=== PATIENT | female | born 1980 | race Caucasian/White ===

== ENCOUNTER → 2018-06-18 12:04 | Outpatient (CLI) | payer OTHER, MEDICAID, SELFPAY ==
[2018-06-18 13:31] LABS: Add Manual Diff / Slide Review NO; Basophils Absolute Auto 0 /uL (0-100); Basophils Percent Auto 0.6 % (0-2); Eosinophils Absolute Auto 0 /uL (0-450); Eosinophils Percent Auto 0.6 % (2-4); Hematocrit 40.4 % (36-46); Hemoglobin 13.8 g/dL (12.0-16.0); Lymphocytes Absolute Auto 1800 /uL (1100-4500); Lymphocytes Percent Auto 24.9 % (25-40); Mean Corpuscular HGB Conc 34.1 % (30-36); Mean Corpuscular Hemoglobin 30.8 PG (26-34); Mean Corpuscular Volume 90.2 fL (80-100); Monocytes Absolute Auto 700 /uL (0-900); Monocytes Percent Auto 9.9 % (3-14); Neutrophils Absolute Auto 4700 /uL (1500-7000); Platelet Count 208 X10^3/uL (150-400); Red Blood Cell Count 4.48 X10^6/uL (4.0-5.2); Red Cell Distribution Width 14.5 % (11.6-14.8); White Blood Cell Count 7.3 X10^3/uL (4.5-11.0)
[2018-06-18 14:26] LABS: Alanine Aminotransferase 34 IU/L (9-52); Albumin 4.9 g/dL (3.5-5.0); Albumin Globulin Ratio 1.5 (1.0-2.8); Alkaline Phosphatase 53 U/L (38-126); Aspartate Aminotransferase 29 IU/L (14-36); Bilirubin Total 0.7 mg/dL (0.2-1.3); Blood Urea Nitrogen 6 mg/dL (7-17); Calcium 9.8 mg/dL (8.4-10.2); Carbon Dioxide 28 mmol/L (22-32); Chloride 100 mmol/L (98-107); Estimated Glomerular Filt Rate > 60.0 mL/min (>60); Globulin 3.2 g/dL (1.7-4.1); Glucose 88 mg/dL (70-100); HEMOLYSIS < 15 (0-50); Potassium 3.5 mmol/L (3.4-5.1); Sodium 138 mmol/L (137-145); Total Protein 8.1 g/dL (6.3-8.2)
[2018-06-18 18:14] LABS: Thyroid Stimulating Hormone 0.74 uIU/mL (0.47-4.68)
== END ==
PROVIDERS: Family Provider Internal Medicine; PCP Internal Medicine; Visit Provider Internal Medicine
DX: E03.9 Hypothyroidism, unspecified (principal); K21.9 Gastro-esophageal reflux disease without esophagitis; K58.9 Irritable bowel syndrome, unspecified; N39.46 Mixed incontinence
CPT/HCPCS: 36415; 80053; 84439; 84443; 85025

== ENCOUNTER → 2018-06-27 13:46 | Outpatient (CLI) | payer OTHER, MEDICAID, SELFPAY ==
--- NOTE | 2018-06-27 | DI.MG.S_ITS ---
BILATERAL DIGITAL DIAGNOSTIC MAMMOGRAM 3D/2D: 06/27/2018 CLINICAL: Baseline exam. Right breast skin thickening. No prior exams were available for comparison. The tissue of both breasts is heterogeneously dense. This may lower the sensitivity of mammography. No significant masses, calcifications, or other findings are seen in either breast. IMPRESSION: INCOMPLETE: NEEDS ADDITIONAL IMAGING EVALUATION There is no abnormality seen in the right breast to correspond with the skin thickening in the upper outer quadrant, however, ultrasound is recommended. There is no abnormality seen in the right axilla to correspond with the pain in the right axilla, however, ultrasound is recommended. This exam was interpreted at Station ID: [id number]. NOTE: For mammograms, a report in lay terms will be sent to the patient. Approximately 15% of breast malignancies will not be visualized mammographically. In the management of a palpable breast mass, a negative mammogram must not discourage biopsy of a clinically suspicious lesion. Electronically Signed By: Oscar romero/farhana:06/27/2018 14:40:15 copy to: Patricio Jauregui ACR BI-RADS Category 0: Incomplete [id number]
--- NOTE | 2018-06-27 | DI.US.S_ITS ---
LIMITED ULTRASOUND OF RIGHT BREAST AND AXILLA: 06/27/2018 CLINICAL: Skin thickening and axillary pain. [facility] of the right breast 10 o'clock, and axilla regions was performed on the areas of interest. IMPRESSION: NEGATIVE There is no sonographic evidence of malignancy. There is no abnormality seen in the right breast to correspond with the skin thickening, however, clinical followup is recommended. There is no abnormality seen in the right axilla to correspond with the pain in the right axilla, however, clinical followup is recommended. A 1 year screening mammogram is recommended. This exam was interpreted at Station ID: [id number]. Electronically Signed By: Oscar romero/farhana:06/27/2018 14:42:55 letter sent: Clinical Evaluation Ultrasound BI-RADS: 1 Negative
== END ==
PROVIDERS: PCP Internal Medicine; Visit Provider Naturopath
DX: R92.8 Other abnormal and inconclusive findings on diagnostic imaging of breast (principal); N64.59 Other signs and symptoms in breast; N64.4 Mastodynia
CPT/HCPCS: 76642; 77066; G0279

== ENCOUNTER 2018-09-05 07:30 | Outpatient (RCR) | payer OTHER, MEDICAID, SELFPAY ==
--- NOTE | 2018-07-25 08:48 | PT.OIE ---
Current Diagnoses Chondromalacia patellae, right knee (07/25/18) Past Medical History (Last Updated 10/23/17 @ 12:07 by Patricio Jauregui MD) Acquired hypothyroidism (Chronic 10/13/10) Irritable bowel syndrome without diarrhea (Chronic 10/13/10) Delayed gastric emptying (Chronic 05/31/15) Allergic rhinitis, unspecified (Chronic 10/13/10) Acid reflux (Chronic) Mixed stress and urge urinary incontinence (Chronic 02/04/15) Psychophysiological insomnia (Chronic 02/04/15) Varicose veins (Inactive 02/04/15) Acne, unspecified (Chronic 10/13/10) IBS (irritable bowel syndrome) (Chronic) Past Surgical History (Last Updated 10/22/17 @ 14:42 by Nora Valenzuela) Status post laparoscopic cholecystectomy (Resolved) Provider Visit Care Team Role Provider Type Patricio Jauregui MD Primary Care Provider Physician Specialty: Internal Medicine Address: [address] [place] [address], [id number] Email: [email or web address] Sandip Kuhn MD Attending Provider Non-Staff Specialty: Orthopedics Address: [address] [place] [address], [id number] Email: Physical Therapy Initial Evaluation PT-OP-A Visit Information Start: 07/24/18 18:48 Freq: Status: Active Protocol: Document 07/25/18 07:31 [facility] (Rec: 07/25/18 08:48 [facility] [id number]) Out-Patient Physical Therapy Visit Information Visit Information Visit Type Initial Evaluation Visit Start Time 07:35 Visit Stop Time 08:20 Total Visit Minutes 45 Visit Number 1 Number of DICE TABLE PERSON Visits 0 PT-OP-B Current Condition Start: 07/24/18 18:48 Freq: Status: Active Protocol: Document 07/25/18 07:31 [facility] (Rec: 07/25/18 08:48 [facility] [id number]) Current Condition History of Current Condition History of Current Condition Pt reports she was out hiking in the summer of 2016 and her knee was swollen and it got better in the winter when she was more active. Pt reports in spring it started to be a problem again with more activity. Pt reports he hikes about 4 miles a day and does yoga. Pt reports at the end of the day it is achey but it doesn't hurt much until later after activity. Prior Treatments and Tests Xray & MRI reports Treatment Goals Patient/Caregiver Goals Prevent anything worse from happening, strengthen PT-OP-C Subjective Start: 07/24/18 18:48 Freq: Status: Active Protocol: Document 07/25/18 07:31 [facility] (Rec: 07/25/18 08:48 [facility] [id number]) OP-PT Pain Assessment Location R knee Pain Location Details kneecap & med knee Intensity 3 Scale Used Numeric (1 - 10) Description Burning Frequency Intermittent Pain Duration 30 min to an hour only if she gets off of it Other Pain Aggravating Factors uphills, stairs up, yoga(squat positions), squat Pain Alleviating Factors Cold Inactivity PT-OP-F Manual Assessment Start: 07/24/18 18:48 Freq: Status: Active Protocol: Document 07/25/18 07:31 [facility] (Rec: 07/25/18 08:48 [facility] [id number]) Manual Assessments Soft Tissue Assessment Soft Tissue Mobility Assessment calf tightness & HS tightness without tenderness; med joint line tenderness Joint Mobility Assessment Joint Mobility Assessment IR of R femur & tibia & L IR femur & mild IR of tibia; able to SLS without issue EO; EC for about 3 sec B; inf glide of patella crepetis; squatting creates crepitis with pain w/ repetition; compensated supination R>L foot PT-OP-G Mobility & Gait Start: 07/24/18 18:48 Freq: Status: Active Protocol: Document 07/25/18 07:31 [facility] (Rec: 07/25/18 08:48 [facility] [id number]) OP Gait Assessment Comments Gait Comments Pt amb with excesssive rotation & lat shearing of pelvis Stair Climbing Evaluation Comments Stair Climbing Comments WNL PT-OP-K Range of Motion Start: 07/24/18 18:48 Freq: Status: Active Protocol: Document 07/25/18 07:31 [facility] (Rec: 07/25/18 08:48 [facility] [id number]) Knee Goniometric Range of Motion Knee Measured in Degrees Right Patient Position Supine Flexion Active (degrees) 140 Extension Active (degrees) 0 PT-OP-L Special Tests Start: 07/24/18 18:48 Freq: Status: Active Protocol: Document 07/25/18 07:31 [facility] (Rec: 07/25/18 08:48 [facility] [id number]) Special Tests Hip Special Tests Straight Leg Raise Test Results R HS slightly less than less both WNL Tremaine Test Results pain in R knee-WNL flexiblity Knee Special Tests Posterior Draw Test Results neg Catherine's Test Results neg Christel Test Test Results neg Varus- 25 Degrees Test Results neg Valgus- 25 Degrees Test Results neg PT-OP-M Strength Start: 07/24/18 18:48 Freq: Status: Active Protocol: Document 07/25/18 07:31 [facility] (Rec: 07/25/18 08:48 [facility] [id number]) Hip Strength Hip Manual Muscle Testing Right Flexion (L2) 4+ Good+ Extension (S1) 4+ Good+ Abduction 4+ Good+ Adduction 5 Normal External Rotation 5 Normal Internal Rotation 5 Normal Left Flexion (L2) 4+ Good+ Extension (S1) 4+ Good+ Abduction 5 Normal Adduction 5 Normal External Rotation 5 Normal Internal Rotation 5 Normal Knee Strength Knee Manual Muscle Testing Right Flexion (S2) 5 Normal Extension (L3) 5 Normal Left Flexion (S2) 5 Normal Extension (L3) 5 Normal Ankle/Foot Strength Ankle and Foot Manual Muscle Testing Right Dorsiflexion (L4) 5 Normal Plantarflexion (S1) 5 Normal Left Dorsiflexion (L4) 5 Normal Plantarflexion (S1) 5 Normal PT-OP-Q Treatments Start: 07/24/18 18:48 Freq: Status: Active Protocol: Document 07/25/18 07:31 [facility] (Rec: 07/25/18 08:48 [facility] [id number]) Therapeutic Exercises Sidelying Exercises hip abd Sidelying Exercise Name vs wall Side right Reps/Minutes 10 Standing Exercises squat Standing Exercise Name wall squat Side bilateral Reps/Minutes 8 Comments focus on knee position quad stretch Standing Exercise Name over bench & foot to glute hold Side right Reps/Minutes 30 sec Manual Therapy Treatment Taping KT Body Location 3 Y strips ant knee & quad Treatment Focus med patellar glide Type of Tape Kinesio Tape PT-OP-T Assessment and Plan Start: 07/24/18 18:48 Freq: Status: Active Protocol: Document 07/25/18 07:31 [facility] (Rec: 07/25/18 08:48 [facility] [id number]) Physical Therapy Assessment Rehab Potential Rehabilitation Potential Excellent Evaluation Complexity Number of Personal Factors/Comorbidities 1-2 Number of Body Systems Impaired 4 or More Clinical Presentation at Evaluation Stable Impairments Impairments Activity Tolerance Balance Functional Activities Functional Mobility Pain Posture Soft Tissue Mobility Strength Goals strength Short Term Goal (STG) Pt will be indep with HEP STG Duration 08/25/18 Traffic Lieutenant Goal (LTG) Pt will have 5/5 LE strength and be tested with 5/5 LPM & VCT in order to show good stability to allow her to cont her active lifestyle and have no resulting pain. LTG Duration 09/24/18 pain Short Term Goal (STG) Pt will have good squat and lunge form and be able to participate in yoga routines with modifications as needed without knee pain. STG Duration 08/25/18 Mcfp Goal (LTG) Pt will not experience pain at the end of the day if she does repetitive squatting or significant amount of uphilll activity. LTG Duration 09/24/18 Assessment Summary Assessment Pt presents with R knee pain likely d/t chondramalacia patella and lat tracking of patella with ext. She experiences crepetitis with knee flex/ext and is concerned about making her symptoms worse as she would like to keep up her active lifestyle. 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 she would benefit from skilled PT in order to cont her active lifestyle with no pain. Physical Therapy Plan Frequency and Duration Frequency of Treatment 2x/Week Duration of Treatment 2 months Plan of Care Start Date 07/25/18 Plan of Care End Date 09/24/18 Therapeutic Interventions Therapeutic Interventions Aquatic Therapy Balance Training Gait Training Home Exercise Program Joint Mobilizations Manual Therapy Neuromuscular Re-education Patient/Caregiver Education Self-Care/Home Management Soft Tissue Mobilization Taping Therapeutic Activities Therapeutic Exercises Modalities Cold Pack/Ice Massage Electric Stimulation Hot Packs Infrared Therapy Iontophoresis Ultrasound Next Visit Focus/Plan Next Note Type Treatment Note Next Visit Plan Squatting mechanics, hip extension strenthening, PNF post depression
--- NOTE | 2018-07-25 08:48 | PT.OPPOC ---
Current Diagnoses Chondromalacia patellae, right knee (07/25/18) Provider Visit Care Team Role Provider Type Patricio Jauregui MD Primary Care Provider Physician Specialty: Internal Medicine Address: [address] [place] [address], [id number] Email: [email or web address] Sandip Kuhn MD Attending Provider Non-Staff Specialty: Orthopedics Address: [address] [place] [address] [place], [address] Email: Plan Of Care PT-OP-T Assessment and Plan Start: 07/24/18 18:48 Freq: Status: Active Protocol: Document 07/25/18 07:31 [facility] (Rec: 07/25/18 08:48 [facility] [id number]) Physical Therapy Assessment Rehab Potential Rehabilitation Potential Excellent Evaluation Complexity Number of Personal Factors/Comorbidities 1-2 Number of Body Systems Impaired 4 or More Clinical Presentation at Evaluation Stable Impairments Impairments Activity Tolerance Balance Functional Activities Functional Mobility Pain Posture Soft Tissue Mobility Strength Goals strength Short Term Goal (STG) Pt will be indep with HEP STG Duration 08/25/18 Shelter Goal (LTG) Pt will have 5/5 LE strength and be tested with 5/5 LPM & VCT in order to show good stability to allow her to cont her active lifestyle and have no resulting pain. LTG Duration 09/24/18 pain Short Term Goal (STG) Pt will have good squat and lunge form and be able to participate in yoga routines with modifications as needed without knee pain. STG Duration 08/25/18 Shelter Goal (LTG) Pt will not experience pain at the end of the day if she does repetitive squatting or significant amount of uphilll activity. LTG Duration 09/24/18 Assessment Summary Assessment Pt presents with R knee pain likely d/t chondramalacia patella and lat tracking of patella with ext. She experiences crepetitis with knee flex/ext and is concerned about making her symptoms worse as she would like to keep up her active lifestyle. 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 she would benefit from skilled PT in order to cont her active lifestyle with no pain. Physical Therapy Plan Frequency and Duration Frequency of Treatment 2x/Week Duration of Treatment 2 months Plan of Care Start Date 07/25/18 Plan of Care End Date 09/24/18 Therapeutic Interventions Therapeutic Interventions Aquatic Therapy Balance Training Gait Training Home Exercise Program Joint Mobilizations Manual Therapy Neuromuscular Re-education Patient/Caregiver Education Self-Care/Home Management Soft Tissue Mobilization Taping Therapeutic Activities Therapeutic Exercises Modalities Cold Pack/Ice Massage Electric Stimulation Hot Packs Infrared Therapy Iontophoresis Ultrasound Next Visit Focus/Plan Next Note Type Treatment Note Next Visit Plan Squatting mechanics, hip extension strenthening, PNF post depression Plan of Care Dates Plan of Care Start Date 07/25/18 Plan of Care End Date 09/24/18 Please Sign and Return: I have reviewed this Plan of Care and certify that the skilled therapy services above are required to meet the patient?s needs. Physician Signature Date Printed Name and Credentials Clinical Instructor Signature Printed Name and Credentials
--- NOTE | 2018-07-30 08:37 | PT.OTN ---
Current Diagnoses Chondromalacia patellae, right knee (07/30/18) Physical Therapy Treatment Note PT-OP-A Visit Information Start: 07/24/18 18:48 Freq: Status: Active Protocol: Document 07/30/18 07:25 [facility] (Rec: 07/30/18 08:36 [facility] [id number]) Out-Patient Physical Therapy Visit Information Visit Information Visit Type Treatment Note Visit Start Time 07:30 Visit Stop Time 08:10 Total Visit Minutes 40 Visit Number 2 Number of AUDIO/VIDEO TECHNICIAN Visits 0 PT-OP-B Current Condition Start: 07/24/18 18:48 Freq: Status: Active Protocol: Document 07/25/18 07:31 [facility] (Rec: 07/25/18 08:48 [facility] [id number]) Current Condition History of Current Condition History of Current Condition Pt reports she was out hiking in the summer of 2016 and her knee was swollen and it got better in the winter when she was more active. Pt reports in spring it started to be a problem again with more activity. Pt reports he hikes about 4 miles a day and does yoga. Pt reports at the end of the day it is achey but it doesn't hurt much until later after activity. Prior Treatments and Tests Xray & MRI reports Treatment Goals Patient/Caregiver Goals Prevent anything worse from happening, strengthen PT-OP-C Subjective Start: 07/24/18 18:48 Freq: Status: Active Protocol: Document 07/30/18 07:25 [facility] (Rec: 07/30/18 08:36 [facility] [id number]) OP-PT Subjective Patient Comments Patient Comments Pt reports she liked the taping a lot. She has done the exercises a few times since last session. PT-OP-F Manual Assessment Start: 07/24/18 18:48 Freq: Status: Active Protocol: Document 07/25/18 07:31 [facility] (Rec: 07/25/18 08:48 [facility] [id number]) Manual Assessments Soft Tissue Assessment Soft Tissue Mobility Assessment calf tightness & HS tightness without tenderness; med joint line tenderness Joint Mobility Assessment Joint Mobility Assessment IR of R femur & tibia & L IR femur & mild IR of tibia; able to SLS without issue EO; EC for about 3 sec B; inf glide of patella crepetis; squatting creates crepitis with pain w/ repetition; compensated supination R>L foot PT-OP-G Mobility & Gait Start: 07/24/18 18:48 Freq: Status: Active Protocol: Document 07/25/18 07:31 [facility] (Rec: 07/25/18 08:48 [facility] [id number]) OP Gait Assessment Comments Gait Comments Pt amb with excesssive rotation & lat shearing of pelvis Stair Climbing Evaluation Comments Stair Climbing Comments WNL PT-OP-K Range of Motion Start: 07/24/18 18:48 Freq: Status: Active Protocol: Document 07/25/18 07:31 [facility] (Rec: 07/25/18 08:48 [facility] [id number]) Knee Goniometric Range of Motion Knee Measured in Degrees Right Patient Position Supine Flexion Active (degrees) 140 Extension Active (degrees) 0 PT-OP-L Special Tests Start: 07/24/18 18:48 Freq: Status: Active Protocol: Document 07/25/18 07:31 [facility] (Rec: 07/25/18 08:48 [facility] [id number]) Special Tests Hip Special Tests Straight Leg Raise Test Results R HS slightly less than less both WNL Tremaine Test Results pain in R knee-WNL flexiblity Knee Special Tests Posterior Draw Test Results neg Catherine's Test Results neg Christel Test Test Results neg Varus- 25 Degrees Test Results neg Valgus- 25 Degrees Test Results neg PT-OP-M Strength Start: 07/24/18 18:48 Freq: Status: Active Protocol: Document 07/25/18 07:31 [facility] (Rec: 07/25/18 08:48 [facility] [id number]) Hip Strength Hip Manual Muscle Testing Right Flexion (L2) 4+ Good+ Extension (S1) 4+ Good+ Abduction 4+ Good+ Adduction 5 Normal External Rotation 5 Normal Internal Rotation 5 Normal Left Flexion (L2) 4+ Good+ Extension (S1) 4+ Good+ Abduction 5 Normal Adduction 5 Normal External Rotation 5 Normal Internal Rotation 5 Normal Knee Strength Knee Manual Muscle Testing Right Flexion (S2) 5 Normal Extension (L3) 5 Normal Left Flexion (S2) 5 Normal Extension (L3) 5 Normal Ankle/Foot Strength Ankle and Foot Manual Muscle Testing Right Dorsiflexion (L4) 5 Normal Plantarflexion (S1) 5 Normal Left Dorsiflexion (L4) 5 Normal Plantarflexion (S1) 5 Normal PT-OP-Q Treatments Start: 07/24/18 18:48 Freq: Status: Active Protocol: Document 07/30/18 07:25 [facility] (Rec: 07/30/18 08:36 [facility] [id number]) Therapeutic Exercises Supine Exercises hip flex isometric Supine Exercise Name flex & diagonal w/core engagment Side bilateral Reps/Minutes 30 sec ea Prone Exercises hip ext Prone Exercise Name alt w/core engagment Side bilateral Reps/Minutes 10 Sidelying Exercises hip abd Sidelying Exercise Name vs wall Side right Reps/Minutes 10 Standing Exercises squatting Standing Exercise Name w/ruler on back Side bilateral Reps/Minutes 8x2 hip hinge Standing Exercise Name w/yard stick on back Side bilateral Reps/Minutes 10 squat Standing Exercise Name wall squat Side bilateral Reps/Minutes 8 Comments focus on knee position Therapeutic Activity Therapeutic Activity standing posture Name edu on neutral alignment Comments avoiding knee ext Manual Therapy Treatment Soft Tissue Mobilization ITB Body Location ITB & lat quad Mobilization Type Rolling Strumming Comments in tremaine test position Taping KT Body Location 3 Y strips ant knee & quad Treatment Focus med patellar glide Type of Tape Kinesio Tape PT-OP-T Assessment and Plan Start: 07/24/18 18:48 Freq: Status: Active Protocol: Document 07/30/18 07:25 [facility] (Rec: 07/30/18 08:36 [facility] [id number]) Physical Therapy Assessment Goals strength Short Term Goal (STG) Pt will be indep with HEP STG Duration 08/25/18 Residential Goal (LTG) Pt will have 5/5 LE strength and be tested with 5/5 LPM & VCT in order to show good stability to allow her to cont her active lifestyle and have no resulting pain. LTG Duration 09/24/18 pain Short Term Goal (STG) Pt will have good squat and lunge form and be able to participate in yoga routines with modifications as needed without knee pain. STG Duration 08/25/18 Residential Goal (LTG) Pt will not experience pain at the end of the day if she does repetitive squatting or significant amount of uphilll activity. LTG Duration 09/24/18 Assessment Summary Assessment Pt had difficulty maintaining neutral spine during exercises . She goes into significantly inc lumbar lordosis & ant tilted pelvis and requires cueing neutral positioning. She has some dec core control which liikely contributes to her her knee instability & pain. Physical Therapy Plan Frequency and Duration Frequency of Treatment 2x/Week Duration of Treatment 2 months Plan of Care Start Date 07/25/18 Plan of Care End Date 09/24/18 Next Visit Focus/Plan Next Note Type Treatment Note Next Visit Plan Cont to work on posture & maintaining posture during squat; STM to ITB and tape as needed
--- NOTE | 2018-08-01 16:11 | PT.OTN ---
Current Diagnoses Chondromalacia patellae, right knee (08/01/18) Physical Therapy Treatment Note PT-OP-A Visit Information Start: 07/24/18 18:48 Freq: Status: Active Protocol: Document 08/01/18 07:30 BS (Rec: 08/01/18 07:27 [id number]) Out-Patient Physical Therapy Visit Information Visit Information Visit Type Treatment Note Visit Start Time 07:35 Visit Stop Time 08:15 Total Visit Minutes 40 Visit Number 3 Number of AIRCRAFT CAPTAIN Visits 0 PT-OP-B Current Condition Start: 07/24/18 18:48 Freq: Status: Active Protocol: Document 07/25/18 07:31 [facility] (Rec: 07/25/18 08:48 [facility] [id number]) Current Condition History of Current Condition History of Current Condition Pt reports she was out hiking in the summer of 2016 and her knee was swollen and it got better in the winter when she was more active. Pt reports in spring it started to be a problem again with more activity. Pt reports he hikes about 4 miles a day and does yoga. Pt reports at the end of the day it is achey but it doesn't hurt much until later after activity. Prior Treatments and Tests Xray & MRI reports Treatment Goals Patient/Caregiver Goals Prevent anything worse from happening, strengthen PT-OP-C Subjective Start: 07/24/18 18:48 Freq: Status: Active Protocol: Document 08/01/18 07:30 BS (Rec: 08/01/18 07:27 BS [id number]) OP-PT Subjective Patient Comments Patient Comments Pt continues to report benefits from taping. She is more aware of posture, no resting knee pain today. Mostly with kneeling and going up stairs. PT-OP-F Manual Assessment Start: 07/24/18 18:48 Freq: Status: Active Protocol: Document 07/25/18 07:31 [facility] (Rec: 07/25/18 08:48 [facility] [id number]) Manual Assessments Soft Tissue Assessment Soft Tissue Mobility Assessment calf tightness & HS tightness without tenderness; med joint line tenderness Joint Mobility Assessment Joint Mobility Assessment IR of R femur & tibia & L IR femur & mild IR of tibia; able to SLS without issue EO; EC for about 3 sec B; inf glide of patella crepetis; squatting creates crepitis with pain w/ repetition; compensated supination R>L foot PT-OP-G Mobility & Gait Start: 07/24/18 18:48 Freq: Status: Active Protocol: Document 07/25/18 07:31 [facility] (Rec: 07/25/18 08:48 [facility] [id number]) OP Gait Assessment Comments Gait Comments Pt amb with excesssive rotation & lat shearing of pelvis Stair Climbing Evaluation Comments Stair Climbing Comments WNL PT-OP-K Range of Motion Start: 07/24/18 18:48 Freq: Status: Active Protocol: Document 07/25/18 07:31 [facility] (Rec: 07/25/18 08:48 [facility] [id number]) Knee Goniometric Range of Motion Knee Measured in Degrees Right Patient Position Supine Flexion Active (degrees) 140 Extension Active (degrees) 0 PT-OP-L Special Tests Start: 07/24/18 18:48 Freq: Status: Active Protocol: Document 07/25/18 07:31 [facility] (Rec: 07/25/18 08:48 [facility] [id number]) Special Tests Hip Special Tests Straight Leg Raise Test Results R HS slightly less than less both WNL Tremaine Test Results pain in R knee-WNL flexiblity Knee Special Tests Posterior Draw Test Results neg Catherine's Test Results neg Christel Test Test Results neg Varus- 25 Degrees Test Results neg Valgus- 25 Degrees Test Results neg PT-OP-M Strength Start: 07/24/18 18:48 Freq: Status: Active Protocol: Document 07/25/18 07:31 [facility] (Rec: 07/25/18 08:48 [facility] [id number]) Hip Strength Hip Manual Muscle Testing Right Flexion (L2) 4+ Good+ Extension (S1) 4+ Good+ Abduction 4+ Good+ Adduction 5 Normal External Rotation 5 Normal Internal Rotation 5 Normal Left Flexion (L2) 4+ Good+ Extension (S1) 4+ Good+ Abduction 5 Normal Adduction 5 Normal External Rotation 5 Normal Internal Rotation 5 Normal Knee Strength Knee Manual Muscle Testing Right Flexion (S2) 5 Normal Extension (L3) 5 Normal Left Flexion (S2) 5 Normal Extension (L3) 5 Normal Ankle/Foot Strength Ankle and Foot Manual Muscle Testing Right Dorsiflexion (L4) 5 Normal Plantarflexion (S1) 5 Normal Left Dorsiflexion (L4) 5 Normal Plantarflexion (S1) 5 Normal PT-OP-Q Treatments Start: 07/24/18 18:48 Freq: Status: Active Protocol: Document 08/01/18 07:30 BS (Rec: 08/01/18 16:03 BS [id number]) Therapeutic Exercises Sidelying Exercises 1 Sidelying Exercise Name ITB stretch, quad Side right Reps/Minutes 2x30 Comments manual stretching ITB and quad hip abd Side right Reps/Minutes 2x10 Comments on mat table today Standing Exercises 4 Standing Exercise Name 4 inch step down/unilateral squat Side right Reps/Minutes x8 Comments neutral pelvis, manual guidance for knee position 3 Standing Exercise Name hip extension Side bilateral Resistance 2# ankle weight Reps/Minutes x10 each Comments Single limb pelvic stability, avoid lordosis 2 Standing Exercise Name Sidestepping Equipment Used #2 band above knees Comments avoiding genu valgum 1 Standing Exercise Name Monster Walk Equipment Used #2 band above knees Comments avoiding genu valgum squat Standing Exercise Name wall squat with hip ER Side bilateral Equipment Used #2 tband around knees Reps/Minutes x10 Comments focus on knee position, avoid locked knees with extension Manual Therapy Treatment Taping KT Body Location 3 Y strips ant knee & quad Treatment Focus med patellar glide Type of Tape Kinesio Tape PT-OP-T Assessment and Plan Start: 07/24/18 18:48 Freq: Status: Active Protocol: Document 08/01/18 07:30 BS (Rec: 08/01/18 16:03 BS [id number]) Physical Therapy Assessment Goals strength Short Term Goal (STG) Pt will be indep with HEP STG Duration 08/25/18 Pbx Operator Goal (LTG) Pt will have 5/5 LE strength and be tested with 5/5 LPM & VCT in order to show good stability to allow her to cont her active lifestyle and have no resulting pain. LTG Duration 09/24/18 pain Short Term Goal (STG) Pt will have good squat and lunge form and be able to participate in yoga routines with modifications as needed without knee pain. STG Duration 08/25/18 Long-Term Goal (LTG) Pt will not experience pain at the end of the day if she does repetitive squatting or significant amount of uphilll activity. LTG Duration 09/24/18 Assessment Summary Assessment [facility] so went barefoot for standing hip abduction exercises. She required VCs to avoid excessive lumbar lordosis and genuvalgum and locking of knees with terminal extension during squats. Pt felt that maintaining neutral knee position with monster walks while barefoot put too much pressure on her lateral foot with supination. Pt encouraged to wear tennis shoes next session. Physical Therapy Plan Next Visit Focus/Plan Next Note Type Treatment Note Next Visit Plan Continue to work on knee position with dynamic hip/knee strengthening exercises. Progress as able.
--- NOTE | 2018-08-06 08:32 | PT.OTN ---
Current Diagnoses Chondromalacia patellae, right knee (08/06/18) Physical Therapy Treatment Note PT-OP-A Visit Information Start: 07/24/18 18:48 Freq: Status: Active Protocol: Document 08/06/18 08:23 (Rec: 08/06/18 08:32 [id number]) Out-Patient Physical Therapy Visit Information Visit Information Visit Type Treatment Note Visit Start Time 07:30 Visit Stop Time 08:15 Total Visit Minutes 45 Visit Number 4 Number of SLICING MACHINE TENDER Visits 1 PT-OP-B Current Condition Start: 07/24/18 18:48 Freq: Status: Active Protocol: Document 07/25/18 07:31 [facility] (Rec: 07/25/18 08:48 [facility] [id number]) Current Condition History of Current Condition History of Current Condition Pt reports she was out hiking in the summer of 2016 and her knee was swollen and it got better in the winter when she was more active. Pt reports in spring it started to be a problem again with more activity. Pt reports he hikes about 4 miles a day and does yoga. Pt reports at the end of the day it is achey but it doesn't hurt much until later after activity. Prior Treatments and Tests Xray & MRI reports Treatment Goals Patient/Caregiver Goals Prevent anything worse from happening, strengthen PT-OP-C Subjective Start: 07/24/18 18:48 Freq: Status: Active Protocol: Document 08/06/18 08:23 (Rec: 08/06/18 08:32 [id number]) OP-PT Subjective Patient Comments Patient Comments Pt denies knee pain today, tolerated a decent hike this weekend well, taping was very helpful. PT-OP-F Manual Assessment Start: 07/24/18 18:48 Freq: Status: Active Protocol: Document 07/25/18 07:31 [facility] (Rec: 07/25/18 08:48 [facility] [id number]) Manual Assessments Soft Tissue Assessment Soft Tissue Mobility Assessment calf tightness & HS tightness without tenderness; med joint line tenderness Joint Mobility Assessment Joint Mobility Assessment IR of R femur & tibia & L IR femur & mild IR of tibia; able to SLS without issue EO; EC for about 3 sec B; inf glide of patella crepetis; squatting creates crepitis with pain w/ repetition; compensated supination R>L foot PT-OP-G Mobility & Gait Start: 07/24/18 18:48 Freq: Status: Active Protocol: Document 07/25/18 07:31 [facility] (Rec: 07/25/18 08:48 [facility] [id number]) OP Gait Assessment Comments Gait Comments Pt amb with excesssive rotation & lat shearing of pelvis Stair Climbing Evaluation Comments Stair Climbing Comments WNL PT-OP-K Range of Motion Start: 07/24/18 18:48 Freq: Status: Active Protocol: Document 07/25/18 07:31 [facility] (Rec: 07/25/18 08:48 [facility] [id number]) Knee Goniometric Range of Motion Knee Measured in Degrees Right Patient Position Supine Flexion Active (degrees) 140 Extension Active (degrees) 0 PT-OP-L Special Tests Start: 07/24/18 18:48 Freq: Status: Active Protocol: Document 07/25/18 07:31 [facility] (Rec: 07/25/18 08:48 [facility] [id number]) Special Tests Hip Special Tests Straight Leg Raise Test Results R HS slightly less than less both WNL Tremaine Test Results pain in R knee-WNL flexiblity Knee Special Tests Posterior Draw Test Results neg Catherine's Test Results neg Christel Test Test Results neg Varus- 25 Degrees Test Results neg Valgus- 25 Degrees Test Results neg PT-OP-M Strength Start: 07/24/18 18:48 Freq: Status: Active Protocol: Document 07/25/18 07:31 [facility] (Rec: 07/25/18 08:48 [facility] [id number]) Hip Strength Hip Manual Muscle Testing Right Flexion (L2) 4+ Good+ Extension (S1) 4+ Good+ Abduction 4+ Good+ Adduction 5 Normal External Rotation 5 Normal Internal Rotation 5 Normal Left Flexion (L2) 4+ Good+ Extension (S1) 4+ Good+ Abduction 5 Normal Adduction 5 Normal External Rotation 5 Normal Internal Rotation 5 Normal Knee Strength Knee Manual Muscle Testing Right Flexion (S2) 5 Normal Extension (L3) 5 Normal Left Flexion (S2) 5 Normal Extension (L3) 5 Normal Ankle/Foot Strength Ankle and Foot Manual Muscle Testing Right Dorsiflexion (L4) 5 Normal Plantarflexion (S1) 5 Normal Left Dorsiflexion (L4) 5 Normal Plantarflexion (S1) 5 Normal PT-OP-Q Treatments Start: 07/24/18 18:48 Freq: Status: Active Protocol: Document 08/06/18 08:23 [facility] (Rec: 08/06/18 08:32 [email or web address]) Therapeutic Exercises Supine Exercises hip flex isometric Supine Exercise Name flex & diagonal w/core engagment Side bilateral Reps/Minutes 30 sec ea Sidelying Exercises 1 Sidelying Exercise Name ITB stretch, quad Side right Reps/Minutes 2x30 Comments manual stretching ITB and quad hip abd Side right Reps/Minutes 2x10 Comments on mat table today Standing Exercises 4 Standing Exercise Name 4 inch step down/unilateral squat Side right Equipment Used mirror Reps/Minutes 10x Comments neutral pelvis, manual guidance for knee position 3 Standing Exercise Name hip extension Side bilateral Resistance 2# ankle weight Equipment Used mirror Reps/Minutes x15 each Comments Single limb pelvic stability, avoid lordosis 2 Standing Exercise Name Sidestepping Equipment Used yellow TB Comments avoiding genu valgum 1 Standing Exercise Name Monster Walk Equipment Used Yellow TB Comments avoiding genu valgum hip hinge Standing Exercise Name w/yard stick on back Side bilateral Reps/Minutes 10 squat Standing Exercise Name wall squat with hip ER Side bilateral Equipment Used #2 tband around knees Reps/Minutes x10 Comments focus on knee position, avoid locked knees with extension Manual Therapy Treatment Soft Tissue Mobilization ITB Body Location ITB & lat quad Mobilization Type Rolling Strumming Comments in tremaine test position Taping KT Body Location 3 Y strips ant knee & quad Treatment Focus med patellar glide Type of Tape Kinesio Tape PT-OP-T Assessment and Plan Start: 07/24/18 18:48 Freq: Status: Active Protocol: Document 08/06/18 08:23 (Rec: 08/06/18 08:32 [id number]) Physical Therapy Assessment Assessment Summary Assessment Pt with athletic shoes on, decreased pronation with exercise. Pt with improving awareness of knee alignment and movement patterns. Physical Therapy Plan Next Visit Focus/Plan Next Note Type Treatment Note Next Visit Plan Continue to work on knee position with dynamic hip/knee strengthening exercises. Progress as able.
--- NOTE | 2018-08-08 08:38 | PT.OTN ---
Current Diagnoses Chondromalacia patellae, right knee (08/08/18) Physical Therapy Treatment Note PT-OP-A Visit Information Start: 07/24/18 18:48 Freq: Status: Active Protocol: Document 08/08/18 07:30 [facility] (Rec: 08/08/18 08:38 [facility] [id number]) Out-Patient Physical Therapy Visit Information Visit Information Visit Type Treatment Note Visit Start Time 07:30 Visit Stop Time 08:10 Total Visit Minutes 40 Visit Number 5 Number of REINFORCED IRONWORKER Visits 0 PT-OP-B Current Condition Start: 07/24/18 18:48 Freq: Status: Active Protocol: Document 07/25/18 07:31 [facility] (Rec: 07/25/18 08:48 [facility] [id number]) Current Condition History of Current Condition History of Current Condition Pt reports she was out hiking in the summer of 2016 and her knee was swollen and it got better in the winter when she was more active. Pt reports in spring it started to be a problem again with more activity. Pt reports he hikes about 4 miles a day and does yoga. Pt reports at the end of the day it is achey but it doesn't hurt much until later after activity. Prior Treatments and Tests Xray & MRI reports Treatment Goals Patient/Caregiver Goals Prevent anything worse from happening, strengthen PT-OP-C Subjective Start: 07/24/18 18:48 Freq: Status: Active Protocol: Document 08/08/18 07:30 [facility] (Rec: 08/08/18 08:38 [facility] [id number]) OP-PT Subjective Patient Comments Patient Comments Pt reports she did a 9 mile hike with 3k ft of elevation without knee pain. Feels like she is turning a corner. PT-OP-F Manual Assessment Start: 07/24/18 18:48 Freq: Status: Active Protocol: Document 07/25/18 07:31 [facility] (Rec: 07/25/18 08:48 [facility] [id number]) Manual Assessments Soft Tissue Assessment Soft Tissue Mobility Assessment calf tightness & HS tightness without tenderness; med joint line tenderness Joint Mobility Assessment Joint Mobility Assessment IR of R femur & tibia & L IR femur & mild IR of tibia; able to SLS without issue EO; EC for about 3 sec B; inf glide of patella crepetis; squatting creates crepitis with pain w/ repetition; compensated supination R>L foot PT-OP-G Mobility & Gait Start: 07/24/18 18:48 Freq: Status: Active Protocol: Document 07/25/18 07:31 [facility] (Rec: 07/25/18 08:48 [facility] [id number]) OP Gait Assessment Comments Gait Comments Pt amb with excesssive rotation & lat shearing of pelvis Stair Climbing Evaluation Comments Stair Climbing Comments WNL PT-OP-K Range of Motion Start: 07/24/18 18:48 Freq: Status: Active Protocol: Document 07/25/18 07:31 [facility] (Rec: 07/25/18 08:48 [facility] [id number]) Knee Goniometric Range of Motion Knee Measured in Degrees Right Patient Position Supine Flexion Active (degrees) 140 Extension Active (degrees) 0 PT-OP-L Special Tests Start: 07/24/18 18:48 Freq: Status: Active Protocol: Document 07/25/18 07:31 [facility] (Rec: 07/25/18 08:48 [facility] [id number]) Special Tests Hip Special Tests Straight Leg Raise Test Results R HS slightly less than less both WNL Tremaine Test Results pain in R knee-WNL flexiblity Knee Special Tests Posterior Draw Test Results neg Catherine's Test Results neg Christel Test Test Results neg Varus- 25 Degrees Test Results neg Valgus- 25 Degrees Test Results neg PT-OP-M Strength Start: 07/24/18 18:48 Freq: Status: Active Protocol: Document 07/25/18 07:31 [facility] (Rec: 07/25/18 08:48 [facility] [id number]) Hip Strength Hip Manual Muscle Testing Right Flexion (L2) 4+ Good+ Extension (S1) 4+ Good+ Abduction 4+ Good+ Adduction 5 Normal External Rotation 5 Normal Internal Rotation 5 Normal Left Flexion (L2) 4+ Good+ Extension (S1) 4+ Good+ Abduction 5 Normal Adduction 5 Normal External Rotation 5 Normal Internal Rotation 5 Normal Knee Strength Knee Manual Muscle Testing Right Flexion (S2) 5 Normal Extension (L3) 5 Normal Left Flexion (S2) 5 Normal Extension (L3) 5 Normal Ankle/Foot Strength Ankle and Foot Manual Muscle Testing Right Dorsiflexion (L4) 5 Normal Plantarflexion (S1) 5 Normal Left Dorsiflexion (L4) 5 Normal Plantarflexion (S1) 5 Normal PT-OP-Q Treatments Start: 07/24/18 18:48 Freq: Status: Active Protocol: Document 08/08/18 07:30 [facility] (Rec: 08/08/18 08:38 [facility] [id number]) Therapeutic Exercises Standing Exercises 4 Standing Exercise Name 5 inch step down/unilateral squat Side bilateral Equipment Used mirror Reps/Minutes 10x Comments neutral pelvis, manual guidance for knee position 3 Standing Exercise Name lunges Side bilateral Reps/Minutes 4x20ft Comments walking with focus on neutral lumbar porsition & may 2 Standing Exercise Name Sidestepping Equipment Used greenTB Reps/Minutes 20ft B Comments avoiding genu valgum 1 Standing Exercise Name Monster Walk Equipment Used greeen TB Reps/Minutes 4x20ft Comments avoiding genu valgum squatting Standing Exercise Name w/ruler on back as needed Side bilateral Reps/Minutes 10x2 Gait Training Gait Activity gait at wall exercise Description gait at wall for post depression walking Description in mirror Comments focus on dec lat movement of pelvis & improvement of push off Manual Therapy Treatment Taping KT Body Location 3 Y strips ant knee & quad Treatment Focus med patellar glide Type of Tape Kinesio Tape PT-OP-T Assessment and Plan Start: 07/24/18 18:48 Freq: Status: Active Protocol: Document 08/08/18 07:30 [facility] (Rec: 08/08/18 08:38 [facility] [id number]) Physical Therapy Assessment Goals strength Short Term Goal (STG) Pt will be indep with HEP STG Duration 08/25/18 Usp Goal (LTG) Pt will have 5/5 LE strength and be tested with 5/5 LPM & VCT in order to show good stability to allow her to cont her active lifestyle and have no resulting pain. LTG Duration 09/24/18 pain Short Term Goal (STG) Pt will have good squat and lunge form and be able to participate in yoga routines with modifications as needed without knee pain. STG Duration 08/25/18 Tutor Coordinator Goal (LTG) Pt will not experience pain at the end of the day if she does repetitive squatting or significant amount of uphilll activity. LTG Duration 09/24/18 Assessment Summary Assessment Pt requires cueing for knee position and dec lordosis during dynamic actvities. Gait improved with ceuing. Physical Therapy Plan Frequency and Duration Frequency of Treatment 2x/Week Duration of Treatment 2 months Plan of Care Start Date 07/25/18 Plan of Care End Date 09/24/18 Therapeutic Interventions Therapeutic Interventions Aquatic Therapy Balance Training Gait Training Home Exercise Program Joint Mobilizations Manual Therapy Neuromuscular Re-education Patient/Caregiver Education Self-Care/Home Management Soft Tissue Mobilization Taping Therapeutic Activities Therapeutic Exercises Modalities Cold Pack/Ice Massage Electric Stimulation Hot Packs Infrared Therapy Iontophoresis Ultrasound Next Visit Focus/Plan Next Note Type Treatment Note Next Visit Plan Cont to work on knee positioning with dynamic activities
--- NOTE | 2018-08-13 10:16 | PT.OTN ---
Current Diagnoses Chondromalacia patellae, right knee (08/13/18) Physical Therapy Treatment Note PT-OP-A Visit Information Start: 07/24/18 18:48 Freq: Status: Active Protocol: Document 08/13/18 07:32 [facility] (Rec: 08/13/18 10:16 [facility] [id number]) Out-Patient Physical Therapy Visit Information Visit Information Visit Type Treatment Note Visit Start Time 07:30 Visit Stop Time 08:10 Total Visit Minutes 40 Visit Number 6 Number of TIRE TRUCKER Visits 0 PT-OP-B Current Condition Start: 07/24/18 18:48 Freq: Status: Active Protocol: Document 07/25/18 07:31 [facility] (Rec: 07/25/18 08:48 [facility] [id number]) Current Condition History of Current Condition History of Current Condition Pt reports she was out hiking in the summer of 2016 and her knee was swollen and it got better in the winter when she was more active. Pt reports in spring it started to be a problem again with more activity. Pt reports he hikes about 4 miles a day and does yoga. Pt reports at the end of the day it is achey but it doesn't hurt much until later after activity. Prior Treatments and Tests Xray & MRI reports Treatment Goals Patient/Caregiver Goals Prevent anything worse from happening, strengthen PT-OP-C Subjective Start: 07/24/18 18:48 Freq: Status: Active Protocol: Document 08/13/18 07:32 [facility] (Rec: 08/13/18 10:16 [facility] [id number]) OP-PT Subjective Patient Comments Patient Comments Reports knee has been feeling good overall PT-OP-F Manual Assessment Start: 07/24/18 18:48 Freq: Status: Active Protocol: Document 07/25/18 07:31 [facility] (Rec: 07/25/18 08:48 [facility] [id number]) Manual Assessments Soft Tissue Assessment Soft Tissue Mobility Assessment calf tightness & HS tightness without tenderness; med joint line tenderness Joint Mobility Assessment Joint Mobility Assessment IR of R femur & tibia & L IR femur & mild IR of tibia; able to SLS without issue EO; EC for about 3 sec B; inf glide of patella crepetis; squatting creates crepitis with pain w/ repetition; compensated supination R>L foot PT-OP-G Mobility & Gait Start: 07/24/18 18:48 Freq: Status: Active Protocol: Document 07/25/18 07:31 [facility] (Rec: 07/25/18 08:48 [facility] [id number]) OP Gait Assessment Comments Gait Comments Pt amb with excesssive rotation & lat shearing of pelvis Stair Climbing Evaluation Comments Stair Climbing Comments WNL PT-OP-K Range of Motion Start: 07/24/18 18:48 Freq: Status: Active Protocol: Document 07/25/18 07:31 [facility] (Rec: 07/25/18 08:48 [facility] [id number]) Knee Goniometric Range of Motion Knee Measured in Degrees Right Patient Position Supine Flexion Active (degrees) 140 Extension Active (degrees) 0 PT-OP-L Special Tests Start: 07/24/18 18:48 Freq: Status: Active Protocol: Document 07/25/18 07:31 [facility] (Rec: 07/25/18 08:48 [facility] [id number]) Special Tests Hip Special Tests Straight Leg Raise Test Results R HS slightly less than less both WNL Tremaine Test Results pain in R knee-WNL flexiblity Knee Special Tests Posterior Draw Test Results neg Catherine's Test Results neg Christel Test Test Results neg Varus- 25 Degrees Test Results neg Valgus- 25 Degrees Test Results neg PT-OP-M Strength Start: 07/24/18 18:48 Freq: Status: Active Protocol: Document 07/25/18 07:31 [facility] (Rec: 07/25/18 08:48 [facility] [id number]) Hip Strength Hip Manual Muscle Testing Right Flexion (L2) 4+ Good+ Extension (S1) 4+ Good+ Abduction 4+ Good+ Adduction 5 Normal External Rotation 5 Normal Internal Rotation 5 Normal Left Flexion (L2) 4+ Good+ Extension (S1) 4+ Good+ Abduction 5 Normal Adduction 5 Normal External Rotation 5 Normal Internal Rotation 5 Normal Knee Strength Knee Manual Muscle Testing Right Flexion (S2) 5 Normal Extension (L3) 5 Normal Left Flexion (S2) 5 Normal Extension (L3) 5 Normal Ankle/Foot Strength Ankle and Foot Manual Muscle Testing Right Dorsiflexion (L4) 5 Normal Plantarflexion (S1) 5 Normal Left Dorsiflexion (L4) 5 Normal Plantarflexion (S1) 5 Normal PT-OP-Q Treatments Start: 07/24/18 18:48 Freq: Status: Active Protocol: Document 08/13/18 07:32 [facility] (Rec: 08/13/18 10:16 [facility] [id number]) Therapeutic Exercises Sidelying Exercises 1 Sidelying Exercise Name basking seal Side right Reps/Minutes 10 Standing Exercises gait Standing Exercise Name gait at wall Side bilateral Reps/Minutes 5 se cholds x3 bosu Standing Exercise Name bosu step up w/SLS Side bilateral Reps/Minutes 10 4 Standing Exercise Name 5 inch step up down/unilateral squat fwd/back Side bilateral Equipment Used mirror Reps/Minutes 10x Comments neutral pelvis, manual guidance for knee position 3 Standing Exercise Name lunges Side bilateral Reps/Minutes 2x20ft Comments walking with focus on neutral lumbar porsition & may 2 Standing Exercise Name Sidestepping w/squat Equipment Used greenTB Reps/Minutes 20ftx2 B Comments avoiding genu valgum 1 Standing Exercise Name Monster Walk &back walk Equipment Used greeen TB Reps/Minutes 2x20ft Comments avoiding genu valgum Manual Therapy Treatment Taping KT Body Location 3 Y strips ant knee & quad Treatment Focus med patellar glide Type of Tape Kinesio Tape Neuro Re-Education Treatment Other Activities PNF Details ant elevation & post depression Comments rhythmic initiation, isometric holds, combo of isotonics PT-OP-T Assessment and Plan Start: 07/24/18 18:48 Freq: Status: Active Protocol: Document 08/13/18 07:32 [facility] (Rec: 08/13/18 10:16 [facility] [id number]) Physical Therapy Assessment Goals strength Short Term Goal (STG) Pt will be indep with HEP STG Duration 08/25/18 [employer] Goal (LTG) Pt will have 5/5 LE strength and be tested with 5/5 LPM & VCT in order to show good stability to allow her to cont her active lifestyle and have no resulting pain. LTG Duration 09/24/18 pain Short Term Goal (STG) Pt will have good squat and lunge form and be able to participate in yoga routines with modifications as needed without knee pain. STG Duration 08/25/18 [employer] Goal (LTG) Pt will not experience pain at the end of the day if she does repetitive squatting or significant amount of uphilll activity. LTG Duration 09/24/18 Assessment Summary Assessment Pt is improving with knee position control & with mechanics. She is able to tolerate exercises with inc difficulty without pain. Physical Therapy Plan Frequency and Duration Frequency of Treatment 2x/Week Duration of Treatment 2 months Plan of Care Start Date 07/25/18 Plan of Care End Date 09/24/18 Next Visit Focus/Plan Next Note Type Treatment Note Next Visit Plan step up/down w/ sport cord
--- NOTE | 2018-08-15 08:58 | PT.OTN ---
Current Diagnoses Chondromalacia patellae, right knee (08/15/18) Physical Therapy Treatment Note PT-OP-A Visit Information Start: 07/24/18 18:48 Freq: Status: Active Protocol: Document 08/15/18 07:26 [facility] (Rec: 08/15/18 08:31 [facility] [id number]) Out-Patient Physical Therapy Visit Information Visit Information Visit Type Treatment Note Visit Start Time 07:30 Visit Stop Time 08:12 Total Visit Minutes 42 Visit Number 7 Number of APPRENTICE Visits 0 PT-OP-B Current Condition Start: 07/24/18 18:48 Freq: Status: Active Protocol: Document 07/25/18 07:31 [facility] (Rec: 07/25/18 08:48 [facility] [id number]) Current Condition History of Current Condition History of Current Condition Pt reports she was out hiking in the summer of 2016 and her knee was swollen and it got better in the winter when she was more active. Pt reports in spring it started to be a problem again with more activity. Pt reports he hikes about 4 miles a day and does yoga. Pt reports at the end of the day it is achey but it doesn't hurt much until later after activity. Prior Treatments and Tests Xray & MRI reports Treatment Goals Patient/Caregiver Goals Prevent anything worse from happening, strengthen PT-OP-C Subjective Start: 07/24/18 18:48 Freq: Status: Active Protocol: Document 08/15/18 07:26 [facility] (Rec: 08/15/18 08:31 [facility] [id number]) OP-PT Subjective Patient Comments Patient Comments Reports she ran with her son yesterday and did well without pain Patient Reported Progress Improving PT-OP-F Manual Assessment Start: 07/24/18 18:48 Freq: Status: Active Protocol: Document 07/25/18 07:31 [facility] (Rec: 07/25/18 08:48 [facility] [id number]) Manual Assessments Soft Tissue Assessment Soft Tissue Mobility Assessment calf tightness & HS tightness without tenderness; med joint line tenderness Joint Mobility Assessment Joint Mobility Assessment IR of R femur & tibia & L IR femur & mild IR of tibia; able to SLS without issue EO; EC for about 3 sec B; inf glide of patella crepetis; squatting creates crepitis with pain w/ repetition; compensated supination R>L foot PT-OP-G Mobility & Gait Start: 07/24/18 18:48 Freq: Status: Active Protocol: Document 07/25/18 07:31 [facility] (Rec: 07/25/18 08:48 [facility] [id number]) OP Gait Assessment Comments Gait Comments Pt amb with excesssive rotation & lat shearing of pelvis Stair Climbing Evaluation Comments Stair Climbing Comments WNL PT-OP-K Range of Motion Start: 07/24/18 18:48 Freq: Status: Active Protocol: Document 07/25/18 07:31 [facility] (Rec: 07/25/18 08:48 [facility] [id number]) Knee Goniometric Range of Motion Knee Measured in Degrees Right Patient Position Supine Flexion Active (degrees) 140 Extension Active (degrees) 0 PT-OP-L Special Tests Start: 07/24/18 18:48 Freq: Status: Active Protocol: Document 07/25/18 07:31 [facility] (Rec: 07/25/18 08:48 [facility] [id number]) Special Tests Hip Special Tests Straight Leg Raise Test Results R HS slightly less than less both WNL Tremaine Test Results pain in R knee-WNL flexiblity Knee Special Tests Posterior Draw Test Results neg Catherine's Test Results neg Christel Test Test Results neg Varus- 25 Degrees Test Results neg Valgus- 25 Degrees Test Results neg PT-OP-M Strength Start: 07/24/18 18:48 Freq: Status: Active Protocol: Document 07/25/18 07:31 [facility] (Rec: 07/25/18 08:48 [facility] [id number]) Hip Strength Hip Manual Muscle Testing Right Flexion (L2) 4+ Good+ Extension (S1) 4+ Good+ Abduction 4+ Good+ Adduction 5 Normal External Rotation 5 Normal Internal Rotation 5 Normal Left Flexion (L2) 4+ Good+ Extension (S1) 4+ Good+ Abduction 5 Normal Adduction 5 Normal External Rotation 5 Normal Internal Rotation 5 Normal Knee Strength Knee Manual Muscle Testing Right Flexion (S2) 5 Normal Extension (L3) 5 Normal Left Flexion (S2) 5 Normal Extension (L3) 5 Normal Ankle/Foot Strength Ankle and Foot Manual Muscle Testing Right Dorsiflexion (L4) 5 Normal Plantarflexion (S1) 5 Normal Left Dorsiflexion (L4) 5 Normal Plantarflexion (S1) 5 Normal PT-OP-Q Treatments Start: 07/24/18 18:48 Freq: Status: Active Protocol: Document 08/15/18 07:26 [facility] (Rec: 08/15/18 08:31 [facility] [id number]) Gym Equipment Sport Cord step up Exercise Details fwd, side & back Cord/Resistance red Reps/Duration 10 rep each B Therapeutic Exercises Sidelying Exercises hip abd Side right Reps/Minutes 10 Standing Exercises 2 Standing Exercise Name Sidestepping w/squat Equipment Used greenTB Reps/Minutes 20ftx2 B Comments avoiding genu valgum 1 Standing Exercise Name Monster Walk &back walk Equipment Used greeen TB Reps/Minutes 2x20ft Comments avoiding genu valgum PT-OP-T Assessment and Plan Start: 07/24/18 18:48 Freq: Status: Active Protocol: Document 08/15/18 07:26 [facility] (Rec: 08/15/18 08:31 [facility] [id number]) Physical Therapy Assessment Goals strength Short Term Goal (STG) Pt will be indep with HEP STG Duration 08/25/18 [employer] Goal (LTG) Pt will have 5/5 LE strength and be tested with 5/5 LPM & VCT in order to show good stability to allow her to cont her active lifestyle and have no resulting pain. LTG Duration 09/24/18 pain Short Term Goal (STG) Pt will have good squat and lunge form and be able to participate in yoga routines with modifications as needed without knee pain. STG Duration 08/25/18 [employer] Goal (LTG) Pt will not experience pain at the end of the day if she does repetitive squatting or significant amount of uphilll activity. LTG Duration 09/24/18 Assessment Summary Assessment Improved ability w/step ups and down w/resistance. She has some IR of femur with stepping and did manual thearpy to address Physical Therapy Plan Frequency and Duration Frequency of Treatment 2x/Week Duration of Treatment 2 months Plan of Care Start Date 07/25/18 Plan of Care End Date 09/24/18 Next Visit Focus/Plan Next Note Type Treatment Note Next Visit Plan PNF, shuttle balance
--- NOTE | 2018-08-29 09:12 | PT.OTN ---
Current Diagnoses Chondromalacia patellae, right knee (08/29/18) Physical Therapy Treatment Note PT-OP-A Visit Information Start: 07/24/18 18:48 Freq: Status: Active Protocol: Document 08/29/18 07:29 [facility] (Rec: 08/29/18 09:12 [facility] [id number]) Out-Patient Physical Therapy Visit Information Visit Information Visit Type Treatment Note Visit Start Time 07:35 Visit Stop Time 08:13 Total Visit Minutes 38 Visit Number 8 Number of NEWSPAPER CLIPPER Visits 0 PT-OP-B Current Condition Start: 07/24/18 18:48 Freq: Status: Active Protocol: Document 07/25/18 07:31 [facility] (Rec: 07/25/18 08:48 [facility] [id number]) Current Condition History of Current Condition History of Current Condition Pt reports she was out hiking in the summer of 2016 and her knee was swollen and it got better in the winter when she was more active. Pt reports in spring it started to be a problem again with more activity. Pt reports he hikes about 4 miles a day and does yoga. Pt reports at the end of the day it is achey but it doesn't hurt much until later after activity. Prior Treatments and Tests Xray & MRI reports Treatment Goals Patient/Caregiver Goals Prevent anything worse from happening, strengthen PT-OP-C Subjective Start: 07/24/18 18:48 Freq: Status: Active Protocol: Document 08/29/18 07:29 [facility] (Rec: 08/29/18 09:12 [facility] [id number]) OP-PT Subjective Patient Comments Patient Comments Reports no issues w/running, biking but some burning at end of day after long hikes after also biking. reports some in post L knee thats has been intermittent PT-OP-F Manual Assessment Start: 07/24/18 18:48 Freq: Status: Active Protocol: Document 07/25/18 07:31 [facility] (Rec: 07/25/18 08:48 [facility] [id number]) Manual Assessments Soft Tissue Assessment Soft Tissue Mobility Assessment calf tightness & HS tightness without tenderness; med joint line tenderness Joint Mobility Assessment Joint Mobility Assessment IR of R femur & tibia & L IR femur & mild IR of tibia; able to SLS without issue EO; EC for about 3 sec B; inf glide of patella crepetis; squatting creates crepitis with pain w/ repetition; compensated supination R>L foot PT-OP-G Mobility & Gait Start: 07/24/18 18:48 Freq: Status: Active Protocol: Document 07/25/18 07:31 [facility] (Rec: 07/25/18 08:48 [facility] [id number]) OP Gait Assessment Comments Gait Comments Pt amb with excesssive rotation & lat shearing of pelvis Stair Climbing Evaluation Comments Stair Climbing Comments WNL PT-OP-K Range of Motion Start: 07/24/18 18:48 Freq: Status: Active Protocol: Document 07/25/18 07:31 [facility] (Rec: 07/25/18 08:48 [facility] [id number]) Knee Goniometric Range of Motion Knee Measured in Degrees Right Patient Position Supine Flexion Active (degrees) 140 Extension Active (degrees) 0 PT-OP-L Special Tests Start: 07/24/18 18:48 Freq: Status: Active Protocol: Document 07/25/18 07:31 [facility] (Rec: 07/25/18 08:48 [facility] [id number]) Special Tests Hip Special Tests Straight Leg Raise Test Results R HS slightly less than less both WNL Tremaine Test Results pain in R knee-WNL flexiblity Knee Special Tests Posterior Draw Test Results neg Catherine's Test Results neg Christel Test Test Results neg Varus- 25 Degrees Test Results neg Valgus- 25 Degrees Test Results neg PT-OP-M Strength Start: 07/24/18 18:48 Freq: Status: Active Protocol: Document 07/25/18 07:31 [facility] (Rec: 07/25/18 08:48 [facility] [id number]) Hip Strength Hip Manual Muscle Testing Right Flexion (L2) 4+ Good+ Extension (S1) 4+ Good+ Abduction 4+ Good+ Adduction 5 Normal External Rotation 5 Normal Internal Rotation 5 Normal Left Flexion (L2) 4+ Good+ Extension (S1) 4+ Good+ Abduction 5 Normal Adduction 5 Normal External Rotation 5 Normal Internal Rotation 5 Normal Knee Strength Knee Manual Muscle Testing Right Flexion (S2) 5 Normal Extension (L3) 5 Normal Left Flexion (S2) 5 Normal Extension (L3) 5 Normal Ankle/Foot Strength Ankle and Foot Manual Muscle Testing Right Dorsiflexion (L4) 5 Normal Plantarflexion (S1) 5 Normal Left Dorsiflexion (L4) 5 Normal Plantarflexion (S1) 5 Normal PT-OP-Q Treatments Start: 07/24/18 18:48 Freq: Status: Active Protocol: Document 08/29/18 07:29 [facility] (Rec: 08/29/18 09:12 [facility] [id number]) Gym Equipment Shuttle Balance red Details fwd &side Comments WBOS, NBOS, staggered stance B Sport Cord step up Exercise Details fwd, side & back Cord/Resistance red Reps/Duration 10 rep each B Comments 8 in step Gait Training Gait Activity gait at [place] exercise Description gait at wall for post depression walking Description in mirror Comments focus on dec lat movement of pelvis & improvement of push off; exhaggerated and reg walking Neuro Re-Education Treatment Other Activities PNF Details ant elevation & post depression Comments rhythmic initiation, isometric holds, combo of isotonics w/ use of LE facilitation PT-OP-T Assessment and Plan Start: 07/24/18 18:48 Freq: Status: Active Protocol: Document 08/29/18 07:29 [facility] (Rec: 08/29/18 09:12 [facility] [id number]) Physical Therapy Assessment Goals strength Short Term Goal (STG) Pt will be indep with HEP STG Duration 08/25/18 [employer] Goal (LTG) Pt will have 5/5 LE strength and be tested with 5/5 LPM & VCT in order to show good stability to allow her to cont her active lifestyle and have no resulting pain. LTG Duration 09/24/18 pain Short Term Goal (STG) Pt will have good squat and lunge form and be able to participate in yoga routines with modifications as needed without knee pain. STG Duration 08/25/18 [employer] Goal (LTG) Pt will not experience pain at the end of the day if she does repetitive squatting or significant amount of uphilll activity. LTG Duration 09/24/18 Assessment Summary Assessment Pt improved with gait with significant cueing. SHe is improving with balance and stability with exericises, Physical Therapy Plan Frequency and Duration Frequency of Treatment 2x/Week Duration of Treatment 2 months Plan of Care Start Date 07/25/18 Plan of Care End Date 09/24/18 Next Visit Focus/Plan Next Note Type Treatment Note Next Visit Plan PNF & resisted walk
--- NOTE | 2018-09-05 08:16 | PT.OTN ---
Current Diagnoses Chondromalacia patellae, right knee (09/05/18) Physical Therapy Treatment Note PT-OP-A Visit Information Start: 07/24/18 18:48 Freq: Status: Active Protocol: Document 09/05/18 07:26 [facility] (Rec: 09/05/18 08:15 [facility] [id number]) Out-Patient Physical Therapy Visit Information Visit Information Visit Type Treatment Note Visit Start Time 07:30 Visit Stop Time 08:10 Total Visit Minutes 40 Visit Number 9 Number of MANAGER PRINTING Visits 0 PT-OP-B Current Condition Start: 07/24/18 18:48 Freq: Status: Active Protocol: Document 07/25/18 07:31 [facility] (Rec: 07/25/18 08:48 [facility] [id number]) Current Condition History of Current Condition History of Current Condition Pt reports she was out hiking in the summer of 2016 and her knee was swollen and it got better in the winter when she was more active. Pt reports in spring it started to be a problem again with more activity. Pt reports he hikes about 4 miles a day and does yoga. Pt reports at the end of the day it is achey but it doesn't hurt much until later after activity. Prior Treatments and Tests Xray & MRI reports Treatment Goals Patient/Caregiver Goals Prevent anything worse from happening, strengthen PT-OP-C Subjective Start: 07/24/18 18:48 Freq: Status: Active Protocol: Document 09/05/18 07:26 [facility] (Rec: 09/05/18 08:15 [facility] [id number]) OP-PT Subjective Patient Comments Patient Comments Reports she did yoga without pain but noticed her knee turned in during yoga and she had to work on position a lot. Patient Reported Progress Improving PT-OP-F Manual Assessment Start: 07/24/18 18:48 Freq: Status: Active Protocol: Document 07/25/18 07:31 [facility] (Rec: 07/25/18 08:48 [facility] [id number]) Manual Assessments Soft Tissue Assessment Soft Tissue Mobility Assessment calf tightness & HS tightness without tenderness; med joint line tenderness Joint Mobility Assessment Joint Mobility Assessment IR of R femur & tibia & L IR femur & mild IR of tibia; able to SLS without issue EO; EC for about 3 sec B; inf glide of patella crepetis; squatting creates crepitis with pain w/ repetition; compensated supination R>L foot PT-OP-G Mobility & Gait Start: 07/24/18 18:48 Freq: Status: Active Protocol: Document 07/25/18 07:31 [facility] (Rec: 07/25/18 08:48 [facility] [id number]) OP Gait Assessment Comments Gait Comments Pt amb with excesssive rotation & lat shearing of pelvis Stair Climbing Evaluation Comments Stair Climbing Comments WNL PT-OP-K Range of Motion Start: 07/24/18 18:48 Freq: Status: Active Protocol: Document 07/25/18 07:31 [facility] (Rec: 07/25/18 08:48 [facility] [id number]) Knee Goniometric Range of Motion Knee Measured in Degrees Right Patient Position Supine Flexion Active (degrees) 140 Extension Active (degrees) 0 PT-OP-L Special Tests Start: 07/24/18 18:48 Freq: Status: Active Protocol: Document 07/25/18 07:31 [facility] (Rec: 07/25/18 08:48 [facility] [id number]) Special Tests Hip Special Tests Straight Leg Raise Test Results R HS slightly less than less both WNL Tremaine Test Results pain in R knee-WNL flexiblity Knee Special Tests Posterior Draw Test Results neg Catherine's Test Results neg Christel Test Test Results neg Varus- 25 Degrees Test Results neg Valgus- 25 Degrees Test Results neg PT-OP-M Strength Start: 07/24/18 18:48 Freq: Status: Active Protocol: Document 07/25/18 07:31 [facility] (Rec: 07/25/18 08:48 [facility] [id number]) Hip Strength Hip Manual Muscle Testing Right Flexion (L2) 4+ Good+ Extension (S1) 4+ Good+ Abduction 4+ Good+ Adduction 5 Normal External Rotation 5 Normal Internal Rotation 5 Normal Left Flexion (L2) 4+ Good+ Extension (S1) 4+ Good+ Abduction 5 Normal Adduction 5 Normal External Rotation 5 Normal Internal Rotation 5 Normal Knee Strength Knee Manual Muscle Testing Right Flexion (S2) 5 Normal Extension (L3) 5 Normal Left Flexion (S2) 5 Normal Extension (L3) 5 Normal Ankle/Foot Strength Ankle and Foot Manual Muscle Testing Right Dorsiflexion (L4) 5 Normal Plantarflexion (S1) 5 Normal Left Dorsiflexion (L4) 5 Normal Plantarflexion (S1) 5 Normal PT-OP-Q Treatments Start: 07/24/18 18:48 Freq: Status: Active Protocol: Document 09/05/18 07:26 [facility] (Rec: 09/05/18 08:15 [facility] [id number]) Gait Training Gait Activity step up/downs in mirror Device Used 8 in step Comments step up with alt may & step down with focus on knee position faciliated walking Description for ant elevation gait at wall exercise Description gait at wall for post depression Comments alt LEs walking Description in mirror Comments focus on dec lat movement of pelvis & improvement of push off; exhaggerated (push off/ post dep & ant elevation)and reg walking Neuro Re-Education Treatment Other Activities PNF Details ant elevation & post depression Comments rhythmic initiation, isometric holds, combo of isotonics w/ use of LE facilitation with B LEs PT-OP-T Assessment and Plan Start: 07/24/18 18:48 Freq: Status: Active Protocol: Document 09/05/18 07:26 [facility] (Rec: 09/05/18 08:15 [facility] [id number]) Physical Therapy Assessment Goals strength Short Term Goal (STG) Pt will be indep with HEP STG Duration 08/25/18 Alf Goal (LTG) Pt will have 5/5 LE strength and be tested with 5/5 LPM & VCT in order to show good stability to allow her to cont her active lifestyle and have no resulting pain. LTG Duration 09/24/18 pain Short Term Goal (STG) Pt will have good squat and lunge form and be able to participate in yoga routines with modifications as needed without knee pain. STG Duration 08/25/18 Linoleum Tile Floor Layer Goal (LTG) Pt will not experience pain at the end of the day if she does repetitive squatting or significant amount of uphilll activity. LTG Duration 09/24/18 Assessment Summary Assessment After s/l PNF faciliation, pt had improved activation in walking. She required significant cueing for pelvis movement to be performed with LE movement. Physical Therapy Plan Frequency and Duration Frequency of Treatment 2x/Week Duration of Treatment 2 months Plan of Care Start Date 07/25/18 Plan of Care End Date 09/24/18 Next Visit Focus/Plan Next Note Type Treatment Note Next Visit Plan PNF & resisted walk and cont ot work on gait
--- NOTE | 2018-11-14 08:08 | PT.OPDS ---
Current Diagnoses Chondromalacia patellae, right knee (09/05/18) Provider Visit Care Team Role Provider Type Patricio Jauregui MD Primary Care Provider Physician Specialty: Internal Medicine Address: [address] [place] [address], [address], [place], [address] Email: [email or web address] Sandip Kuhn MD Attending Provider Non-Staff Specialty: Orthopedics Address: [address] [place] [address], [place], [address] Email: Visit Number Visit Number 9 Discharge Summary PT-OP-B Current Condition Start: 07/24/18 18:48 Freq: Status: Active Protocol: Document 07/25/18 07:31 [facility] (Rec: 07/25/18 08:48 [facility] [id number]) Current Condition History of Current Condition History of Current Condition Pt reports she was out hiking in the summer of 2016 and her knee was swollen and it got better in the winter when she was more active. Pt reports in spring it started to be a problem again with more activity. Pt reports he hikes about 4 miles a day and does yoga. Pt reports at the end of the day it is achey but it doesn't hurt much until later after activity. Prior Treatments and Tests Xray & MRI reports Treatment Goals Patient/Caregiver Goals Prevent anything worse from happening, strengthen PT-OP-C Subjective Start: 07/24/18 18:48 Freq: Status: Active Protocol: Document 09/05/18 07:26 [facility] (Rec: 09/05/18 08:15 [facility] [id number]) OP-PT Subjective Patient Comments Patient Comments Reports she did yoga without pain but noticed her knee turned in during yoga and she had to work on position a lot. Patient Reported Progress Improving PT-OP-F Manual Assessment Start: 07/24/18 18:48 Freq: Status: Active Protocol: Document 07/25/18 07:31 [facility] (Rec: 07/25/18 08:48 [facility] [id number]) Manual Assessments Soft Tissue Assessment Soft Tissue Mobility Assessment calf tightness & HS tightness without tenderness; med joint line tenderness Joint Mobility Assessment Joint Mobility Assessment IR of R femur & tibia & L IR femur & mild IR of tibia; able to SLS without issue EO; EC for about 3 sec B; inf glide of patella crepetis; squatting creates crepitis with pain w/ repetition; compensated supination R>L foot PT-OP-G Mobility & Gait Start: 07/24/18 18:48 Freq: Status: Active Protocol: Document 07/25/18 07:31 [facility] (Rec: 07/25/18 08:48 [facility] [id number]) OP Gait Assessment Comments Gait Comments Pt amb with excesssive rotation & lat shearing of pelvis Stair Climbing Evaluation Comments Stair Climbing Comments WNL PT-OP-K Range of Motion Start: 07/24/18 18:48 Freq: Status: Active Protocol: Document 07/25/18 07:31 [facility] (Rec: 07/25/18 08:48 [facility] [id number]) Knee Goniometric Range of Motion Knee Right Patient Position Supine Flexion Active (degrees) 140 Extension Active (degrees) 0 PT-OP-L Special Tests Start: 07/24/18 18:48 Freq: Status: Active Protocol: Document 07/25/18 07:31 [facility] (Rec: 07/25/18 08:48 [facility] [id number]) Special Tests Hip Special Tests Straight Leg Raise Test Results R HS slightly less than less both WNL Tremaine Test Results pain in R knee-WNL flexiblity Knee Special Tests Posterior Draw Test Results neg Catherine's Test Results neg Christel Test Test Results neg Varus- 25 Degrees Test Results neg Valgus- 25 Degrees Test Results neg PT-OP-M Strength Start: 07/24/18 18:48 Freq: Status: Active Protocol: Document 07/25/18 07:31 [facility] (Rec: 07/25/18 08:48 [facility] [id number]) Hip Strength Hip Manual Muscle Testing Right Flexion (L2) 4+ Good+ Extension (S1) 4+ Good+ Abduction 4+ Good+ Adduction 5 Normal External Rotation 5 Normal Internal Rotation 5 Normal Left Flexion (L2) 4+ Good+ Extension (S1) 4+ Good+ Abduction 5 Normal Adduction 5 Normal External Rotation 5 Normal Internal Rotation 5 Normal Knee Strength Knee Manual Muscle Testing Right Flexion (S2) 5 Normal Extension (L3) 5 Normal Left Flexion (S2) 5 Normal Extension (L3) 5 Normal Ankle/Foot Strength Ankle and Foot Manual Muscle Testing Right Dorsiflexion (L4) 5 Normal Plantarflexion (S1) 5 Normal Left Dorsiflexion (L4) 5 Normal Plantarflexion (S1) 5 Normal PT-OP-T Assessment and Plan Start: 07/24/18 18:48 Freq: Status: Active Protocol: Document 11/14/18 08:06 [facility] (Rec: 11/14/18 08:08 [facility] [id number]) Physical Therapy Plan Discharge Physical Therapy Discharge Reasons No Longer Attending PT Discharge Comments Pt cancelled all remaining appointments d/t conflicts with other activities. When called 11/13, pt reported she has not had knee pain but had not been doing the activities she normally would over the past couple monts. At the point of last appt, pt was having min pain occasionally only with more difficult hikes .
== END 2018-11-15 09:30 | disposition home or self-care (01) ==
LOC: PHYS 07:30
PROVIDERS: PCP Internal Medicine; Visit Provider Orthopaedic Surgery
DX: M22.41 Chondromalacia patellae, right knee (principal)
CPT/HCPCS: 97110; 97112; 97116; 97140; 97161; 97530

== ENCOUNTER → 2019-12-13 07:56 | Outpatient (CLI) | payer OTHER, MEDICAID, SELFPAY ==
[2019-12-13 09:57] LABS: Alanine Aminotransferase 14 IU/L (<35); Albumin 4.4 g/dL (3.5-5.0); Albumin Globulin Ratio 1.5 (1.0-2.8); Alkaline Phosphatase 50 U/L (38-126); Aspartate Aminotransferase 30 IU/L (14-36); BUN Creatinine Ratio 10.8 (6-22); Bilirubin Total 0.6 mg/dL (0.2-1.3); Blood Urea Nitrogen 8 mg/dL (7-17); Calcium 9.4 mg/dL (8.4-10.2); Carbon Dioxide 30 mmol/L (22-32); Chloride 102 mmol/L (98-107); Cholesterol 135 mg/dL (140-199); Estimated Glomerular Filt Rate > 60.0 mL/min (>60); Glucose 82 mg/dL (70-100); HDL Cholesterol 46 mg/dL (40-60); HEMOLYSIS < 15 (0-50); LDL Cholesterol Calculated 80 mg/dL (<100); Sodium 139 mmol/L (137-145); Total Protein 7.4 g/dL (6.3-8.2); Triglycerides 46 mg/dL (35-150)
[2019-12-13 10:22] LABS: Thyroid Stimulating Hormone 0.745 uIU/mL (0.47-4.68)
== END ==
PROVIDERS: PCP Internal Medicine; Referring Provider Internal Medicine; Visit Provider Internal Medicine
DX: E03.9 Hypothyroidism, unspecified (principal); Z13.1 Encounter for screening for diabetes mellitus; Z13.220 Encounter for screening for lipoid disorders; Z13.6 Encounter for screening for cardiovascular disorders
CPT/HCPCS: 36415; 80053; 80061; 84439; 84443

== ENCOUNTER → 2020-09-14 17:28 | Outpatient (CLI) | payer OTHER, MEDICAID, SELFPAY ==
[2020-09-14 17:55] LABS: Add Manual Diff / Slide Review NO; Basophils Absolute Auto 0 /uL (0-100); Basophils Percent Auto 0.6 % (0-2); Eosinophils Absolute Auto 100 /uL (0-450); Eosinophils Percent Auto 1.3 % (2-4); Hemoglobin 13.6 g/dL (12.0-16.0); Lymphocytes Absolute Auto 2800 /uL (1100-4500); Lymphocytes Percent Auto 36.5 % (25-40); Mean Corpuscular HGB Conc 33.9 % (30-36); Mean Corpuscular Hemoglobin 31.3 PG (26-34); Mean Corpuscular Volume 92.3 fL (80-100); Monocytes Absolute Auto 600 /uL (0-900); Monocytes Percent Auto 7.4 % (3-14); Neutrophils Absolute Auto 4100 /uL (1500-7000); Neutrophils Percent Auto 54.2 % (50-75); Platelet Count 200 X10^3/uL (150-400); Red Blood Cell Count 4.33 X10^6/uL (4.0-5.2); Red Cell Distribution Width 14.3 % (11.6-14.8); White Blood Cell Count 7.5 X10^3/uL (4.5-11.0)
[2020-09-14 18:17] LABS: Alanine Aminotransferase 18 IU/L (<35); Albumin 4.6 g/dL (3.5-5.0); Albumin Globulin Ratio 1.5 (1.0-2.8); Alkaline Phosphatase 62 U/L (38-126); Aspartate Aminotransferase 30 IU/L (14-36); BUN Creatinine Ratio 13.2 (6-22); Bilirubin Total 0.4 mg/dL (0.2-1.3); Blood Urea Nitrogen 9 mg/dL (7-17); C-Reactive Protein Quant < 0.5 mg/dL (<1.0); Calcium 9.6 mg/dL (8.4-10.2); Carbon Dioxide 27 mmol/L (22-32); Chloride 102 mmol/L (98-107); Estimated Glomerular Filt Rate > 60.0 mL/min (>60); Globulin 3.1 g/dL (1.7-4.1); Glucose 93 mg/dL (70-100); HEMOLYSIS < 15 (0-50); Potassium 3.9 mmol/L (3.4-5.1); Sodium 137 mmol/L (137-145); Total Protein 7.7 g/dL (6.3-8.2)
[2020-09-14 18:48] LABS: TSH w/ Reflex to FT4 2.63 uIU/mL (0.47-4.68)
[2020-09-14 18:55] LABS: Erythrocyte Sedimentation Rate 4 MM/HR (0-20)
== END ==
PROVIDERS: PCP Internal Medicine; Referring Provider Internal Medicine; Visit Provider Internal Medicine
DX: E03.9 Hypothyroidism, unspecified (principal); L29.9 Pruritus, unspecified
CPT/HCPCS: 36415; 80053; 84443; 85025; 85651; 86140

== ENCOUNTER → 2021-04-12 11:15 | Outpatient (CLI) | payer OTHER, MEDICAID, SELFPAY ==
[2021-04-12 13:47] LABS: COVID19 -Nasal RAPID Negative (Negative)
== END ==
PROVIDERS: PCP Internal Medicine; Referring Provider Physician Assistant; Visit Provider Physician Assistant
DX: Z20.822 Contact with and (suspected) exposure to COVID-19 (principal); J02.9 Acute pharyngitis, unspecified; R51.9 Headache, unspecified; R53.83 Other fatigue
CPT/HCPCS: 87635

== ENCOUNTER → 2021-05-04 08:49 | Outpatient (CLI) | payer OTHER, MEDICAID, SELFPAY ==
[2021-05-04 11:31] LABS: Free T4, Direct Thyroxine 1.51 ng/dL (0.78-2.19)
[2021-05-04 11:45] LABS: Thyroid Stimulating Hormone 0.939 uIU/mL (0.47-4.68)
== END ==
PROVIDERS: PCP Internal Medicine; Referring Provider Internal Medicine; Visit Provider Internal Medicine
DX: E03.9 Hypothyroidism, unspecified (principal)
CPT/HCPCS: 36415; 84439; 84443

== ENCOUNTER → 2021-05-28 12:21 | Outpatient (CLI) | payer OTHER, MEDICAID, SELFPAY ==
--- NOTE | 2021-05-28 12:21 | DI.MG.S_ITS ---
BILATERAL DIGITAL SCREENING MAMMOGRAM 3D/2D WITH CAD: 05/28/2021 CLINICAL: Routine screening. Comparison is made to exams dated: 06/27/2018 ultrasound and 06/27/2018 mammogram - [facility]. The tissue of both breasts is heterogeneously dense. This may lower the sensitivity of mammography. Current study was also evaluated with a Computer Aided Detection (CAD) system. No significant masses, calcifications, or other findings are seen in either breast. There has been no significant interval change. IMPRESSION: NEGATIVE There is no mammographic evidence of malignancy. A 1 year screening mammogram is recommended. This exam was interpreted at Station ID: [id number]. NOTE: For mammograms, a report in lay terms will be sent to the patient. Approximately 15% of breast malignancies will not be visualized mammographically. In the management of a palpable breast mass, a negative mammogram must not discourage biopsy of a clinically suspicious lesion. Electronically Signed By: Huber holloway/farhana:05/30/2021 07:12:17 copy to: Patricio Jauregui letter sent: Normal Exam ACR BI-RADS Category 1: Negative [id number]
== END ==
PROVIDERS: PCP Internal Medicine; Referring Provider Internal Medicine; Visit Provider Internal Medicine
DX: Z12.31 Encounter for screening mammogram for malignant neoplasm of breast (principal)
CPT/HCPCS: 77063; 77067

== ENCOUNTER → 2021-07-06 08:15 | Outpatient (CLI) | payer OTHER, MEDICAID, SELFPAY ==
--- NOTE | 2021-07-06 08:17 | DI.ECHO.S_ITS ---
[facility]---------+ [facility] +---------+ : : [address] : [place] : : : : [id number] : : : : Phone: [phone]+ Echocardiogram Report + + :Name: JEANIE MONTIEL Study Date: 07/06/2021 Height: 65 in : :[facility] ReadingLocation: Weight: 120 lb : : Gender: Female BSA: 1.6 m2 : :: 1980 Age: 41 yrs BP: 108/74 mmHg: :Reason For Study: CHEST PAIN : :Ordering Physician: DUC, : :PEDRO PABLO Hensley Performed By: Lorrie Headley : :Referring: PEDRO PABLO XAVIER : + + Interpretation Summary The left ventricle is normal in size and wall thickness. Left ventricular systolic function is normal. LVEF 55 to 60%. Diastolic parameters suggest probable normal left ventricular diastolic function and normal filling pressures. The right ventricle is normal in size and function. No significant valvular pathology seen. Procedure: A two-dimensional transthoracic echocardiogram with color flow and Doppler was performed. The study quality was technically adequate. There is no prior echocardiogram noted for this patient. The patient was in sinus rhythm with heart rates between 53-72 bpm during the exam. Left Ventricle: The left ventricle is normal in size and wall thickness. There is no thrombus. The ejection fraction is estimated to be 55-60%. Left ventricular systolic function is normal. There are no focal wall motion abnormalities. Diastolic parameters suggest probable normal left ventricular diastolic function and normal filling pressures. Right Ventricle: The right ventricle is normal in size and function. Atria: The left atrial size is normal. Right atrial size is normal. There is no Doppler evidence for an interatrial shunt. Mitral Valve: The mitral valve is normal in structure and function. There is trace mitral regurgitation. Aortic Valve: The aortic valve is trileaflet. The aortic valve opens well. There is no aortic valve stenosis. No aortic regurgitation is present. Tricuspid Valve: The tricuspid valve is normal. There is mild tricuspid regurgitation. The right ventricular systolic pressure is estimated to be at least 23 mmHg based on an estimated right atrial pressure of 3 mm Hg. Pulmonic Valve: The pulmonic valve is not well seen, but is grossly normal. There is no pulmonic valvular regurgitation. Great Vessels: The aortic root is normal size. The ascending aorta could not be visualized. The IVC is of normal diameter and collapses greater than 50% with a sniff. This suggests a low right atrial pressure of 3 mm Hg. Pericardium/ Pleura There is no pericardial effusion. There is no pleural effusion. MMode/2D Measurements & Calculations LVIDd: 4.8 cm LVOT diam: 2.0 cm LVIDs: 3.3 cm Ao root diam: 2.7 cm FS: 31.6 % Ao Arch Diam (Prox Trans): 2.0 cm IVSd: 0.54 cm LVPWd: 0.67 cm LV ruano. diameter/BSA (cm/m^2): 3.0 LV sys. diameter/BSA (cm/m^2): 2.1 LA A2 area: 17.0 cm2 RA long axis: 4.2 cm LA A4 area: 15.5 cm2 RA area: 10.0 cm2 LA length (vol): 4.2 cm RA vol: 20.0 ml LA vol: 52.9 ml RA : 12.5 ml/m2 LA vol index: 33.2 ml/m2 IVC diam: 2.0 cm RVD1 (basal): 3.1 cm RVD2 (mid): 2.7 cm TAPSE: 2.1 cm Doppler Measurements & Calculations Ao V2 max: 126.7 cm/sec LVOT Max Holden: 90.5 cm/sec Ao V2 mean: 87.4 cm/sec LV V1 max P.3 mmHg Ao max P.4 mmHg LV V1 VTI: 20.7 cm Ao mean P.5 mmHg NEREYDA(I,D): 2.2 cm2 Ao V2 VTI: 30.6 cm NEREYDA(V,D): 2.3 cm2 sev ratio: 0.68 NEREYDA indexed to BSA (cm^2/m^2): 1.4 MV E max holden: 85.8 cm/sec TR max holden: 224.0 cm/sec MV A max holden: 50.0 cm/sec TR max P.1 mmHg MV E/A: 1.7 PA V2 max: 87.2 cm/sec Med Peak E' Holden: 11.0 cm/sec PA V2 mean: 61.7 cm/sec E/E' med: 7.8 PA mean P.7 mmHg Lat Peak E' Holden: 15.4 cm/sec PA pr(Accel): 27.6 mmHg E/E' lat: 5.6 E/e' average: 6.7 MV dec time: 0.15 sec SV(LVOT): 67.7 ml Reading Physician:10:22 AM
== END ==
PROVIDERS: PCP Internal Medicine; Referring Provider Internal Medicine; Visit Provider Internal Medicine
DX: I07.1 Rheumatic tricuspid insufficiency (principal); R07.9 Chest pain, unspecified
CPT/HCPCS: 93306

== ENCOUNTER → 2021-10-26 13:50 | Outpatient (CLI) | payer OTHER, MEDICAID, SELFPAY ==
--- NOTE | 2021-10-26 | DI.RAD.S_ITS ---
PROCEDURE: XR FINGER RT MIN 2V INDICATIONS: Pain in right finger(s) TECHNIQUE: AP hand, 2 views of the 5th finger(s) acquired. COMPARISON: None. FINDINGS: Bones: No fractures or dislocations. No suspicious bony lesions. Soft tissues: No suspicious soft tissue calcifications. IMPRESSION: Unremarkable plain films, without displaced fractures seen. Dictated by: Henrik Thomas M.D. on 10/26/2021 at 14:21 Approved by: Henrik Thomas M.D. on 10/26/2021 at 14:22
== END ==
PROVIDERS: Family Provider Internal Medicine; PCP Internal Medicine; Referring Provider Naturopath; Visit Provider Naturopath
DX: M79.644 Pain in right finger(s) (principal)
CPT/HCPCS: 73140

== ENCOUNTER 2021-11-14 09:45 | Outpatient (RCR) | payer OTHER, MEDICAID, SELFPAY ==
--- NOTE | 2021-09-20 09:16 | PT.OIE ---
Current Diagnoses Pain in left knee (09/20/21) Past Medical History (Last Updated 10/23/17 @ 12:07 by Patricio Jauregui MD) Acid reflux Acne, unspecified (10/13/10) Acquired hypothyroidism (10/13/10) Allergic rhinitis, unspecified (10/13/10) Delayed gastric emptying (05/31/15) IBS (irritable bowel syndrome) Irritable bowel syndrome without diarrhea (10/13/10) Mixed stress and urge urinary incontinence (02/04/15) Psychophysiological insomnia (02/04/15) Varicose veins (02/04/15) Past Surgical History (Last Updated 10/22/17 @ 14:42 by Nora Valenzuela) Status post laparoscopic cholecystectomy Visit Care Team Role Provider Type Patricio Jauregui MD Family Provider Physician Primary Care Provider Specialty: Internal Medicine Address: [address] [place] [address], [address], [address] Email: [email or web address] Sandip Kuhn MD Attending Provider Non-Staff Referring Provider Specialty: Orthopedics Address: [address] [place] [address], [id number] Email: Physical Therapy Initial Evaluation PT-OP-A Visit Information Start: 09/15/21 17:35 Freq: Status: Active Protocol: Document 09/20/21 08:17 [facility] (Rec: 09/20/21 09:16 [facility] [id number]) Out-Patient Physical Therapy Visit Information Visit Information Visit Type Initial Evaluation Visit Note 24 visit max Visit Start Time 08:20 Visit Stop Time 08:51 Total Visit Minutes 31 Visit Number 1 Number of ROOFING APPLICATOR Visits 0 PT-OP-B Current Condition Start: 09/15/21 17:35 Freq: Status: Active Protocol: Document 09/20/21 08:17 [facility] (Rec: 09/20/21 09:16 [facility] [id number]) Current Condition History of Current Condition Onset Date 1 month ago Current Complaints L knee pain History of Current Condition Pt was in an extreme yoga class and it was moving too fast and she wasn't paying attention and it was fatigued. She felt like a pop and her knee was swollen that night. THis was a month ago. She is able to function and it has gotten better, but still painful w/pressure on med knee . Pt had a Xray that showed nothing, but MD thinks it is a meniscus tear. Prior Treatments and Tests PT for R Knee after meniscus tear Treatment Goals Patient/Caregiver Goals dec pain w/pressure on L knee, be able to do all yoga positions PT-OP-C Subjective Start: 09/15/21 17:35 Freq: Status: Active Protocol: Document 09/20/21 08:17 [facility] (Rec: 09/20/21 09:16 [facility] [id number]) Patient Questionnaires Lower Extremity Functional Scale LEFS Score 79 OP-PT Pain Assessment Location L knee Pain Location Details medial knee Scale Used 7/10w/pressure; 5/10 Description Aching,Dull Frequency Intermittent Pain Duration stops once stops motion Other Pain Aggravating Factors pressure med knee, frog pose, warrior 2, standing pedal on bike Other Pain Alleviating Factors stop activity, CBD cream PT-OP-D Balance Start: 09/15/21 17:35 Freq: Status: Active Protocol: Document 09/20/21 08:17 [facility] (Rec: 09/20/21 09:16 [facility] [id number]) Balance Tests Single Limb Standing Single Limb- Right >30 sec EO, 14 sec Single Limb- Left >30sec w/lat hip shear, 9 sec EC PT-OP-F Manual Assessment Start: 09/15/21 17:35 Freq: Status: Active Protocol: Document 09/20/21 08:17 [facility] (Rec: 09/20/21 09:16 [facility] [id number]) Manual Assessments Soft Tissue Assessment Soft Tissue Mobility Assessment med joint line tenderness L, tightness and tenderness along med quad PT-OP-G Mobility & Gait Start: 09/15/21 17:35 Freq: Status: Active Protocol: Document 09/20/21 08:17 [facility] (Rec: 09/20/21 09:16 [facility] [id number]) OP Gait Assessment Comments 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 PT-OP-J Posture/Palpation/Skin Start: 09/15/21 17:35 Freq: Status: Active Protocol: Document 09/20/21 08:17 [facility] (Rec: 09/20/21 09:16 [facility] [id number]) Posture Evaluation Duke Postural Classification System Lumbar Protective Mechanism Left AP 2 Lumbar Protective Mechanism Right AP 3 Lumbar Protective Mechanism Left PA 5 Lumbar Protective Mechanism Right PA 1 PT-OP-K Range of Motion Start: 09/15/21 17:35 Freq: Status: Active Protocol: Document 09/20/21 08:17 [facility] (Rec: 09/20/21 09:16 [facility] [id number]) Knee Goniometric Range of Motion Knee Right Flexion Active (degrees) 142 Extension Active (degrees) 1 Left Flexion Active (degrees) 133 Extension Active (degrees) 3 Comments tightness w/flex PT-OP-L Special Tests Start: 09/15/21 17:35 Freq: Status: Active Protocol: Document 09/20/21 08:17 [facility] (Rec: 09/20/21 09:16 [facility] [id number]) Special Tests Knee Special Tests Catherine's Test Results neg L Christel Test Test Results neg L Apley's Compression Test Results neg L Clara's Test Test Results mild tightness L Posterior Draw Test Results neg L Straight Leg Raise Test Results WNL Varus- 25 Degrees Test Results neg L Valgus- 25 Degrees Test Results neg L Thessaly Test 5 Degrees Test Results neg L Thessaly Test 20 Degrees Test Results neg L Tremaine Test Results WNL PT-OP-M Strength Start: 09/15/21 17:35 Freq: Status: Active Protocol: Document 09/20/21 08:17 [facility] (Rec: 09/20/21 09:16 [facility] [id number]) Hip Strength Hip Manual Muscle Testing Right Flexion (L2) 5 Normal Extension (S1) 5 Normal Abduction 5 Normal Adduction 5 Normal External Rotation 4+ Good+ Internal Rotation 4+ Good+ Left Flexion (L2) 4+ Good+ Extension (S1) 4+ Good+ Abduction 5 Normal Adduction 5 Normal External Rotation 4+ Good+ Internal Rotation 4+ Good+ Knee Strength Knee Manual Muscle Testing Right Flexion (S2) 5 Normal Extension (L3) 5 Normal Left Flexion (S2) 4+ Good+ Extension (L3) 5 Normal Ankle/Foot Strength Ankle and Foot Manual Muscle Testing Right Dorsiflexion (L4) 5 Normal Plantarflexion (S1) 5 Normal Left Dorsiflexion (L4) 5 Normal Plantarflexion (S1) 5 Normal Comments 20 heel raises B PT-OP-Q Treatments Start: 09/15/21 17:35 Freq: Status: Active Protocol: Document 09/20/21 08:17 [facility] (Rec: 09/20/21 09:16 [facility] [id number]) Therapeutic Exercises Standing Exercises gait at wall Side left Reps/Minutes 10 sec hold SL Standing Exercise Name in may in mirror focus on no lat hip hear L Side left PT-OP-T Assessment and Plan Start: 09/15/21 17:35 Freq: Status: Active Protocol: Document 09/20/21 08:17 [facility] (Rec: 09/20/21 09:16 [facility] [id number]) Physical Therapy Assessment Rehab Potential Rehabilitation Potential Excellent Evaluation Complexity Number of Personal Factors/Comorbidities 1-2 Number of Body Systems Impaired 4 or More Clinical Presentation at Evaluation Stable Impairments Impairments Edema,Functional Activities, Gait,Pain,ROM,Soft Tissue Mobility,Strength Goals ROM Prepress Supervisor Goal (LTG) Pt will have at least 140 deg of AROM flex of L knee w/o discomfort/tightness in order to allow for all activtiies requiring bending of knee. LTG Duration 11/20/21 strength Short Term Goal (STG) Pt will be indep w/HEP STG Duration 10/20 Prepress Supervisor Goal (LTG) Pt will score at least 4/5 in all planes on LPM to show improved stability & 5/5 on all LLE MMT to show improved strength to allow greater ease w/yoga and other active activities. LTG Duration 11/20/21 activity Short Term Goal (STG) Pt will be able to stand on bike in spin class w/o inc pain STG Duration 10/20/21 Prepress Supervisor Goal (LTG) Pt will be able to do all yoga poses w/o L knee pain LTG Duration 11/20/21 Assessment Summary Assessment Pt presents w/medial L knee pain w/o ligamentous laxity or positive meniscal testing, but positive for med joint line tenderness. She experienced her injury about 1 month ago when doing repetive downdogs to plank in yoga and was getting fatigued and felt something happen. When [facility] went home that evening her L knee was swollen and irritated . It has since improved with patient recovering and gradually returning to yoga and walking, but she still has pain if in warrior 2 for extended time or any pressure on med knee and notes tightness w/active flexion. 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 Physical Therapy Plan Frequency and Duration Frequency of Treatment 1-2x/week Duration of Treatment 2 months Plan of Care Start Date 09/20/21 Plan of Care End Date 11/20/21 Therapeutic Interventions Therapeutic Interventions Aquatic Therapy,Balance Training,Gait Training,Home Exercise Program,Joint Mobilizations,Manual Therapy, Patient/Caregiver Education, Self-Care/Home Management,Soft Tissue Mobilization,Taping, Therapeutic Activities, Therapeutic Exercises Next Visit Focus/Plan Next Note Type Treatment Note Next Visit Plan review exercises, look at knee tracking & tib/femur/patellar positioning, work on soft tissue restrictions around knee, do sidestep w/squat for HEP
--- NOTE | 2021-09-20 09:16 | PT.OPPOC ---
Physical, Occupational & Speech Therapy At [facility] Current Diagnoses Pain in left knee (09/20/21) Visit Care Team Role Provider Type Patricio Jauregui MD Family Provider Physician Primary Care Provider Specialty: Internal Medicine Address: [address] [place] [address], [address], [place], [address] Email: [email or web address] Sandip Kuhn MD Attending Provider Non-Staff Referring Provider Specialty: Orthopedics Address: [address] [facility] , [place], [address] Email: Plan Of Care PT-OP-T Assessment and Plan Start: 09/15/21 17:35 Freq: Status: Active Protocol: Document 09/20/21 08:17 [facility] (Rec: 09/20/21 09:16 [facility] [id number]) Physical Therapy Assessment Rehab Potential Rehabilitation Potential Excellent Evaluation Complexity Number of Personal Factors/Comorbidities 1-2 Number of Body Systems Impaired 4 or More Clinical Presentation at Evaluation Stable Impairments Impairments Edema,Functional Activities, Gait,Pain,ROM,Soft Tissue Mobility,Strength Goals ROM Senior Living Goal (LTG) Pt will have at least 140 deg of AROM flex of L knee w/o discomfort/tightness in order to allow for all activtiies requiring bending of knee. LTG Duration 11/20/21 strength Short Term Goal (STG) Pt will be indep w/HEP STG Duration 10/20 Lopper Goal (LTG) Pt will score at least 4/5 in all planes on LPM to show improved stability & 5/5 on all LLE MMT to show improved strength to allow greater ease w/yoga and other active activities. LTG Duration 11/20/21 activity Short Term Goal (STG) Pt will be able to stand on bike in spin class w/o inc pain STG Duration 10/20/21 Senior Living Goal (LTG) Pt will be able to do all yoga poses w/o L knee pain LTG Duration 11/20/21 Assessment Summary Assessment Pt presents w/medial L knee pain w/o ligamentous laxity or positive meniscal testing, but positive for med joint line tenderness. She experienced her injury about 1 month ago when doing repetive downdogs to plank in yoga and was getting fatigued and felt something happen. When [facility] went home that evening her L knee was swollen and irritated . It has since improved with patient recovering and gradually returning to yoga and walking, but she still has pain if in warrior 2 for extended time or any pressure on med knee and notes tightness w/active flexion. 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 Physical Therapy Plan Frequency and Duration Frequency of Treatment 1-2x/week Duration of Treatment 2 months Plan of Care Start Date 09/20/21 Plan of Care End Date 11/20/21 Therapeutic Interventions Therapeutic Interventions Aquatic Therapy,Balance Training,Gait Training,Home Exercise Program,Joint Mobilizations,Manual Therapy, Patient/Caregiver Education, Self-Care/Home Management,Soft Tissue Mobilization,Taping, Therapeutic Activities, Therapeutic Exercises Next Visit Focus/Plan Next Note Type Treatment Note Next Visit Plan review exercises, look at knee tracking & tib/femur/patellar positioning, work on soft tissue restrictions around knee, do sidestep w/squat for HEP Plan of Care Dates Plan of Care Start Date 09/20/21 Plan of Care End Date 11/20/21 Electronically Signed by: Tiana Ramirez, PT 09/20/21 0916 If you are in agreement with this Plan of Care, please return a signed and dated copy. I have reviewed this Plan of Care and certify that the skilled therapy services above are required to meet the patient?s needs. Physician Signature Date Printed Name and Credentials Clinical Instructor Signature Printed Name and Credentials
--- NOTE | 2021-09-22 17:32 | PT.OTN ---
Current Diagnoses Pain in left knee (09/22/21) Physical Therapy Treatment Note PT-OP-A Visit Information Start: 09/15/21 17:35 Freq: Status: Active Protocol: Document 09/22/21 15:21 [facility] (Rec: 09/22/21 17:32 [facility] [id number]) Out-Patient Physical Therapy Visit Information Visit Information Visit Type Treatment Note Visit Note 24 visit max Visit Start Time 15:18 Visit Stop Time 16:00 Total Visit Minutes 42 Visit Number 2 Number of CITY MAIL CARRIER Visits 0 PT-OP-B Current Condition Start: 09/15/21 17:35 Freq: Status: Active Protocol: Document 09/20/21 08:17 [facility] (Rec: 09/20/21 09:16 [facility] [id number]) Current Condition History of Current Condition Onset Date 1 month ago Current Complaints L knee pain History of Current Condition Pt was in an extreme yoga class and it was moving too fast and she wasn't paying attention and it was fatigued. She felt like a pop and her knee was swollen that night. THis was a month ago. She is able to function and it has gotten better, but still painful w/pressure on med knee . Pt had a Xray that showed nothing, but MD thinks it is a meniscus tear. Prior Treatments and Tests PT for R Knee after meniscus tear Treatment Goals Patient/Caregiver Goals dec pain w/pressure on L knee, be able to do all yoga positions PT-OP-C Subjective Start: 09/15/21 17:35 Freq: Status: Active Protocol: Document 09/22/21 15:21 [facility] (Rec: 09/22/21 17:32 [facility] [id number]) OP-PT Subjective Patient Comments Patient Comments Pt reports she has been seeing chiro d/t hips being off PT-OP-D Balance Start: 09/15/21 17:35 Freq: Status: Active Protocol: Document 09/20/21 08:17 [facility] (Rec: 09/20/21 09:16 [facility] [id number]) Balance Tests Single Limb Standing Single Limb- Right >30 sec EO, 14 sec Single Limb- Left >30sec w/lat hip shear, 9 sec EC PT-OP-F Manual Assessment Start: 09/15/21 17:35 Freq: Status: Active Protocol: Document 09/20/21 08:17 [facility] (Rec: 09/20/21 09:16 [facility] [id number]) Manual Assessments Soft Tissue Assessment Soft Tissue Mobility Assessment med joint line tenderness L, tightness and tenderness along med quad PT-OP-G Mobility & Gait Start: 09/15/21 17:35 Freq: Status: Active Protocol: Document 09/20/21 08:17 [facility] (Rec: 09/20/21 09:16 [facility] [id number]) OP Gait Assessment Comments 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 PT-OP-J Posture/Palpation/Skin Start: 09/15/21 17:35 Freq: Status: Active Protocol: Document 09/20/21 08:17 [facility] (Rec: 09/20/21 09:16 [facility] [id number]) Posture Evaluation Duke Postural Classification System Lumbar Protective Mechanism Left AP 2 Lumbar Protective Mechanism Right AP 3 Lumbar Protective Mechanism Left PA 5 Lumbar Protective Mechanism Right PA 1 PT-OP-K Range of Motion Start: 09/15/21 17:35 Freq: Status: Active Protocol: Document 09/20/21 08:17 [facility] (Rec: 09/20/21 09:16 [facility] [id number]) Knee Goniometric Range of Motion Knee Right Flexion Active (degrees) 142 Extension Active (degrees) 1 Left Flexion Active (degrees) 133 Extension Active (degrees) 3 Comments tightness w/flex PT-OP-L Special Tests Start: 09/15/21 17:35 Freq: Status: Active Protocol: Document 09/20/21 08:17 [facility] (Rec: 09/20/21 09:16 [facility] [id number]) Special Tests Knee Special Tests Catherine's Test Results neg L Christel Test Test Results neg L Apley's Compression Test Results neg L Clara's Test Test Results mild tightness L Posterior Draw Test Results neg L Straight Leg Raise Test Results WNL Varus- 25 Degrees Test Results neg L Valgus- 25 Degrees Test Results neg L Thessaly Test 5 Degrees Test Results neg L Thessaly Test 20 Degrees Test Results neg L Tremaine Test Results WNL PT-OP-M Strength Start: 09/15/21 17:35 Freq: Status: Active Protocol: Document 09/20/21 08:17 [facility] (Rec: 09/20/21 09:16 [facility] [id number]) Hip Strength Hip Manual Muscle Testing Right Flexion (L2) 5 Normal Extension (S1) 5 Normal Abduction 5 Normal Adduction 5 Normal External Rotation 4+ Good+ Internal Rotation 4+ Good+ Left Flexion (L2) 4+ Good+ Extension (S1) 4+ Good+ Abduction 5 Normal Adduction 5 Normal External Rotation 4+ Good+ Internal Rotation 4+ Good+ Knee Strength Knee Manual Muscle Testing Right Flexion (S2) 5 Normal Extension (L3) 5 Normal Left Flexion (S2) 4+ Good+ Extension (L3) 5 Normal Ankle/Foot Strength Ankle and Foot Manual Muscle Testing Right Dorsiflexion (L4) 5 Normal Plantarflexion (S1) 5 Normal Left Dorsiflexion (L4) 5 Normal Plantarflexion (S1) 5 Normal Comments 20 heel raises B PT-OP-Q Treatments Start: 09/15/21 17:35 Freq: Status: Active Protocol: Document 09/22/21 15:21 [facility] (Rec: 09/22/21 17:32 [facility] [id number]) Therapeutic Exercises Standing Exercises stretch Side bilateral Reps/Minutes demonstrated squat Side bilateral Equipment Used L3 around knees Reps/Minutes 12 sidestep Standing Exercise Name in very mini squat (too far inc pain) Side bilateral Equipment Used L3 around knees Reps/Minutes 20ft B gait at wall Side left Reps/Minutes 10 sec hold x2 SL Standing Exercise Name in may in mirror focus on no lat hip hear L Side left Manual Therapy Treatment Soft Tissue Mobilization adductor Body Location L Mobilization Type Rolling,Strumming Intensity/Depth Moderate Body Position Supine quad Body Location L med & lat borders Mobilization Type Rolling,Strumming Intensity/Depth Moderate Body Position Supine Joint Mobilizations tibfib Joint PA FM tibiofemoral Comments PA FM IR tibia FM PT-OP-T Assessment and Plan Start: 09/15/21 17:35 Freq: Status: Active Protocol: Document 09/22/21 15:21 [facility] (Rec: 09/22/21 17:32 [facility] [id number]) Physical Therapy Assessment Goals ROM Fdc Goal (LTG) Pt will have at least 140 deg of AROM flex of L knee w/o discomfort/tightness in order to allow for all activtiies requiring bending of knee. LTG Duration 11/20/21 strength Short Term Goal (STG) Pt will be indep w/HEP STG Duration 10/20 Menagerie Superintendent Goal (LTG) Pt will score at least 4/5 in all planes on LPM to show improved stability & 5/5 on all LLE MMT to show improved strength to allow greater ease w/yoga and other active activities. LTG Duration 11/20/21 activity Short Term Goal (STG) Pt will be able to stand on bike in spin class w/o inc pain STG Duration 10/20/21 Fdc Goal (LTG) Pt will be able to do all yoga poses w/o L knee pain LTG Duration 11/20/21 Assessment Summary Assessment Exericses were modified to not inc pt's pain. She did well with HEP given last session but did require some cues still.S he had improved flex end range today but still had fullness in kene feeling. Enoucraged to ice daily for swelling. Physical Therapy Plan Next Visit Focus/Plan Next Note Type Treatment Note Next Visit Plan review exercises, try modified kristine, work on soft tissue restrictions and joint restrictions of knee
--- NOTE | 2021-09-28 09:05 | PT.OTN ---
Current Diagnoses Pain in left knee (09/28/21) Physical Therapy Treatment Note PT-OP-A Visit Information Start: 09/15/21 17:35 Freq: Status: Active Protocol: Document 09/28/21 08:19 [facility] (Rec: 09/28/21 09:05 [facility] [id number]) Out-Patient Physical Therapy Visit Information Visit Information Visit Type Treatment Note Visit Note 24 visit max Visit Start Time 08:19 Visit Stop Time 09:00 Total Visit Minutes 41 Visit Number 3 Number of ARTISAN PLASTERER Visits 0 PT-OP-B Current Condition Start: 09/15/21 17:35 Freq: Status: Active Protocol: Document 09/20/21 08:17 [facility] (Rec: 09/20/21 09:16 [facility] [id number]) Current Condition History of Current Condition Onset Date 1 month ago Current Complaints L knee pain History of Current Condition Pt was in an extreme yoga class and it was moving too fast and she wasn't paying attention and it was fatigued. She felt like a pop and her knee was swollen that night. THis was a month ago. She is able to function and it has gotten better, but still painful w/pressure on med knee . Pt had a Xray that showed nothing, but MD thinks it is a meniscus tear. Prior Treatments and Tests PT for R Knee after meniscus tear Treatment Goals Patient/Caregiver Goals dec pain w/pressure on L knee, be able to do all yoga positions PT-OP-C Subjective Start: 09/15/21 17:35 Freq: Status: Active Protocol: Document 09/28/21 08:19 [facility] (Rec: 09/28/21 09:05 [facility] [id number]) OP-PT Subjective Patient Comments Patient Comments pt reports doing exercises 1 time PT-OP-D Balance Start: 09/15/21 17:35 Freq: Status: Active Protocol: Document 09/20/21 08:17 [facility] (Rec: 09/20/21 09:16 [facility] [id number]) Balance Tests Single Limb Standing Single Limb- Right >30 sec EO, 14 sec Single Limb- Left >30sec w/lat hip shear, 9 sec EC PT-OP-F Manual Assessment Start: 09/15/21 17:35 Freq: Status: Active Protocol: Document 09/20/21 08:17 [facility] (Rec: 09/20/21 09:16 [facility] [id number]) Manual Assessments Soft Tissue Assessment Soft Tissue Mobility Assessment med joint line tenderness L, tightness and tenderness along med quad PT-OP-G Mobility & Gait Start: 09/15/21 17:35 Freq: Status: Active Protocol: Document 09/20/21 08:17 [facility] (Rec: 09/20/21 09:16 [facility] [id number]) OP Gait Assessment Comments 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 Postural Classification System Lumbar Protective Mechanism Left AP 2 Lumbar Protective Mechanism Right AP 3 Lumbar Protective Mechanism Left PA 5 Lumbar Protective Mechanism Right PA 1 PT-OP-K Range of Motion Start: 09/15/21 17:35 Freq: Status: Active Protocol: Document 09/20/21 08:17 [facility] (Rec: 09/20/21 09:16 [facility] [id number]) Knee Goniometric Range of Motion Knee Right Flexion Active (degrees) 142 Extension Active (degrees) 1 Left Flexion Active (degrees) 133 Extension Active (degrees) 3 Comments tightness w/flex PT-OP-L Special Tests Start: 09/15/21 17:35 Freq: Status: Active Protocol: Document 09/20/21 08:17 [facility] (Rec: 09/20/21 09:16 [facility] [id number]) Special Tests Knee Special Tests Catherine's Test Results neg L Christel Test Test Results neg L Apley's Compression Test Results neg L Clara's Test Test Results mild tightness L Posterior Draw Test Results neg L Straight Leg Raise Test Results WNL Varus- 25 Degrees Test Results neg L Valgus- 25 Degrees Test Results neg L Thessaly Test 5 Degrees Test Results neg L Thessaly Test 20 Degrees Test Results neg L Tremaine Test Results WNL PT-OP-M Strength Start: 09/15/21 17:35 Freq: Status: Active Protocol: Document 09/20/21 08:17 [facility] (Rec: 09/20/21 09:16 [facility] [id number]) Hip Strength Hip Manual Muscle Testing Right Flexion (L2) 5 Normal Extension (S1) 5 Normal Abduction 5 Normal Adduction 5 Normal External Rotation 4+ Good+ Internal Rotation 4+ Good+ Left Flexion (L2) 4+ Good+ Extension (S1) 4+ Good+ Abduction 5 Normal Adduction 5 Normal External Rotation 4+ Good+ Internal Rotation 4+ Good+ Knee Strength Knee Manual Muscle Testing Right Flexion (S2) 5 Normal Extension (L3) 5 Normal Left Flexion (S2) 4+ Good+ Extension (L3) 5 Normal Ankle/Foot Strength Ankle and Foot Manual Muscle Testing Right Dorsiflexion (L4) 5 Normal Plantarflexion (S1) 5 Normal Left Dorsiflexion (L4) 5 Normal Plantarflexion (S1) 5 Normal Comments 20 heel raises B PT-OP-Q Treatments Start: 09/15/21 17:35 Freq: Status: Active Protocol: Document 09/28/21 08:19 [facility] (Rec: 09/28/21 09:05 [facility] [id number]) Therapeutic Exercises Standing Exercises hip hinge Side bilateral Resistance yardstick on back Equipment Used 10# B Reps/Minutes 8x w/o weight, 12x w/wt stretch Standing Exercise Name quad Side bilateral Reps/Minutes 30 sec Comments w/glute contraction squat Side bilateral Equipment Used L3 around knees Reps/Minutes 2x10 sidestep Standing Exercise Name mini squat Side bilateral Equipment Used L3 around knees Reps/Minutes 20ft B gait at wall Side left Reps/Minutes 10 sec hold x2 SL Standing Exercise Name in may in mirror focus on no lat hip hear L Side left Manual Therapy Treatment Soft Tissue Mobilization thigh Body Location L circumfrential Mobilization Type Myofascial Release adductor Body Location L Mobilization Type Rolling,Strumming Intensity/Depth Moderate Body Position Supine PT-OP-T Assessment and Plan Start: 09/15/21 17:35 Freq: Status: Active Protocol: Document 09/28/21 08:19 [facility] (Rec: 09/28/21 09:05 [facility] [id number]) Physical Therapy Assessment Goals ROM Senior Lead Java Developer Goal (LTG) Pt will have at least 140 deg of AROM flex of L knee w/o discomfort/tightness in order to allow for all activtiies requiring bending of knee. LTG Duration 11/20/21 strength Short Term Goal (STG) Pt will be indep w/HEP STG Duration 10/20 Senior Lead Java Developer Goal (LTG) Pt will score at least 4/5 in all planes on LPM to show improved stability & 5/5 on all LLE MMT to show improved strength to allow greater ease w/yoga and other active activities. LTG Duration 11/20/21 activity Short Term Goal (STG) Pt will be able to stand on bike in spin class w/o inc pain STG Duration 10/20/21 Senior Lead Java Developer Goal (LTG) Pt will be able to do all yoga poses w/o L knee pain LTG Duration 11/20/21 Assessment Summary Assessment Pt required a lot of cues for posture of back and pelvis during squats and hip hinges. We spent extra time with yard stick on back to focus on good form. Improved by end of reps . Physical Therapy Plan Frequency and Duration Frequency of Treatment 1-2x/week Duration of Treatment 2 months Plan of Care Start Date 09/20/21 Plan of Care End Date 11/20/21 Next Visit Focus/Plan Next Note Type Treatment Note Next Visit Plan review exercises, try modified pigeon, work on soft tissue restrictions and joint restrictions of knee
--- NOTE | 2021-10-13 19:04 | PT.OTN ---
Current Diagnoses Pain in left knee (10/13/21) Physical Therapy Treatment Note PT-OP-A Visit Information Start: 09/15/21 17:35 Freq: Status: Active Protocol: Document 10/13/21 18:46 [facility] (Rec: 10/13/21 19:04 [facility] [id number]) Out-Patient Physical Therapy Visit Information Visit Information Visit Type Treatment Note Visit Note 24 visit max Visit Start Time 10:36 Visit Stop Time 11:15 Total Visit Minutes 39 Visit Number 4 Number of BOOK AGENT Visits 0 PT-OP-B Current Condition Start: 09/15/21 17:35 Freq: Status: Active Protocol: Document 09/20/21 08:17 [facility] (Rec: 09/20/21 09:16 [facility] [id number]) Current Condition History of Current Condition Onset Date 1 month ago Current Complaints L knee pain History of Current Condition Pt was in an extreme yoga class and it was moving too fast and she wasn't paying attention and it was fatigued. She felt like a pop and her knee was swollen that night. THis was a month ago. She is able to function and it has gotten better, but still painful w/pressure on med knee . Pt had a Xray that showed nothing, but MD thinks it is a meniscus tear. Prior Treatments and Tests PT for R Knee after meniscus tear Treatment Goals Patient/Caregiver Goals dec pain w/pressure on L knee, be able to do all yoga positions PT-OP-C Subjective Start: 09/15/21 17:35 Freq: Status: Active Protocol: Document 10/13/21 18:46 [facility] (Rec: 10/13/21 19:04 [facility] [id number]) OP-PT Subjective Patient Comments Patient Comments Pt reports she has been workin hard on her hip hinge PT-OP-D Balance Start: 09/15/21 17:35 Freq: Status: Active Protocol: Document 09/20/21 08:17 [facility] (Rec: 09/20/21 09:16 [facility] [id number]) Balance Tests Single Limb Standing Single Limb- Right >30 sec EO, 14 sec Single Limb- Left >30sec w/lat hip shear, 9 sec EC PT-OP-F Manual Assessment Start: 09/15/21 17:35 Freq: Status: Active Protocol: Document 09/20/21 08:17 [facility] (Rec: 09/20/21 09:16 [facility] [id number]) Manual Assessments Soft Tissue Assessment Soft Tissue Mobility Assessment med joint line tenderness L, tightness and tenderness along med quad PT-OP-G Mobility & Gait Start: 09/15/21 17:35 Freq: Status: Active Protocol: Document 09/20/21 08:17 [facility] (Rec: 09/20/21 09:16 [facility] [id number]) OP Gait Assessment Comments 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 PT-OP-J Posture/Palpation/Skin Start: 09/15/21 17:35 Freq: Status: Active Protocol: Document 09/20/21 08:17 [facility] (Rec: 09/20/21 09:16 [facility] [id number]) Posture Evaluation [facility] Postural Classification System Lumbar Protective Mechanism Left AP 2 Lumbar Protective Mechanism Right AP 3 Lumbar Protective Mechanism Left PA 5 Lumbar Protective Mechanism Right PA 1 PT-OP-K Range of Motion Start: 09/15/21 17:35 Freq: Status: Active Protocol: Document 09/20/21 08:17 [facility] (Rec: 09/20/21 09:16 [facility] [id number]) Knee Goniometric Range of Motion Knee Right Flexion Active (degrees) 142 Extension Active (degrees) 1 Left Flexion Active (degrees) 133 Extension Active (degrees) 3 Comments tightness w/flex PT-OP-L Special Tests Start: 09/15/21 17:35 Freq: Status: Active Protocol: Document 09/20/21 08:17 [facility] (Rec: 09/20/21 09:16 [facility] [id number]) Special Tests Knee Special Tests Catherine's Test Results neg L Christel Test Test Results neg L Apley's Compression Test Results neg L Clara's Test Test Results mild tightness L Posterior Draw Test Results neg L Straight Leg Raise Test Results WNL Varus- 25 Degrees Test Results neg L Valgus- 25 Degrees Test Results neg L Thessaly Test 5 Degrees Test Results neg L Thessaly Test 20 Degrees Test Results neg L Tremaine Test Results WNL PT-OP-M Strength Start: 09/15/21 17:35 Freq: Status: Active Protocol: Document 09/20/21 08:17 [facility] (Rec: 09/20/21 09:16 [facility] [id number]) Hip Strength Hip Manual Muscle Testing Right Flexion (L2) 5 Normal Extension (S1) 5 Normal Abduction 5 Normal Adduction 5 Normal External Rotation 4+ Good+ Internal Rotation 4+ Good+ Left Flexion (L2) 4+ Good+ Extension (S1) 4+ Good+ Abduction 5 Normal Adduction 5 Normal External Rotation 4+ Good+ Internal Rotation 4+ Good+ Knee Strength Knee Manual Muscle Testing Right Flexion (S2) 5 Normal Extension (L3) 5 Normal Left Flexion (S2) 4+ Good+ Extension (L3) 5 Normal Ankle/Foot Strength Ankle and Foot Manual Muscle Testing Right Dorsiflexion (L4) 5 Normal Plantarflexion (S1) 5 Normal Left Dorsiflexion (L4) 5 Normal Plantarflexion (S1) 5 Normal Comments 20 heel raises B PT-OP-Q Treatments Start: 09/15/21 17:35 Freq: Status: Active Protocol: Document 10/13/21 18:46 [facility] (Rec: 10/13/21 19:04 [facility] [id number]) Therapeutic Exercises Standing Exercises hip hinge Side bilateral Resistance cues for back Reps/Minutes 15 squat Side bilateral Reps/Minutes 20 Comments mirror cues and cues for back position Other Exercises pigeon Other Exercise Name modified in standing on table & on ground w/towel under leg Side bilateral Reps/Minutes 5 min total Manual Therapy Treatment Soft Tissue Mobilization pes anserine Body Location R Mobilization Type Cross-Friction Intensity/Depth Moderate quad Body Location L med & lat borders Mobilization Type Rolling,Strumming Intensity/Depth Moderate Body Position Supine Joint Mobilizations tibfib Joint PA FM tibiofemoral Comments PA FM IR tibia FM PT-OP-T Assessment and Plan Start: 09/15/21 17:35 Freq: Status: Active Protocol: Document 10/13/21 18:46 [facility] (Rec: 10/13/21 19:04 [facility] [id number]) Physical Therapy Assessment Goals ROM Custodial Goal (LTG) Pt will have at least 140 deg of AROM flex of L knee w/o discomfort/tightness in order to allow for all activtiies requiring bending of knee. LTG Duration 11/20/21 strength Short Term Goal (STG) Pt will be indep w/HEP STG Duration 10/20 Service Writer Advisor Goal (LTG) Pt will score at least 4/5 in all planes on LPM to show improved stability & 5/5 on all LLE MMT to show improved strength to allow greater ease w/yoga and other active activities. LTG Duration 11/20/21 activity Short Term Goal (STG) Pt will be able to stand on bike in spin class w/o inc pain STG Duration 10/20/21 Service Writer Advisor Goal (LTG) Pt will be able to do all yoga poses w/o L knee pain LTG Duration 11/20/21 Assessment Summary Assessment Pt still required cueing for neutral w/pelvis position w/ squat and hip hinge but did imrpove after reps. Able to give pt modified ways to work into hip hinge. Physical Therapy Plan Frequency and Duration Frequency of Treatment 1-2x/week Duration of Treatment 2 months Plan of Care Start Date 09/20/21 Plan of Care End Date 11/20/21 Next Visit Focus/Plan Next Note Type Treatment Note Next Visit Plan review hip hinge,try to work on lunge position, work on soft tissue and joint restrictions of knee, work on stability exercises w/sport cord
--- NOTE | 2021-11-01 09:05 | PT.OTN ---
Current Diagnoses Pain in left knee (11/01/21) Physical Therapy Treatment Note PT-OP-A Visit Information Start: 09/15/21 17:35 Freq: Status: Active Protocol: Document 11/01/21 09:01 [facility] (Rec: 11/01/21 09:05 [facility] [id number]) Out-Patient Physical Therapy Visit Information Visit Information Visit Type Treatment Note Visit Note 24 visit max Visit Start Time 08:18 Visit Stop Time 08:51 Total Visit Minutes 33 Visit Number 5 Number of PROMOTIONAL REPRESENTATIVE Visits 0 PT-OP-B Current Condition Start: 09/15/21 17:35 Freq: Status: Active Protocol: Document 09/20/21 08:17 [facility] (Rec: 09/20/21 09:16 [facility] [id number]) Current Condition History of Current Condition Onset Date 1 month ago Current Complaints L knee pain History of Current Condition Pt was in an extreme yoga class and it was moving too fast and she wasn't paying attention and it was fatigued. She felt like a pop and her knee was swollen that night. THis was a month ago. She is able to function and it has gotten better, but still painful w/pressure on med knee . Pt had a Xray that showed nothing, but MD thinks it is a meniscus tear. Prior Treatments and Tests PT for R Knee after meniscus tear Treatment Goals Patient/Caregiver Goals dec pain w/pressure on L knee, be able to do all yoga positions PT-OP-C Subjective Start: 09/15/21 17:35 Freq: Status: Active Protocol: Document 11/01/21 09:01 [facility] (Rec: 11/01/21 09:05 [facility] [id number]) OP-PT Subjective Patient Comments Patient Comments Pt reports doing better but notes some swelling and discomfort in L knee still w/ pressure on it and extended time in lunge/squat position PT-OP-D Balance Start: 09/15/21 17:35 Freq: Status: Active Protocol: Document 09/20/21 08:17 [facility] (Rec: 09/20/21 09:16 [facility] [id number]) Balance Tests Single Limb Standing Single Limb- Right >30 sec EO, 14 sec Single Limb- Left >30sec w/lat hip shear, 9 sec EC PT-OP-F Manual Assessment Start: 09/15/21 17:35 Freq: Status: Active Protocol: Document 09/20/21 08:17 [facility] (Rec: 09/20/21 09:16 [facility] [id number]) Manual Assessments Soft Tissue Assessment Soft Tissue Mobility Assessment med joint line tenderness L, tightness and tenderness along med quad PT-OP-G Mobility & Gait Start: 09/15/21 17:35 Freq: Status: Active Protocol: Document 09/20/21 08:17 [facility] (Rec: 09/20/21 09:16 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 (Rec: 09/20/21 09:16 [facility] [id number]) Posture Evaluation [facility] Postural Classification System Lumbar Protective Mechanism Left AP 2 Lumbar Protective Mechanism Right AP 3 Lumbar Protective Mechanism Left PA 5 Lumbar Protective Mechanism Right PA 1 PT-OP-K Range of Motion Start: 09/15/21 17:35 Freq: Status: Active Protocol: Document 09/20/21 08:17 [facility] (Rec: 09/20/21 09:16 [facility] [id number]) Knee Goniometric Range of Motion Knee Right Flexion Active (degrees) 142 Extension Active (degrees) 1 Left Flexion Active (degrees) 133 Extension Active (degrees) 3 Comments tightness w/flex PT-OP-L Special Tests Start: 09/15/21 17:35 Freq: Status: Active Protocol: Document 09/20/21 08:17 [facility] (Rec: 09/20/21 09:16 [facility] [id number]) Special Tests Knee Special Tests Catherine's Test Results neg L Christel Test Test Results neg L Apley's Compression Test Results neg L Clara's Test Test Results mild tightness L Posterior Draw Test Results neg L Straight Leg Raise Test Results WNL Varus- 25 Degrees Test Results neg L Valgus- 25 Degrees Test Results neg L Thessaly Test 5 Degrees Test Results neg L Thessaly Test 20 Degrees Test Results neg L Tremaine Test Results WNL PT-OP-M Strength Start: 09/15/21 17:35 Freq: Status: Active Protocol: Document 09/20/21 08:17 [facility] (Rec: 09/20/21 09:16 [facility] [id number]) Hip Strength Hip Manual Muscle Testing Right Flexion (L2) 5 Normal Extension (S1) 5 Normal Abduction 5 Normal Adduction 5 Normal External Rotation 4+ Good+ Internal Rotation 4+ Good+ Left Flexion (L2) 4+ Good+ Extension (S1) 4+ Good+ Abduction 5 Normal Adduction 5 Normal External Rotation 4+ Good+ Internal Rotation 4+ Good+ Knee Strength Knee Manual Muscle Testing Right Flexion (S2) 5 Normal Extension (L3) 5 Normal Left Flexion (S2) 4+ Good+ Extension (L3) 5 Normal Ankle/Foot Strength Ankle and Foot Manual Muscle Testing Right Dorsiflexion (L4) 5 Normal Plantarflexion (S1) 5 Normal Left Dorsiflexion (L4) 5 Normal Plantarflexion (S1) 5 Normal Comments 20 heel raises B PT-OP-Q Treatments Start: 09/15/21 17:35 Freq: Status: Active Protocol: Document 11/01/21 09:01 [facility] (Rec: 11/01/21 09:05 [facility] [id number]) Therapeutic Exercises Standing Exercises DF Standing Exercise Name w/wall roll up Side bilateral Reps/Minutes 15 Comments max cues and inc time for set up on wall Manual Therapy Treatment Soft Tissue Mobilization thigh Body Location L circumfrential Mobilization Type Myofascial Release adductor Body Location L Mobilization Type Rolling,Strumming Intensity/Depth Moderate Body Position Supine Joint Mobilizations foot/ankle Reps/Duration FM Comments 1. calcaneal distraction 2. talar distraction 3. talus lat glide 4. talar AP supine & standing 5. tibia distal AP supine and standing PT-OP-T Assessment and Plan Start: 09/15/21 17:35 Freq: Status: Active Protocol: Document 11/01/21 09:01 [facility] (Rec: 11/01/21 09:05 [facility] [id number]) Physical Therapy Assessment Goals ROM Intermediate Goal (LTG) Pt will have at least 140 deg of AROM flex of L knee w/o discomfort/tightness in order to allow for all activtiies requiring bending of knee. LTG Duration 11/20/21 strength Short Term Goal (STG) Pt will be indep w/HEP STG Duration 10/20 Paper Rewinder Goal (LTG) Pt will score at least 4/5 in all planes on LPM to show improved stability & 5/5 on all LLE MMT to show improved strength to allow greater ease w/yoga and other active activities. LTG Duration 11/20/21 activity Short Term Goal (STG) Pt will be able to stand on bike in spin class w/o inc pain STG Duration 10/20/21 Paper Rewinder Goal (LTG) Pt will be able to do all yoga poses w/o L knee pain LTG Duration 11/20/21 Assessment Summary Assessment Pt had improved tibial position in standing and w/ knee bend from IR w/IR w/ bending to more neutral w/ manual. She likely has further L hip limitation causing some of her pain Physical Therapy Plan Frequency and Duration Frequency of Treatment 1-2x/week Duration of Treatment 2 months Plan of Care Start Date 09/20/21 Plan of Care End Date 11/20/21 Next Visit Focus/Plan Next Note Type Treatment Note Next Visit Plan review hip hinge,try to work on lunge position, work on soft tissue and joint restrictions of knee, work on stability exercises w/sport cord, work on hip mobs (on axis, abd)
--- NOTE | 2021-11-07 18:32 | PT.OTN ---
Current Diagnoses Pain in left knee (11/07/21) Physical Therapy Treatment Note PT-OP-A Visit Information Start: 09/15/21 17:35 Freq: Status: Active Protocol: Document 11/07/21 14:42 [facility] (Rec: 11/07/21 18:32 [facility] [id number]) Out-Patient Physical Therapy Visit Information Visit Information Visit Type Treatment Note Visit Note 24 visit max Visit Start Time 15:22 Visit Stop Time 16:00 Total Visit Minutes 38 Visit Number 6 Number of CARROT TIER Visits 0 PT-OP-B Current Condition Start: 09/15/21 17:35 Freq: Status: Active Protocol: Document 09/20/21 08:17 [facility] (Rec: 09/20/21 09:16 [facility] [id number]) Current Condition History of Current Condition Onset Date 1 month ago Current Complaints L knee pain History of Current Condition Pt was in an extreme yoga class and it was moving too fast and she wasn't paying attention and it was fatigued. She felt like a pop and her knee was swollen that night. THis was a month ago. She is able to function and it has gotten better, but still painful w/pressure on med knee . Pt had a Xray that showed nothing, but MD thinks it is a meniscus tear. 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 PT-OP-D Balance Start: 09/15/21 17:35 Freq: Status: Active Protocol: Document 09/20/21 08:17 [facility] (Rec: 09/20/21 09:16 [facility] [id number]) Balance Tests Single Limb Standing Single Limb- Right >30 sec EO, 14 sec Single Limb- Left >30sec w/lat hip shear, 9 sec EC PT-OP-F Manual Assessment Start: 09/15/21 17:35 Freq: Status: Active Protocol: Document 09/20/21 08:17 [facility] (Rec: 09/20/21 09:16 [facility] [id number]) Manual Assessments Soft Tissue Assessment Soft Tissue Mobility Assessment med joint line tenderness L, tightness and tenderness along med quad PT-OP-G Mobility & Gait Start: 09/15/21 17:35 Freq: Status: Active Protocol: Document 09/20/21 08:17 [facility] (Rec: 09/20/21 09:16 [facility] [id number]) OP Gait Assessment Comments 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 PT-OP-J Posture/Palpation/Skin Start: 09/15/21 17:35 Freq: Status: Active Protocol: Document 09/20/21 08:17 [facility] (Rec: 09/20/21 09:16 [facility] [id number]) Posture Evaluation [facility] Postural Classification System Lumbar Protective Mechanism Left AP 2 Lumbar Protective Mechanism Right AP 3 Lumbar Protective Mechanism Left PA 5 Lumbar Protective Mechanism Right PA 1 PT-OP-K Range of Motion Start: 09/15/21 17:35 Freq: Status: Active Protocol: Document 09/20/21 08:17 [facility] (Rec: 09/20/21 09:16 [facility] [id number]) Knee Goniometric Range of Motion Knee Right Flexion Active (degrees) 142 Extension Active (degrees) 1 Left Flexion Active (degrees) 133 Extension Active (degrees) 3 Comments tightness w/flex PT-OP-L Special Tests Start: 09/15/21 17:35 Freq: Status: Active Protocol: Document 09/20/21 08:17 [facility] (Rec: 09/20/21 09:16 [facility] [id number]) Special Tests Knee Special Tests Catherine's Test Results neg L Christel Test Test Results neg L Apley's Compression Test Results neg L Clara's Test Test Results mild tightness L Posterior Draw Test Results neg L Straight Leg Raise Test Results WNL Varus- 25 Degrees Test Results neg L Valgus- 25 Degrees Test Results neg L Thessaly Test 5 Degrees Test Results neg L Thessaly Test 20 Degrees Test Results neg L Tremaine Test Results WNL PT-OP-M Strength Start: 09/15/21 17:35 Freq: Status: Active Protocol: Document 09/20/21 08:17 [facility] (Rec: 09/20/21 09:16 [facility] [id number]) Hip Strength Hip Manual Muscle Testing Right Flexion (L2) 5 Normal Extension (S1) 5 Normal Abduction 5 Normal Adduction 5 Normal External Rotation 4+ Good+ Internal Rotation 4+ Good+ Left Flexion (L2) 4+ Good+ Extension (S1) 4+ Good+ Abduction 5 Normal Adduction 5 Normal External Rotation 4+ Good+ Internal Rotation 4+ Good+ Knee Strength Knee Manual Muscle Testing Right Flexion (S2) 5 Normal Extension (L3) 5 Normal Left Flexion (S2) 4+ Good+ Extension (L3) 5 Normal Ankle/Foot Strength Ankle and Foot Manual Muscle Testing Right Dorsiflexion (L4) 5 Normal Plantarflexion (S1) 5 Normal Left Dorsiflexion (L4) 5 Normal Plantarflexion (S1) 5 Normal Comments 20 heel raises B PT-OP-Q Treatments Start: 09/15/21 17:35 Freq: Status: Active Protocol: Document 11/07/21 14:42 [facility] (Rec: 11/07/21 18:32 [facility] [id number]) Therapeutic Exercises Standing Exercises hip hinge Side bilateral Resistance cues for back Reps/Minutes 10 squat Side bilateral Reps/Minutes 15 Comments mirror cues and cues for back position Manual Therapy Treatment Joint Mobilizations innominate Joint R caudal & ER FM sacrum Joint UPA FM hip Comments B on axis ER FM R neuro re edu w/range tibiofemoral Comments IR tibia FM PT-OP-T Assessment and Plan Start: 09/15/21 17:35 Freq: Status: Active Protocol: Document 11/07/21 14:42 [facility] (Rec: 11/07/21 18:32 [facility] [id number]) Physical Therapy Assessment Goals ROM Group Home Goal (LTG) Pt will have at least 140 deg of AROM flex of L knee w/o discomfort/tightness in order to allow for all activtiies requiring bending of knee. LTG Duration 11/20/21 strength Short Term Goal (STG) Pt will be indep w/HEP STG Duration 10/20 Branch Administrator Goal (LTG) Pt will score at least 4/5 in all planes on LPM to show improved stability & 5/5 on all LLE MMT to show improved strength to allow greater ease w/yoga and other active activities. LTG Duration 11/20/21 activity Short Term Goal (STG) Pt will be able to stand on bike in spin class w/o inc pain STG Duration 10/20/21 Branch Administrator Goal (LTG) Pt will be able to do all yoga poses w/o L knee pain LTG Duration 11/20/21 Assessment Summary Assessment Improved performance w/ squats and hip hinges today. 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 Physical Therapy Plan Frequency and Duration Frequency of Treatment 1-2x/week Duration of Treatment 2 months Plan of Care Start Date 09/20/21 Plan of Care End Date 11/20/21 Next Visit Focus/Plan Next Note Type Treatment Note Next Visit Plan B hip abd FM, L hip ER in flex position, cont to wrok on knee tracking, soft tissue work in fencer position
--- NOTE | 2021-11-14 18:09 | PT.OTN ---
Current Diagnoses Pain in left knee (11/14/21) Physical Therapy Treatment Note PT-OP-A Visit Information Start: 09/15/21 17:35 Freq: Status: Active Protocol: Document 11/14/21 18:05 [facility] (Rec: 11/14/21 18:09 [facility] [id number]) Out-Patient Physical Therapy Visit Information Visit Information Visit Type Treatment Note Visit Note 24 visit max Visit Start Time 09:46 Visit Stop Time 10:30 Total Visit Minutes 44 Visit Number 7 Number of CONTINUOUS TOWEL ROLLER Visits 0 PT-OP-B Current Condition Start: 09/15/21 17:35 Freq: Status: Active Protocol: Document 09/20/21 08:17 [facility] (Rec: 09/20/21 09:16 [facility] [id number]) Current Condition History of Current Condition Onset Date 1 month ago Current Complaints L knee pain History of Current Condition Pt was in an extreme yoga class and it was moving too fast and she wasn't paying attention and it was fatigued. She felt like a pop and her knee was swollen that night. THis was a month ago. She is able to function and it has gotten better, but still painful w/pressure on med knee . Pt had a Xray that showed nothing, but MD thinks it is a meniscus tear. Prior Treatments and Tests PT for R Knee after meniscus tear Treatment Goals Patient/Caregiver Goals dec pain w/pressure on L knee, be able to do all yoga positions PT-OP-C Subjective Start: 09/15/21 17:35 Freq: Status: Active Protocol: Document 11/14/21 18:05 [facility] (Rec: 11/14/21 18:09 [facility] [id number]) OP-PT Subjective Patient Comments Patient Comments Pt reports burning in L knee the next day after treatment. She did a hike that night and ran 2 miles the next day which is when she noticed th burning start. Notes swelling is inc again also and she has been icing. She still has difficulty in warrior 2 PT-OP-D Balance Start: 09/15/21 17:35 Freq: Status: Active Protocol: Document 09/20/21 08:17 [facility] (Rec: 09/20/21 09:16 [facility] [id number]) Balance Tests Single Limb Standing Single Limb- Right >30 sec EO, 14 sec Single Limb- Left >30sec w/lat hip shear, 9 sec EC PT-OP-F Manual Assessment Start: 09/15/21 17:35 Freq: Status: Active Protocol: Document 09/20/21 08:17 [facility] (Rec: 09/20/21 09:16 [facility] [id number]) Manual Assessments Soft Tissue Assessment Soft Tissue Mobility Assessment med joint line tenderness L, tightness and tenderness along med quad PT-OP-G Mobility & Gait Start: 09/15/21 17:35 Freq: Status: Active Protocol: Document 09/20/21 08:17 [facility] (Rec: 09/20/21 09:16 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 (Rec: 09/20/21 09:16 [facility] [id number]) Posture Evaluation [facility] Postural Classification System Lumbar Protective Mechanism Left AP 2 Lumbar Protective Mechanism Right AP 3 Lumbar Protective Mechanism Left PA 5 Lumbar Protective Mechanism Right PA 1 PT-OP-K Range of Motion Start: 09/15/21 17:35 Freq: Status: Active Protocol: Document 09/20/21 08:17 [facility] (Rec: 09/20/21 09:16 [facility] [id number]) Knee Goniometric Range of Motion Knee Right Flexion Active (degrees) 142 Extension Active (degrees) 1 Left Flexion Active (degrees) 133 Extension Active (degrees) 3 Comments tightness w/flex PT-OP-L Special Tests Start: 09/15/21 17:35 Freq: Status: Active Protocol: Document 09/20/21 08:17 [facility] (Rec: 09/20/21 09:16 [facility] [id number]) Special Tests Knee Special Tests Catherine's Test Results neg L Christel Test Test Results neg L Apley's Compression Test Results neg L Clara's Test Test Results mild tightness L Posterior Draw Test Results neg L Straight Leg Raise Test Results WNL Varus- 25 Degrees Test Results neg L Valgus- 25 Degrees Test Results neg L Thessaly Test 5 Degrees Test Results neg L Thessaly Test 20 Degrees Test Results neg L Tremaine Test Results WNL PT-OP-M Strength Start: 09/15/21 17:35 Freq: Status: Active Protocol: Document 09/20/21 08:17 [facility] (Rec: 09/20/21 09:16 [facility] [id number]) Hip Strength Hip Manual Muscle Testing Right Flexion (L2) 5 Normal Extension (S1) 5 Normal Abduction 5 Normal Adduction 5 Normal External Rotation 4+ Good+ Internal Rotation 4+ Good+ Left Flexion (L2) 4+ Good+ Extension (S1) 4+ Good+ Abduction 5 Normal Adduction 5 Normal External Rotation 4+ Good+ Internal Rotation 4+ Good+ Knee Strength Knee Manual Muscle Testing Right Flexion (S2) 5 Normal Extension (L3) 5 Normal Left Flexion (S2) 4+ Good+ Extension (L3) 5 Normal Ankle/Foot Strength Ankle and Foot Manual Muscle Testing Right Dorsiflexion (L4) 5 Normal Plantarflexion (S1) 5 Normal Left Dorsiflexion (L4) 5 Normal Plantarflexion (S1) 5 Normal Comments 20 heel raises B PT-OP-Q Treatments Start: 09/15/21 17:35 Freq: Status: Active Protocol: Document 11/14/21 18:05 [facility] (Rec: 11/14/21 18:09 [facility] [id number]) Manual Therapy Treatment Soft Tissue Mobilization lower leg Body Location circumfrential STM especially around lat quad and med tib ant Mobilization Type Rolling,Strumming Intensity/Depth Moderate Comments in fencer position adductor Body Location L Mobilization Type Rolling,Strumming Intensity/Depth Moderate Body Position Supine Joint Mobilizations hip Comments ER FM in hooklying L abd FM s/l w/neuro re edu in range after PT-OP-T Assessment and Plan Start: 09/15/21 17:35 Freq: Status: Active Protocol: Document 11/14/21 18:05 [facility] (Rec: 11/14/21 18:09 [facility] [id number]) Physical Therapy Assessment Goals ROM Prison Goal (LTG) Pt will have at least 140 deg of AROM flex of L knee w/o discomfort/tightness in order to allow for all activtiies requiring bending of knee. LTG Duration 11/20/21 strength Short Term Goal (STG) Pt will be indep w/HEP STG Duration 10/20 Twist Packer Goal (LTG) Pt will score at least 4/5 in all planes on LPM to show improved stability & 5/5 on all LLE MMT to show improved strength to allow greater ease w/yoga and other active activities. 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 Physical Therapy Plan Frequency and Duration Frequency of Treatment 1-2x/week Duration of Treatment 2 months Plan of Care Start Date 09/20/21 Plan of Care End Date 11/20/21 Next Visit Focus/Plan Next Note Type Treatment Note Next Visit Plan cont to look at mobility in fencer position to help address pt ability to go into warrior 2 comfortably
--- NOTE | 2022-01-04 17:49 | PT.OPDS ---
Current Diagnoses Pain in left knee (11/14/21) Visit Care Team Role Provider Type Patricio Jauregui MD Family Provider Physician Primary Care Provider Specialty: Internal Medicine Address: [address] [place] [address], [address], [place], [address] Email: [email or web address] Sandip Kuhn MD Attending Provider Non-Staff Referring Provider Specialty: Orthopedics Address: [address] [place] [address], [id number] Email: Visit Number Visit Number 7 Discharge Summary PT-OP-B Current Condition Start: 09/15/21 17:35 Freq: Status: Active Protocol: Document 09/20/21 08:17 [facility] (Rec: 09/20/21 09:16 [facility] [id number]) Current Condition History of Current Condition Onset Date 1 month ago Current Complaints L knee pain History of Current Condition Pt was in an extreme yoga class and it was moving too fast and she wasn't paying attention and it was fatigued. She felt like a pop and her knee was swollen that night. THis was a month ago. She is able to function and it has gotten better, but still painful w/pressure on med knee . Pt had a Xray that showed nothing, but MD thinks it is a meniscus tear. Prior Treatments and Tests PT for R Knee after meniscus tear Treatment Goals Patient/Caregiver Goals dec pain w/pressure on L knee, be able to do all yoga positions PT-OP-C Subjective Start: 09/15/21 17:35 Freq: Status: Active Protocol: Document 11/14/21 18:05 [facility] (Rec: 11/14/21 18:09 [facility] [id number]) OP-PT Subjective Patient Comments Patient Comments Pt reports burning in L knee the next day after treatment. She did a hike that night and ran 2 miles the next day which is when she noticed th burning start. Notes swelling is inc again also and she has been icing. She still has difficulty in warrior 2 PT-OP-D Balance Start: 09/15/21 17:35 Freq: Status: Active Protocol: Document 09/20/21 08:17 [facility] (Rec: 09/20/21 09:16 [facility] [id number]) Balance Tests Single Limb Standing Single Limb- Right >30 sec EO, 14 sec Single Limb- Left >30sec w/lat hip shear, 9 sec EC PT-OP-F Manual Assessment Start: 09/15/21 17:35 Freq: Status: Active Protocol: Document 09/20/21 08:17 [facility] (Rec: 09/20/21 09:16 [facility] [id number]) Manual Assessments Soft Tissue Assessment Soft Tissue Mobility Assessment med joint line tenderness L, tightness and tenderness along med quad PT-OP-G Mobility & Gait Start: 09/15/21 17:35 Freq: Status: Active Protocol: Document 09/20/21 08:17 [facility] (Rec: 09/20/21 09:16 [facility] [id number]) OP Gait Assessment Comments Gait 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 PT-OP-J Posture/Palpation/Skin Start: 09/15/21 17:35 Freq: Status: Active Protocol: Document 09/20/21 08:17 [facility] (Rec: 09/20/21 09:16 [facility] [id number]) Posture Evaluation [facility] Postural Classification System Lumbar Protective Mechanism Left AP 2 Lumbar Protective Mechanism Right AP 3 Lumbar Protective Mechanism Left PA 5 Lumbar Protective Mechanism Right PA 1 PT-OP-K Range of Motion Start: 09/15/21 17:35 Freq: Status: Active Protocol: Document 09/20/21 08:17 [facility] (Rec: 09/20/21 09:16 [facility] [id number]) Knee Goniometric Range of Motion Knee Right Flexion Active (degrees) 142 Extension Active (degrees) 1 Left Flexion Active (degrees) 133 Extension Active (degrees) 3 Comments tightness w/flex PT-OP-L Special Tests Start: 09/15/21 17:35 Freq: Status: Active Protocol: Document 09/20/21 08:17 [facility] (Rec: 09/20/21 09:16 [facility] [id number]) Special Tests Knee Special Tests Catherine's Test Results neg L Christel Test Test Results neg L Apley's Compression Test Results neg L Clara's Test Test Results mild tightness L Posterior Draw Test Results neg L Straight Leg Raise Test Results WNL Varus- 25 Degrees Test Results neg L Valgus- 25 Degrees Test Results neg L Thessaly Test 5 Degrees Test Results neg L Thessaly Test 20 Degrees Test Results neg L Tremaine Test Results WNL PT-OP-M Strength Start: 09/15/21 17:35 Freq: Status: Active Protocol: Document 09/20/21 08:17 [facility] (Rec: 09/20/21 09:16 [facility] [id number]) Hip Strength Hip Manual Muscle Testing Right Flexion (L2) 5 Normal Extension (S1) 5 Normal Abduction 5 Normal Adduction 5 Normal External Rotation 4+ Good+ Internal Rotation 4+ Good+ Left Flexion (L2) 4+ Good+ Extension (S1) 4+ Good+ Abduction 5 Normal Adduction 5 Normal External Rotation 4+ Good+ Internal Rotation 4+ Good+ Knee Strength Knee Manual Muscle Testing Right Flexion (S2) 5 Normal Extension (L3) 5 Normal Left Flexion (S2) 4+ Good+ Extension (L3) 5 Normal Ankle/Foot Strength Ankle and Foot Manual Muscle Testing Right Dorsiflexion (L4) 5 Normal Plantarflexion (S1) 5 Normal Left Dorsiflexion (L4) 5 Normal Plantarflexion (S1) 5 Normal Comments 20 heel raises B PT-OP-T Assessment and Plan Start: 09/15/21 17:35 Freq: Status: Active Protocol: Document 01/04/22 17:48 [facility] (Rec: 01/04/22 17:49 [facility] [id number]) Physical Therapy Assessment Goals ROM Mcfp Goal (LTG) Pt will have at least 140 deg of AROM flex of L knee w/o discomfort/tightness in order to allow for all activtiies requiring bending of knee. LTG Duration 11/20/21 strength Short Term Goal (STG) Pt will be indep w/HEP STG Duration 10/20 Mcfp Goal (LTG) Pt will score at least 4/5 in all planes on LPM to show improved stability & 5/5 on all LLE MMT to show improved strength to allow greater ease w/yoga and other active activities. LTG Duration 11/20/21 activity Short Term Goal (STG) Pt will be able to stand on bike in spin class w/o inc pain STG Duration 10/20/21 Mcfp Goal (LTG) Pt will be able to do all yoga poses w/o L knee pain LTG Duration 11/20/21 Assessment Summary Assessment Pt called d/t cancels and at this time, pt has a lot going on inclduing loss of 1 animal, and another one that was sick along w/feeling sick after her booster shot. SHe has not been active but is feeling okay so plan for DC right now d/t pt not feeling like it is a good time for therapy. Pt to contact primary if needs a referral again in future. Physical Therapy Plan Discharge Physical Therapy Discharge Reasons Patient Request
== END 2022-01-05 09:51 | disposition home or self-care (01) ==
LOC: PHYS 09:45
PROVIDERS: Family Provider Internal Medicine; PCP Internal Medicine; Referring Provider Orthopaedic Surgery; Visit Provider Orthopaedic Surgery
DX: M25.562 Pain in left knee (principal)
CPT/HCPCS: 97110; 97140; 97161

== ENCOUNTER 2021-12-03 10:45 | Emergency (ER) | payer OTHER, MEDICAID, SELFPAY ==
[2021-12-03] VITALS (10 sets, daily range): BP systolic 112–132; BP diastolic 57–91; PULSE 64–80; RESP 16–34; TEMP 36.7; O2SAT 98–100; BMI 19.1
--- NOTE | 2021-12-03 10:57 | DI.RAD.S_ITS ---
PROCEDURE: XR CHEST 1V INDICATIONS: chest pain TECHNIQUE: One view of the chest was acquired. COMPARISON: [facility], , CHEST 2 VIEW, 11/23/2014, 17:53. FINDINGS: Surgical changes and devices: None. Lungs and pleura: Lungs are clear. No pleural effusions or pneumothorax. Mediastinum: Mediastinal contours appear normal. Heart size is normal. Bones and chest wall: No suspicious bony lesions. Overlying soft tissues appear unremarkable. IMPRESSION: No acute cardiopulmonary abnormality. Dictated by: Parag Saucedo M.D. on 12/03/2021 at 10:17 Approved by: Parag Saucedo M.D. on 12/03/2021 at 10:18
[2021-12-03 11:11] LABS: Add Manual Diff / Slide Review NO; Basophils Absolute Auto 100 /uL (0-100); Basophils Percent Auto 1.1 % (0-2); Eosinophils Absolute Auto 0 /uL (0-450); Eosinophils Percent Auto 0.4 % (2-4); Hematocrit 42.9 % (36-46); Hemoglobin 14.6 g/dL (12.0-16.0); Lymphocytes Absolute Auto 1900 /uL (1100-4500); Lymphocytes Percent Auto 22.7 % (25-40); Mean Corpuscular Hemoglobin 31.1 PG (26-34); Mean Corpuscular Volume 91.6 fL (80-100); Monocytes Absolute Auto 500 /uL (0-900); Monocytes Percent Auto 6.4 % (3-14); Neutrophils Absolute Auto 5700 /uL (1500-7000); Neutrophils Percent Auto 69.4 % (50-75); Platelet Count 214 X10^3/uL (150-400); Red Blood Cell Count 4.68 X10^6/uL (4.0-5.2); Red Cell Distribution Width 14.7 % (11.6-14.8); White Blood Cell Count 8.2 X10^3/uL (4.5-11.0)
[2021-12-03] MEDS: SODIUM CHLORIDE 0.9% 1,000 ML 1000 ML IV ×2 (11:13→13:46)
[2021-12-03] MEDS: ONDANSETRON 4 MG/2 ML INJ IV (11:13)
[2021-12-03 11:24] LABS: Alanine Aminotransferase 20 IU/L (<35); Albumin 5.1 g/dL (3.5-5.0); Albumin Globulin Ratio 1.3 (1.0-2.8); Alkaline Phosphatase 58 U/L (38-126); Aspartate Aminotransferase 25 IU/L (14-36); BUN Creatinine Ratio 19.7 (6-22); Bilirubin Total 0.5 mg/dL (0.2-1.3); Blood Urea Nitrogen 13 mg/dL (7-17); Calcium 9.6 mg/dL (8.4-10.2); Carbon Dioxide 22 mmol/L (22-32); Chloride 104 mmol/L (98-107); Creatine Kinase 77 U/L (30-135); Estimated Glomerular Filt Rate > 60 mL/min (>60); Globulin 3.8 g/dL (1.7-4.1); Glucose 82 mg/dL (70-100); HEMOLYSIS < 15 (0-50); Lipase 73 U/L (23-300); Potassium 4.1 mmol/L (3.4-5.1); Sodium 139 mmol/L (137-145); Total Protein 8.9 g/dL (6.3-8.2)
[2021-12-03 11:35] LABS: Troponin I < 0.012 ng/mL (0.01-0.034)
[2021-12-03] MEDS: ACETAMINOPHEN 325 MG TABLET 975 MG PO (11:46)
[2021-12-03] MEDS: KETOROLAC 30 MG/ML VIAL 15 MG IV (13:46)
--- NOTE | 2021-12-03 13:47 | PC.NURSE ---
reports pain on her left side . her heart . feels heavy, like something is twisted up. no sob. dr. colon aware
[2021-12-03 14:44] LABS: Troponin I < 0.012 ng/mL (0.01-0.034)
--- NOTE | 2021-12-03 15:06 | ED_ITS ---
HPI - Chest Pain General Chief Complaint: Chest Pain Stated Complaint: chest pains Time Seen by Provider: 12/03/21 11:44 Source: patient and family Mode of arrival: Family Vehicle Limitations: no limitations History of Present Illness HPI narrative: This is a 41-year-old female with history of hypothyroidism and. Patient presents with complaint left-sided chest pain that she woke up this morning at 7:30 a.m. she describes it as heavy, with beats felt like something was twisting or maybe even stabbing. She is had chest pain in the past 3 months, she is seen her primary care and had workup. She states last night she drank a bottle of wine and a little bit more than she would normally drink. This morning she states she is felt little lightheaded but no passing out. She denies any active shortness of breath she is had nausea but no vomiting. She states she is got chronic constipation but stooling are 2 times weekly, patient denies any dysuria urgency or frequency. No new swelling in extremities. She is on Synthroid daily she is supposed to start sertraline and was prescribed on Sunday but has not started it. She is had history cholecystectomy and . No tobacco, drinks 1-2 alcoholic drinks 4 5 times weekly, she takes a CBD nightly for sleep but no other recreational drugs. Denies cardiac, embolic or pulmonary family history. Related Data Previous Rx's Medication Instructions Recorded tretinoin 0.025 % topical gel 1 applictn topical BEDTIME #45 02/03/20 grams levothyroxine 75 mcg tablet 75 mcg PO DAILY #90 tabs 12/24/20 sertraline 25 mg tablet (Zoloft) 25 mg PO DAILY #90 tabs 12/01/21 Allergies Allergy/AdvReac Type Severity Reaction Status Date / Time amoxicillin [AMOXICILLIN] Allergy Mild RASH Verified 12/01/21 14:56 doxycycline [DOXYCYCLINE] Allergy Mild RASH Verified 12/01/21 14:56 Sulfa (Sulfonamide Allergy Mild rash Verified 12/01/21 14:56 Antibiotics) [SULFA (SULFONAMIDE ANTIBIOTICS)] Review of Systems Review of Systems ROS Unobtainable: All systems reviewed & are unremarkable except as noted in HPI and below Patient History Medical History Acid reflux Acne, unspecified (10/13/10) Acquired hypothyroidism (10/13/10) Allergic rhinitis, unspecified (10/13/10) Delayed gastric emptying (05/31/15) IBS (irritable bowel syndrome) Irritable bowel syndrome without diarrhea (10/13/10) Mixed stress and urge urinary incontinence (02/04/15) Psychophysiological insomnia (02/04/15) Varicose veins (02/04/15) Surgical History Status post laparoscopic cholecystectomy Social History Smoking Status: Never smoker Smoking Status: Never smoker alcohol intake frequency: 0-2 drinks per day Alcohol type: wine Substance Use Type: does not use Exam Narrative Exam Narrative: GENERAL: Alert and oriented x three, mild distress. HEENT: Head normocephalic, atraumatic, EOMI, pupils reactive, face symmetric, moist mucous membranes NECK: Supple, full range of motion CARDIOVASCULAR: Regular rate and rhythm without murmurs, rubs or gallops. No reproducible chest pain. RESPIRATORY: Breath sounds equal bilaterally, no wheezes rales or rhonchi. ABDOMEN: Soft, nontender. Normoactive bowel sounds all 4 quadrants. No guarding or rebound, rigidity, no mass : No CVA tenderness EXTREMITIES: Normal range of motion, no clubbing or edema. Neurovascularly intact NEUROLOGICAL: Cranial nerves II through XII grossly intact. Moving all extremities SKIN: Warm, dry, no petechiae, no rashes or lesions. Initial Vital Signs Initial Vital Signs: Vital Signs Temperature 98.0 F 12/03/21 10:57 Pulse Rate 74 12/03/21 10:57 Respiratory Rate 18 12/03/21 10:57 Blood Pressure 132/91 H 12/03/21 10:57 Pulse Oximetry 98 12/03/21 10:57 Oxygen Delivery Method 12/03/21 10:57 Scores HEART Score Heart Score history: Slightly Suspicious Heart Score EKG: Normal Heart Score Age: < 45 years old Heart Score risk factors: No known risk factors Heart Score troponin: < or = to normal limit Heart Score Total: 0 Course Orders Ordered: ED Orders 12/03/21 10:57 XR chest 1V Stat EKG-12 Lead Stat 12/03/21 11:03 Complete Blood Count AUTO DIFF Stat Comprehensive Metabolic Panel Stat Lipase Stat Magnesium Stat Troponin & CK Cardiac Panel Stat 12/03/21 14:00 Trop I [Troponin I] Stat Discontinued Medications Acetaminophen (Acetaminophen 325 Mg Tablet) 975 mg PO NOW ONE Stop: 12/03/21 11:44 Last Admin: 12/03/21 11:46 Dose: 975 mg Documented By: LEANN Sodium Chloride (Normal Saline 0.9%) 1,000 mls @ 1,000 mls/hr IV BOLUS ONE Stop: 12/03/21 12:08 Last Infusion: 12/03/21 12:20 Dose: 0 mls/hr Documented By: Admin: 12/03/21 11:13 Dose: 1,000 mls/hr Documented By: LEANN Sodium Chloride (Normal Saline 0.9%) 1,000 mls @ 1,000 mls/hr IV BOLUS ONE Stop: 12/03/21 14:39 Last Infusion: 12/03/21 15:13 Dose: 0 mls/hr Documented By: Admin: 12/03/21 13:46 Dose: 1,000 mls/hr Documented By: LEANN Ketorolac Tromethamine (Ketorolac 30 Mg/Ml Vial) 15 mg IV NOW ONE Stop: 12/03/21 13:16 Last Admin: 12/03/21 13:46 Dose: 15 mg Documented By: LEANN Ondansetron HCl (Ondansetron 4 Mg/2 Ml Inj) 4 mg IV NOW ONE Stop: 12/03/21 11:10 Last Admin: 12/03/21 11:13 Dose: 4 mg Documented By: LEANN Vital Signs Vital signs: Vital Signs - 8 hr 12/03/21 11:27 12/03/21 11:30 12/03/21 11:30 Pulse Rate 67 65 Respiratory Rate 34 H 28 H Blood Pressure 127/78 Pulse Oximetry 99 99 Oxygen Delivery Method Room Air 12/03/21 13:49 12/03/21 11:45 12/03/21 12:00 Pulse Rate 78 64 Respiratory Rate 22 23 Blood Pressure 112/57 L 125/78 Pulse Oximetry 99 100 Oxygen Delivery Method Room Air 12/03/21 12:00 12/03/21 12:15 12/03/21 12:30 Pulse Rate 72 67 Respiratory Rate 23 18 Blood Pressure 113/65 Pulse Oximetry 99 99 Oxygen Delivery Method 12/03/21 12:30 12/03/21 12:45 12/03/21 15:50 Pulse Rate 67 65 80 Respiratory Rate 19 20 16 Blood Pressure 119/64 Pulse Oximetry 99 98 99 Oxygen Delivery Method Room Air MDM - Chest Pain Lab Data Result diagrams: 12/03/21 11:03 12/03/21 11:03 Labs: Lab Results 12/03/21 12/03/21 12/03/21 Range/Units 11:03 11:03 14:00 WBC 8.2 (4.5-11.0) X10^3/uL RBC 4.68 (4.0-5.2) X10^6/uL Hgb 14.6 (12.0-16.0) g/dL Hct 42.9 (36-46) % MCV 91.6 (80-100) fL MCH 31.1 (26-34) PG MCHC 34.0 (30-36) % RDW 14.7 (11.6-14.8) % Plt Count 214 (150-400) X10^3/uL Neut % (Auto) 69.4 (50-75) % Lymph % (Auto) 22.7 L (25-40) % Rutherford % (Auto) 6.4 (3-14) % Eos % (Auto) 0.4 L (2-4) % Baso % (Auto) 1.1 (0-2) % Neut # (Auto) 5700 (1281-8973) /uL Lymph # (Auto) 1900 (6702-6999) /uL Rutherford # (Auto) 500 (0-900) /uL Eos # (Auto) 0 (0-450) /uL Baso # (Auto) 100 (0-100) /uL Sodium 139 (137-145) mmol/L Potassium 4.1 (3.4-5.1) mmol/L Chloride 104 (98-107) mmol/L Carbon Dioxide 22 (22-32) mmol/L BUN 13 (7-17) mg/dL Creatinine 0.66 (0.52-1.04) mg/dL Estimated GFR > 60 (>60) mL/min BUN/Creatinine Ratio 19.7 (6-22) Glucose 82 (70-100) mg/dL Calcium 9.6 (8.4-10.2) mg/dL Magnesium 2.0 (1.6-2.3) mg/dL Total Bilirubin 0.5 (0.2-1.3) mg/dL AST 25 (14-36) IU/L ALT 20 (<35) IU/L Alkaline Phosphatase 58 (38-126) U/L Total Creatine Kinase 77 (30-135) U/L CK-MB (CK-2) TNP CK-MB (CK-2) Rel Index TNP Troponin I < 0.012 < 0.012 (0.01-0.034) ng/mL Total Protein 8.9 H (6.3-8.2) g/dL Albumin 5.1 H (3.5-5.0) g/dL Globulin 3.8 (1.7-4.1) g/dL Albumin/Globulin Ratio 1.3 (1.0-2.8) Lipase 73 (23-300) U/L Imaging Data Chest x-ray: Radiologist's Impression: [address] [address] XRay Report Signed Patient: Tanvi Layton MR#: [id number] : 1980 Acct:[id number] Age/Sex: 41 / F Date of Service: 12/03/21 Loc: ED Accession Number: [id number] ?? Procedure: XR chest 1V Ordering Provider: Anitra Jewell D.O. PROCEDURE:? XR CHEST 1V ? INDICATIONS:? chest pain ? TECHNIQUE:? One view of the chest was acquired.? ? COMPARISON:? [facility], , CHEST 2 VIEW, 11/23/2014, 17:53. ? FINDINGS:? ? Surgical changes and devices:? None.? ? Lungs and pleura:? Lungs are clear.? No pleural effusions or pneumothorax.? ? Mediastinum:? Mediastinal contours appear normal.? Heart size is normal.? ? Bones and chest wall:? No suspicious bony lesions.? Overlying soft tissues appear unremarkable.? ? IMPRESSION:? No acute cardiopulmonary abnormality. ? ? Dictated by: Parag Saucedo M.D. on 12/03/2021 at 10:17 ? ? Approved by: Parag Saucedo M.D. on 12/03/2021 at 10:18?? ECG Data Attestation: I personally reviewed and interpreted this ECG as follows: Interpretation: Sinus rhythm rate of 71 MA 122 QRS 80 QTC 439, no acute ST changes noted. MDM Narrative Medical decision making narrative: 41-year-old female comes emergency department with complaint of chest pain onset upon awakening, patient states she had a bottle of wine last night she is feeling somewhat hung over. She has had chest pain on and off past 3 months she is had some workup with her primary care physician. Heart score today is low, troponin negative x2 no acute EKG changes patient's chest pain-free. Discharge Plan Departure Patient Disposition: Home Clinical Impression: Chest pain Instructions: DI for Chest Pain Activity Restrictions/Additional Instructions: Follow-up with your physician for recheck if your symptoms are persisting. I would recommend starting your sertraline on Sunday and not today. You may take Tylenol up to a 1000 mg every 6 hours and/or ibuprofen up to 600 mg every 6 hours as needed for discomfort. Please return for new or worsening symptoms, passing out, persistent vomiting, black or bloody emesis, new shortness of breath, new swelling in your extremities or other new or concerning symptoms. Prescriptions: No Action tretinoin 0.025 % gel 1 applictn TOP BEDTIME Qty: 45 3RF levothyroxine 75 mcg tablet 75 mcg PO DAILY Qty: 90 3RF sertraline [Zoloft] 25 mg tablet 25 mg PO DAILY Qty: 90 3RF Rx Instructions: 1/2 tab to 1 tab daily. Referrals: Patricio Jauregui MD [Primary Care Provider] - Visit Report Forms: Patient Portal/API
== END 2021-12-03 15:50 | disposition home or self-care (01) ==
PROVIDERS: Emergency Provider Emergency Medicine; Family Provider Internal Medicine; PCP Internal Medicine
DX: R07.9 Chest pain, unspecified (principal)
CPT/HCPCS: 36415; 71045; 80053; 82550; 83690; 83735; 84484; 85025; 93005; 93010; 96361; 96374; 96375; 99284; J1885; J2405

== ENCOUNTER → 2022-07-06 06:58 | Outpatient (CLI) | payer OTHER, MEDICAID, SELFPAY ==
--- NOTE | 2022-07-06 | DI.US.S_ITS ---
PROCEDURE: US PELVIC COMPLETE INDICATIONS: DUB TECHNIQUE: Real-time scanning was performed of the pelvic organs, with image documentation. Additional endovaginal scanning was necessary due to incomplete visualization of the adnexal and endometrial structures by transabdominal scanning. COMPARISON: None. FINDINGS: Uterus: Uterus is anteverted and normal in size at 8.7 x 4.1 x 5 point cm. The myometrium is homogeneous. The endometrium measures 11 mm combined thickness. Ovaries: The right ovary measures 2.2 x 2 x 1.3 cm, with a calculated ovarian volume of 2.8 cc. The left ovary measures 3.1 x 2.6 x 2.3 cm, with a calculated ovarian volume of 9.5 cc. Two nonvascular complex cysts can be seen involving the left ovary that measure 1.6 x 1.3 x 1.2 cm and 1.2 x 1.6 x 1.1 cm. Less than 12 follicles can be seen in each ovary. No adnexal masses are seen. Other: A mild amount of free pelvic fluid is seen, which is considered to be within physiologic limits. IMPRESSION: Normal appearing endometrial stripe. Likely hemorrhagic cysts seen involving the left ovary. If it would be clinically appropriate, a followup pelvic ultrasound could be considered in 6 weeks to assure resolution/ improvement. We strive to produce accurate, complete, and clear reports of imaging services. To assist us in improving patient care, this report was composed using standard report templates and voice recognition software. Therefore, it may contain abnormal punctuation, insertions and/or omissions. Occasional wrong-word or sound-alike substitutions may occur. Though we review the report and make efforts to correct it, we do recommend that the report be read carefully in proper context to recognize any text inaccuracies. Dictated by: Henrik Thomas M.D. on 07/06/2022 at 11:14 Approved by: Henrik Thomas M.D. on 07/06/2022 at 11:15
== END ==
PROVIDERS: Family Provider Internal Medicine; PCP Internal Medicine; Referring Provider Naturopath; Visit Provider Naturopath
DX: N93.9 Abnormal uterine and vaginal bleeding, unspecified (principal); N83.292 Other ovarian cyst, left side
CPT/HCPCS: 76830; 76856

== ENCOUNTER → 2022-08-24 07:01 | Outpatient (CLI) | payer OTHER, MEDICAID, SELFPAY ==
--- NOTE | 2022-08-24 07:02 | DI.US.S_ITS ---
PROCEDURE: US PELVIC COMPLETE INDICATIONS: FOLLOW UP ON OVARIAN CYST TECHNIQUE: Real-time scanning was performed of the pelvic organs, with image documentation. Additional endovaginal scanning was necessary due to incomplete visualization of the adnexal and endometrial structures by transabdominal scanning. COMPARISON: [facility], US, US PELVIC COMPLETE, 07/06/2022, 7:07. FINDINGS: Uterus: Uterus is anteverted and normal in size at 9.3 x 4.4 x 5.3 cm. The myometrium is heterogenous. The endometrium measures 4.6 mm combined thickness. A small fluid collection anterior to the uterus is subcentimeter and nonspecific. Ovaries: The right ovary measures 3.5 x 3.3 x 3.6 cm, with a calculated ovarian volume of 20.9 cc. The left ovary measures 2.1 x 1.8 x 2.4 cm, with a calculated ovarian volume of 4.8 cc. The ovaries have a normal sonographic appearance. Dominant follicle in the right ovary measures 1.9 cm. No adnexal masses are seen. Other: No pathologic free abdominal or pelvic fluid. IMPRESSION: 1. No acute abnormality of the pelvis. 2. Bilateral ovarian cysts are unchanged. Previously described left complex cyst is unchanged. We strive to produce accurate, complete, and clear reports of imaging services. To assist us in improving patient care, this report was composed using standard report templates and voice recognition software. Therefore, it may contain abnormal punctuation, insertions and/or omissions. Occasional wrong-word or sound-alike substitutions may occur. Though we review the report and make efforts to correct it, we do recommend that the report be read carefully in proper context to recognize any text inaccuracies. Dictated by: James Allison M.D. on 08/24/2022 at 12:19 Approved by: James Allison M.D. on 08/24/2022 at 12:24
== END ==
PROVIDERS: Family Provider Internal Medicine; PCP Internal Medicine; Referring Provider Internal Medicine; Visit Provider Internal Medicine
DX: N83.202 Unspecified ovarian cyst, left side (principal); N83.201 Unspecified ovarian cyst, right side
CPT/HCPCS: 76830; 76856; 93975

== ENCOUNTER → 2022-09-07 10:50 | Outpatient (CLI) | payer OTHER, MEDICAID, SELFPAY ==
--- NOTE | 2022-09-07 | DI.MRI.S_ITS ---
PROCEDURE: MR PELVIS WO/W CON INDICATIONS: Other ovarian cyst, left side TECHNIQUE: Coronal HASTE, sagittal breath-hold T2 FSE; axial T1 FSE with and without fat saturation through the pelvis. Optional long- and short-axis uterine nonbreath-hold T2 FSE through the uterus. Sagittal or axial dynamic VIBE during administration of contrast. Post-contrast axial or coronal VIBE/2-D FLASH with fat saturation from the iliac crests to the symphysis. Optional diffusion weighted imaging and ADC may be performed. Note: The examination was terminated slightly early due to patient discomfort. COMPARISON: Pelvic ultrasound 08/24/2022 FINDINGS: Image quality: Excellent. Uterus: Uterus is normal in size. Endometrium is normal in thickness. Junctional zone is normal in thickness at 12 mm or less. scar. Adnexa: Both ovaries are normal in size, without suspicious cystic or solid lesions left-sided ovarian follicle and right-sided corpus luteum. Urinary system: Bladder wall is normal in thickness. Distal ureters are non distended. Urethra appears normal in morphology. Nodes and vessels: No pelvic or inguinal adenopathy by size criteria. Iliac vessels are normal in size. Bowel and peritoneum: No pathologic free pelvic fluid. Inferior colon and small bowel loops are normal in caliber. Soft tissues: No inguinal hernias. No findings of pelvic floor incompetence in the absence of provocation. Bones: Marrow demonstrates normal overall signal. IMPRESSION: No findings to explain the patient's pelvic pain. No evidence of endometriosis or adenomyosis. Benign left ovarian follicle and right corpus luteum, which do not require follow-up. scar present. Dictated by: Hernandez Logan M.D. on 09/07/2022 at 13:44 Approved by: Hernandez Logan M.D. on 09/07/2022 at 13:55
== END ==
PROVIDERS: Family Provider Internal Medicine; PCP Internal Medicine; Referring Provider Nurse Practitioner; Visit Provider Nurse Practitioner
DX: N83.292 Other ovarian cyst, left side (principal)
CPT/HCPCS: 72197; A9579

== ENCOUNTER → 2023-06-07 07:40 | Outpatient (CLI) | payer OTHER, MEDICAID, SELFPAY ==
--- NOTE | 2023-06-07 07:42 | DI.MG.S_ITS ---
BILATERAL DIGITAL SCREENING MAMMOGRAM 3D/2D WITH CAD: 06/07/2023 CLINICAL: Routine screening. Comparison is made to exams dated: 05/28/2021 mammogram and 06/27/2018 mammogram - [facility]. Both breasts are heterogeneously dense, which may obscure small masses (category c / 51-75% glandular tissue). Current study was also evaluated with a Computer Aided Detection (CAD) system. No significant masses, calcifications, or other findings are seen in either breast. There has been no significant interval change. IMPRESSION: NEGATIVE There is no mammographic evidence of malignancy. A 1 year screening mammogram is recommended. Based on the Tyrer Cuzick model (a risk assessment model) the patient's lifetime risk is 9.9% and her 10 year risk is 1.8%. According to the ACR, ACS, and NCCN guidelines, an annual breast MRI exam along with mammogram is recommended if the patient's lifetime risk is 20% or greater. This exam was interpreted at Station ID: [id number]. NOTE: For mammograms, a report in lay terms will be sent to the patient. Approximately 15% of breast malignancies will not be visualized mammographically. In the management of a palpable breast mass, a negative mammogram must not discourage biopsy of a clinically suspicious lesion. Electronically Signed By: Kasandra Jean M.D., PH.D eb/farhana:06/07/2023 12:44:52 copy to: Patricio Jauregui letter sent: Normal Exam ACR BI-RADS Category 1: Negative [id number]
== END ==
PROVIDERS: Family Provider Internal Medicine; PCP Internal Medicine; Referring Provider Internal Medicine; Visit Provider Internal Medicine
DX: Z12.31 Encounter for screening mammogram for malignant neoplasm of breast (principal); R92.333 Mammographic heterogeneous density, bilateral breasts
CPT/HCPCS: 77063; 77067

== ENCOUNTER → 2023-06-08 08:22 | Outpatient (CLI) | payer OTHER, MEDICAID, SELFPAY ==
[2023-06-08 09:52] LABS: Alanine Aminotransferase 27 IU/L (<35); Albumin 4.7 g/dL (3.5-5.0); Albumin Globulin Ratio 1.5 (1.0-2.8); Alkaline Phosphatase 60 U/L (38-126); Aspartate Aminotransferase 27 IU/L (14-36); BUN Creatinine Ratio 11.7 (6-22); Bilirubin Total 1.2 mg/dL (0.2-1.3); Blood Urea Nitrogen 9 mg/dL (7-17); Calcium 9.7 mg/dL (8.4-10.2); Carbon Dioxide 27 mmol/L (22-32); Chloride 104 mmol/L (98-107); Cholesterol 155 mg/dL (140-199); Estimated Glomerular Filt Rate > 60 mL/min (>60); Globulin 3.2 g/dL (1.7-4.1); Glucose 89 mg/dL (70-100); HDL Cholesterol 66 mg/dL (40-60); HEMOLYSIS < 15 (0-50); LDL Cholesterol Calculated 76 mg/dL (<100); Sodium 139 mmol/L (137-145); Total Protein 7.9 g/dL (6.3-8.2); Triglycerides 67 mg/dL (35-150)
[2023-06-08 10:01] LABS: Free T3, Triiodothyronine Free 3.48 pg/mL (2.77-5.27); Free T4, Direct Thyroxine 1.36 ng/dL (0.78-2.19)
[2023-06-08 10:14] LABS: Thyroid Stimulating Hormone 2.65 uIU/mL (0.47-4.68)
== END ==
PROVIDERS: Family Provider Internal Medicine; PCP Internal Medicine; Referring Provider Naturopath; Visit Provider Naturopath
DX: E03.9 Hypothyroidism, unspecified (principal); Z13.220 Encounter for screening for lipoid disorders; Z13.1 Encounter for screening for diabetes mellitus
CPT/HCPCS: 36415; 80053; 80061; 84439; 84443; 84481

== ENCOUNTER → 2023-10-05 13:48 | Outpatient (CLI) | payer OTHER, MEDICAID, SELFPAY ==
[2023-10-05 15:29] LABS: Free T3, Triiodothyronine Free 3.71 pg/mL (2.77-5.27); Free T4, Direct Thyroxine 1.11 ng/dL (0.78-2.19)
[2023-10-05 15:42] LABS: Thyroid Stimulating Hormone 2.96 uIU/mL (0.47-4.68)
== END ==
PROVIDERS: Family Provider Internal Medicine; PCP Internal Medicine; Referring Provider Internal Medicine; Visit Provider Internal Medicine
DX: E03.9 Hypothyroidism, unspecified (principal)
CPT/HCPCS: 36415; 84439; 84443; 84481

== ENCOUNTER → 2024-01-16 08:24 | Outpatient (CLI) | payer OTHER, MEDICAID, SELFPAY ==
--- NOTE | 2024-01-16 08:25 | DI.US.S_ITS ---
PROCEDURE: US PELVIC COMPLETE INDICATIONS: left pelvic pain TECHNIQUE: Real-time scanning was performed of the pelvic organs, with image documentation. Additional endovaginal scanning was necessary due to incomplete visualization of the adnexal and endometrial structures by transabdominal scanning. COMPARISON: [facility], , US PELVIC COMPLETE, 08/24/2022, 7:12. FINDINGS: Uterus: Uterus is retroverted and normal in size at 8.7 x 4.2 x 5.0 cm. The myometrium is heterogeneous. The endometrium measures 12 mm combined thickness. Dilated uterine vessels bilaterally, left greater than right. Ovaries: The right ovary measures 2.5 x 1.9 x 3.2 cm, with a calculated ovarian volume of 7.9 cc. Right ovarian simple cyst measuring 2.0 x 1.7 x 1.8 centimeters. The left ovary measures 2.1 x 1.4 x 1.8 cm, with a calculated ovarian volume of 2.7 cc. The ovaries have a normal sonographic appearance. Less than 12 follicles can be seen in each ovary. No adnexal masses are seen. Other: No pathologic free abdominal or pelvic fluid. IMPRESSION: 1. Dilated uterine vessels bilaterally, left greater than right. Findings may represent pelvic congestion syndrome and clinical correlation is recommended. 2. Endometrium measures 12 millimeters, this is normal in thickness for premenopausal female but thickened for a postmenopausal female. Recommend clinical correlation. 3. Right ovarian simple cyst measuring 2 centimeters. We strive to produce accurate, complete, and clear reports of imaging services. To assist us in improving patient care, this report was composed using standard report templates and voice recognition software. Therefore, it may contain abnormal punctuation, insertions and/or omissions. Occasional wrong-word or sound-alike substitutions may occur. Though we review the report and make efforts to correct it, we do recommend that the report be read carefully in proper context to recognize any text inaccuracies. Dictated by: Richar Barnes M.D. on 01/16/2024 at 10:18 Approved by: Richar Barnes M.D. on 01/16/2024 at 10:21
== END ==
PROVIDERS: Family Provider Internal Medicine; PCP Internal Medicine; Referring Provider Internal Medicine; Visit Provider Internal Medicine
DX: N83.291 Other ovarian cyst, right side (principal); R10.2 Pelvic and perineal pain
CPT/HCPCS: 76856

== ENCOUNTER → 2024-04-17 15:55 | Outpatient (CLI) | payer OTHER, SELFPAY ==
[2024-04-21 10:23] LABS: Fecal Immunochemical Test Negative (Negative)
== END ==
PROVIDERS: Family Provider Internal Medicine; PCP Internal Medicine; Referring Provider Internal Medicine; Visit Provider Internal Medicine
DX: Z12.11 Encounter for screening for malignant neoplasm of colon (principal)
CPT/HCPCS: 82274

== ENCOUNTER 2024-05-16 06:48 | Day surgery (SDC) | payer OTHER, SELFPAY ==
[2024-05-16] VITALS (9 sets, daily range): BP systolic 94–118; BP diastolic 56–73; PULSE 62–100; RESP 14–17; TEMP 36.3–36.9; O2SAT 94–100; BMI 19.3
--- NOTE | 2024-05-16 | PATH_ITS ---
[facility] Accession Number: [id number] No. of containers..02 Tissue . 01 Material submitted: . PART A: fallopian tube - BILATERAL FALLOPIAN TUBES PART B: ovary - LEFT OVARIAN CYST . 01 Diagnosis: A. BILATERAL FALLOPIAN TUBES, BILATERAL SALPINGECTOMY: Complete cross-section of fimbriated bilateral fallopian tubes with benign paratubal cysts. . B. LEFT OVARIAN CYST: Fragments of hemorrhagic and cystic corpus luteum. No neoplasia identified. MRV 05/20/2024 1416 Local . 01 Electronically signed: . Nereida Crandall MD, Pathologist NPI- [id number] . 01 Gross description: . A. Received in formalin with two identifiers and bilateral fallopian tubes, are two unoriented fimbriated fallopian tubes (7.0 x 0.8 cm and 7.5 x 0.9 cm) and a separate cystic structure 0.9 cm in greatest dimension. Inked blue and bisected to reveal a multiloculated thin-walled cyst filled with collazo serous fluid. . The tubes have violaceous, smooth serosa with no cysts identified. The lumen are stellate and unremarkable. Behavioral Assistant sections to include one-half of bisected fimbriae and cross-sections are submitted as follows: A1: Longer fallopian tube and bisected separate cyst. A2: [place] fallopian tube. . B. Received in formalin with two identifiers and left ovarian cyst, are multiple irregular collazo to red-brown soft tissue fragments aggregating to 2.5 x 1.6 x 0.9 cm. Sectioned to reveal a collazo to brown friable cut surface. Submitted entirely in cassettes B1-B2. ([id number]) /RAGHAVENDRA 05/17/2024 2139 Local . 01 Pathologist provided ICD-10: N83.201, R10.32, Z30.2 . 01 CPT . 206892, 302422 Specimen Comment: A courtesy copy of this report has been sent to [phone] Performed at: [address] [id number] MD Oscar Aquino MD Phone: [phone]
[2024-05-16] MEDS: LACTATED RINGERS 1,000 ML 42 ML IV (07:04)
--- NOTE | 2024-05-16 07:28 | PM.GYNHP.1 ---
History of Present Illness History of Present Illness Reason for admission: pelvic pain Narrative: Tanvi Layton is a 44 year old female with left pelvic pain and a right ovarian cyst Patient presents for a diagnostic laparoscopy, removal of right ovarian cyst, removal of both tubes, and possible lysis of adhesions. [facility] Medical History (Updated 05/07/24 @ 14:04 by Tashia Garcia RN) Venous hypertension of lower extremity Hypothyroid Allergic rhinitis, unspecified (10/13/10) Acne, unspecified (10/13/10) IBS (irritable bowel syndrome) Delayed gastric emptying (05/31/15) Varicose veins (02/04/15) Psychophysiological insomnia (02/04/15) Mixed stress and urge urinary incontinence (02/04/15) Irritable bowel syndrome without diarrhea (10/13/10) Acquired hypothyroidism (10/13/10) Acid reflux Surgical History Status post laparoscopic cholecystectomy Social History Smoking Status: Never smoker alcohol intake: current Meds Home Medications and Allergies Home Medications Medication Instructions Recorded Confirmed Type levothyroxine 50 mcg tablet 50 mcg PO DAILY 10/05/23 05/16/24 History estradiol 2 mg (7.5 mcg/24 hour) 1 vag ring vaginal [id number] #1 ea 02/28/24 05/16/24 Rx vaginal ring (Estring) Allergies Allergy/AdvReac Type Severity Reaction Status Date / Time amoxicillin [AMOXICILLIN] Allergy Mild RASH Verified 05/16/24 07:12 doxycycline [DOXYCYCLINE] Allergy Mild RASH Verified 05/16/24 07:12 Sulfa (Sulfonamide Allergy Mild rash Verified 05/16/24 07:12 Antibiotics) [SULFA (SULFONAMIDE ANTIBIOTICS)] Exam Vital Signs (past 8 hours): - 05/16/24 07:16 Temperature 98.4 F Pulse Rate 81 Respiratory Rate 17 Blood Pressure 118/73 Pulse Oximetry 100 Oxygen Delivery Method Room Air Oxygen Delivery Method Room Air Narrative Exam Narrative: HEENT: No thyromegaly, no anterior cervical or supraclavicular lymphadenopathy. Lungs:Clear to auscultation bilaterally, no wheezes. Cardiovascular: Regular rate and rhythm, no murmurs, rubs, or gallops. Abdomen: Well-healed laparoscopy scars. No hepatosplenomegaly. No masses palpable. External genitalia: Normal Vagina: Normal Cervix: Normal Bimanual exam: 8 Week size anteverted uterus. Mobile. Extremities: No edema Assessment & Plan Assessment & Plan narrative: Assessment: 44-year-old with left pelvic pain and a right ovarian cyst Does not desire anymore children Plan: Diagnostic laparoscopy with excision of right ovarian cyst, removal of both tubes, and possible lysis of adhesions The risks, benefits, and alternatives to the procedure were explained to the patient. The risks including bleeding, infection, injury to the bowel, bladder, or ureters. She understands these risks and agrees to proceed. A full par Q was held and consent form was signed. Time-Based Coding :: [TOTAL MINUTES] spent with patient and on the chart (including review of chart, obtaining history, exam, reviewing outside data, placing orders, documenting exam and treatment plan, and counseling patient) on [DATE].
--- NOTE | 2024-05-16 07:31 | PM.GYNOP.1 ---
Operative Date/Time/Diagnoses Date of procedure: 05/16/24 Time of procedure: 09:17 Pre-op diagnosis: Left pelvic pain Right ovarian cyst Post-op diagnosis: same Procedure & Clinicians Procedure: Procedures Operation Date: 05/16/24 07:45 <No data on this case meets the specified criteria> Indications: 44 year old with left pelvic pain and a right ovarian cyst Surgeon: Kaela Sellers Anesthesia Type: General and Local Operative Notes Findings: 8 wk size anteverted uterus Normal right ovary Right mid abdominal adhesions Normal tubes Normal liver Normal left upper quadrant Closure Type: primary Specimen(s): left tube, right tube and other (left ovarian cyst) Estimated blood loss (mL): 10 Blood products transfused: none Procedure in detail: After informed consent was obtained, the patient was taken to the operating room where she was placed in the dorsal supine position. After adequate general endotracheal anesthesia was achieved, she was placed in the dorsal lithotomy position, and prepped and draped in the usual sterile fashion. A time-out was performed. A bivalve speculum was placed into the vagina. The cervix was grasped with a single-tooth tenaculum on the anterior lip. The cervical os was sequentially dilated until the Zumi uterine manipulator could pass easily into the endometrial cavity. The single-tooth tenaculum was removed from the anterior lip of the cervix. The bivalve speculum was removed from the vagina. Attention was then turned to the abdomen where 6 cc of 0.5% Marcaine with epinephrine were injected. A 5 mm incision was made. The Veress needle was placed into the peritoneal cavity, and its placement confirmed by aspiration and drop test. The abdominal cavity was insufflated with 3.2 L of CO2. The Veress needle was removed, and a 5 mm trocar was placed without difficulty. The balloon on the cuff was inflated. A second incision was made 4 cm left lateral to the midline after 6 cc of 0.5% Marcaine with epinephrine were injected. A second 5 mm trocar was placed under direct visualization. The right upper quadrant was visualized and there were adhesions between the omentum and bowel and anterior abdominal wall. The liver was normal. In the pelvis there was a cyst measuring approximately 3 cm on the left ovary. The right ovary was normal. Bilateral tubes were normal. There were no pelvic adhesions. A third incision was made 4 cm right lateral of the midline at the level of the umbilicus after 6 cc of 0.5% Marcaine with epinephrine were injected. A third 5 mm trocar was placed without difficulty. The cuff was inflated. Using the endo Brooke, the adhesions between the omentum, bowel, and anterior abdominal wall were taken down with cautery and cut with care to avoid the bowel. In the pelvis the right tube was grasped with an atraumatic grasper. Using the power seal, the mesosalpinx was cauterized and cut all the way down to the cornua of the uterus. The tube was amputated at the cornua and removed through the trocar. This was repeated on the patient's left tube. The left ovary was grasped with an atraumatic grasper. Using the power seal, a large cyst was excised with cautery and cut. Cautery was used with a power seal and the spatula cautery for hemostasis. The instruments were removed from the abdomen. The CO2 was allowed to escape. The trocars were removed. The incisions were closed with 4-0 Monocryl in a subcuticular fashion. Steri-Strips and Allevyn dressings were placed. The Zumi uterine manipulator was removed from the uterus. Sponge, lap, and instrument counts were correct x2. The patient tolerated the procedure well, and was taken to PACU in stable condition. Complications: none Post-operative Condition: stable Disposition: PACU Plan for aftercare: Home after recovery
--- NOTE | 2024-05-16 07:32 | PM.PREOP ---
Pre-operative Note Interval Note History & Physical reviewed/Exam performed by Physician: Yes Changes to H&P: No H&P completed within 30 days and has changed as indicated here:: 05/16/24
[2024-05-16] MEDS: BUPIVACAINE 0.5% W/ EPI (PF) 30 ML VIAL INJ (08:54)
[2024-05-16] MEDS: ACETAMINOPHEN IV 1,000 MG/100 ML VIAL 400 MG IV (09:22)
[2024-05-16] MEDS: OXYCODONE IR 5 MG TABLET PO (10:09)
[2024-05-16] MEDS: BENZOCAINE/MENTHOL 1 LOZ PKT 1 EACH PO (10:09)
== END 2024-05-16 10:22 | disposition home or self-care (01) ==
PROVIDERS: Family Provider Internal Medicine; PCP Internal Medicine; Referring Provider Obstetrics & Gynecology; Visit Provider Obstetrics & Gynecology
PROC: (CPT 58661; principal; 2024-05-16 07:45)
DX: N83.12 Corpus luteum cyst of left ovary (principal); N73.6 Female pelvic peritoneal adhesions (postinfective); N83.8 Other noninflammatory disorders of ovary, fallopian tube and broad ligament
CPT/HCPCS: 58661; 58662; J0134; J0330; J1100; J1171; J2250; J2405; J2704; J3010; J3490

== ENCOUNTER → 2024-06-18 08:23 | Outpatient (CLI) | payer OTHER, SELFPAY ==
[2024-06-18 09:28] LABS: Add Manual Diff / Slide Review NO; Basophils Absolute Auto 0 /uL (0-100); Basophils Percent Auto 0.6 % (0-2); Eosinophils Absolute Auto 0 /uL (0-450); Eosinophils Percent Auto 0.6 % (2-4); Hemoglobin 13.3 g/dL (12.0-16.0); Lymphocytes Absolute Auto 1600 /uL (1100-4500); Lymphocytes Percent Auto 24.7 % (25-40); Mean Corpuscular HGB Conc 34.1 % (30-36); Mean Corpuscular Hemoglobin 31.5 PG (26-34); Mean Corpuscular Volume 92.4 fL (80-100); Monocytes Absolute Auto 600 /uL (0-900); Monocytes Percent Auto 8.5 % (3-14); Neutrophils Absolute Auto 4300 /uL (1500-7000); Neutrophils Percent Auto 65.6 % (50-75); Platelet Count 209 X10^3/uL (150-400); Red Blood Cell Count 4.22 X10^6/uL (4.0-5.2); Red Cell Distribution Width 14.2 % (11.6-14.8); White Blood Cell Count 6.6 X10^3/uL (4.5-11.0)
[2024-06-18 09:54] LABS: Alanine Aminotransferase 19 IU/L (<35); Albumin 5.2 g/dL (3.5-5.0); Albumin Globulin Ratio 1.9 (1.0-2.8); Alkaline Phosphatase 56 U/L (38-126); Aspartate Aminotransferase 25 IU/L (14-36); BUN Creatinine Ratio 11.1 (6-22); Bilirubin Total 0.7 mg/dL (0.2-1.3); Blood Urea Nitrogen 8 mg/dL (7-17); Calcium 9.6 mg/dL (8.4-10.2); Carbon Dioxide 25 mmol/L (22-32); Chloride 101 mmol/L (98-107); Estimated Glomerular Filt Rate > 60 mL/min (>60); Globulin 2.8 g/dL (1.7-4.1); Glucose 91 mg/dL (70-100); HEMOLYSIS < 15 (0-50); Potassium 4.3 mmol/L (3.4-5.1); Sodium 137 mmol/L (137-145)
[2024-06-18 10:10] LABS: Free T3, Triiodothyronine Free 4.26 pg/mL (2.77-5.27); Free T4, Direct Thyroxine 1.12 ng/dL (0.78-2.19)
[2024-06-18 10:23] LABS: Thyroid Stimulating Hormone 2.91 uIU/mL (0.47-4.68)
== END ==
PROVIDERS: Family Provider Internal Medicine; PCP Internal Medicine; Referring Provider Internal Medicine; Visit Provider Internal Medicine
DX: E03.9 Hypothyroidism, unspecified (principal); D64.9 Anemia, unspecified; R10.2 Pelvic and perineal pain; K21.9 Gastro-esophageal reflux disease without esophagitis
CPT/HCPCS: 36415; 80053; 84439; 84443; 84481; 85025

== ENCOUNTER 2024-07-01 08:15 | Outpatient (RCR) | payer OTHER, SELFPAY ==
--- NOTE | 2024-03-25 11:29 | PT.OIE ---
Addendum entered and electronically signed by Tiana Ramirez, PT 03/31/24 09:50: add LTG Pt will have 4+/5 UE strenght and at least 4/5 EFT Original Note: Current Diagnoses Pain in left shoulder (03/25/24) Past Medical History (Last Reviewed 12/03/21 @ 15:30 by Anitra Jewell DO) Acid reflux Acne, unspecified (10/13/10) Acquired hypothyroidism (10/13/10) Allergic rhinitis, unspecified (10/13/10) Delayed gastric emptying (05/31/15) IBS (irritable bowel syndrome) Irritable bowel syndrome without diarrhea (10/13/10) Mixed stress and urge urinary incontinence (02/04/15) Psychophysiological insomnia (02/04/15) Varicose veins (02/04/15) Past Surgical History (Last Reviewed 12/03/21 @ 15:30 by Anitra Jewell DO) Status post laparoscopic cholecystectomy Visit Care Team Role Provider Type Patricio Jauregui MD Attending Provider Physician Family Provider Primary Care Provider Referring Provider Specialty: Internal Medicine Address: [address] [place] [address], [facility] Email: [email or web address] Physical Therapy Initial Evaluation PT-OP-A Visit Information Start: 03/20/24 18:46 Freq: Status: Active Protocol: Document 03/25/24 08:18 [facility] (Rec: 03/25/24 09:04 [facility] [id number]) Out-Patient Physical Therapy Visit Information Visit Information Visit Type Initial Evaluation Visit Start Time 08:17 Visit Stop Time 08:55 Visit Number 1 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 if she does chatarangas in a class, then she is feels it. Saw chiro in the past and has helped at the time, but it doesn't go away. It is managable if she avoids things . Avoids lifting or weights. Went to golf simulator the other day and didn't put a lot of effor into it to avoid pain. hx of neck pain mostly at cranium Treatment Goals Patient/Caregiver Goals Be able to lift and do all yoga, how to create more stability PT-OP-C Subjective Start: 03/20/24 18:46 Freq: Status: Active Protocol: Document 03/25/24 08:18 [facility] (Rec: 03/25/24 09:04 [facility] [id number]) Patient Questionnaires Quick Dash- Upper Extremity Quick Dash UE Score 10 OP-PT Pain Assessment Location L shoulder Pain Location Details L shoulder ant clavicle Description With Movement Frequency Intermittent Radiating Location ache into biceps Pain Aggravating Factors Lifting Other Pain Aggravating Factors plank into chaturanga, abd, backpack on, bending fwd, shoulder coming fwd Other Pain Alleviating Factors avoid movements PT-OP-F Manual Assessment Start: 03/20/24 18:46 Freq: Status: Active Protocol: Document 03/25/24 08:18 [facility] (Rec: 03/25/24 09:04 [facility] [id number]) Manual Assessments Soft Tissue Assessment Soft Tissue Mobility Assessment tenderness biceps tendon PT-OP-J Posture/Palpation/Skin Start: 03/20/24 18:46 Freq: Status: Active Protocol: Document 03/25/24 08:18 [facility] (Rec: 03/25/24 09:04 [facility] [id number]) Posture Evaluation [facility] Postural Classification System Duke Postural Classifications Posterior/Posterior Elbow Flexion Test 1 Comments Posture Comments L scap elevated, fwd tipped, more winging, L clavicle hiegher and SC higher and more fwd THoracic rotation about 60% B PT-OP-K Range of Motion Start: 03/20/24 18:46 Freq: Status: Active Protocol: Document 03/25/24 08:18 [facility] (Rec: 03/25/24 09:04 [facility] [id number]) Shoulder Goniometric Range of Motion Shoulder ROM Limitations Comments WNL w/pain w/abd PT-OP-L Special Tests Start: 03/20/24 18:46 Freq: Status: Active Protocol: Document 03/25/24 08:18 [facility] (Rec: 03/25/24 09:04 [facility] [id number]) Special Tests Shoulder Special Tests Speed's Biceps Comments neg [place] Test Comments neg Empty Can Comments weakness Pryor Ian Impingement Test Results neg neer Comments positive L -compression AC Joint Compression Comments neg Aply Comments L on top-1.5 in difference- L T3 R on top-touching hands- R T4 Neural Special Tests- Upper Body n tension Comments neg ulnar,med radial PT-OP-M Strength Start: 03/20/24 18:46 Freq: Status: Active Protocol: Document 03/25/24 08:18 [facility] (Rec: 03/25/24 09:04 [facility] [id number]) Shoulder Strength Shoulder Manual Muscle Testing Right Flexion 4 Good Extension 5 Normal Abduction (C5) 4 Good External Rotation 5 Normal Internal Rotation 4 Good Horizontal Abduction 4+ Good+ Horizontal Adduction 4+ Good+ Left Flexion 4 Good Extension 4 Good Abduction (C5) 4 Good External Rotation 4 Good Internal Rotation 4 Good Horizontal Abduction 3+ Fair+ Horizontal Adduction 3+ Fair+ Elbow/Forearm Strength Elbow and Forearm Manual Muscle Testing Right Flexion (C6) 5 Normal Extension (C7) 5 Normal Left Flexion (C6) 4 Good Extension (C7) 5 Normal Pronation 5 Normal Supination 5 Normal Comments biceps 4/5 pain; brachialis 5/ 5 no pain PT-OP-Q Treatments Start: 03/20/24 18:46 Freq: Status: Active Protocol: Document 03/25/24 08:18 [facility] (Rec: 03/25/24 09:04 [facility] [id number]) Therapeutic Exercises Standing Exercises ER Side bilateral Equipment Used L1 Reps/Minutes 2x8 Manual Therapy Treatment Consent Patient gave verbal consent for manual Yes treatment Soft Tissue Mobilization superior Body Location L UT, LS, scalenes Mobilization Type Rolling,Sustained Pressure Intensity/Depth Moderate Body Position Sidelying Comments w/scap dep Joint Mobilizations thoracic Joint transverse T4 and 5 R w/scap dep SC Joint L sup w/post dep AC Joint L post clavicle c/r shrug Body Position Sidelying PT-OP-T Assessment and Plan Start: 03/20/24 18:46 Freq: Status: Active Protocol: Document 03/25/24 08:18 [facility] (Rec: 03/25/24 09:04 [facility] [id number]) Physical Therapy Assessment Rehab Potential Rehabilitation Potential Good Evaluation Complexity Number of Personal Factors/Comorbidities 1-2 Number of Body Systems Impaired 3 Clinical Presentation at Evaluation Stable Impairments Impairments Activity Tolerance,Functional Activities,Functional Mobility ,Pain,Posture,ROM,Soft Tissue Mobility,Strength Goals strength Short Term Goal (STG) Pt will be indep w/HEP STG Duration 04/19 Jail Goal (LTG) Pt LTG Duration 05/20 activity Jail Goal (LTG) Pt will be able to do all yoga activities and lifting w/o inc pain in L shoulder. LTG Duration 05/20 Assessment Summary Assessment Pt presents w/L shoulder pain after injury when lifting on total gym a couple years ago. She has overall LUE weakness along w/impaired scapular stability/posture and weakness in biceps and pain w/testing but no pain w/special testing for biceps injury. She does have elevation of 1st rib likely contributing to this issue. She would benefit from skilled PT to address these deficits and return to full lifting and yoga ability. Physical Therapy Plan Frequency and Duration Frequency of Treatment 1-2x/wk Duration of treatment (weeks) 8 Plan of Care Start Date 03/25/24 Plan of Care End Date 05/20/24 Therapeutic Interventions Therapeutic Interventions Home Exercise Program,Joint Mobilizations,Manual Therapy, Neuromuscular Re-education, Patient/Caregiver Education, Self-Care/Home Management,Soft Tissue Mobilization,Taping, Therapeutic Activities, Therapeutic Exercises Modalities Cold Pack/Ice Massage,Electric Stimulation,Hot Packs, Infrared Therapy,Ultrasound Next Visit Focus/Plan Next Note Type Treatment Note Next Visit Plan review ER; add Rows, quadruped and plank strengthening, 1stand 2nd rib mobs and thoracic mobs, cervical work as needed, manual to SC and AC and GHJ
--- NOTE | 2024-03-25 11:29 | PT.OPPOC ---
Physical, Occupational & Speech Therapy At [facility] Current Diagnoses Pain in left shoulder (03/25/24) Visit Care Team Role Provider Type Patricio Jauregui MD Attending Provider Physician Family Provider Primary Care Provider Referring Provider Specialty: Internal Medicine Address: [address] [place] [address], [facility] [address], [place], [address] Email: [email or web address] Plan Of Care PT-OP-B Current Condition Start: 03/20/24 18:46 Freq: Status: Active Protocol: Document 03/25/24 08:18 [facility] (Rec: 03/25/24 09:04 [facility] [id number]) Current Condition History of Current Condition Onset Date 2 years Current Complaints L shoulder History of Current Condition About 2 years ago, bought total gym andwas doing pulling out and in and notes collar bone kept slipping. if she does chatarangas in a class, then she is feels it. Saw chiro in the past and has helped at the time, but it doesn't go away. It is managable if she avoids things . Avoids lifting or weights. Went to golf simulator the other day and didn't put a lot of effor into it to avoid pain. hx of neck pain mostly at cranium Treatment Goals Patient/Caregiver Goals Be able to lift and do all yoga, how to create more stability PT-OP-T Assessment and Plan Start: 03/20/24 18:46 Freq: Status: Active Protocol: Document 03/25/24 08:18 [facility] (Rec: 03/25/24 09:04 [facility] [id number]) Physical Therapy Assessment Rehab Potential Rehabilitation Potential Good Evaluation Complexity Number of Personal Factors/Comorbidities 1-2 Number of Body Systems Impaired 3 Clinical Presentation at Evaluation Stable Impairments Impairments Activity Tolerance,Functional Activities,Functional Mobility ,Pain,Posture,ROM,Soft Tissue Mobility,Strength Goals strength Short Term Goal (STG) Pt will be indep w/HEP STG Duration 04/19 Pharmaceutical Specialty Representative Goal (LTG) Pt LTG Duration 05/20 activity [facility] Goal (LTG) Pt will be able to do all yoga activities and lifting w/o inc pain in L shoulder. LTG Duration 05/20 Assessment Summary Assessment Pt presents w/L shoulder pain after injury when lifting on total gym a couple years ago. She has overall LUE weakness along w/impaired scapular stability/posture and weakness in biceps and pain w/testing but no pain w/special testing for biceps injury. She does have elevation of 1st rib likely contributing to this issue. She would benefit from skilled PT to address these deficits and return to full lifting and yoga ability. Physical Therapy Plan Frequency and Duration Frequency of Treatment 1-2x/wk Duration of treatment (weeks) 8 Plan of Care Start Date 03/25/24 Plan of Care End Date 05/20/24 Therapeutic Interventions Therapeutic Interventions Home Exercise Program,Joint Mobilizations,Manual Therapy, Neuromuscular Re-education, Patient/Caregiver Education, Self-Care/Home Management,Soft Tissue Mobilization,Taping, Therapeutic Activities, Therapeutic Exercises Modalities Cold Pack/Ice Massage,Electric Stimulation,Hot Packs, Infrared Therapy,Ultrasound Next Visit Focus/Plan Next Note Type Treatment Note Next Visit Plan review ER; add Rows, quadruped and plank strengthening, 1stand 2nd rib mobs and thoracic mobs, cervical work as needed, manual to SC and AC and GHJ Plan of Care Dates Plan of Care Start Date 03/25/24 Plan of Care End Date 05/20/24 Electronically Signed by: Tiana Ramirez, PT 03/25/24 2569 If you are in agreement with this Plan of Care, please return a signed and dated copy. I have reviewed this Plan of Care and certify that the skilled therapy services above are required to meet the patient?s needs. Physician Signature Date Printed Name and Credentials Clinical Instructor Signature Printed Name and Credentials
--- NOTE | 2024-03-31 15:13 | PT.OTN ---
Current Diagnoses Pain in left shoulder (03/31/24) Physical Therapy Treatment Note PT-OP-A Visit Information Start: 03/20/24 18:46 Freq: Status: Active Protocol: Document 03/31/24 09:20 [facility] (Rec: 03/31/24 15:13 [facility] [id number]) Out-Patient Physical Therapy Visit Information Visit Information Visit Type Treatment Note Visit Start Time 09:48 Visit Stop Time 10:29 Visit Number 2 Number of CHEMICAL SALES REPRESENTATIVE Visits 0 PT-OP-B Current Condition Start: 03/20/24 18:46 Freq: Status: Active Protocol: Document 03/25/24 08:18 [facility] (Rec: 03/25/24 09:04 [facility] [id number]) Current Condition History of Current Condition Onset Date 2 years Current Complaints L shoulder History of Current Condition About 2 years ago, bought total gym andwas doing pulling out and in and notes collar bone kept slipping. if she does chatarangas in a class, then she is feels it. Saw chiro in the past and has helped at the time, but it doesn't go away. It is managable if she avoids things . Avoids lifting or weights. Went to golf simulator the other day and didn't put a lot of effor into it to avoid pain. hx of neck pain mostly at cranium Treatment Goals Patient/Caregiver Goals Be able to lift and do all yoga, how to create more stability PT-OP-C Subjective Start: 03/20/24 18:46 Freq: Status: Active Protocol: Document 03/31/24 09:20 [facility] (Rec: 03/31/24 15:13 [facility] [id number]) OP-PT Subjective Patient Comments Patient Comments Pt reports some soreness w/ exercise PT-OP-F Manual Assessment Start: 03/20/24 18:46 Freq: Status: Active Protocol: Document 03/25/24 08:18 [facility] (Rec: 03/25/24 09:04 [facility] [id number]) Manual Assessments Soft Tissue Assessment Soft Tissue Mobility Assessment tenderness biceps tendon PT-OP-J Posture/Palpation/Skin Start: 03/20/24 18:46 Freq: Status: Active Protocol: Document 03/25/24 08:18 [facility] (Rec: 03/25/24 09:04 [facility] [id number]) Posture Evaluation [facility] Postural Classification System Duke Postural Classifications Posterior/Posterior Elbow Flexion Test 1 Comments Posture Comments L scap elevated, fwd tipped, more winging, L clavicle hiegher and SC higher and more fwd THoracic rotation about 60% B PT-OP-K Range of Motion Start: 03/20/24 18:46 Freq: Status: Active Protocol: Document 03/25/24 08:18 [facility] (Rec: 03/25/24 09:04 [facility] [id number]) Shoulder Goniometric Range of Motion Shoulder ROM Limitations Comments WNL w/pain w/abd PT-OP-L Special Tests Start: 03/20/24 18:46 Freq: Status: Active Protocol: Document 03/25/24 08:18 [facility] (Rec: 03/25/24 09:04 [facility] [id number]) Special Tests Shoulder Special Tests Speed's Biceps Comments neg [place] Test Comments neg Empty Can Comments weakness Pryor Ian Impingement Test Results neg neer Comments positive L -compression AC Joint Compression Comments neg Aply Comments L on top-1.5 in difference- L T3 R on top-touching hands- R T4 Neural Special Tests- Upper Body n tension Comments neg ulnar,med radial PT-OP-M Strength Start: 03/20/24 18:46 Freq: Status: Active Protocol: Document 03/25/24 08:18 [facility] (Rec: 03/25/24 09:04 [facility] [id number]) Shoulder Strength Shoulder Manual Muscle Testing Right Flexion 4 Good Extension 5 Normal Abduction (C5) 4 Good External Rotation 5 Normal Internal Rotation 4 Good Horizontal Abduction 4+ Good+ Horizontal Adduction 4+ Good+ Left Flexion 4 Good Extension 4 Good Abduction (C5) 4 Good External Rotation 4 Good Internal Rotation 4 Good Horizontal Abduction 3+ Fair+ Horizontal Adduction 3+ Fair+ Elbow/Forearm Strength Elbow and Forearm Manual Muscle Testing Right Flexion (C6) 5 Normal Extension (C7) 5 Normal Left Flexion (C6) 4 Good Extension (C7) 5 Normal Pronation 5 Normal Supination 5 Normal Comments biceps 4/5 pain; brachialis 5/ 5 no pain PT-OP-Q Treatments Start: 03/20/24 18:46 Freq: Status: Active Protocol: Document 03/31/24 09:20 [facility] (Rec: 03/31/24 15:13 [facility] [id number]) Therapeutic Exercises Sitting Exercises 1st rib mob Sitting Exercise Name w/SB cervical Side left Equipment Used strap Reps/Minutes 10 Standing Exercises row Side bilateral Equipment Used nikolski Reps/Minutes 15 Comments cues scap retraction ER Side bilateral Equipment Used L1 Reps/Minutes 10 Comments towel under L elbow Other Exercises quadruped Other Exercise Name 1. serratus punch 2. hip ext Side bilateral Reps/Minutes 15 ea Manual Therapy Treatment Consent Patient gave verbal consent for manual Yes treatment Soft Tissue Mobilization superior Body Location L UT, LS, scalenes Mobilization Type Rolling,Sustained Pressure Intensity/Depth Moderate Body Position Sidelying Comments w/scap dep Joint Mobilizations GH Comments L distraction, post glide, lat gapping c/r ribs' Body Position Sidelying Comments caudal ribs 1-3 c/r AC Joint L post clavicle c/r shrug Body Position Sidelying PT-OP-T Assessment and Plan Start: 03/20/24 18:46 Freq: Status: Active Protocol: Document 03/31/24 09:20 [facility] (Rec: 03/31/24 15:13 [facility] [id number]) Physical Therapy Assessment Goals strength Short Term Goal (STG) Pt will be indep w/HEP STG Duration 04/19 Floorworker Goal (LTG) Pt will have 4+/5 UE strenght and at least 4/5 EFT LTG Duration 05/20 activity Fpc Goal (LTG) Pt will be able to do all yoga activities and lifting w/o inc pain in L shoulder. LTG Duration 05/20 Assessment Summary Assessment Inc time w/exercsies to train pt on understanding of correct mm engagement w/activities. no pain w/exercises noted. She did have improved post dep of L scap after manual Physical Therapy Plan Next Visit Focus/Plan Next Note Type Treatment Note Next Visit Plan review exercises, cont to work on ribcage and GH mobility along w/cervical work.
--- NOTE | 2024-04-02 12:27 | PT.OTN ---
Current Diagnoses Pain in left shoulder (04/02/24) Physical Therapy Treatment Note PT-OP-A Visit Information Start: 03/20/24 18:46 Freq: Status: Active Protocol: Document 04/02/24 11:37 [facility] (Rec: 04/02/24 12:27 [facility] [id number]) Out-Patient Physical Therapy Visit Information Visit Information Visit Type Treatment Note Visit Start Time 11:35 Visit Stop Time 12:15 Visit Number 3 Number of CAR SWEEPER Visits 0 PT-OP-B Current Condition Start: 03/20/24 18:46 Freq: Status: Active Protocol: Document 03/25/24 08:18 [facility] (Rec: 03/25/24 09:04 [facility] [id number]) Current Condition History of Current Condition Onset Date 2 years Current Complaints L shoulder History of Current Condition About 2 years ago, bought total gym andwas doing pulling out and in and notes collar bone kept slipping. if she does chatarangas in a class, then she is feels it. Saw chiro in the past and has helped at the time, but it doesn't go away. It is managable if she avoids things . Avoids lifting or weights. Went to golf simulator the other day and didn't put a lot of effor into it to avoid pain. hx of neck pain mostly at cranium Treatment Goals Patient/Caregiver Goals Be able to lift and do all yoga, how to create more stability PT-OP-C Subjective Start: 03/20/24 18:46 Freq: Status: Active Protocol: Document 04/02/24 11:37 [facility] (Rec: 04/02/24 12:27 [facility] [id number]) OP-PT Subjective Patient Comments Patient Comments Pt reports shoulder felt good after last session. She did rock hounding and was looking down PT-OP-F Manual Assessment Start: 03/20/24 18:46 Freq: Status: Active Protocol: Document 03/25/24 08:18 [facility] (Rec: 03/25/24 09:04 [facility] [id number]) Manual Assessments Soft Tissue Assessment Soft Tissue Mobility Assessment tenderness biceps tendon PT-OP-J Posture/Palpation/Skin Start: 03/20/24 18:46 Freq: Status: Active Protocol: Document 03/25/24 08:18 [facility] (Rec: 03/25/24 09:04 [facility] [id number]) Posture Evaluation [facility] Postural Classification System [facility] Postural Classifications Posterior/Posterior Elbow Flexion Test 1 Comments Posture Comments L scap elevated, fwd tipped, more winging, L clavicle hiegher and SC higher and more fwd THoracic rotation about 60% B PT-OP-K Range of Motion Start: 03/20/24 18:46 Freq: Status: Active Protocol: Document 03/25/24 08:18 [facility] (Rec: 03/25/24 09:04 [facility] [id number]) Shoulder Goniometric Range of Motion Shoulder ROM Limitations Comments WNL w/pain w/abd PT-OP-L Special Tests Start: 03/20/24 18:46 Freq: Status: Active Protocol: Document 03/25/24 08:18 [facility] (Rec: 03/25/24 09:04 [facility] [id number]) Special Tests Shoulder Special Tests Speed's Biceps Comments neg [place] Test Comments neg Empty Can Comments weakness Pryor Ian Impingement Test Results neg neer Comments positive L -compression AC Joint Compression Comments neg Aply Comments L on top-1.5 in difference- L T3 R on top-touching hands- R T4 Neural Special Tests- Upper Body n tension Comments neg ulnar,med radial PT-OP-M Strength Start: 03/20/24 18:46 Freq: Status: Active Protocol: Document 03/25/24 08:18 [facility] (Rec: 03/25/24 09:04 [facility] [id number]) Shoulder Strength Shoulder Manual Muscle Testing Right Flexion 4 Good Extension 5 Normal Abduction (C5) 4 Good External Rotation 5 Normal Internal Rotation 4 Good Horizontal Abduction 4+ Good+ Horizontal Adduction 4+ Good+ Left Flexion 4 Good Extension 4 Good Abduction (C5) 4 Good External Rotation 4 Good Internal Rotation 4 Good Horizontal Abduction 3+ Fair+ Horizontal Adduction 3+ Fair+ Elbow/Forearm Strength Elbow and Forearm Manual Muscle Testing Right Flexion (C6) 5 Normal Extension (C7) 5 Normal Left Flexion (C6) 4 Good Extension (C7) 5 Normal Pronation 5 Normal Supination 5 Normal Comments biceps 4/5 pain; brachialis 5/ 5 no pain PT-OP-Q Treatments Start: 03/20/24 18:46 Freq: Status: Active Protocol: Document 04/02/24 11:37 [facility] (Rec: 04/02/24 12:27 [facility] [id number]) Therapeutic Exercises Sitting Exercises 1st rib mob Sitting Exercise Name w/SB cervical Side left Equipment Used strap Reps/Minutes 10 Standing Exercises row Side bilateral Equipment Used cachil dehe Reps/Minutes 15 Comments cues scap retraction ER Side bilateral Equipment Used L1 Reps/Minutes 10 Other Exercises quadruped Other Exercise Name 1. serratus punch 2. hip ext Side bilateral Reps/Minutes 10 ea Manual Therapy Treatment Consent Patient gave verbal consent for manual Yes treatment Soft Tissue Mobilization superior Body Location L>R UT, LS, scalenes, paraspinals Mobilization Type Rolling,Sustained Pressure Intensity/Depth Moderate Body Position Sidelying Comments w/scap dep Joint Mobilizations cervical Comments transverse C1 and 2 R c/r and transverse C5 and 7 c/r ribs' Comments caudal ribs 1-3 c/r ; AP L rib 1-3 thoracic Comments PA T1-3 c/r, transverse T1-2 R c/r PT-OP-T Assessment and Plan Start: 03/20/24 18:46 Freq: Status: Active Protocol: Document 04/02/24 11:37 [facility] (Rec: 04/02/24 12:27 [facility] [id number]) Physical Therapy Assessment Goals strength Short Term Goal (STG) Pt will be indep w/HEP STG Duration 04/19 Usp Goal (LTG) Pt will have 4+/5 UE strenght and at least 4/5 EFT LTG Duration 05/20 activity Drapery Hemmer Automatic Goal (LTG) Pt will be able to do all yoga activities and lifting w/o inc pain in L shoulder. LTG Duration 05/20 Assessment Summary Assessment Pt reports dec OSEI w/treatment and did well with exercises and has improved form w/ exercises Physical Therapy Plan Frequency and Duration Frequency of Treatment 1-2x/wk Duration of treatment (weeks) 8 Plan of Care Start Date 03/25/24 Plan of Care End Date 05/20/24 Next Visit Focus/Plan Next Note Type Treatment Note Next Visit Plan review exercises, cont to work on ribcage and GH mobility along w/cervical work.
--- NOTE | 2024-04-07 10:50 | PT.OTN ---
Current Diagnoses Pain in left shoulder (04/07/24) Physical Therapy Treatment Note PT-OP-A Visit Information Start: 03/20/24 18:46 Freq: Status: Active Protocol: Document 04/07/24 09:08 [facility] (Rec: 04/07/24 10:50 [facility] [id number]) Out-Patient Physical Therapy Visit Information Visit Information Visit Type Treatment Note Visit Start Time 09:06 Visit Stop Time 09:46 Visit Number 4 Number of EPIC TRAINER Visits 0 PT-OP-B Current Condition Start: 03/20/24 18:46 Freq: Status: Active Protocol: Document 03/25/24 08:18 [facility] (Rec: 03/25/24 09:04 [facility] [id number]) Current Condition History of Current Condition Onset Date 2 years Current Complaints L shoulder History of Current Condition About 2 years ago, bought total gym andwas doing pulling out and in and notes collar bone kept slipping. if she does chatarangas in a class, then she is feels it. Saw chiro in the past and has helped at the time, but it doesn't go away. It is managable if she avoids things . Avoids lifting or weights. Went to golf simulator the other day and didn't put a lot of effor into it to avoid pain. hx of neck pain mostly at cranium Treatment Goals Patient/Caregiver Goals Be able to lift and do all yoga, how to create more stability PT-OP-C Subjective Start: 03/20/24 18:46 Freq: Status: Active Protocol: Document 04/07/24 09:08 [facility] (Rec: 04/07/24 10:50 [facility] [id number]) OP-PT Subjective Patient Comments Patient Comments pt reports noticed shoulder pain when doing warrior 1 to 2 w/trasition of L UE. neck doign well PT-OP-F Manual Assessment Start: 03/20/24 18:46 Freq: Status: Active Protocol: Document 03/25/24 08:18 [facility] (Rec: 03/25/24 09:04 [facility] [id number]) Manual Assessments Soft Tissue Assessment Soft Tissue Mobility Assessment tenderness biceps tendon PT-OP-J Posture/Palpation/Skin Start: 03/20/24 18:46 Freq: Status: Active Protocol: Document 03/25/24 08:18 [facility] (Rec: 03/25/24 09:04 [facility] [id number]) Posture Evaluation [facility] Postural Classification System [facility] Postural Classifications Posterior/Posterior Elbow Flexion Test 1 Comments Posture Comments L scap elevated, fwd tipped, more winging, L clavicle hiegher and SC higher and more fwd THoracic rotation about 60% B PT-OP-K Range of Motion Start: 03/20/24 18:46 Freq: Status: Active Protocol: Document 03/25/24 08:18 [facility] (Rec: 03/25/24 09:04 [facility] [id number]) Shoulder Goniometric Range of Motion Shoulder ROM Limitations Comments WNL w/pain w/abd PT-OP-L Special Tests Start: 03/20/24 18:46 Freq: Status: Active Protocol: Document 03/25/24 08:18 [facility] (Rec: 03/25/24 09:04 [facility] [id number]) Special Tests Shoulder Special Tests Speed's Biceps Comments neg [place] Test Comments neg Empty Can Comments weakness Pryor Ian Impingement Test Results neg neer Comments positive L -compression AC Joint Compression Comments neg Aply Comments L on top-1.5 in difference- L T3 R on top-touching hands- R T4 Neural Special Tests- Upper Body n tension Comments neg ulnar,med radial PT-OP-M Strength Start: 03/20/24 18:46 Freq: Status: Active Protocol: Document 03/25/24 08:18 [facility] (Rec: 03/25/24 09:04 [facility] [id number]) Shoulder Strength Shoulder Manual Muscle Testing Right Flexion 4 Good Extension 5 Normal Abduction (C5) 4 Good External Rotation 5 Normal Internal Rotation 4 Good Horizontal Abduction 4+ Good+ Horizontal Adduction 4+ Good+ Left Flexion 4 Good Extension 4 Good Abduction (C5) 4 Good External Rotation 4 Good Internal Rotation 4 Good Horizontal Abduction 3+ Fair+ Horizontal Adduction 3+ Fair+ Elbow/Forearm Strength Elbow and Forearm Manual Muscle Testing Right Flexion (C6) 5 Normal Extension (C7) 5 Normal Left Flexion (C6) 4 Good Extension (C7) 5 Normal Pronation 5 Normal Supination 5 Normal Comments biceps 4/5 pain; brachialis 5/ 5 no pain PT-OP-Q Treatments Start: 03/20/24 18:46 Freq: Status: Active Protocol: Document 04/07/24 09:08 [facility] (Rec: 04/07/24 10:50 [facility] [id number]) Therapeutic Exercises Prone Exercises Ys Prone Exercise Name shoulder ext to Y Side bilateral Equipment Used green ball Reps/Minutes 10 Sidelying Exercises arm circles Side bilateral Reps/Minutes 5 Comments cues keep arm close to arm Other Exercises plank Other Exercise Name serratus punch hands and knees Side bilateral Reps/Minutes 10 quadruped Other Exercise Name 1. serratus punch 2. hip ext Side bilateral Reps/Minutes 10 ea Manual Therapy Treatment Consent Patient gave verbal consent for manual Yes treatment Soft Tissue Mobilization ant Body Location L pec major/minor Mobilization Type Rolling,Sustained Pressure Intensity/Depth Moderate Body Position Supine Joint Mobilizations GH Comments L post c/r; inf w/flex w/dowel ribs' Comments L AP rib 1 and 2 AC Comments L ant clavicle w/AAROM w/dowel PT-OP-T Assessment and Plan Start: 03/20/24 18:46 Freq: Status: Active Protocol: Document 04/07/24 09:08 [facility] (Rec: 04/07/24 10:50 [facility] [id number]) Physical Therapy Assessment Goals strength Short Term Goal (STG) Pt will be indep w/HEP STG Duration 04/19 Appointment Setter Goal (LTG) Pt will have 4+/5 UE strenght and at least 4/5 EFT LTG Duration 05/20 activity Group Home Goal (LTG) Pt will be able to do all yoga activities and lifting w/o inc pain in L shoulder. LTG Duration 05/20 Assessment Summary Assessment Pt did well with progression of exercises w/o inc pain. She had imrpoved mobility in shoulder w/less discomfort w/ warrior after manual Physical Therapy Plan Frequency and Duration Frequency of Treatment 1-2x/wk Duration of treatment (weeks) 8 Plan of Care Start Date 03/25/24 Plan of Care End Date 05/20/24 Next Visit Focus/Plan Next Note Type Treatment Note Next Visit Plan review exercises from last session and progress prone over ball, cont to work on ribcage and GH mobility along w/cervical work.
--- NOTE | 2024-04-09 14:07 | PT.OTN ---
Current Diagnoses Pain in left shoulder (04/09/24) Physical Therapy Treatment Note PT-OP-A Visit Information Start: 03/20/24 18:46 Freq: Status: Active Protocol: Document 04/09/24 10:40 [facility] (Rec: 04/09/24 12: AB [id number]) Out-Patient Physical Therapy Visit Information Visit Information Visit Type Treatment Note Visit Start Time 11:33 Visit Stop Time 12:23 Visit Number 5 Number of POPPED CORN OVEN ATTENDANT Visits 1 PT-OP-B Current Condition Start: 03/20/24 18:46 Freq: Status: Active Protocol: Document 03/25/24 08:18 [facility] (Rec: 03/25/24 09:04 [facility] [id number]) Current Condition History of Current Condition Onset Date 2 years Current Complaints L shoulder History of Current Condition About 2 years ago, bought total gym andwas doing pulling out and in and notes collar bone kept slipping. if she does chatarangas in a class, then she is feels it. Saw chiro in the past and has helped at the time, but it doesn't go away. It is managable if she avoids things . Avoids lifting or weights. Went to golf simulator the other day and didn't put a lot of effor into it to avoid pain. hx of neck pain mostly at cranium Treatment Goals Patient/Caregiver Goals Be able to lift and do all yoga, how to create more stability PT-OP-C Subjective Start: 03/20/24 18:46 Freq: Status: Active Protocol: Document 04/09/24 10:40 [facility] (Rec: 04/09/24 12:26 [facility] [id number]) OP-PT Subjective Patient Comments Patient Comments Tanvi reports she was sore in the neck L side post previous session, but it is better today. Patient reports she did some yoga yesterday. 155 deg AROM left shoulder flexion start of session. Tanvi requests performing no exercises this session, but was agreeable to gentle exercises with further discussion, commenting she didn't want to perform the over the ball exercises, advised if planning to perform at home one UE at a time vs bilaterally. PT-OP-F Manual Assessment Start: 03/20/24 18:46 Freq: Status: Active Protocol: Document 03/25/24 08:18 [facility] (Rec: 03/25/24 09:04 [facility] [id number]) Manual Assessments Soft Tissue Assessment Soft Tissue Mobility Assessment tenderness biceps tendon PT-OP-J Posture/Palpation/Skin Start: 03/20/24 18:46 Freq: Status: Active Protocol: Document 03/25/24 08:18 [facility] (Rec: 03/25/24 09:04 [facility] [id number]) Posture Evaluation [facility] Postural Classification System [facility] Postural Classifications Posterior/Posterior Elbow Flexion Test 1 Comments Posture Comments L scap elevated, fwd tipped, more winging, L clavicle hiegher and SC higher and more fwd THoracic rotation about 60% B PT-OP-K Range of Motion Start: 03/20/24 18:46 Freq: Status: Active Protocol: Document 03/25/24 08:18 [facility] (Rec: 03/25/24 09:04 [facility] [id number]) Shoulder Goniometric Range of Motion Shoulder ROM Limitations Comments WNL w/pain w/abd PT-OP-L Special Tests Start: 03/20/24 18:46 Freq: Status: Active Protocol: Document 03/25/24 08:18 [facility] (Rec: 03/25/24 09:04 [facility] [id number]) Special Tests Shoulder Special Tests Speed's Biceps Comments neg [place] Test Comments neg Empty Can Comments weakness Pryor Ian Impingement Test Results neg neer Comments positive L -compression AC Joint Compression Comments neg Aply Comments L on top-1.5 in difference- L T3 R on top-touching hands- R T4 Neural Special Tests- Upper Body n tension Comments neg ulnar,med radial PT-OP-M Strength Start: 03/20/24 18:46 Freq: Status: Active Protocol: Document 03/25/24 08:18 [facility] (Rec: 03/25/24 09:04 [facility] [id number]) Shoulder Strength Shoulder Manual Muscle Testing Right Flexion 4 Good Extension 5 Normal Abduction (C5) 4 Good External Rotation 5 Normal Internal Rotation 4 Good Horizontal Abduction 4+ Good+ Horizontal Adduction 4+ Good+ Left Flexion 4 Good Extension 4 Good Abduction (C5) 4 Good External Rotation 4 Good Internal Rotation 4 Good Horizontal Abduction 3+ Fair+ Horizontal Adduction 3+ Fair+ Elbow/Forearm Strength Elbow and Forearm Manual Muscle Testing Right Flexion (C6) 5 Normal Extension (C7) 5 Normal Left Flexion (C6) 4 Good Extension (C7) 5 Normal Pronation 5 Normal Supination 5 Normal Comments biceps 4/5 pain; brachialis 5/ 5 no pain PT-OP-Q Treatments Start: 03/20/24 18:46 Freq: Status: Active Protocol: Document 04/09/24 10:40 [facility] (Rec: 04/09/24 12:26 [facility] [id number]) Therapeutic Exercises Supine Exercises serratus punch Supine Exercise Name on and off occipital float Side bilateral Reps/Minutes X5 X 2 Comments verbal cues for dir of mvt, limit mvt to pain free neck AROM shoulder flexion Side bilateral Reps/Minutes X5 for 10 sec Comments verbal cues CS rotation on occipital float Supine Exercise Name AROM rotation Side bilateral Equipment Used occ float Reps/Minutes 3 min Comments Verbal cues to perform in pain free range Therapeutic Activity Therapeutic Activity standing posture Comments Verbal cues to avoid feet touching in standing and stand with feet shoulder width apart to dec force of fwd head posture/ forces on CS spine Manual Therapy Treatment Soft Tissue Mobilization ant Body Location L pec major/minor Mobilization Type Rolling,Sustained Pressure Intensity/Depth Moderate Body Position Supine superior Body Location L>R UT, LS, scalenes, paraspinals Mobilization Type Rolling,Sustained Pressure Intensity/Depth Moderate Body Position Sidelying Comments and seated Joint Mobilizations GH Joint L GH Direction AP and inf Grade IV Body Position Hooklying Reps/Duration X10 X 3 each ribs' Joint 1 Left Direction caudal Grade III Body Position Sidelying Reps/Duration X10 SC Joint L Direction caudal Grade III Body Position Sidelying Reps/Duration X10 AC Joint L Direction caudally Grade III Body Position Sidelying Reps/Duration 10 X PT-OP-T Assessment and Plan Start: 03/20/24 18:46 Freq: Status: Active Protocol: Document 04/09/24 10:40 [facility] (Rec: 04/09/24 12:26 [facility] [id number]) Physical Therapy Assessment Goals strength Short Term Goal (STG) Pt will be indep w/HEP STG Duration 04/19 Long-Term Goal (LTG) Pt will have 4+/5 UE strenght and at least 4/5 EFT LTG Duration 05/20 activity Long-Term Goal (LTG) Pt will be able to do all yoga activities and lifting w/o inc pain in L shoulder. LTG Duration 05/20 Assessment Summary Assessment AROM 159 deg left shoulder flexion end of session, rating left sided neck pain 3/10 end of session. Physical Therapy Plan Frequency and Duration Frequency of Treatment 1-2x/wk Duration of treatment (weeks) 8 Plan of Care Start Date 03/25/24 Plan of Care End Date 05/20/24 Next Visit Focus/Plan Next Note Type Treatment Note Next Visit Plan review exercises from last session and progress prone over ball, cont to work on ribcage and GH mobility along w/cervical work.
--- NOTE | 2024-04-17 09:01 | PT.OTN ---
Current Diagnoses Pain in left shoulder (04/17/24) Physical Therapy Treatment Note PT-OP-A Visit Information Start: 03/20/24 18:46 Freq: Status: Active Protocol: Document 04/17/24 08:09 AB (Rec: 04/17/24 09:01 AB [id number]) Out-Patient Physical Therapy Visit Information Visit Information Visit Type Treatment Note Visit Start Time 08:17 Visit Stop Time 08:57 Visit Number 6 Number of FLOOR ASSOCIATE Visits 2 PT-OP-B Current Condition Start: 03/20/24 18:46 Freq: Status: Active Protocol: Document 03/25/24 08:18 [facility] (Rec: 03/25/24 09:04 [facility] [id number]) Current Condition History of Current Condition Onset Date 2 years Current Complaints L shoulder History of Current Condition About 2 years ago, bought total gym andwas doing pulling out and in and notes collar bone kept slipping. if she does chatarangas in a class, then she is feels it. Saw chiro in the past and has helped at the time, but it doesn't go away. It is managable if she avoids things . Avoids lifting or weights. Went to golf simulator the other day and didn't put a lot of effor into it to avoid pain. hx of neck pain mostly at cranium Treatment Goals Patient/Caregiver Goals Be able to lift and do all yoga, how to create more stability PT-OP-C Subjective Start: 03/20/24 18:46 Freq: Status: Active Protocol: Document 04/17/24 08:09 AB (Rec: 04/17/24 09:01 AB [id number]) OP-PT Subjective Patient Comments Patient Comments Patient reports the neck pain and headaches are better, but the shoulder is still jamming ant GH and AC area left. PT-OP-F Manual Assessment Start: 03/20/24 18:46 Freq: Status: Active Protocol: Document 03/25/24 08:18 [facility] (Rec: 03/25/24 09:04 [facility] [id number]) Manual Assessments Soft Tissue Assessment Soft Tissue Mobility Assessment tenderness biceps tendon PT-OP-J Posture/Palpation/Skin Start: 03/20/24 18:46 Freq: Status: Active Protocol: Document 03/25/24 08:18 [facility] (Rec: 03/25/24 09:04 [facility] [id number]) Posture Evaluation [facility] Postural Classification System [facility] Postural Classifications Posterior/Posterior Elbow Flexion Test 1 Comments Posture Comments L scap elevated, fwd tipped, more winging, L clavicle hiegher and SC higher and more fwd THoracic rotation about 60% B PT-OP-K Range of Motion Start: 03/20/24 18:46 Freq: Status: Active Protocol: Document 03/25/24 08:18 [facility] (Rec: 03/25/24 09:04 [facility] [id number]) Shoulder Goniometric Range of Motion Shoulder ROM Limitations Comments WNL w/pain w/abd PT-OP-L Special Tests Start: 03/20/24 18:46 Freq: Status: Active Protocol: Document 03/25/24 08:18 [facility] (Rec: 03/25/24 09:04 [facility] [id number]) Special Tests Shoulder Special Tests Speed's Biceps Comments neg Park Test Comments neg Empty Can Comments weakness Pryor Ian Impingement Test Results neg neer Comments positive L -compression AC Joint Compression Comments neg Aply Comments L on top-1.5 in difference- L T3 R on top-touching hands- R T4 Neural Special Tests- Upper Body n tension Comments neg ulnar,med radial PT-OP-M Strength Start: 03/20/24 18:46 Freq: Status: Active Protocol: Document 03/25/24 08:18 [facility] (Rec: 03/25/24 09:04 [facility] [id number]) Shoulder Strength Shoulder Manual Muscle Testing Right Flexion 4 Good Extension 5 Normal Abduction (C5) 4 Good External Rotation 5 Normal Internal Rotation 4 Good Horizontal Abduction 4+ Good+ Horizontal Adduction 4+ Good+ Left Flexion 4 Good Extension 4 Good Abduction (C5) 4 Good External Rotation 4 Good Internal Rotation 4 Good Horizontal Abduction 3+ Fair+ Horizontal Adduction 3+ Fair+ Elbow/Forearm Strength Elbow and Forearm Manual Muscle Testing Right Flexion (C6) 5 Normal Extension (C7) 5 Normal Left Flexion (C6) 4 Good Extension (C7) 5 Normal Pronation 5 Normal Supination 5 Normal Comments biceps 4/5 pain; brachialis 5/ 5 no pain PT-OP-Q Treatments Start: 03/20/24 18:46 Freq: Status: Active Protocol: Document 04/17/24 08:09 AB (Rec: 04/17/24 09:01 AB [id number]) Therapeutic Exercises Supine Exercises foam roller Supine Exercise Name 1. chest tube bender hand HEP 2. alt UE flexion Side bilateral Reps/Minutes 1. 2 min 2. X10 Comments Verbal cues for UE positioning Prone Exercises Ys Prone Exercise Name shoulder ext to Y Side bilateral Equipment Used green ball Reps/Minutes 10 Sidelying Exercises open book Reps/Minutes X10 each side Comments verbal cues Standing Exercises scapular depression Side bilateral Resistance Level one band Reps/Minutes X10 Comments verbal nd visual cues rhythmic oscillations Side left Resistance red therabar Reps/Minutes 30 sec Comments UE ~20 deg abd elbow flexed slightly med lat mvt push up plus Standing Exercise Name marline hand shoe cutter position Side bilateral Resistance HEP Equipment Used Push up plus Reps/Minutes X10 cheerleaders Standing Exercise Name HEP Side bilateral Resistance level one band Reps/Minutes X 5 Comments verbal and visual cues Manual Therapy Treatment Consent Patient gave verbal consent for manual Yes treatment Soft Tissue Mobilization ant Body Location L pec major/minor Mobilization Type Rolling,Sustained Pressure Intensity/Depth Moderate Body Position Supine superior Body Location L>R UT, LS, scalenes, paraspinals Mobilization Type Rolling,Sustained Pressure Intensity/Depth Moderate Body Position Sidelying Comments and seated Joint Mobilizations GH Joint L GH Direction AP and inf Grade IV Body Position Hooklying Reps/Duration X10 X 3 each SC Joint L Direction caudal Grade III Body Position Sitting Reps/Duration X10 AC Joint L Direction caudally Grade III Body Position Sitting Reps/Duration 10 X PT-OP-T Assessment and Plan Start: 03/20/24 18:46 Freq: Status: Active Protocol: Document 04/17/24 08:09 (Rec: 04/17/24 09:01 [id number]) Physical Therapy Assessment Goals strength Short Term Goal (STG) Pt will be indep w/HEP STG Duration 04/19 Penitentiary Goal (LTG) Pt will have 4+/5 UE strenght and at least 4/5 EFT LTG Duration 05/20 activity Penitentiary Goal (LTG) Pt will be able to do all yoga activities and lifting w/o inc pain in L shoulder. LTG Duration 05/20 Assessment Summary Assessment AROM L UE172 deg flexion end of session, patient reports clicking sensation with AROM left shoulder mvt persists. Tanvi rates pain 0/10 end of session. Physical Therapy Plan Frequency and Duration Frequency of Treatment 1-2x/wk Duration of treatment (weeks) 8 Plan of Care Start Date 03/25/24 Plan of Care End Date 05/20/24 Next Visit Focus/Plan Next Note Type Treatment Note Next Visit Plan review exercises from last session and progress prone over ball, cont to work on ribcage and GH mobility along w/cervical work.
--- NOTE | 2024-04-22 18:13 | PT.OTN ---
Current Diagnoses Pain in left shoulder (04/22/24) Physical Therapy Treatment Note PT-OP-A Visit Information Start: 03/20/24 18:46 Freq: Status: Active Protocol: Document 04/22/24 07:33 [facility] (Rec: 04/22/24 18:12 [facility] [id number]) Out-Patient Physical Therapy Visit Information Visit Information Visit Type Progress Note Visit Start Time 07:33 Visit Stop Time 08:15 Visit Number 7 Number of UX SPECIALIST Visits 0 PT-OP-B Current Condition Start: 03/20/24 18:46 Freq: Status: Active Protocol: Document 03/25/24 08:18 [facility] (Rec: 03/25/24 09:04 [facility] [id number]) Current Condition History of Current Condition Onset Date 2 years Current Complaints L shoulder History of Current Condition About 2 years ago, bought total gym andwas doing pulling out and in and notes collar bone kept slipping. if she does chatarangas in a class, then she is feels it. Saw chiro in the past and has helped at the time, but it doesn't go away. It is managable if she avoids things . Avoids lifting or weights. Went to golf simulator the other day and didn't put a lot of effor into it to avoid pain. hx of neck pain mostly at cranium Treatment Goals Patient/Caregiver Goals Be able to lift and do all yoga, how to create more stability PT-OP-C Subjective Start: 03/20/24 18:46 Freq: Status: Active Protocol: Document 04/22/24 07:33 [facility] (Rec: 04/22/24 18:12 [facility] [id number]) OP-PT Subjective Patient Comments Patient Comments Did wake w/OSEI this AM but did do exercises later last night. Feels cheerleader exercises in neck. shoulder is better by about 25% PT-OP-F Manual Assessment Start: 03/20/24 18:46 Freq: Status: Active Protocol: Document 03/25/24 08:18 [facility] (Rec: 03/25/24 09:04 [facility] [id number]) Manual Assessments Soft Tissue Assessment Soft Tissue Mobility Assessment tenderness biceps tendon PT-OP-J Posture/Palpation/Skin Start: 03/20/24 18:46 Freq: Status: Active Protocol: Document 04/22/24 07:33 [facility] (Rec: 04/22/24 18:12 [facility] [id number]) Posture Evaluation [facility] Postural Classification System Elbow Flexion Test 2 PT-OP-K Range of Motion Start: 03/20/24 18:46 Freq: Status: Active Protocol: Document 03/25/24 08:18 [facility] (Rec: 03/25/24 09:04 [facility] [id number]) Shoulder Goniometric Range of Motion Shoulder ROM Limitations Comments WNL w/pain w/abd PT-OP-L Special Tests Start: 03/20/24 18:46 Freq: Status: Active Protocol: Document 03/25/24 08:18 [facility] (Rec: 03/25/24 09:04 [facility] [id number]) Special Tests Shoulder Special Tests Speed's Biceps Comments neg [place] Test Comments neg Empty Can Comments weakness Pryor Ian Impingement Test Results neg neer Comments positive L -compression AC Joint Compression Comments neg Aply Comments L on top-1.5 in difference- L T3 R on top-touching hands- R T4 Neural Special Tests- Upper Body n tension Comments neg ulnar,med radial PT-OP-M Strength Start: 03/20/24 18:46 Freq: Status: Active Protocol: Document 04/22/24 07:33 [facility] (Rec: 04/22/24 18:12 [facility] [id number]) Shoulder Strength Shoulder Manual Muscle Testing Right Flexion 5 Normal Extension 5 Normal Abduction (C5) 5 Normal External Rotation 5 Normal Internal Rotation 4+ Good+ Horizontal Abduction 5 Normal Horizontal Adduction 5 Normal Left Flexion 4+ Good+ Extension 4+ Good+ Abduction (C5) 4+ Good+ External Rotation 4 Good Internal Rotation 4 Good Horizontal Abduction 4+ Good+ Horizontal Adduction 4+ Good+ Elbow/Forearm Strength Elbow and Forearm Manual Muscle Testing Right Flexion (C6) 5 Normal Extension (C7) 5 Normal Left Flexion (C6) 5 Normal Extension (C7) 5 Normal Pronation 5 Normal Supination 5 Normal Comments biceps 5/5 ; brachialis 5/5 no pain PT-OP-Q Treatments Start: 03/20/24 18:46 Freq: Status: Active Protocol: Document 04/22/24 07:33 [facility] (Rec: 04/22/24 18:12 [facility] [id number]) Therapeutic Exercises Supine Exercises chin tucks Supine Exercise Name PT and self resisted C5 and 6 Side bilateral Reps/Minutes 15 sec x10 Standing Exercises push up plus Standing Exercise Name marline hand loom weaver position Side bilateral Resistance HEP Equipment Used Push up plus Reps/Minutes 5 Comments cues for back position-inc time to work on this cheerleaders Standing Exercise Name HEP Side bilateral Resistance level one band Reps/Minutes X 5 in standing and x5 in supine Comments stopped d/t pain in neck Other Exercises isometrics Other Exercise Name BUE MMT quadruped Other Exercise Name 1. serratus punch w/ knees slightly back Side bilateral Reps/Minutes 15 Manual Therapy Treatment Consent Patient gave verbal consent for manual Yes treatment Soft Tissue Mobilization diaphram Body Location L Mobilization Type Sustained Pressure ant Body Location L pec major/minor Mobilization Type Rolling,Sustained Pressure Intensity/Depth Moderate Body Position Supine superior Body Location L>R UT, LS, scalenes, paraspinals Mobilization Type Rolling,Sustained Pressure Intensity/Depth Moderate Body Position Sidelying Comments and seated Joint Mobilizations ribs' Joint 1 Left Direction caudal Grade III Body Position Sidelying PT-OP-T Assessment and Plan Start: 03/20/24 18:46 Freq: Status: Active Protocol: Document 04/22/24 07:33 [facility] (Rec: 04/22/24 18:12 [facility] [id number]) Physical Therapy Assessment Goals strength Short Term Goal (STG) Pt will be indep w/HEP STG Duration achieved advancing as able Senior Care Goal (LTG) Pt will have 4+/5 UE strenght and at least 4/5 EFT 04/22-improving LTG Duration 05/20 activity Senior Care Goal (LTG) Pt will be able to do all yoga activities and lifting w/o inc pain in L shoulder. 04/22-still afraid to try some of those activities in yoga. She has been doing more WB activities given in PT LTG Duration 05/20 Assessment Summary Assessment Pt progressing w/therapy but cont to have cervical and L shoulder weakness. She would benefit from cont PT to build up stabilityt o returnt o more normal funciton Physical Therapy Plan Frequency and Duration Frequency of Treatment 1-2x/wk Duration of treatment (weeks) 8 Plan of Care Start Date 03/25/24 Plan of Care End Date 05/20/24 Therapeutic Interventions Therapeutic Interventions Home Exercise Program,Joint Mobilizations,Manual Therapy, Neuromuscular Re-education, Patient/Caregiver Education, Self-Care/Home Management,Soft Tissue Mobilization,Taping, Therapeutic Activities, Therapeutic Exercises Modalities Cold Pack/Ice Massage,Electric Stimulation,Hot Packs, Infrared Therapy,Ultrasound Next Visit Focus/Plan Next Note Type Treatment Note Next Visit Plan review exercises from last session and progress prone over ball, cont to work on ribcage and GH mobility along w/cervical work.
--- NOTE | 2024-04-29 17:21 | PT.OPPOC ---
Physical, Occupational & Speech Therapy At [facility] Current Diagnoses Pain in left shoulder (04/29/24) Pain in left hip (04/29/24) Pelvic and perineal pain (04/29/24) Visit Care Team Role Provider Type Patricio Jauregui MD Attending Provider Physician Family Provider Primary Care Provider Referring Provider Specialty: Internal Medicine Address: [address] [place] [address], [facility] [address], [place], [facility] Email: [email or web address] Plan Of Care PT-OP-B Current Condition Start: 03/20/24 18:46 Freq: Status: Active Protocol: Document 04/29/24 08:20 [facility] (Rec: 04/29/24 18:09 [facility] [id number]) Current Condition History of Current Condition Onset Date 2 years Current Complaints L shoulder, L hip pain History of Current Condition /-in August of this year it will be about 2 years of pain. Initially doctor thought was psoas being pulled on. Recently was told scar tissue. She is scheduled at the end of the month and will have a cyst removed and scar tissue debridement. She is currently reg on bowel movements recently but did switch diet. hx of 2 csections (2002 and 2006). Has had gallbladder out . 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 She had a vaginal w/first one w/vaccuum and 3rd degree tearing of rectum.Didn't really notice issues until started doing yoga and then started feeling tugging in hip flexor/psoas region. dID SEE nd AND adjusted hormones and that helped a little along w/4 days of use of castor oil. Has had incontinence since saw dgt in 1997. has done pelvic floor therapy. mostly w/dancing, jumping, sneezing. IE: About 2 years ago, bought total gym andwas doing pulling out and in and notes collar bone kept slipping. if she does chatarangas in a class, then she is feels it. Saw chiro in the past and has helped at the time, but it doesn't go away. It is managable if she avoids things . Avoids lifting or weights. Went to golf simulator the other day and didn't put a lot of effor into it to avoid pain. hx of neck pain mostly at cranium Treatment Goals Patient/Caregiver Goals Be able to lift and do all yoga, how to create more stability, dec pulling (w/ standing, sitting, yoga) PT-OP-T Assessment and Plan Start: 03/20/24 18:46 Freq: Status: Active Protocol: Document 04/29/24 08:20 [facility] (Rec: 04/29/24 18:09 [facility] [id number]) Physical Therapy Assessment Goals mobility [place] Knitter Goal (LTG) Pt will report ability to sit, stand and participate in yoga w/o pull or discomfort in L ant hip/abdomen. LTG Duration 06/24 strength Short Term Goal (STG) Pt will be indep w/HEP STG Duration achieved advancing as able Retirement Goal (LTG) Pt will have 4+/5 UE and LE strength and at least 4/5 EFT and 3/5 LPM all planes to show improved stability in order to dec pain w/mobility 04/22-improving LTG Duration 06/24 activity Retirement Goal (LTG) Pt will be able to do all yoga activities and lifting w/o inc pain in L shoulder. 04/22-still afraid to try some of those activities in yoga. She has been doing more WB activities given in PT LTG Duration 06/24 Assessment Summary Assessment Pt presents with re-eval for addition of L ant hip and abdomen pain/tightness along with continued treatment of L shoulder pain. She has significant tension in L abdomen around scar tissue along w/L hip flexors likely causing the pain and pulling that she constantly feels. She has been improving w/shoulder strength and stability, but is still limited and this is likely related to her neck pain. She would benefit from cont PT to work on L ant hip pain along w/L shoulder and nck pain to improve pt ability to do daily activities w/o inc pain. Physical Therapy Plan Frequency and Duration Frequency of Treatment 1-2x/wk Duration of treatment (weeks) 8 Plan of Care Start Date 04/29/24 Plan of Care End Date 06/24/24 Therapeutic Interventions Therapeutic Interventions Balance Training,Gait Training ,Home Exercise Program,Joint Mobilizations,Manual Therapy, Neuromuscular Re-education, Patient/Caregiver Education, Self-Care/Home Management,Soft Tissue Mobilization,Taping, Therapeutic Activities, Therapeutic Exercises Modalities Cold Pack/Ice Massage,Electric Stimulation,Hot Packs, Infrared Therapy,Ultrasound Next Visit Focus/Plan Next Note Type Treatment Note Next Visit Plan abdominal moblity and fascial release, review exercises from last session and progress prone over ball, cont to work on ribcage and GH mobility along w/cervical work. Plan of Care Dates Plan of Care Start Date 04/29/24 Plan of Care End Date 06/24/24 Electronically Signed by: Tiana Ramirez, PT 04/30/24 [id number] If you are in agreement with this Plan of Care, please return a signed and dated copy. I have reviewed this Plan of Care and certify that the skilled therapy services above are required to meet the patient?s needs. Physician Signature Date Printed Name and Credentials Clinical Instructor Signature Printed Name and Credentials
--- NOTE | 2024-04-29 17:21 | PT.OTRE ---
Current Diagnoses Pain in left shoulder (04/29/24) Pain in left hip (04/29/24) Pelvic and perineal pain (04/29/24) Past Medical History (Last Reviewed 12/03/21 @ 15:30 by Anitra Jewell DO) Acid reflux Acne, unspecified (10/13/10) Acquired hypothyroidism (10/13/10) Allergic rhinitis, unspecified (10/13/10) Delayed gastric emptying (05/31/15) IBS (irritable bowel syndrome) Irritable bowel syndrome without diarrhea (10/13/10) Mixed stress and urge urinary incontinence (02/04/15) Psychophysiological insomnia (02/04/15) Varicose veins (02/04/15) Surgical History (Last Reviewed 12/03/21 @ 15:30 by Anitra Jewell DO) Status post laparoscopic cholecystectomy Visit Care Team Role Provider Type Patricio Jauregui MD Attending Provider Physician Family Provider Primary Care Provider Referring Provider Specialty: Internal Medicine Address: [address] [place] [address], [address], [facility] Email: [email or web address] Physical Therapy Re-Evaluation PT-OP-A Visit Information Start: 03/20/24 18:46 Freq: Status: Active Protocol: Document 04/29/24 08:20 [facility] (Rec: 04/29/24 18:09 [facility] [id number]) Out-Patient Physical Therapy Visit Information Visit Information Visit Type Re-Evaluation Visit Number 8 Number of DIGITAL STRATEGY MANAGER Visits 0 PT-OP-B Current Condition Start: 03/20/24 18:46 Freq: Status: Active Protocol: Document 04/29/24 08:20 [facility] (Rec: 04/29/24 18:09 [facility] [id number]) Current Condition History of Current Condition Onset Date 2 years Current Complaints L shoulder, L hip pain History of Current Condition 2/-in August of this year it will be about 2 years of pain. Initially doctor thought was psoas being pulled on. Recently was told scar tissue. She is scheduled at the end of the month and will have a cyst removed and scar tissue debridement. She is currently reg on bowel movements recently but did switch diet. hx of 2 csections (2002 and 2006). Has had gallbladder out . 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 She had a vaginal w/first one w/vaccuum and 3rd degree tearing of rectum.Didn't really notice issues until started doing yoga and then started feeling tugging in hip flexor/psoas region. dID SEE nd AND adjusted hormones and that helped a little along w/4 days of use of castor oil. Has had incontinence since saw dgt in 1997. has done pelvic floor therapy. mostly w/dancing, jumping, sneezing. IE: About 2 years ago, bought total gym andwas doing pulling out and in and notes collar bone kept slipping. if she does chatarangas in a class, then she is feels it. Saw chiro in the past and has helped at the time, but it doesn't go away. It is managable if she avoids things . Avoids lifting or weights. Went to golf simulator the other day and didn't put a lot of effor into it to avoid pain. hx of neck pain mostly at cranium Treatment Goals Patient/Caregiver Goals Be able to lift and do all yoga, how to create more stability, dec pulling (w/ standing, sitting, yoga) PT-OP-C Subjective Start: 03/20/24 18:46 Freq: Status: Active Protocol: Document 04/22/24 07:33 [facility] (Rec: 04/22/24 18:12 [facility] [id number]) OP-PT Subjective Patient Comments Patient Comments Did wake w/OSEI this AM but did do exercises later last night. Feels cheerleader exercises in neck. shoulder is better by about 25% PT-OP-D Balance Start: 04/28/24 18:09 Freq: Status: Active Protocol: Document 04/29/24 08:20 [facility] (Rec: 04/29/24 18:09 [facility] [id number]) Balance Tests Single Limb Standing Single Limb- Right >30 sec Single Limb- Left >30 sec PT-OP-F Manual Assessment Start: 03/20/24 18:46 Freq: Status: Active Protocol: Document 04/29/24 08:20 [facility] (Rec: 04/29/24 18:09 [facility] [id number]) Manual Assessments Soft Tissue Assessment Soft Tissue Mobility Assessment tightness throughout abdomen L >R PT-OP-J Posture/Palpation/Skin Start: 03/20/24 18:46 Freq: Status: Active Protocol: Document 04/29/24 08:20 [facility] (Rec: 04/29/24 18:09 [facility] [id number]) Posture Evaluation [facility] Postural Classification System Duke Postural Classifications Vertical/Posterior Elbow Flexion Test 3 Lumbar Protective Mechanism Left AP 2 Lumbar Protective Mechanism Right AP 2 Lumbar Protective Mechanism Left PA 3 Lumbar Protective Mechanism Right PA 3 Comments Posture Comments slight ant tilt L pelvis PT-OP-K Range of Motion Start: 03/20/24 18:46 Freq: Status: Active Protocol: Document 04/29/24 08:20 [facility] (Rec: 04/29/24 18:09 [facility] [id number]) Hip Goniometric Range of Motion Hip ROM Limitations Comments kaushik test L hip flexor tightness PT-OP-L Special Tests Start: 03/20/24 18:46 Freq: Status: Active Protocol: Document 03/25/24 08:18 [facility] (Rec: 03/25/24 09:04 [facility] [id number]) Special Tests Shoulder Special Tests Speed's Biceps Comments neg Rule Test Comments neg Empty Can Comments weakness Pryor Ian Impingement Test Results neg neer Comments positive L -compression AC Joint Compression Comments neg Aply Comments L on top-1.5 in difference- L T3 R on top-touching hands- R T4 Neural Special Tests- Upper Body n tension Comments neg ulnar,med radial PT-OP-M Strength Start: 03/20/24 18:46 Freq: Status: Active Protocol: Document 04/29/24 08:20 [facility] (Rec: 04/29/24 18:09 [facility] [id number]) Shoulder Strength Shoulder Manual Muscle Testing Left Horizontal Adduction 4+ Good+ Hip Strength Hip Manual Muscle Testing Right Flexion (L2) 4+ Good+ Extension (S1) 5 Normal Abduction 5 Normal Adduction 5 Normal External Rotation 5 Normal Internal Rotation 5 Normal Left Flexion (L2) 4- Good- Extension (S1) 5 Normal Abduction 4 Good Adduction 4 Good External Rotation 4+ Good+ Internal Rotation 4 Good Knee Strength Knee Manual Muscle Testing B Flexion (S2) 5 Normal Extension (L3) 5 Normal PT-OP-Q Treatments Start: 03/20/24 18:46 Freq: Status: Active Protocol: Document 04/29/24 08:20 [facility] (Rec: 04/29/24 18:09 [facility] [id number]) Therapeutic Exercises Supine Exercises bridge Supine Exercise Name SL Side left Reps/Minutes 6 Comments cues glute self release Supine Exercise Name scar and fascial release ot abdomen w/gentle LTR Side right chin tucks Supine Exercise Name PT and self resisted C5 and 6 Side bilateral Reps/Minutes 15 sec x4 Standing Exercises sidestep Side bilateral Equipment Used L2 Reps/Minutes 10ft ea Comments cues posture Manual Therapy Treatment Consent Patient gave verbal consent for manual Yes treatment Soft Tissue Mobilization abdomen Mobilization Type Myofascial Release Intensity/Depth Superficial Body Position Hooklying Comments L parietal peritoneum OSFM scar tissue realease L>R w/LTR fascia along descending colon and transverse colon PT-OP-T Assessment and Plan Start: 03/20/24 18:46 Freq: Status: Active Protocol: Document 04/29/24 08:20 [facility] (Rec: 04/29/24 18:09 [facility] [id number]) Physical Therapy Assessment Goals mobility Horser Up Goal (LTG) Pt will report ability to sit, stand and participate in yoga w/o pull or discomfort in L ant hip/abdomen. LTG Duration 06/24 strength Short Term Goal (STG) Pt will be indep w/HEP STG Duration achieved advancing as able Shelter Goal (LTG) Pt will have 4+/5 UE and LE strength and at least 4/5 EFT and 3/5 LPM all planes to show improved stability in order to dec pain w/mobility 04/22-improving LTG Duration 06/24 activity Shelter Goal (LTG) Pt will be able to do all yoga activities and lifting w/o inc pain in L shoulder. 04/22-still afraid to try some of those activities in yoga. She has been doing more WB activities given in PT LTG Duration 06/24 Assessment Summary Assessment Pt presents with re-eval for addition of L ant hip and abdomen pain/tightness along with continued treatment of L shoulder pain. She has significant tension in L abdomen around scar tissue along w/L hip flexors likely causing the pain and pulling that she constantly feels. She has been improving w/shoulder strength and stability, but is still limited and this is likely related to her neck pain. She would benefit from cont PT to work on L ant hip pain along w/L shoulder and nck pain to improve pt ability to do daily activities w/o inc pain. Physical Therapy Plan Frequency and Duration Frequency of Treatment 1-2x/wk Duration of treatment (weeks) 8 Plan of Care Start Date 04/29/24 Plan of Care End Date 06/24/24 Therapeutic Interventions Therapeutic Interventions Balance Training,Gait Training ,Home Exercise Program,Joint Mobilizations,Manual Therapy, Neuromuscular Re-education, Patient/Caregiver Education, Self-Care/Home Management,Soft Tissue Mobilization,Taping, Therapeutic Activities, Therapeutic Exercises Modalities Cold Pack/Ice Massage,Electric Stimulation,Hot Packs, Infrared Therapy,Ultrasound Next Visit Focus/Plan Next Note Type Treatment Note Next Visit Plan abdominal moblity and fascial release, review exercises from last session and progress prone over ball, cont to work on ribcage and GH mobility along w/cervical work.
--- NOTE | 2024-05-01 11:32 | PT.OTN ---
Current Diagnoses Pain in left shoulder (05/01/24) Pain in left hip (05/01/24) Pelvic and perineal pain (05/01/24) Physical Therapy Treatment Note PT-OP-A Visit Information Start: 03/20/24 18:46 Freq: Status: Active Protocol: Document 05/01/24 09:04 [facility] (Rec: 05/01/24 11:32 [facility] [id number]) Out-Patient Physical Therapy Visit Information Visit Information Visit Type Treatment Note Visit Start Time 09:05 Visit Stop Time 09:45 Visit Number 9 Number of CAR SWEEPER Visits 0 PT-OP-B Current Condition Start: 03/20/24 18:46 Freq: Status: Active Protocol: Document 04/29/24 08:20 [facility] (Rec: 04/29/24 18:09 [facility] [id number]) Current Condition History of Current Condition Onset Date 2 years Current Complaints L shoulder, L hip pain History of Current Condition 2/-in August of this year it will be about 2 years of pain. Initially doctor thought was psoas being pulled on. Recently was told scar tissue. She is scheduled at the end of the month and will have a cyst removed and scar tissue debridement. She is currently reg on bowel movements recently but did switch diet. hx of 2 csections (2002 and 2006). Has had gallbladder out . 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 She had a vaginal w/first one w/vaccuum and 3rd degree tearing of rectum.Didn't really notice issues until started doing yoga and then started feeling tugging in hip flexor/psoas region. dID SEE nd AND adjusted hormones and that helped a little along w/4 days of use of castor oil. Has had incontinence since saw dgt in 1997. has done pelvic floor therapy. mostly w/dancing, jumping, sneezing. IE: About 2 years ago, bought total gym andwas doing pulling out and in and notes collar bone kept slipping. if she does chatarangas in a class, then she is feels it. Saw chiro in the past and has helped at the time, but it doesn't go away. It is managable if she avoids things . Avoids lifting or weights. Went to golf simulator the other day and didn't put a lot of effor into it to avoid pain. hx of neck pain mostly at cranium Treatment Goals Patient/Caregiver Goals Be able to lift and do all yoga, how to create more stability, dec pulling (w/ standing, sitting, yoga) PT-OP-C Subjective Start: 03/20/24 18:46 Freq: Status: Active Protocol: Document 05/01/24 09:04 [facility] (Rec: 05/01/24 11:32 [facility] [id number]) OP-PT Subjective Patient Comments Patient Comments Pt reports was really sore after last session. 10 days ago, she was jumping from locg to log and slipped and hip L shoulder and hip and neck has been sore. She finally got into chiro. Started period today too. PT-OP-D Balance Start: 04/28/24 18:09 Freq: Status: Active Protocol: Document 04/29/24 08:20 [facility] (Rec: 04/29/24 18:09 [facility] [id number]) Balance Tests Single Limb Standing Single Limb- Right >30 sec Single Limb- Left >30 sec PT-OP-F Manual Assessment Start: 03/20/24 18:46 Freq: Status: Active Protocol: Document 04/29/24 08:20 [facility] (Rec: 04/29/24 18:09 [facility] [id number]) Manual Assessments Soft Tissue Assessment Soft Tissue Mobility Assessment tightness throughout abdomen L >R PT-OP-J Posture/Palpation/Skin Start: 03/20/24 18:46 Freq: Status: Active Protocol: Document 04/29/24 08:20 [facility] (Rec: 04/29/24 18:09 [facility] [id number]) Posture Evaluation [facility] Postural Classification System Duke Postural Classifications Vertical/Posterior Elbow Flexion Test 3 Lumbar Protective Mechanism Left AP 2 Lumbar Protective Mechanism Right AP 2 Lumbar Protective Mechanism Left PA 3 Lumbar Protective Mechanism Right PA 3 Comments Posture Comments slight ant tilt L pelvis PT-OP-K Range of Motion Start: 03/20/24 18:46 Freq: Status: Active Protocol: Document 04/29/24 08:20 [facility] (Rec: 04/29/24 18:09 [facility] [id number]) Hip Goniometric Range of Motion Hip ROM Limitations Comments kaushik test L hip flexor tightness PT-OP-L Special Tests Start: 03/20/24 18:46 Freq: Status: Active Protocol: Document 03/25/24 08:18 [facility] (Rec: 03/25/24 09:04 [facility] [id number]) Special Tests Shoulder Special Tests Speed's Biceps Comments neg [place] Test Comments neg Empty Can Comments weakness Pryor Ian Impingement Test Results neg neer Comments positive L -compression AC Joint Compression Comments neg Aply Comments L on top-1.5 in difference- L T3 R on top-touching hands- R T4 Neural Special Tests- Upper Body n tension Comments neg ulnar,med radial PT-OP-M Strength Start: 03/20/24 18:46 Freq: Status: Active Protocol: Document 04/29/24 08:20 [facility] (Rec: 04/29/24 18:09 [facility] [id number]) Shoulder Strength Shoulder Manual Muscle Testing Left Horizontal Adduction 4+ Good+ Hip Strength Hip Manual Muscle Testing Right Flexion (L2) 4+ Good+ Extension (S1) 5 Normal Abduction 5 Normal Adduction 5 Normal External Rotation 5 Normal Internal Rotation 5 Normal Left Flexion (L2) 4- Good- Extension (S1) 5 Normal Abduction 4 Good Adduction 4 Good External Rotation 4+ Good+ Internal Rotation 4 Good Knee Strength Knee Manual Muscle Testing B Flexion (S2) 5 Normal Extension (L3) 5 Normal PT-OP-Q Treatments Start: 03/20/24 18:46 Freq: Status: Active Protocol: Document 05/01/24 09:04 [facility] (Rec: 05/01/24 11:32 [facility] [id number]) Therapeutic Exercises Standing Exercises push up plus Standing Exercise Name hands on wall-elbwos in close Side bilateral Reps/Minutes 10 Other Exercises plank Other Exercise Name knee plank push ups Side bilateral Reps/Minutes 10 quadruped Other Exercise Name 1. alt hip ext 2. bird dog Side bilateral Reps/Minutes 1.8 ea 2. 10 ea Comments cues neutral spine Manual Therapy Treatment Consent Patient gave verbal consent for manual Yes treatment Soft Tissue Mobilization posterior Body Location L lat, rhomboids Mobilization Type Rolling Intensity/Depth Moderate Body Position Sidelying Comments w/scap dep ant Body Location L pec major/minor and biceps Mobilization Type Rolling,Sustained Pressure Intensity/Depth Moderate Body Position Supine superior Body Location L>R UT, LS, scalenes, paraspinals Mobilization Type Rolling,Sustained Pressure Intensity/Depth Moderate Body Position s/l and supine Comments w/SB Joint Mobilizations cervical Comments transverse R C 4-6 c/r GH Comments L post and inf and distraction ribs' Comments L 1st caudal PT-OP-T Assessment and Plan Start: 03/20/24 18:46 Freq: Status: Active Protocol: Document 05/01/24 09:04 [facility] (Rec: 05/01/24 11:32 [facility] [id number]) Physical Therapy Assessment Goals mobility Bioinformatics Associate Goal (LTG) Pt will report ability to sit, stand and participate in yoga w/o pull or discomfort in L ant hip/abdomen. LTG Duration 06/24 strength Short Term Goal (STG) Pt will be indep w/HEP STG Duration achieved advancing as able Bioinformatics Associate Goal (LTG) Pt will have 4+/5 UE and LE strength and at least 4/5 EFT and 3/5 LPM all planes to show improved stability in order to dec pain w/mobility 04/22-improving LTG Duration 06/24 activity Detention Goal (LTG) Pt will be able to do all yoga activities and lifting w/o inc pain in L shoulder. 04/22-still afraid to try some of those activities in yoga. She has been doing more WB activities given in PT LTG Duration 06/24 Assessment Summary Assessment Pt has imporved ROM of shoulder today post manual w/ full range of motionand improved passive L SB after manual. Physical Therapy Plan Frequency and Duration Frequency of Treatment 1-2x/wk Duration of treatment (weeks) 8 Plan of Care Start Date 04/29/24 Plan of Care End Date 06/24/24 Next Visit Focus/Plan Next Note Type Treatment Note Next Visit Plan review exercises from last session and progress prone over ball, cont to work on ribcage and GH mobility along w/cervical work. gentle fascial work at abdomen
--- NOTE | 2024-05-05 10:44 | PT.OTN ---
Current Diagnoses Pain in left shoulder (05/05/24) Pain in left hip (05/05/24) Pelvic and perineal pain (05/05/24) Physical Therapy Treatment Note PT-OP-A Visit Information Start: 03/20/24 18:46 Freq: Status: Active Protocol: Document 05/05/24 08:07 AB (Rec: 05/05/24 10:44 AB [id number]) Out-Patient Physical Therapy Visit Information Visit Information Visit Type Treatment Note Visit Start Time 09:58 Visit Stop Time 10:39 Visit Number 10 Number of BOOM PUMP OPERATOR Visits 1 PT-OP-B Current Condition Start: 03/20/24 18:46 Freq: Status: Active Protocol: Document 04/29/24 08:20 LR (Rec: 04/29/24 18:09 [facility] [id number]) Current Condition History of Current Condition Onset Date 2 years Current Complaints L shoulder, L hip pain History of Current Condition 2/-in August of this year it will be about 2 years of pain. Initially doctor thought was psoas being pulled on. Recently was told scar tissue. She is scheduled at the end of the month and will have a cyst removed and scar tissue debridement. She is currently reg on bowel movements recently but did switch diet. hx of 2 csections (2002 and 2006). Has had gallbladder out . 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 She had a vaginal w/first one w/vaccuum and 3rd degree tearing of rectum.Didn't really notice issues until started doing yoga and then started feeling tugging in hip flexor/psoas region. dID SEE nd AND adjusted hormones and that helped a little along w/4 days of use of castor oil. Has had incontinence since saw dgt in 1997. has done pelvic floor therapy. mostly w/dancing, jumping, sneezing. IE: About 2 years ago, bought total gym andwas doing pulling out and in and notes collar bone kept slipping. if she does chatarangas in a class, then she is feels it. Saw chiro in the past and has helped at the time, but it doesn't go away. It is managable if she avoids things . Avoids lifting or weights. Went to golf simulator the other day and didn't put a lot of effor into it to avoid pain. hx of neck pain mostly at cranium Treatment Goals Patient/Caregiver Goals Be able to lift and do all yoga, how to create more stability, dec pulling (w/ standing, sitting, yoga) PT-OP-C Subjective Start: 03/20/24 18:46 Freq: Status: Active Protocol: Document 05/05/24 08:07 AB (Rec: 05/05/24 10:44 AB [id number]) OP-PT Subjective Patient Comments Patient Comments sit to stand with quad dom pattern without UE use reports tightness ant hip with sit to and from stand. PT-OP-D Balance Start: 04/28/24 18:09 Freq: Status: Active Protocol: Document 04/29/24 08:20 [facility] (Rec: 04/29/24 18:09 [facility] [id number]) Balance Tests Single Limb Standing Single Limb- Right >30 sec Single Limb- Left >30 sec PT-OP-F Manual Assessment Start: 03/20/24 18:46 Freq: Status: Active Protocol: Document 04/29/24 08:20 [facility] (Rec: 04/29/24 18:09 [facility] [id number]) Manual Assessments Soft Tissue Assessment Soft Tissue Mobility Assessment tightness throughout abdomen L >R PT-OP-J Posture/Palpation/Skin Start: 03/20/24 18:46 Freq: Status: Active Protocol: Document 04/29/24 08:20 [facility] (Rec: 04/29/24 18:09 [facility] [id number]) Posture Evaluation Udke Postural Classification System Duke Postural Classifications Vertical/Posterior Elbow Flexion Test 3 Lumbar Protective Mechanism Left AP 2 Lumbar Protective Mechanism Right AP 2 Lumbar Protective Mechanism Left PA 3 Lumbar Protective Mechanism Right PA 3 Comments Posture Comments slight ant tilt L pelvis PT-OP-K Range of Motion Start: 03/20/24 18:46 Freq: Status: Active Protocol: Document 04/29/24 08:20 [facility] (Rec: 04/29/24 18:09 [facility] [id number]) Hip Goniometric Range of Motion Hip ROM Limitations Comments tremaine test L hip flexor tightness PT-OP-L Special Tests Start: 03/20/24 18:46 Freq: Status: Active Protocol: Document 03/25/24 08:18 [facility] (Rec: 03/25/24 09:04 [facility] [id number]) Special Tests Shoulder Special Tests Speed's Biceps Comments neg [place] Test Comments neg Empty Can Comments weakness Pryor Ian Impingement Test Results neg neer Comments positive L -compression AC Joint Compression Comments neg Aply Comments L on top-1.5 in difference- L T3 R on top-touching hands- R T4 Neural Special Tests- Upper Body n tension Comments neg ulnar,med radial PT-OP-M Strength Start: 03/20/24 18:46 Freq: Status: Active Protocol: Document 04/29/24 08:20 [facility] (Rec: 04/29/24 18:09 [facility] [id number]) Shoulder Strength Shoulder Manual Muscle Testing Left Horizontal Adduction 4+ Good+ Hip Strength Hip Manual Muscle Testing Right Flexion (L2) 4+ Good+ Extension (S1) 5 Normal Abduction 5 Normal Adduction 5 Normal External Rotation 5 Normal Internal Rotation 5 Normal Left Flexion (L2) 4- Good- Extension (S1) 5 Normal Abduction 4 Good Adduction 4 Good External Rotation 4+ Good+ Internal Rotation 4 Good Knee Strength Knee Manual Muscle Testing B Flexion (S2) 5 Normal Extension (L3) 5 Normal PT-OP-Q Treatments Start: 03/20/24 18:46 Freq: Status: Active Protocol: Document 05/05/24 08:07 AB (Rec: 05/05/24 10:44 AB [id number]) Therapeutic Exercises Supine Exercises piriformis stretch Side left Reps/Minutes 60 sec Comments verbal cues Modified Tremaine stretch Side bilateral Reps/Minutes 60 sec Comments with AROM knee flexion during stretch bridge Supine Exercise Name 1. SL 2. segmental bridge Side left Reps/Minutes 1.X5 X 2 each side 2. Comments cues glute Sitting Exercises seated scooting Sitting Exercise Name alt LE, Reps/Minutes X5 fwd and retro Comments verbal cues Standing Exercises hip extension Standing Exercise Name trunk resting on raised mat Side bilateral Reps/Minutes X10 Comments verbal and visual cues sit to stand Standing Exercise Name 1. training 2. with band Side bilateral Resistance [place] band Reps/Minutes 1. X 5 and X 4 2. X10 Manual Therapy Treatment Consent Patient gave verbal consent for manual Yes treatment Soft Tissue Mobilization L hip Body Location illiopsoas, quad, piriformis Mobilization Type Cross-Friction,Rolling Intensity/Depth Moderate Body Position Sitting Comments and hooklying Manual Techniques MET R AI left PI and pubic shotgun Type dowel under right over left Reps/Duration 6 X 6 sec each PT-OP-T Assessment and Plan Start: 03/20/24 18:46 Freq: Status: Active Protocol: Document 05/05/24 08:07 AB (Rec: 05/05/24 10:44 AB [id number]) Physical Therapy Assessment Goals mobility Certified Nurses Aide Goal (LTG) Pt will report ability to sit, stand and participate in yoga w/o pull or discomfort in L ant hip/abdomen. LTG Duration 06/24 strength Short Term Goal (STG) Pt will be indep w/HEP STG Duration achieved advancing as able Certified Nurses Aide Goal (LTG) Pt will have 4+/5 UE and LE strength and at least 4/5 EFT and 3/5 LPM all planes to show improved stability in order to dec pain w/mobility 04/22-improving LTG Duration 06/24 activity Certified Nurses Aide Goal (LTG) Pt will be able to do all yoga activities and lifting w/o inc pain in L shoulder. 04/22-still afraid to try some of those activities in yoga. She has been doing more WB activities given in PT LTG Duration 06/24 Assessment Summary Assessment Patient reports sit to stand feels much better post hip hinge training, but L ant hip with increased soreness end of session 10/02. Physical Therapy Plan Frequency and Duration Frequency of Treatment 1-2x/wk Duration of treatment (weeks) 8 Plan of Care Start Date 04/29/24 Plan of Care End Date 06/24/24 Next Visit Focus/Plan Next Note Type Treatment Note Next Visit Plan review exercises from last session and progress prone over ball, cont to work on ribcage and GH mobility along w/cervical work. gentle fascial work at abdomen
--- NOTE | 2024-05-08 10:48 | PT.OTN ---
Current Diagnoses Pain in left shoulder (05/08/24) Pain in left hip (05/08/24) Pelvic and perineal pain (05/08/24) Physical Therapy Treatment Note PT-OP-A Visit Information Start: 03/20/24 18:46 Freq: Status: Active Protocol: Document 05/08/24 09:07 [facility] (Rec: 05/08/24 10:48 [facility] [id number]) Out-Patient Physical Therapy Visit Information Visit Information Visit Type Treatment Note Visit Start Time 09:06 Visit Stop Time 09:46 Visit Number 11 Number of SHIP CEILER Visits 0 PT-OP-B Current Condition Start: 03/20/24 18:46 Freq: Status: Active Protocol: Document 04/29/24 08:20 [facility] (Rec: 04/29/24 18:09 [facility] [id number]) Current Condition History of Current Condition Onset Date 2 years Current Complaints L shoulder, L hip pain History of Current Condition 2/-in August of this year it will be about 2 years of pain. Initially doctor thought was psoas being pulled on. Recently was told scar tissue. She is scheduled at the end of the month and will have a cyst removed and scar tissue debridement. She is currently reg on bowel movements recently but did switch diet. hx of 2 csections (2002 and 2006). Has had gallbladder out . 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 She had a vaginal w/first one w/vaccuum and 3rd degree tearing of rectum.Didn't really notice issues until started doing yoga and then started feeling tugging in hip flexor/psoas region. dID SEE nd AND adjusted hormones and that helped a little along w/4 days of use of castor oil. Has had incontinence since saw dgt in 1997. has done pelvic floor therapy. mostly w/dancing, jumping, sneezing. IE: About 2 years ago, bought total gym andwas doing pulling out and in and notes collar bone kept slipping. if she does chatarangas in a class, then she is feels it. Saw chiro in the past and has helped at the time, but it doesn't go away. It is managable if she avoids things . Avoids lifting or weights. Went to golf simulator the other day and didn't put a lot of effor into it to avoid pain. hx of neck pain mostly at cranium Treatment Goals Patient/Caregiver Goals Be able to lift and do all yoga, how to create more stability, dec pulling (w/ standing, sitting, yoga) PT-OP-C Subjective Start: 03/20/24 18:46 Freq: Status: Active Protocol: Document 05/08/24 09:07 [facility] (Rec: 05/08/24 10:48 [facility] [id number]) OP-PT Subjective Patient Comments Patient Comments Pt reprots feels like her entire body is out. The tremaine stretch was too much PT-OP-D Balance Start: 04/28/24 18:09 Freq: Status: Active Protocol: Document 04/29/24 08:20 [facility] (Rec: 04/29/24 18:09 [facility] [id number]) Balance Tests Single Limb Standing Single Limb- Right >30 sec Single Limb- Left >30 sec PT-OP-F Manual Assessment Start: 03/20/24 18:46 Freq: Status: Active Protocol: Document 04/29/24 08:20 [facility] (Rec: 04/29/24 18:09 [facility] [id number]) Manual Assessments Soft Tissue Assessment Soft Tissue Mobility Assessment tightness throughout abdomen L >R PT-OP-J Posture/Palpation/Skin Start: 03/20/24 18:46 Freq: Status: Active Protocol: Document 04/29/24 08:20 [facility] (Rec: 04/29/24 18:09 [facility] [id number]) Posture Evaluation Duke Postural Classification System Duke Postural Classifications Vertical/Posterior Elbow Flexion Test 3 Lumbar Protective Mechanism Left AP 2 Lumbar Protective Mechanism Right AP 2 Lumbar Protective Mechanism Left PA 3 Lumbar Protective Mechanism Right PA 3 Comments Posture Comments slight ant tilt L pelvis PT-OP-K Range of Motion Start: 03/20/24 18:46 Freq: Status: Active Protocol: Document 04/29/24 08:20 [facility] (Rec: 04/29/24 18:09 [facility] [id number]) Hip Goniometric Range of Motion Hip ROM Limitations Comments tremaine test L hip flexor tightness PT-OP-L Special Tests Start: 03/20/24 18:46 Freq: Status: Active Protocol: Document 03/25/24 08:18 [facility] (Rec: 03/25/24 09:04 [facility] [id number]) Special Tests Shoulder Special Tests Speed's Biceps Comments neg [place] Test Comments neg Empty Can Comments weakness Pryor Ian Impingement Test Results neg neer Comments positive L -compression AC Joint Compression Comments neg Aply Comments L on top-1.5 in difference- L T3 R on top-touching hands- R T4 Neural Special Tests- Upper Body n tension Comments neg ulnar,med radial PT-OP-M Strength Start: 03/20/24 18:46 Freq: Status: Active Protocol: Document 04/29/24 08:20 [facility] (Rec: 04/29/24 18:09 [facility] [id number]) Shoulder Strength Shoulder Manual Muscle Testing Left Horizontal Adduction 4+ Good+ Hip Strength Hip Manual Muscle Testing Right Flexion (L2) 4+ Good+ Extension (S1) 5 Normal Abduction 5 Normal Adduction 5 Normal External Rotation 5 Normal Internal Rotation 5 Normal Left Flexion (L2) 4- Good- Extension (S1) 5 Normal Abduction 4 Good Adduction 4 Good External Rotation 4+ Good+ Internal Rotation 4 Good Knee Strength Knee Manual Muscle Testing B Flexion (S2) 5 Normal Extension (L3) 5 Normal PT-OP-Q Treatments Start: 03/20/24 18:46 Freq: Status: Active Protocol: Document 05/08/24 09:07 [facility] (Rec: 05/08/24 10:48 [facility] [id number]) Therapeutic Exercises Supine Exercises Modified Tremaine stretch Supine Exercise Name R KTC and LLE straight on bed Side left Reps/Minutes 30 sec Manual Therapy Treatment Consent Patient gave verbal consent for manual Yes treatment Soft Tissue Mobilization cranial Body Location MFR R cranial fascia abdomen Mobilization Type Myofascial Release Intensity/Depth Superficial Body Position Hooklying Comments L parietal peritoneum OSFM scar tissue realease L>R w/LTR superior Body Location L UT, LS, scalenes, paraspinals Mobilization Type Rolling,Sustained Pressure Intensity/Depth Moderate Body Position s/l and supine Comments w/SB Joint Mobilizations cervical Comments transverse R C6 c/r ribs' Comments L 1st caudal Self-Care/Home Management Treatment Activities Self-Care/Home Management Activities BP 95/63 PT-OP-T Assessment and Plan Start: 03/20/24 18:46 Freq: Status: Active Protocol: Document 05/08/24 09:07 [facility] (Rec: 05/08/24 10:48 [facility] [id number]) Physical Therapy Assessment Goals mobility Fci Goal (LTG) Pt will report ability to sit, stand and participate in yoga w/o pull or discomfort in L ant hip/abdomen. LTG Duration 06/24 strength Short Term Goal (STG) Pt will be indep w/HEP STG Duration achieved advancing as able [facility]ci Goal (LTG) Pt will have 4+/5 UE and LE strength and at least 4/5 EFT and 3/5 LPM all planes to show improved stability in order to dec pain w/mobility 04/22-improving LTG Duration 06/24 activity Fci Goal (LTG) Pt will be able to do all yoga activities and lifting w/o inc pain in L shoulder. 04/22-still afraid to try some of those activities in yoga. She has been doing more WB activities given in PT LTG Duration 06/24 Assessment Summary Assessment Pt has significant restriction today throughout L side. Encouraged to cont use of heat at home. Physical Therapy Plan Frequency and Duration Frequency of Treatment 1-2x/wk Duration of treatment (weeks) 8 Plan of Care Start Date 04/29/24 Plan of Care End Date 06/24/24 Next Visit Focus/Plan Next Note Type Treatment Note Next Visit Plan focus on shoulder and neck next session for strength and mobility
--- NOTE | 2024-05-13 08:56 | PT.OTN ---
Current Diagnoses Pain in left shoulder (05/13/24) Pain in left hip (05/13/24) Pelvic and perineal pain (05/13/24) Physical Therapy Treatment Note PT-OP-A Visit Information Start: 03/20/24 18:46 Freq: Status: Active Protocol: Document 05/13/24 07:30 [facility] (Rec: 05/14/24 08:56 [facility] [id number]) Out-Patient Physical Therapy Visit Information Visit Information Visit Type Treatment Note Visit Start Time 07:32 Visit Stop Time 08:12 Visit Number 12 Number of WELDING ESTIMATOR Visits 0 PT-OP-B Current Condition Start: 03/20/24 18:46 Freq: Status: Active Protocol: Document 04/29/24 08:20 [facility] (Rec: 04/29/24 18:09 [facility] [id number]) Current Condition History of Current Condition Onset Date 2 years Current Complaints L shoulder, L hip pain History of Current Condition 2/4-in August of this year it will be about 2 years of pain. Initially doctor thought was psoas being pulled on. Recently was told scar tissue. She is scheduled at the end of the month and will have a cyst removed and scar tissue debridement. She is currently reg on bowel movements recently but did switch diet. hx of 2 csections (2002 and 2006). Has had gallbladder out . 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 She had a vaginal w/first one w/vaccuum and 3rd degree tearing of rectum.Didn't really notice issues until started doing yoga and then started feeling tugging in hip flexor/psoas region. dID SEE nd AND adjusted hormones and that helped a little along w/4 days of use of castor oil. Has had incontinence since saw dgt in 1997. has done pelvic floor therapy. mostly w/dancing, jumping, sneezing. IE: About 2 years ago, bought total gym andwas doing pulling out and in and notes collar bone kept slipping. if she does chatarangas in a class, then she is feels it. Saw chiro in the past and has helped at the time, but it doesn't go away. It is managable if she avoids things . Avoids lifting or weights. Went to golf simulator the other day and didn't put a lot of effor into it to avoid pain. hx of neck pain mostly at cranium Treatment Goals Patient/Caregiver Goals Be able to lift and do all yoga, how to create more stability, dec pulling (w/ standing, sitting, yoga) PT-OP-C Subjective Start: 03/20/24 18:46 Freq: Status: Active Protocol: Document 05/13/24 07:30 [facility] (Rec: 05/14/24 08:56 [facility] [id number]) OP-PT Subjective Patient Comments Patient Comments Pt reports L hip has been achey. Saw chiro last week and is better after that w/neck pain. has been busy so hasn't done as much yoga recently PT-OP-D Balance Start: 04/28/24 18:09 Freq: Status: Active Protocol: Document 04/29/24 08:20 [facility] (Rec: 04/29/24 18:09 [facility] [id number]) Balance Tests Single Limb Standing Single Limb- Right >30 sec Single Limb- Left >30 sec PT-OP-F Manual Assessment Start: 03/20/24 18:46 Freq: Status: Active Protocol: Document 04/29/24 08:20 [facility] (Rec: 04/29/24 18:09 [facility] [id number]) Manual Assessments Soft Tissue Assessment Soft Tissue Mobility Assessment tightness throughout abdomen L >R PT-OP-J Posture/Palpation/Skin Start: 03/20/24 18:46 Freq: Status: Active Protocol: Document 04/29/24 08:20 [facility] (Rec: 04/29/24 18:09 [facility] [id number]) Posture Evaluation Duke Postural Classification System Duke Postural Classifications Vertical/Posterior Elbow Flexion Test 3 Lumbar Protective Mechanism Left AP 2 Lumbar Protective Mechanism Right AP 2 Lumbar Protective Mechanism Left PA 3 Lumbar Protective Mechanism Right PA 3 Comments Posture Comments slight ant tilt L pelvis PT-OP-K Range of Motion Start: 03/20/24 18:46 Freq: Status: Active Protocol: Document 04/29/24 08:20 [facility] (Rec: 04/29/24 18:09 [facility] [id number]) Hip Goniometric Range of Motion Hip ROM Limitations Comments kaushik test L hip flexor tightness PT-OP-L Special Tests Start: 03/20/24 18:46 Freq: Status: Active Protocol: Document 03/25/24 08:18 [facility] (Rec: 03/25/24 09:04 [id number] Special Tests Shoulder Special Tests Speed's Biceps Comments neg [place] Test Comments neg Empty Can Comments weakness Pryor Ian Impingement Test Results neg neer Comments positive L -compression AC Joint Compression Comments neg Aply Comments L on top-1.5 in difference- L T3 R on top-touching hands- R T4 Neural Special Tests- Upper Body n tension Comments neg ulnar,med radial PT-OP-M Strength Start: 03/20/24 18:46 Freq: Status: Active Protocol: Document 04/29/24 08:20 [facility] (Rec: 04/29/24 18:09 [facility] [id number]) Shoulder Strength Shoulder Manual Muscle Testing Left Horizontal Adduction 4+ Good+ Hip Strength Hip Manual Muscle Testing Right Flexion (L2) 4+ Good+ Extension (S1) 5 Normal Abduction 5 Normal Adduction 5 Normal External Rotation 5 Normal Internal Rotation 5 Normal Left Flexion (L2) 4- Good- Extension (S1) 5 Normal Abduction 4 Good Adduction 4 Good External Rotation 4+ Good+ Internal Rotation 4 Good Knee Strength Knee Manual Muscle Testing B Flexion (S2) 5 Normal Extension (L3) 5 Normal PT-OP-Q Treatments Start: 03/20/24 18:46 Freq: Status: Active Protocol: Document 05/13/24 07:30 [facility] (Rec: 05/14/24 08:56 [facility] [id number]) Manual Therapy Treatment Consent Patient gave verbal consent for manual Yes treatment Soft Tissue Mobilization L hip Body Location illiopsoas Mobilization Type Sustained Pressure Intensity/Depth Moderate Body Position Hooklying Comments gentle rot posterior Body Location L post delt, teres, lat w/flex Mobilization Type Rolling abdomen Mobilization Type Myofascial Release Intensity/Depth Superficial Body Position Hooklying Comments L parietal peritoneum OSFM scar tissue realease L>R w/LTR lower border RA L w/LTR superior Body Location L mid and ant delt, UT Mobilization Type Rolling,Sustained Pressure Comments w/ flex Joint Mobilizations GH Comments inf and distraction w/flex and abd c/r AC Joint L Direction ant clavicle Grade III Body Position Supine Comments w/flex PT-OP-T Assessment and Plan Start: 03/20/24 18:46 Freq: Status: Active Protocol: Document 05/13/24 07:30 [facility] (Rec: 05/14/24 08:56 [facility] [id number]) Physical Therapy Assessment Goals mobility Supervisor Patching Goal (LTG) Pt will report ability to sit, stand and participate in yoga w/o pull or discomfort in L ant hip/abdomen. LTG Duration 06/24 strength Short Term Goal (STG) Pt will be indep w/HEP STG Duration achieved advancing as able Supervisor Patching Goal (LTG) Pt will have 4+/5 UE and LE strength and at least 4/5 EFT and 3/5 LPM all planes to show improved stability in order to dec pain w/mobility 04/22-improving LTG Duration 06/24 activity Mcc Goal (LTG) Pt will be able to do all yoga activities and lifting w/o inc pain in L shoulder. 04/22-still afraid to try some of those activities in yoga. She has been doing more WB activities given in PT LTG Duration 06/24 Assessment Summary Assessment Pt had improved PROM abd w/ palm down from 90 deg to about 150 deg w/o pain after manual treatment today. Cont signficiant tightness aroudn abdominal mm. Physical Therapy Plan Frequency and Duration Frequency of Treatment 1-2x/wk Duration of treatment (weeks) 8 Plan of Care Start Date 04/29/24 Plan of Care End Date 06/24/24 Next Visit Focus/Plan Next Note Type Re-Evaluation Next Visit Plan pt cleared to return to PT 2 weeks after surgery. recheck pt mobility
--- NOTE | 2024-06-04 19:02 | PT.OTRE ---
Current Diagnoses Pain in left shoulder (06/04/24) Pain in left hip (06/04/24) Pelvic and perineal pain (06/04/24) Past Medical History (Last Updated 05/07/24 @ 14:04 by Tashia Garcia RN) Acid reflux Acne, unspecified (10/13/10) Acquired hypothyroidism (10/13/10) Allergic rhinitis, unspecified (10/13/10) Delayed gastric emptying (05/31/15) Hypothyroid IBS (irritable bowel syndrome) Irritable bowel syndrome without diarrhea (10/13/10) Mixed stress and urge urinary incontinence (02/04/15) Psychophysiological insomnia (02/04/15) Varicose veins (02/04/15) Venous hypertension of lower extremity Surgical History (Last Reviewed 12/03/21 @ 15:30 by Anitra Jewell DO) Status post laparoscopic cholecystectomy Visit Care Team Role Provider Type Patricio Jauregui MD Attending Provider Physician Family Provider Primary Care Provider Referring Provider Specialty: Internal Medicine Address: [address] [place] [address], [address], [facility] Email: [email or web address] Physical Therapy Re-Evaluation PT-OP-A Visit Information Start: 03/20/24 18:46 Freq: Status: Active Protocol: Document 06/04/24 10:47 [facility] (Rec: 06/04/24 19:02 [facility] [id number]) Out-Patient Physical Therapy Visit Information Visit Information Visit Type Re-Evaluation Visit Start Time 10:50 Visit Stop Time 11:30 Visit Number 13 PT-OP-B Current Condition Start: 03/20/24 18:46 Freq: Status: Active Protocol: Document 06/04/24 10:47 [facility] (Rec: 06/04/24 19:02 [facility] [id number]) Current Condition History of Current Condition Onset Date 2 years Current Complaints L shoulder, L hip pain History of Current Condition 06/04-cyst removed on L ovary on May 17 and scar tissue removed but in mostly R side. She still feels the pulling on L side but overall surgery went well and she is cleared to return to PT. She had tubes taken out also. She had 2 laparoscopic scars and one through belly button that are healing well. Was constipated after but is better now. She hurts at L hip flexor. L shoulder feels good but hasn't returned to her yoga mat. Has been really tired since. Is back to walking 2/4-in August of this year it will be about 2 years of pain. Initially doctor thought was psoas being pulled on. Recently was told scar tissue. She is scheduled at the end of the month and will have a cyst removed and scar tissue debridement. She is currently reg on bowel movements recently but did switch diet. hx of 2 csections (2002 and 2006). Has had gallbladder out . 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 She had a vaginal w/first one w/vaccuum and 3rd degree tearing of rectum.Didn't really notice issues until started doing yoga and then started feeling tugging in hip flexor/psoas region. dID SEE nd AND adjusted hormones and that helped a little along w/4 days of use of castor oil. Has had incontinence since saw dgt in 1997. has done pelvic floor therapy. mostly w/dancing, jumping, sneezing. IE: About 2 years ago, bought total gym andwas doing pulling out and in and notes collar bone kept slipping. if she does chatarangas in a class, then she is feels it. Saw chiro in the past and has helped at the time, but it doesn't go away. It is managable if she avoids things . Avoids lifting or weights. Went to golf simulator the other day and didn't put a lot of effor into it to avoid pain. hx of neck pain mostly at cranium Treatment Goals Patient/Caregiver Goals get back to yoga w/o pain and dec pull PT-OP-C Subjective Start: 03/20/24 18:46 Freq: Status: Active Protocol: Document 05/13/24 07:30 [facility] (Rec: 05/14/24 08:56 [facility] [id number]) OP-PT Subjective Patient Comments Patient Comments Pt reports L hip has been achey. Saw chiro last week and is better after that w/neck pain. has been busy so hasn't done as much yoga recently PT-OP-D Balance Start: 04/28/24 18:09 Freq: Status: Active Protocol: Document 04/29/24 08:20 [facility] (Rec: 04/29/24 18:09 [facility] [id number]) Balance Tests Single Limb Standing Single Limb- Right >30 sec Single Limb- Left >30 sec PT-OP-F Manual Assessment Start: 03/20/24 18:46 Freq: Status: Active Protocol: Document 06/04/24 10:47 [facility] (Rec: 06/04/24 19:02 [facility] [id number]) Manual Assessments Soft Tissue Assessment Soft Tissue Mobility Assessment scars healing well, small scab on R one PT-OP-J Posture/Palpation/Skin Start: 03/20/24 18:46 Freq: Status: Active Protocol: Document 06/04/24 10:47 [facility] (Rec: 06/04/24 19:02 [facility] [id number]) Posture Evaluation Duke Postural Classification System Elbow Flexion Test 2 Lumbar Protective Mechanism Left AP 1 Lumbar Protective Mechanism Right AP 2 Lumbar Protective Mechanism Left PA 3 Lumbar Protective Mechanism Right PA 1 PT-OP-K Range of Motion Start: 03/20/24 18:46 Freq: Status: Active Protocol: Document 04/29/24 08:20 [facility] (Rec: 04/29/24 18:09 [facility] [id number]) Hip Goniometric Range of Motion Hip ROM Limitations Comments kaushik test L hip flexor tightness PT-OP-L Special Tests Start: 03/20/24 18:46 Freq: Status: Active Protocol: Document 03/25/24 08:18 [facility] (Rec: 03/25/24 09:04 [facility] [id number]) Special Tests Shoulder Special Tests Speed's Biceps Comments neg [place] Test Comments neg Empty Can Comments weakness [place] Impingement Test Results neg neer Comments positive L -compression AC Joint Compression Comments neg Aply Comments L on top-1.5 in difference- L T3 R on top-touching hands- R T4 Neural Special Tests- Upper Body n tension Comments neg ulnar,med radial PT-OP-M Strength Start: 03/20/24 18:46 Freq: Status: Active Protocol: Document 06/04/24 10:47 [facility] (Rec: 06/04/24 19:02 [facility] [id number]) Shoulder Strength Shoulder Manual Muscle Testing Right Flexion 5 Normal Extension 5 Normal Abduction (C5) 5 Normal External Rotation 5 Normal Internal Rotation 5 Normal Horizontal Abduction 5 Normal Horizontal Adduction 5 Normal Left Flexion 4+ Good+ Extension 5 Normal Abduction (C5) 4+ Good+ External Rotation 4+ Good+ Internal Rotation 4+ Good+ Horizontal Abduction 5 Normal Horizontal Adduction 4+ Good+ Hip Strength Hip Manual Muscle Testing Right Flexion (L2) 4 Good Extension (S1) 5 Normal Abduction 5 Normal Adduction 5 Normal External Rotation 5 Normal Internal Rotation 5 Normal Left Flexion (L2) 3+ Fair+ Extension (S1) 5 Normal Abduction 4 Good Adduction 3+ Fair+ External Rotation 4+ Good+ Internal Rotation 5 Normal PT-OP-Q Treatments Start: 03/20/24 18:46 Freq: Status: Active Protocol: Document 06/04/24 10:47 [facility] (Rec: 06/04/24 19:02 [facility] [id number]) Therapeutic Exercises Standing Exercises stretch Standing Exercise Name hip flexor gentle Side bilateral Reps/Minutes 1 min paloff press Side bilateral Equipment Used L1 2 bands Reps/Minutes 10 ea sidestep Side bilateral Equipment Used L1 Reps/Minutes 10ft ea Comments cues posture scapular depression Standing Exercise Name shrug, scap retract then depression Side bilateral Reps/Minutes 7 ER Side bilateral Equipment Used L1 Reps/Minutes 10 Other Exercises isometrics Other Exercise Name BUE/ LE MMT, LPM,EFT Side bilateral quadruped Other Exercise Name 1. hold position 2. alt UE lift Side bilateral Reps/Minutes 1. 30 sec 2. 6 Comments inc time for right position PT-OP-T Assessment and Plan Start: 03/20/24 18:46 Freq: Status: Active Protocol: Document 06/04/24 10:47 [facility] (Rec: 06/04/24 19:02 [facility] [id number]) Physical Therapy Assessment Goals mobility Nursing Home Goal (LTG) Pt will report ability to sit, stand and participate in yoga w/o pull or discomfort in L ant hip/abdomen. 06/04-pull still after sx LTG Duration 07/30 strength Short Term Goal (STG) Pt will be indep w/HEP STG Duration achieved advancing as able Nursing Home Goal (LTG) Pt will have 4+/5 UE and LE strength and at least 4/5 EFT and 3/5 LPM all planes to show improved stability in order to dec pain w/mobility 04/22-improving 06/04-core weakness most notable LTG Duration 07/30 activity Biometric Fingerprinting Technician Goal (LTG) Pt will be able to do all yoga activities and lifting w/o inc pain in L shoulder. 04/22-still afraid to try some of those activities in yoga. She has been doing more WB activities given in PT 06/04-limited since sx LTG Duration 07/30 Assessment Summary Assessment Pt returns 2.5 weeks after laparoscopy to remove an ovarian cyst and bilateral salpingectomy with approval from her surgeon with clearance to full activity. She is still having L ant hip tightness and pain and L shoulder pain although shoulder pain is less w/dec activity. She has core weakness, L dec scap stability and hip weakness likely related to this pain along w/ pelvic dysfunction and scar tissue of abdomen. She would benefit from return to PT for improving her mechanics of L shoulder and hip along w/ improving mobility of both areas in order to dec pt pain and improve function. Inc time today spent on exercises for form. Physical Therapy Plan Frequency and Duration Frequency of Treatment 1x/Week Duration of treatment (weeks) 8 Plan of Care Start Date 06/04/24 Plan of Care End Date 07/30/24 Therapeutic Interventions Therapeutic Interventions Balance Training,Gait Training ,Home Exercise Program,Joint Mobilizations,Manual Therapy, Neuromuscular Re-education, Patient/Caregiver Education, Self-Care/Home Management,Soft Tissue Mobilization,Taping, Therapeutic Activities, Therapeutic Exercises Modalities Cold Pack/Ice Massage,Electric Stimulation,Hot Packs, Infrared Therapy,Ultrasound Next Visit Focus/Plan Next Note Type Treatment Note Next Visit Plan gentle progression back to core and hip stretching (avoid kaushik test as painful), work on small range return to yoga activity and improved WB through UEs, pelvic alignment, very gentle work to hip flexors, manual to shoulder as needed
--- NOTE | 2024-06-10 09:04 | PT.OTN ---
Current Diagnoses Pain in left shoulder (06/10/24) Pain in left hip (06/10/24) Pelvic and perineal pain (06/10/24) Physical Therapy Treatment Note PT-OP-A Visit Information Start: 03/20/24 18:46 Freq: Status: Active Protocol: Document 06/10/24 07:32 [facility] (Rec: 06/10/24 09:03 [facility] [id number]) Out-Patient Physical Therapy Visit Information Visit Information Visit Type Treatment Note Visit Start Time 07:31 Visit Stop Time 08:11 Visit Number 14 Number of INSURANCE SALES PROFESSIONAL Visits 0 PT-OP-B Current Condition Start: 03/20/24 18:46 Freq: Status: Active Protocol: Document 06/04/24 10:47 [facility] (Rec: 06/04/24 19:02 [facility] [id number]) Current Condition History of Current Condition Onset Date 2 years Current Complaints L shoulder, L hip pain History of Current Condition 06/04-cyst removed on L ovary on May 17 and scar tissue removed but in mostly R side. She still feels the pulling on L side but overall surgery went well and she is cleared to return to PT. She had tubes taken out also. She had 2 laparoscopic scars and one through belly button that are healing well. Was constipated after but is better now. She hurts at L hip flexor. L shoulder feels good but hasn't returned to her yoga mat. Has been really tired since. Is back to walking 2/4-in August of this year it will be about 2 years of pain. Initially doctor thought was psoas being pulled on. Recently was told scar tissue. She is scheduled at the end of the month and will have a cyst removed and scar tissue debridement. She is currently reg on bowel movements recently but did switch diet. hx of 2 csections (2002 and 2006). Has had gallbladder out . 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 She had a vaginal w/first one w/vaccuum and 3rd degree tearing of rectum.Didn't really notice issues until started doing yoga and then started feeling tugging in hip flexor/psoas region. dID SEE nd AND adjusted hormones and that helped a little along w/4 days of use of castor oil. Has had incontinence since saw dgt in 1997. has done pelvic floor therapy. mostly w/dancing, jumping, sneezing. IE: About 2 years ago, bought total gym andwas doing pulling out and in and notes collar bone kept slipping. if she does chatarangas in a class, then she is feels it. Saw chiro in the past and has helped at the time, but it doesn't go away. It is managable if she avoids things . Avoids lifting or weights. Went to golf simulator the other day and didn't put a lot of effor into it to avoid pain. hx of neck pain mostly at cranium Treatment Goals Patient/Caregiver Goals get back to yoga w/o pain and dec pull PT-OP-C Subjective Start: 03/20/24 18:46 Freq: Status: Active Protocol: Document 06/10/24 07:32 [facility] (Rec: 06/10/24 09:03 [id number]-PT Subjective Patient Comments Patient Comments Pt reports she has tolerated the gentle stretches for hip flexor. follows w/MD sunday PT-OP-D Balance Start: 04/28/24 18:09 Freq: Status: Active Protocol: Document 04/29/24 08:20 [facility] (Rec: 04/29/24 18:09 [facility] [id number]) Balance Tests Single Limb Standing Single Limb- Right >30 sec Single Limb- Left >30 sec PT-OP-F Manual Assessment Start: 03/20/24 18:46 Freq: Status: Active Protocol: Document 06/04/24 10:47 [facility] (Rec: 06/04/24 19:02 [facility] [id number]) Manual Assessments Soft Tissue Assessment Soft Tissue Mobility Assessment scars healing well, small scab on R one PT-OP-J Posture/Palpation/Skin Start: 03/20/24 18:46 Freq: Status: Active Protocol: Document 06/04/24 10:47 [facility] (Rec: 06/04/24 19:02 [facility] [id number]) Posture Evaluation Duke Postural Classification System Elbow Flexion Test 2 Lumbar Protective Mechanism Left AP 1 Lumbar Protective Mechanism Right AP 2 Lumbar Protective Mechanism Left PA 3 Lumbar Protective Mechanism Right PA 1 PT-OP-K Range of Motion Start: 03/20/24 18:46 Freq: Status: Active Protocol: Document 04/29/24 08:20 [facility] (Rec: 04/29/24 18:09 [facility] [id number]) Hip Goniometric Range of Motion Hip ROM Limitations Comments kaushik test L hip flexor tightness PT-OP-L Special Tests Start: 03/20/24 18:46 Freq: Status: Active Protocol: Document 03/25/24 08:18 [facility] (Rec: 03/25/24 09:04 [facility] [id number]) Special Tests Shoulder Special Tests Speed's Biceps Comments neg Mifflin Test Comments neg Empty Can Comments weakness Pryor Ian Impingement Test Results neg neer Comments positive L -compression AC Joint Compression Comments neg Aply Comments L on top-1.5 in difference- L T3 R on top-touching hands- R T4 Neural Special Tests- Upper Body n tension Comments neg ulnar,med radial PT-OP-M Strength Start: 03/20/24 18:46 Freq: Status: Active Protocol: Document 06/04/24 10:47 [facility] (Rec: 06/04/24 19:02 [facility] [id number]) Shoulder Strength Shoulder Manual Muscle Testing Right Flexion 5 Normal Extension 5 Normal Abduction (C5) 5 Normal External Rotation 5 Normal Internal Rotation 5 Normal Horizontal Abduction 5 Normal Horizontal Adduction 5 Normal Left Flexion 4+ Good+ Extension 5 Normal Abduction (C5) 4+ Good+ External Rotation 4+ Good+ Internal Rotation 4+ Good+ Horizontal Abduction 5 Normal Horizontal Adduction 4+ Good+ Hip Strength Hip Manual Muscle Testing Right Flexion (L2) 4 Good Extension (S1) 5 Normal Abduction 5 Normal Adduction 5 Normal External Rotation 5 Normal Internal Rotation 5 Normal Left Flexion (L2) 3+ Fair+ Extension (S1) 5 Normal Abduction 4 Good Adduction 3+ Fair+ External Rotation 4+ Good+ Internal Rotation 5 Normal PT-OP-Q Treatments Start: 03/20/24 18:46 Freq: Status: Active Protocol: Document 06/10/24 07:32 [facility] (Rec: 06/10/24 09:03 [facility] [id number]) Therapeutic Exercises Supine Exercises bridge Supine Exercise Name 1. DL 2. SL Side bilateral Reps/Minutes 5 ea serratus punch Side bilateral Reps/Minutes 10 Comments cues position Sitting Exercises axial elongation Equipment Used L1 Reps/Minutes 10 Standing Exercises push up plus Standing Exercise Name serratus punch Side bilateral Reps/Minutes 5 Comments stopped d/t form Manual Therapy Treatment Consent Patient gave verbal consent for manual Yes treatment Soft Tissue Mobilization superior Body Location L UT & LS w/cervical rotation Joint Mobilizations cervical Comments AP C6 and 7 and transverse C 6 R c/r SC Comments caudal L c/r PT-OP-T Assessment and Plan Start: 03/20/24 18:46 Freq: Status: Active Protocol: Document 06/10/24 07:32 [facility] (Rec: 06/10/24 09:03 [facility] [id number]) Physical Therapy Assessment Goals mobility [facility] Goal (LTG) Pt will report ability to sit, stand and participate in yoga w/o pull or discomfort in L ant hip/abdomen. 06/04-pull still after sx LTG Duration 07/30 strength Short Term Goal (STG) Pt will be indep w/HEP STG Duration achieved advancing as able [facility] Goal (LTG) Pt will have 4+/5 UE and LE strength and at least 4/5 EFT and 3/5 LPM all planes to show improved stability in order to dec pain w/mobility 04/22-improving 06/04-core weakness most notable LTG Duration 07/30 activity [facility] Goal (LTG) Pt will be able to do all yoga activities and lifting w/o inc pain in L shoulder. 04/22-still afraid to try some of those activities in yoga. She has been doing more WB activities given in PT 06/04-limited since sx LTG Duration 07/30 Assessment Summary Assessment Pt verbalized understanding w/ self release. Difficulty w/ scap position w/WB serratus punches so adjusted to supine serratus punch. She did well with exercises when cued for neutral neck postion. Physical Therapy Plan Frequency and Duration Frequency of Treatment 1x/Week Duration of treatment (weeks) 8 Plan of Care Start Date 06/04/24 Plan of Care End Date 07/30/24 Next Visit Focus/Plan Next Note Type Treatment Note Next Visit Plan gentle progression back to core and hip stretching (avoid kaushik test as painful), work on small range return to yoga activity and improved WB through UEs, pelvic alignment, very gentle work to hip flexors, manual to shoulder as needed, start only w/ superficial tissue work along scar
--- NOTE | 2024-07-01 18:25 | PT.OTN ---
Current Diagnoses Pain in left shoulder (07/01/24) Pain in left hip (07/01/24) Pelvic and perineal pain (07/01/24) Physical Therapy Treatment Note PT-OP-A Visit Information Start: 03/20/24 18:46 Freq: Status: Active Protocol: Document 07/01/24 08:23 [facility] (Rec: 07/01/24 18:25 [facility] [id number]) Out-Patient Physical Therapy Visit Information Visit Information Visit Type Discharge Summary Visit Start Time 08:20 Visit Stop Time 09:00 Visit Number 15 Number of PSYCHIATRIST Visits 0 PT-OP-B Current Condition Start: 03/20/24 18:46 Freq: Status: Active Protocol: Document 06/04/24 10:47 [facility] (Rec: 06/04/24 19:02 [facility] [id number]) Current Condition History of Current Condition Onset Date 2 years Current Complaints L shoulder, L hip pain History of Current Condition 06/04-cyst removed on L ovary on May 17 and scar tissue removed but in mostly R side. She still feels the pulling on L side but overall surgery went well and she is cleared to return to PT. She had tubes taken out also. She had 2 laparoscopic scars and one through belly button that are healing well. Was constipated after but is better now. She hurts at L hip flexor. L shoulder feels good but hasn't returned to her yoga mat. Has been really tired since. Is back to walking 2/4-in August of this year it will be about 2 years of pain. Initially doctor thought was psoas being pulled on. Recently was told scar tissue. She is scheduled at the end of the month and will have a cyst removed and scar tissue debridement. She is currently reg on bowel movements recently but did switch diet. hx of 2 csections (2002 and 2006). Has had gallbladder out . 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 She had a vaginal w/first one w/vaccuum and 3rd degree tearing of rectum.Didn't really notice issues until started doing yoga and then started feeling tugging in hip flexor/psoas region. dID SEE nd AND adjusted hormones and that helped a little along w/4 days of use of castor oil. Has had incontinence since saw dgt in 1997. has done pelvic floor therapy. mostly w/dancing, jumping, sneezing. IE: About 2 years ago, bought total gym andwas doing pulling out and in and notes collar bone kept slipping. if she does chatarangas in a class, then she is feels it. Saw chiro in the past and has helped at the time, but it doesn't go away. It is managable if she avoids things . Avoids lifting or weights. Went to golf simulator the other day and didn't put a lot of effor into it to avoid pain. hx of neck pain mostly at cranium Treatment Goals Patient/Caregiver Goals get back to yoga w/o pain and dec pull PT-OP-C Subjective Start: 03/20/24 18:46 Freq: Status: Active Protocol: Document 07/01/24 08:23 [facility] (Rec: 07/01/24 18:25 [facility] [id number]) OP-PT Subjective Patient Comments Patient Comments Pt will be doing pelvic floor PT soon. Shoulder feeling good . has been sick w/covid and focusing on home practice PT-OP-D Balance Start: 04/28/24 18:09 Freq: Status: Active Protocol: Document 04/29/24 08:20 [facility] (Rec: 04/29/24 18:09 [facility] [id number]) Balance Tests Single Limb Standing Single Limb- Right >30 sec Single Limb- Left >30 sec PT-OP-F Manual Assessment Start: 03/20/24 18:46 Freq: Status: Active Protocol: Document 06/04/24 10:47 [facility] (Rec: 06/04/24 19:02 [facility] [id number]) Manual Assessments Soft Tissue Assessment Soft Tissue Mobility Assessment scars healing well, small scab on R one PT-OP-J Posture/Palpation/Skin Start: 03/20/24 18:46 Freq: Status: Active Protocol: Document 07/01/24 08:23 [facility] (Rec: 07/01/24 18:25 [facility] [id number]) Posture Evaluation Duke Postural Classification System Elbow Flexion Test 4 Lumbar Protective Mechanism Left AP 1 Lumbar Protective Mechanism Right AP 3 Lumbar Protective Mechanism Left PA 3 Lumbar Protective Mechanism Right PA 1 PT-OP-K Range of Motion Start: 03/20/24 18:46 Freq: Status: Active Protocol: Document 04/29/24 08:20 [facility] (Rec: 04/29/24 18:09 [facility] [id number]) Hip Goniometric Range of Motion Hip ROM Limitations Comments kaushik test L hip flexor tightness PT-OP-L Special Tests Start: 03/20/24 18:46 Freq: Status: Active Protocol: Document 03/25/24 08:18 [facility] (Rec: 03/25/24 09:04 [facility] [id number]) Special Tests Shoulder Special Tests Speed's Biceps Comments neg Underhill Test Comments neg Empty Can Comments weakness Pryor Ian Impingement Test Results neg neer Comments positive L -compression AC Joint Compression Comments neg Aply Comments L on top-1.5 in difference- L T3 R on top-touching hands- R T4 Neural Special Tests- Upper Body n tension Comments neg ulnar,med radial PT-OP-M Strength Start: 03/20/24 18:46 Freq: Status: Active Protocol: Document 07/01/24 08:23 [facility] (Rec: 07/01/24 18:25 [facility] [id number]) Shoulder Strength Shoulder Manual Muscle Testing Right Flexion 5 Normal Extension 5 Normal Abduction (C5) 5 Normal External Rotation 5 Normal Internal Rotation 5 Normal Horizontal Abduction 5 Normal Horizontal Adduction 5 Normal Left Flexion 5 Normal Extension 5 Normal Abduction (C5) 5 Normal External Rotation 5 Normal Internal Rotation 5 Normal Horizontal Abduction 5 Normal Horizontal Adduction 5 Normal PT-OP-Q Treatments Start: 03/20/24 18:46 Freq: Status: Active Protocol: Document 07/01/24 08:23 [facility] (Rec: 07/01/24 18:25 [facility] [id number]) Therapeutic Exercises Prone Exercises plank Prone Exercise Name fwd on knees to side plank and back Side bilateral Reps/Minutes 8 min Comments on ground and on wall w/feet on ground Sidelying Exercises sideplank Sidelying Exercise Name multiple positions, on knees, on wall w/work of serratus and neutral scap Reps/Minutes 10 mn Sitting Exercises axial elongation Sitting Exercise Name postural alignment in standing Reps/Minutes 3 min Standing Exercises push up plus Standing Exercise Name verbal review of at wall Other Exercises isometrics Other Exercise Name BUE/ LE MMT, LPM,EFT Side bilateral Manual Therapy Treatment Consent Patient gave verbal consent for manual Yes treatment Soft Tissue Mobilization superior Body Location L UT & LS PT-OP-T Assessment and Plan Start: 03/20/24 18:46 Freq: Status: Active Protocol: Document 07/01/24 08:23 [facility] (Rec: 07/01/24 18:25 [facility] [id number]) Physical Therapy Assessment Goals mobility [facility] Goal (LTG) Pt will report ability to sit, stand and participate in yoga w/o pull or discomfort in L ant hip/abdomen. 06/04-pull still after sx LTG Duration stopped per doctor strength Short Term Goal (STG) Pt will be indep w/HEP STG Duration achieved advancing as able [employer] Goal (LTG) Pt will have 4+/5 UE and LE strength and at least 4/5 EFT and 3/5 LPM all planes to show improved stability in order to dec pain w/mobility 04/22-improving 06/04-core weakness most notable LTG Duration achieved 07/01 w/shoulders activity [facility] Goal (LTG) Pt will be able to do all yoga activities and lifting w/o inc pain in L shoulder. 04/22-still afraid to try some of those activities in yoga. She has been doing more WB activities given in PT 06/04-limited since sx LTG Duration achieved w/UE Assessment Summary Assessment pt is improving in participation w/yoga activities and is meeting all goals at this time based on UE and will d/c treatment for L hip and start pelvic health therapy per MD. at this time dc d/t met goals for shoulder Physical Therapy Plan Discharge Physical Therapy Discharge Reasons Goals Met
== END 2024-07-04 12:40 | disposition home or self-care (01) ==
LOC: PHYS 08:15
PROVIDERS: Family Provider Internal Medicine; PCP Internal Medicine; Referring Provider Internal Medicine; Visit Provider Internal Medicine
DX: M25.512 Pain in left shoulder (principal); R10.2 Pelvic and perineal pain; M25.552 Pain in left hip
CPT/HCPCS: 97110; 97112; 97140; 97161; 97164

== ENCOUNTER 2024-08-07 08:45 | Day surgery (SDC) | payer OTHER, SELFPAY ==
--- NOTE | 2024-08-07 08:58 | PM.HP.IH.1 ---
History of Present Illness History of Present Illness Date Patient Seen: 08/07/24 Time Patient Seen: 08:58 Chief complaint: Colonoscopy Narrative: Tanvi is a 44 year old woman here for a screening colonoscopy. She did have a colonoscopy about 20 years ago GI symptoms. No polyps were found. No family history of colon cancer. [facility] Medical History (Updated 08/07/24 @ 08:59 by Polo Koroma MD) Cyst of ovary Venous hypertension of lower extremity Hypothyroid Allergic rhinitis, unspecified (10/13/10) Acne, unspecified (10/13/10) IBS (irritable bowel syndrome) Delayed gastric emptying (05/31/15) Varicose veins (02/04/15) Psychophysiological insomnia (02/04/15) Mixed stress and urge urinary incontinence (02/04/15) Irritable bowel syndrome without diarrhea (10/13/10) Acquired hypothyroidism (10/13/10) Acid reflux Surgical History Status post laparoscopic cholecystectomy Social History Smoking Status: Never smoker alcohol intake: current Meds Home Medications and Allergies Home Medications Medication Instructions Recorded Confirmed Type levothyroxine 50 mcg tablet 50 mcg PO DAILY 10/05/23 07/09/24 History sodium,potassium,mag sulfates 17.5 See Rx Instructions PO .COMPLEX 06/30/24 07/09/24 Rx gram-3.13 gram-1.6 gram oral soln #354 mL (Suprep Bowel Prep Kit) Allergies Allergy/AdvReac Type Severity Reaction Status Date / Time amoxicillin [AMOXICILLIN] Allergy Mild RASH Verified 07/09/24 08:35 doxycycline [DOXYCYCLINE] Allergy Mild RASH Verified 07/09/24 08:35 Sulfa (Sulfonamide Allergy Mild rash Verified 07/09/24 08:35 Antibiotics) [SULFA (SULFONAMIDE ANTIBIOTICS)] Exam Const General: healthy appearing Assessment & Plan Assessment and plan (1) Colon cancer screening: Status: Acute Plan Colonoscopy for average risk colon cancer screening Time-Based Coding :: [TOTAL MINUTES] spent with patient and on the chart (including review of chart, obtaining history, exam, reviewing outside data, placing orders, documenting exam and treatment plan, and counseling patient) on [DATE]. PROFEE Elevator Adjuster Document charge(s): No
[2024-08-07 09:03] VITALS: BP 101/68; PULSE 76; RESP 16; TEMP 36.1
[2024-08-07] MEDS: LACTATED RINGERS 1,000 ML 42 ML IV (09:08)
[2024-08-07 09:56] VITALS: BP 98/56; PULSE 53; RESP 16; TEMP 36.2; O2SAT 98
--- NOTE | 2024-08-07 09:59 | PM.OP.COLON ---
Operative Date/Time/Diagnoses Date of procedure: 08/07/24 Time of procedure: 09:59 Pre-op diagnosis: Colon cancer screening Post-op diagnosis: same Procedure & Clinicians Study performed: Colonoscopy Same procedure as scheduled: Yes Surgeon: Polo Koroma Procedure Notes Procedure in detail: Surgeon: Polo Koroma MD Anesthesia: Kilo Hua MD Procedure: The patient was brought to the endoscopy suite, placed in left lateral decubitus position. The patient was connected to monitoring devices. A time-out was performed. Sedation was administered. Once the patient was adequately sedated, a digital rectal exam was performed and was normal. The scope was then inserted and advanced to the cecum where the appendiceal orifice was identified and photographed. The scope was then slowly withdrawn over greater than 6 minutes. The mucosa was thoroughly inspected. No abnormalities were found. The scope was retroflexed in the rectum. The scope was straightened and removed. The patient was awakened and brought to recovery. Scope withdrawal time: 7 minutes Sedation time: 16 minutes EBL: 0 Findings: Normal colon Post-procedure Recommendations: Colonoscopy in 10 years Disposition: PACU
[2024-08-07 10:01] VITALS: BP 95/78; PULSE 56; RESP 16; TEMP 36.2; O2SAT 98
== END 2024-08-07 10:23 | disposition home or self-care (01) ==
PROVIDERS: Family Provider Internal Medicine; PCP Internal Medicine; Referring Provider Surgery; Visit Provider Surgery
PROC: 0DJD8ZZ Inspection of Lower Intestinal Tract, Via Natural or Artificial Opening Endoscopic (ICD-10-PCS; CPT 45378; principal; 2024-08-07 09:45)
DX: Z12.11 Encounter for screening for malignant neoplasm of colon (principal)
CPT/HCPCS: 45378; J2704

== ENCOUNTER → 2024-10-09 11:10 | Outpatient (CLI) | payer OTHER, SELFPAY ==
--- NOTE | 2024-10-09 11:11 | DI.MG.S_ITS ---
MM screening mammo BI: 10/09/2024. BI-RADS: 1 CLINICAL: 44-year old female for bilateral screening mammogram. Tyrer-Cuzick lifetime risk of 7.3%. No personal or first-degree family history of breast cancer. PRIOR EXAMS 06/07/2023, 05/28/2021, 06/27/2018. MAMMOGRAPHY TECHNIQUE: 2D and 3D (tomosynthesis) digital mammographic views obtained, with additional images as needed for full coverage. Current study was also evaluated with a Computer Aided Detection (CAD) system. DENSITY C. The breasts are heterogeneously dense, which may obscure small masses. MAMMOGRAPHY FINDINGS Bilateral: No suspicious mass, asymmetry, microcalcification, or other abnormality seen. IMPRESSION: * No evidence of malignancy. RECOMMENDATIONS Bilateral * Annual screening mammography. OVERALL ASSESSMENT CATEGORY BI-RADS-1: Negative. The [employer] recommends annual screening mammography beginning at age 40 for women with average risk of breast cancer. ELECTRONICALLY SIGNED: Molly Fowler M.D. on 10/09/2024 at 09:41:52 PM PT Interpreting Station ID: [id number]
== END ==
PROVIDERS: Family Provider Internal Medicine; PCP Internal Medicine; Referring Provider Internal Medicine; Visit Provider Internal Medicine
DX: Z12.31 Encounter for screening mammogram for malignant neoplasm of breast (principal); R92.333 Mammographic heterogeneous density, bilateral breasts
CPT/HCPCS: 77063; 77067

== ENCOUNTER 2024-10-21 09:45 | Outpatient (RCR) | payer OTHER, SELFPAY ==
--- NOTE | 2024-09-03 13:03 | PT.OIE ---
Current Diagnoses Other specified disorders of muscle (09/03/24) Other female genital prolapse (09/03/24) Past Medical History (Last Updated 07/09/24 @ 09:03 by Radha Mccain MD) Acid reflux Acne, unspecified (10/13/10) Acquired hypothyroidism (10/13/10) Allergic rhinitis, unspecified (10/13/10) Cyst of ovary Delayed gastric emptying (05/31/15) Hypothyroid IBS (irritable bowel syndrome) Irritable bowel syndrome without diarrhea (10/13/10) Mixed stress and urge urinary incontinence (02/04/15) Psychophysiological insomnia (02/04/15) Varicose veins (02/04/15) Venous hypertension of lower extremity Past Surgical History (Last Reviewed 12/03/21 @ 15:30 by Anitra Jewell DO) Status post laparoscopic cholecystectomy Visit Care Team Role Provider Type Patricio Jauregui MD Family Provider Physician Primary Care Provider Specialty: Internal Medicine Address: [address] [place] [address], [address], [place], [address] Email: [email or web address] Kaela Sellers MD Attending Provider Physician Referring Provider Specialty: Gynecology CARRY ALL DRIVER Obstetrics Address: [address] [place] [address] [address] [place] [address], [address] Email: [email or web address] Physical Therapy Initial Evaluation PT-OP-A Visit Information Start: 09/03/24 08:14 Freq: Status: Active Protocol: Document 09/03/24 09:05 [facility] (Rec: 09/03/24 09:13 [facility] [id number]) Out-Patient Physical Therapy Visit Information Visit Information Visit Type Initial Evaluation Visit Start Time 09:05 Visit Stop Time 09:45 PT-OP-B Current Condition Start: 09/03/24 08:14 Freq: Status: Active Protocol: Document 09/03/24 09:05 [facility] (Rec: 09/03/24 09:13 [facility] [id number]) Current Condition History of Current Condition Onset Date 2 years ago. Current Complaints ovARIAN CYST 2 on the left side of the ovary and she found this due to per\ History of Current periods were happening 2 times per month, looked at Condition ovarian cyst and had both us and a MRI around the same time she started getting left sided tugging pain and she is still getting that tugging pulling on the left side. TRanitional movements she feels stuck or walking long stride she gets stuck PT-OP-F Manual Assessment Start: 09/03/24 08:14 Freq: Status: Active Protocol: Document 09/03/24 09:00 [facility] (Rec: 09/03/24 12:40 [facility] [id number]) Manual Assessments Soft Tissue Assessment Soft Tissue Mobility fascial restrictions throughout abdominal wall noted, Assessment left sided fascial tightness of the descending colon and over the iliopsoas tightness at the psoas distal insertion. Joint Mobility Assessment Joint Mobility left ilium inflare Assessment PT-OP-Q Treatments Start: 09/03/24 08:14 Freq: Status: Active Protocol: Document 09/03/24 09:00 [facility] (Rec: 09/03/24 12:38 [facility] [id number]) Manual Therapy Treatment Consent Patient gave verbal Yes consent for manual treatment Soft Tissue Mobilization left abdominal wall fascial release Mobilization Type Myofascial Release Intensity/Depth Moderate Body Position Supine Comments worked along the descending colon on fascial release as well as fascial release of the iliopsoas Abdominal wall in general is tight and guarded PT-OP-T Assessment and Plan Start: 09/03/24 08:14 Freq: Status: Active Protocol: Document 09/02/24 09:00 [facility] (Rec: 09/03/24 13:03 [facility] [id number]) Physical Therapy Assessment Rehab Potential Rehabilitation Excellent Potential Evaluation Complexity Number of Personal 0 Factors/ Comorbidities Number of Body 1-2 Systems Impaired Clinical Stable Presentation at Evaluation Impairments Impairments Activity Tolerance,Pain,Soft Tissue Mobility Goals 3 Impairment pt lacks a home program for self management of her pain symptoms Senior Care Goal (LTG) Tanvi is independent with her home program for abdominal self massage, breathing techniques and stretches LTG Duration 8 weeks 2 Impairment fascial tightness and guarding over the abdominal wall and diaphragm Cleaning Maid Goal (LTG) With fascial release work Tanvi presents with improved mobility of the abdominal wall LTG Duration 8 weeks 1 Impairment left sided pelvic pain that patient describes as a pulling and tugging sensation in the left lateral abdominal wall Senior Care Goal (LTG) Tanvi reports a overall reduction in left sided pain symptoms and is able to work on self abdominal massage at home LTG Duration 8 weeks Assessment Summary Assessment Tanvi is a 44 year old female with chief complaints of left sided abdominal pain that she describes as a pulling and tugging sensation. This pain has been with her a few years now. She was found to have a ovarian cyst on the left side and this was removed along with exploratory surgery in April 2024. There was nothing else found with exploratory surgery that might be contributing to her pain. Tanvi denies any pelvic pressure, heaviness or difficulty with bowel movements at this time. She does have a history of constipation but has been working hard to normalize her bowel movements and reports no pain with bowel movements. She does note that after the ovarian cyst was removed symptoms have improved some but she still feels the tugging sensation. 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 She has recently had a colonoscopy and that was normal. With exam today Tanvi presents with a good amount of fascial tightness and guarding throughout her abdominal wall. There is tightness in the diaphragm B and along the descending colon on the left. Tanvi notes tenderness with palpation over the iliacus and psoas distal attachment on the left side. She does have some tightness noted of the iliopsoas musculature. Tanvi was educated in self ILU massage for home as well as encouraged to work on her diaphragmatic breathing. I did start fascial work today over the left descending colon and Tanvi tolerated this well. Tanvi is a good candidate for PT. Physical Therapy Plan Frequency and Duration Frequency of 1x/Week Treatment Duration of 8 treatment (weeks) Plan of Care Start 09/03/24 Date Plan of Care End 10/29/24 Date Therapeutic Interventions Therapeutic Home Exercise Program,Manual Therapy,Patient/Caregiver Interventions Education,Self-Care/Home Management,Soft Tissue Mobilization,Therapeutic Exercises Next Visit Focus/Plan Next Note Type Treatment Note Next Visit Plan review ILU self massage and continue with fascial work over the left abdominal wall and diaphraghm
--- NOTE | 2024-09-03 13:08 | PT.OPPOC ---
Physical, Occupational & Speech Therapy At [facility] Current Diagnoses Other specified disorders of muscle (09/03/24) Other female genital prolapse (09/03/24) Visit Care Team Role Provider Type Patricio Jauregui MD Family Provider Physician Primary Care Provider Specialty: Internal Medicine Address: [address] [place] [address], [address], [address] Email: [email or web address] Kaela Sellers MD Attending Provider Physician Referring Provider Specialty: Gynecology POWERTRAIN CALIBRATION ENGINEER Obstetrics Address: [address] [place] [address] [address] [place] [address], [address] Email: [email or web address] Plan Of Care PT-OP-B Current Condition Start: 09/03/24 08:14 Freq: Status: Active Protocol: Document 09/03/24 09:05 [facility] (Rec: 09/03/24 09:13 [facility] [id number]) Current Condition History of Current Condition Onset Date 2 years ago. Current Complaints left side abdominal and pelvic pain History of Current Symptoms began approx 2 years ago and started with Condition irregular periods that were happening 2 times per month . It was found that Tanvi had a left sided ovarian cyst and around the same time she started getting left sided tugging pain. She underwent surgery to remove the cyst in April 2024. Tanvi reports her pain after surgery on the left is better however she is still getting that tugging pulling on the left side. She reports feeling with Transitional movements in Yoga she feels she gets stuck on the left side and also with walking long stride she gets stuck. PT-OP-T Assessment and Plan Start: 09/03/24 08:14 Freq: Status: Active Protocol: Document 09/03/24 09:00 [facility] (Rec: 09/03/24 13:03 [facility] [id number]) Physical Therapy Assessment Rehab Potential Rehabilitation Excellent Potential Evaluation Complexity Number of Personal 0 Factors/ Comorbidities Number of Body 1-2 Systems Impaired Clinical Stable Presentation at Evaluation Impairments Impairments Activity Tolerance,Pain,Soft Tissue Mobility Goals 3 Impairment pt lacks a home program for self management of her pain symptoms Care Home Goal (LTG) Tanvi is independent with her home program for abdominal self massage, breathing techniques and stretches LTG Duration 8 weeks 2 Impairment fascial tightness and guarding over the abdominal wall and diaphragm School Guard Goal (LTG) With fascial release work Tanvi presents with improved mobility of the abdominal wall LTG Duration 8 weeks 1 Impairment left sided pelvic pain that patient describes as a pulling and tugging sensation in the left lateral abdominal wall School Guard Goal (LTG) Tanvi reports a overall reduction in left sided pain symptoms and is able to work on self abdominal massage at home LTG Duration 8 weeks Assessment Summary Assessment Tanvi is a 44 year old female with chief complaints of left sided abdominal pain that she describes as a pulling and tugging sensation. This pain has been with her a few years now. She was found to have a ovarian cyst on the left side and this was removed along with exploratory surgery in April 2024. There was nothing else found with exploratory surgery that might be contributing to her pain. Tanvi denies any pelvic pressure, heaviness or difficulty with bowel movements at this time. She does have a history of constipation but has been working hard to normalize her bowel movements and reports no pain with bowel movements. She does note that after the ovarian cyst was removed symptoms have improved some but she still feels the tugging sensation. 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 She has recently had a colonoscopy and that was normal. With exam today Tanvi presents with a good amount of fascial tightness and guarding throughout her abdominal wall. There is tightness in the diaphragm B and along the descending colon on the left. Tanvi notes tenderness with palpation over the iliacus and psoas distal attachment on the left side. She does have some tightness noted of the iliopsoas musculature. Tanvi was educated in self ILU massage for home as well as encouraged to work on her diaphragmatic breathing. I did start fascial work today over the left descending colon and Tanvi tolerated this well. Tanvi is a good candidate for PT. Physical Therapy Plan Frequency and Duration Frequency of 1x/Week Treatment Duration of 8 treatment (weeks) Plan of Care Start 09/03/24 Date Plan of Care End 10/29/24 Date Therapeutic Interventions Therapeutic Home Exercise Program,Manual Therapy,Patient/Caregiver Interventions Education,Self-Care/Home Management,Soft Tissue Mobilization,Therapeutic Exercises Next Visit Focus/Plan Next Note Type Treatment Note Next Visit Plan review ILU self massage and continue with fascial work over the left abdominal wall and diaphraghm Plan of Care Dates Plan of Care Start Date 09/03/24 Plan of Care End Date 10/29/24 Electronically Signed by: Aye Lyons, PT 09/03/24 [id number] If you are in agreement with this Plan of Care, please return a signed and dated copy. I have reviewed this Plan of Care and certify that the skilled therapy services above are required to meet the patient?s needs. Physician Signature Date Printed Name and Credentials Clinical Instructor Signature Printed Name and Credentials
--- NOTE | 2024-09-17 12:21 | PT.OTN ---
Current Diagnoses Other specified disorders of muscle (09/17/24) Other female genital prolapse (09/17/24) Physical Therapy Treatment Note PT-OP-A Visit Information Start: 09/03/24 08:14 Freq: Status: Active Protocol: Document 09/17/24 09:00 [facility] (Rec: 09/17/24 12:17 [facility] [id number]) Out-Patient Physical Therapy Visit Information Visit Information Visit Type Treatment Note Visit Start Time 09:00 Visit Stop Time 09:45 Visit Number 2 Evaluation Information Evaluation Date 09/03/24 PT-OP-B Current Condition Start: 09/03/24 08:14 Freq: Status: Active Protocol: Document 09/03/24 09:05 [facility] (Rec: 09/03/24 09:13 [facility] [id number]) Current Condition History of Current Condition Onset Date 2 years ago. Current Complaints left side abdominal and pelvic pain History of Current Symptoms began approx 2 years ago and started with Condition irregular periods that were happening 2 times per month . It was found that Tanvi had a left sided ovarian cyst and around the same time she started getting left sided tugging pain. She underwent surgery to remove the cyst in April 2024. Tanvi reports her pain after surgery on the left is better however she is still getting that tugging pulling on the left side. She reports feeling with Transitional movements in Yoga she feels she gets stuck on the left side and also with walking long stride she gets stuck. PT-OP-C Subjective Start: 09/03/24 08:14 Freq: Status: Active Protocol: Document 09/17/24 08:59 [facility] (Rec: 09/17/24 09:13 [facility] [id number]) OP-PT Subjective Patient Comments Patient Comments pt would liek to try 2 times per week as she seses dr barclay the end of september PT-OP-F Manual Assessment Start: 09/03/24 08:14 Freq: Status: Active Protocol: Document 09/03/24 09:00 [facility] (Rec: 09/03/24 12:40 [facility] [id number]) Manual Assessments Soft Tissue Assessment Soft Tissue Mobility fascial restrictions throughout abdominal wall noted, Assessment left sided fascial tightness of the descending colon and over the iliopsoas tightness at the psoas distal insertion. Joint Mobility Assessment Joint Mobility left ilium inflare Assessment PT-OP-Q Treatments Start: 09/03/24 08:14 Freq: Status: Active Protocol: Document 09/17/24 08:59 [facility] (Rec: 09/17/24 09:13 [facility] [id number]) Therapeutic Exercises Other Exercises quadruped TA Reps/Minutes x 5 reps hold 5 sec and relax abdominal wall x 10 sec Comments working on relaxed awareness of the abdominal wall with contract/relax susan pose over bolster Other Exercise Name gave for HEP Reps/Minutes hold 1-2 min Comments cues to relax the upper abdominal wall PT-OP-T Assessment and Plan Start: 09/03/24 08:14 Freq: Status: Active Protocol: Document 09/17/24 09:00 [facility] (Rec: 09/17/24 12:17 [facility] [id number]) Physical Therapy Assessment Goals 3 Impairment pt lacks a home program for self management of her pain symptoms Emergency Man Goal (LTG) Tanvi is independent with her home program for abdominal self massage, breathing techniques and stretches LTG Duration 8 weeks 2 Impairment fascial tightness and guarding over the abdominal wall and diaphragm Emergency Man Goal (LTG) With fascial release work Tanvi presents with improved mobility of the abdominal wall LTG Duration 8 weeks 1 Impairment left sided pelvic pain that patient describes as a pulling and tugging sensation in the left lateral abdominal wall Emergency Man Goal (LTG) Tanvi reports a overall reduction in left sided pain symptoms and is able to work on self abdominal massage at home LTG Duration 8 weeks Assessment Summary Assessment Tanvi is working on abdominal relaxation at rest. She is requesting PT 2 times per week instead of the initial 1 time per week so that she can get in more visits prior to her visit with Dr. Sellers. I am sending a updated plan of care to increase to 2 times per week. Physical Therapy Plan Frequency and Duration Frequency of 2x/Week Treatment Duration of 8 treatment (weeks) Plan of Care Start 09/17/24 Date Plan of Care End 11/12/24 Date Therapeutic Interventions Therapeutic Home Exercise Program,Manual Therapy,Patient/Caregiver Interventions Education,Self-Care/Home Management,Soft Tissue Mobilization,Therapeutic Exercises Next Visit Focus/Plan Next Note Type Treatment Note Next Visit Plan Continue with fascial work over the abdominal wall, left iliopsoas, and fascia over the descending colon.
--- NOTE | 2024-09-17 12:21 | PT.OPPOC ---
Physical, Occupational & Speech Therapy At [facility] Current Diagnoses Other specified disorders of muscle (09/17/24) Other female genital prolapse (09/17/24) Visit Care Team Role Provider Type Patricio Jauregui MD Family Provider Physician Primary Care Provider Specialty: Internal Medicine Address: [address] [place] [address], [address], [address] Email: [email or web address] Kaela Sellers MD Attending Provider Physician Referring Provider Specialty: Gynecology MARINE ENGINE MACHINIST Obstetrics Address: [address] [place] [address] [address] [place] [address], [address] Email: [email or web address] Plan Of Care PT-OP-B Current Condition Start: 09/03/24 08:14 Freq: Status: Active Protocol: Document 09/03/24 09:05 [facility] (Rec: 09/03/24 09:13 [facility] [id number]) Current Condition History of Current Condition Onset Date 2 years ago. Current Complaints left side abdominal and pelvic pain History of Current Symptoms began approx 2 years ago and started with Condition irregular periods that were happening 2 times per month . It was found that Tanvi had a left sided ovarian cyst and around the same time she started getting left sided tugging pain. She underwent surgery to remove the cyst in April 2024. Tanvi reports her pain after surgery on the left is better however she is still getting that tugging pulling on the left side. She reports feeling with Transitional movements in Yoga she feels she gets stuck on the left side and also with walking long stride she gets stuck. PT-OP-T Assessment and Plan Start: 09/03/24 08:14 Freq: Status: Active Protocol: Document 09/17/24 09:00 [facility] (Rec: 09/17/24 12:17 [facility] [id number]) Physical Therapy Assessment Goals 3 Impairment pt lacks a home program for self management of her pain symptoms Senior Care Goal (LTG) Tanvi is independent with her home program for abdominal self massage, breathing techniques and stretches LTG Duration 8 weeks 2 Impairment fascial tightness and guarding over the abdominal wall and diaphragm Senior Care Goal (LTG) With fascial release work Tanvi presents with improved mobility of the abdominal wall LTG Duration 8 weeks 1 Impairment left sided pelvic pain that patient describes as a pulling and tugging sensation in the left lateral abdominal wall Mechanical Piping Designer Goal (LTG) Tanvi reports a overall reduction in left sided pain symptoms and is able to work on self abdominal massage at home LTG Duration 8 weeks Assessment Summary Assessment Tanvi is working on abdominal relaxation at rest. She is requesting PT 2 times per week instead of the initial 1 time per week so that she can get in more visits prior to her visit with Dr. Sellers. I am sending a updated plan of care to increase to 2 times per week. Physical Therapy Plan Frequency and Duration Frequency of 2x/Week Treatment Duration of 8 treatment (weeks) Plan of Care Start 09/17/24 Date Plan of Care End 11/12/24 Date Therapeutic Interventions Therapeutic Home Exercise Program,Manual Therapy,Patient/Caregiver Interventions Education,Self-Care/Home Management,Soft Tissue Mobilization,Therapeutic Exercises Next Visit Focus/Plan Next Note Type Treatment Note Next Visit Plan Continue with fascial work over the abdominal wall, left iliopsoas, and fascia over the descending colon. Plan of Care Dates Plan of Care Start Date 09/17/24 Plan of Care End Date 11/12/24 Electronically Signed by: Aye Loyns, PT 09/17/24 1190 If you are in agreement with this Plan of Care, please return a signed and dated copy. I have reviewed this Plan of Care and certify that the skilled therapy services above are required to meet the patient?s needs. Physician Signature Date Printed Name and Credentials Clinical Instructor Signature Printed Name and Credentials
--- NOTE | 2024-09-19 09:47 | PT.OTN ---
Addendum entered and electronically signed by Donna Worrell PTA 09/19/24 15:16: [employer] Discussed can see other PT/PTAs for continued abdominal manual and ther ex stretching supportive if PT Aye and [employer] Donna unavailable schedules. Pt was agreeable. Original Note: Current Diagnoses Other specified disorders of muscle (09/19/24) Other female genital prolapse (09/19/24) Physical Therapy Treatment Note PT-OP-A Visit Information Start: 09/03/24 08:14 Freq: Status: Active Protocol: Document 09/19/24 09:00 SP (Rec: 09/19/24 09:00 SP [id number]) Out-Patient Physical Therapy Visit Information Visit Information Visit Type Treatment Note Visit Start Time 09:00 Visit Stop Time 09:47 Visit Number 3 Number of DIPPER CLOCK AND WATCH HANDS Visits 1 Evaluation Information Evaluation Date 09/03/24 Precautions Precautions Hx: Apr 2024 Ovarian Cyst removal on L. PT-OP-B Current Condition Start: 09/03/24 08:14 Freq: Status: Active Protocol: Document 09/03/24 09:05 [facility] (Rec: 09/03/24 09:13 AMH [id number]) Current Condition History of Current Condition Onset Date 2 years ago. Current Complaints left side abdominal and pelvic pain History of Current Symptoms began approx 2 years ago and started with Condition irregular periods that were happening 2 times per month . It was found that Tanvi had a left sided ovarian cyst and around the same time she started getting left sided tugging pain. She underwent surgery to remove the cyst in April 2024. Tanvi reports her pain after surgery on the left is better however she is still getting that tugging pulling on the left side. She reports feeling with Transitional movements in Yoga she feels she gets stuck on the left side and also with walking long stride she gets stuck. 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 She states was little sore over L abdominal lower guardant after last tx, just know had some work there. Wanting know how can decreased abdominal tension to allow decrease pain experiences, tends to over recruit abdominals, since Apr 2024 L sided ovarian cyst removal surgery. She states is compliant with HEP given thus far. She has scheduled PT 2x/wk to allow more progression with manual work and ther ex can support pain reduction and mobility through her trunk/ abdominals. PT-OP-F Manual Assessment Start: 09/03/24 08:14 Freq: Status: Active Protocol: Document 09/03/24 09:00 [facility]H (Rec: 09/03/24 12:40 AMH [id number]) Manual Assessments Soft Tissue Assessment Soft Tissue Mobility fascial restrictions throughout abdominal wall noted, Assessment left sided fascial tightness of the descending colon and over the iliopsoas tightness at the psoas distal insertion. Joint Mobility Assessment Joint Mobility left ilium inflare Assessment PT-OP-Q Treatments Start: 09/03/24 08:14 Freq: Status: Active Protocol: Document 09/19/24 09:00 SP (Rec: 09/19/24 09:01 SP [id number]) Therapeutic Exercises Supine Exercises Diaphramatic Breath Supine Exercise Name time spent slow breath Comments allowance abdominal movement and relaxation, not over recruit abs LTR Supine Exercise Name added to HEP with HO: slow elongated lumbar/abdominal rotation Side bilateral Resistance BLEs over tball Equipment Used * cues lessened engagement abdominal rotational ROM Reps/Minutes 10 reps Comments verbal instruction- cues for slow gentle breath, abdominal elongation rot. Other Exercises Thread Needle Other Exercise Name added to HEp declined HO Side bilateral Resistance L>R Equipment Used arm glide on table Reps/Minutes breath end feel, relax abs exhale- 30 SH Comments very well known to Tanvi- cues for level pelvis, upper ab/ribcage rot str quadruped TA Other Exercise Name reviewed Reps/Minutes x 5 reps hold 5 sec and relax abdominal wall x 10 sec Comments working on relaxed awareness of the abdominal wall with contract/relax susan pose over bolster Other Exercise Name reviewed Reps/Minutes hold 1-2 min Comments cues to relax the upper abdominal wall Manual Therapy Treatment Consent Patient gave verbal Yes consent for manual treatment Soft Tissue Mobilization left abdominal wall fascial release Body Location L>R Mobilization Type Myofascial Release Intensity/Depth Moderate Body Position Supine Comments Abdominal wall in general is tight and guarded inferior ribcage and L lateral Rec Ab. Worked along the descending colon more than mid transverse colon, fascial release as well as fascial release of the iliopsoas. Manual with education on self application. Self-Care/Home Management Treatment Education Patient Education Body Mechanics,Home Exercise Program,Pain Management Other Education Education during manual, breath work and mobility anatomy and mechanics of abdominals and connective tissue/fascia. Attention to relaxion and mobility to allow decreased over recruitment and mobility allowance . Good understanding and stated better compliment course took recently and give feedback to her clients in yoga. PT-OP-T Assessment and Plan Start: 09/03/24 08:14 Freq: Status: Active Protocol: Document 09/19/24 09:00 SP (Rec: 09/19/24 09:00 SP [id number]) Physical Therapy Assessment Goals 3 Impairment pt lacks a home program for self management of her pain symptoms Installation Helper Goal (LTG) Tanvi is independent with her home program for abdominal self massage, breathing techniques and stretches LTG Duration 8 weeks 2 Impairment fascial tightness and guarding over the abdominal wall and diaphragm Shelter Goal (LTG) With fascial release work Tanvi presents with improved mobility of the abdominal wall LTG Duration 8 weeks 1 Impairment left sided pelvic pain that patient describes as a pulling and tugging sensation in the left lateral abdominal wall Shelter Goal (LTG) Tanvi reports a overall reduction in left sided pain symptoms and is able to work on self abdominal massage at home LTG Duration 8 weeks Assessment Summary Assessment Pt good feedback response to MF glides to abdominal descending colon primarily but also attention to ascending and mid transverse to descending, inferior L ribcage with breath for fluid mobility. Education relaxation of abdominals during exhale hookling and quadruped. Introduced AROM LTR LEs over tball and quadruped thread needle with slow movement pause stretch with breath end feel mobility. Good feedback response. PRovided HO for carry over home. Physical Therapy Plan Frequency and Duration Frequency of 2x/Week Treatment Duration of 8 treatment (weeks) Plan of Care Start 09/17/24 Date Plan of Care End 11/12/24 Date Therapeutic Interventions Therapeutic Home Exercise Program,Manual Therapy,Patient/Caregiver Interventions Education,Self-Care/Home Management,Soft Tissue Mobilization,Therapeutic Exercises Next Visit Focus/Plan Next Note Type Treatment Note Next Visit Plan Continue with fascial work over the abdominal wall, left iliopsoas, and fascia over the descending colon. Gentle movement ROM to decrease over engagement of abdominals, emphasis on fluid slow mobility. Next trial open book.
--- NOTE | 2024-09-23 14:30 | PT.OTN ---
Current Diagnoses Other specified disorders of muscle (09/23/24) Other female genital prolapse (09/23/24) Physical Therapy Treatment Note PT-OP-A Visit Information Start: 09/03/24 08:14 Freq: Status: Active Protocol: Document 09/23/24 13:48 SP (Rec: 09/23/24 14:33 SP [id number]) Out-Patient Physical Therapy Visit Information Visit Information Visit Type Treatment Note Visit Start Time 13:48 Visit Stop Time 14:30 Visit Number 4 Number of CHEMICAL PROCESS ANALYST Visits 2 Evaluation Information Evaluation Date 09/03/24 Precautions Precautions Hx: Apr 2024 Ovarian Cyst removal on L. PT-OP-B Current Condition Start: 09/03/24 08:14 Freq: Status: Active Protocol: Document 09/03/24 09:05 AMH (Rec: 09/03/24 09:13 AMH [id number]) Current Condition History of Current Condition Onset Date 2 years ago. Current Complaints left side abdominal and pelvic pain History of Current Symptoms began approx 2 years ago and started with Condition irregular periods that were happening 2 times per month . It was found that Tanvi had a left sided ovarian cyst and around the same time she started getting left sided tugging pain. She underwent surgery to remove the cyst in April 2024. Tanvi reports her pain after surgery on the left is better however she is still getting that tugging pulling on the left side. She reports feeling with Transitional movements in Yoga she feels she gets stuck on the left side and also with walking long stride she gets stuck. PT-OP-C Subjective Start: 09/03/24 08:14 Freq: Status: Active Protocol: Document 09/23/24 13:48 SP (Rec: 09/23/24 14:33 SP [id number]) OP-PT Subjective Patient Comments Patient Comments Pt reports wasn't sore over abdominal after last tx though had impressive productive bowel movements. Is compliant with HEP for abdominal mobility. PT-OP-F Manual Assessment Start: 09/03/24 08:14 Freq: Status: Active Protocol: Document 09/03/24 09:00 AMH (Rec: 09/03/24 12:40 AMH [id number]) Manual Assessments Soft Tissue Assessment Soft Tissue Mobility fascial restrictions throughout abdominal wall noted, Assessment left sided fascial tightness of the descending colon and over the iliopsoas tightness at the psoas distal insertion. Joint Mobility Assessment Joint Mobility left ilium inflare Assessment PT-OP-Q Treatments Start: 09/03/24 08:14 Freq: Status: Active Protocol: Document 09/23/24 13:48 SP (Rec: 09/23/24 14:33 SP [id number]) Therapeutic Exercises Supine Exercises Tremaine Stretch Supine Exercise Name added to HEP declined HO Side bilateral Reps/Minutes 30 SH Comments opp knee bent Diaphramatic Breath Supine Exercise Name time spent slow breath Comments allowance abdominal movement and relaxation, not over recruit abs LTR Supine Exercise Name reviewed: LTR and single QL stretch lumbar/abdominal rotation Side bilateral Equipment Used * cues lessened engagement abdominal rotational ROM Reps/Minutes 30 sec hold Comments verbal instruction- cues for slow gentle breath, abdominal elongation rot. Other Exercises Thread Needle Other Exercise Name reviewed Side bilateral Resistance L>R Equipment Used arm glide on table Reps/Minutes breath end feel, relax abs exhale- 30 SH Comments very well known to Tanvi- cues for level pelvis, upper ab/ribcage rot str Manual Therapy Treatment Consent Patient gave verbal Yes consent for manual treatment Soft Tissue Mobilization left abdominal wall fascial release Body Location L>R oblique, Rec Ab, Iliopsoas Mobilization Type Myofascial Release Intensity/Depth Moderate Body Position Supine Comments Abdominal wall in general is tight and guarded inferior ribcage and L lateral Rec Ab. Worked along the descending colon more than mid transverse colon, fascial release as well as fascial release of the Rec Ab and iliopsoas. Manual with education on self application. Ed then instruction on self stretching PT-OP-T Assessment and Plan Start: 09/03/24 08:14 Freq: Status: Active Protocol: Document 09/23/24 13:48 SP (Rec: 09/23/24 14:33 SP [id number]) Physical Therapy Assessment Goals 3 Impairment pt lacks a home program for self management of her pain symptoms Action Finisher Goal (LTG) Tanvi is independent with her home program for abdominal self massage, breathing techniques and stretches LTG Duration 8 weeks 2 Impairment fascial tightness and guarding over the abdominal wall and diaphragm Action Finisher Goal (LTG) With fascial release work Tanvi presents with improved mobility of the abdominal wall LTG Duration 8 weeks 1 Impairment left sided pelvic pain that patient describes as a pulling and tugging sensation in the left lateral abdominal wall [facility] Goal (LTG) Tanvi reports a overall reduction in left sided pain symptoms and is able to work on self abdominal massage at home LTG Duration 8 weeks Assessment Summary Assessment Pt improved MF and decreased muscle tension with manual , she is noticing more trunk mobility and bowel production mobility. Progressed lumbar ROM and anterior abdominal and hip flexor stretching post manual with good feedback Tremaine and QL Stretch. Physical Therapy Plan Frequency and Duration Frequency of 2x/Week Treatment Duration of 8 treatment (weeks) Plan of Care Start 09/17/24 Date Plan of Care End 11/12/24 Date Therapeutic Interventions Therapeutic Home Exercise Program,Manual Therapy,Patient/Caregiver Interventions Education,Self-Care/Home Management,Soft Tissue Mobilization,Therapeutic Exercises Next Visit Focus/Plan Next Note Type Treatment Note Next Visit Plan Continue with fascial work over the abdominal wall, left iliopsoas, and fascia over the descending colon. Gentle movement ROM to decrease over engagement of abdominals, emphasis on fluid slow mobility. Next trial open book.
--- NOTE | 2024-09-23 14:30 | PT.OTN ---
Current Diagnoses Other specified disorders of muscle (09/23/24) Other female genital prolapse (09/23/24) Physical Therapy Treatment Note PT-OP-A Visit Information Start: 09/03/24 08:14 Freq: Status: Active Protocol: Document 09/23/24 13:48 SP (Rec: 09/23/24 14:33 SP [id number]) Out-Patient Physical Therapy Visit Information Visit Information Visit Type Treatment Note Visit Start Time 13:48 Visit Stop Time 14:30 Visit Number 4 Number of INDUSTRIAL SERVICE TECHNICIAN Visits 2 Evaluation Information Evaluation Date 09/03/24 Precautions Precautions Hx: Apr 2024 Ovarian Cyst removal on L. PT-OP-B Current Condition Start: 09/03/24 08:14 Freq: Status: Active Protocol: Document 09/03/24 09:05 AMH (Rec: 09/03/24 09:13 AMH [id number]) Current Condition History of Current Condition Onset Date 2 years ago. Current Complaints left side abdominal and pelvic pain History of Current Symptoms began approx 2 years ago and started with Condition irregular periods that were happening 2 times per month . It was found that Tanvi had a left sided ovarian cyst and around the same time she started getting left sided tugging pain. She underwent surgery to remove the cyst in April 2024. Tanvi reports her pain after surgery on the left is better however she is still getting that tugging pulling on the left side. She reports feeling with Transitional movements in Yoga she feels she gets stuck on the left side and also with walking long stride she gets stuck. PT-OP-C Subjective Start: 09/03/24 08:14 Freq: Status: Active Protocol: Document 09/23/24 13:48 SP (Rec: 09/23/24 14:33 SP [id number]) OP-PT Subjective Patient Comments Patient Comments Pt reports wasn't sore over abdominal after last tx though had impressive productive bowel movements. Is compliant with HEP for abdominal mobility. PT-OP-F Manual Assessment Start: 09/03/24 08:14 Freq: Status: Active Protocol: Document 09/03/24 09:00 AMH (Rec: 09/03/24 12:40 AMH [id number]) Manual Assessments Soft Tissue Assessment Soft Tissue Mobility fascial restrictions throughout abdominal wall noted, Assessment left sided fascial tightness of the descending colon and over the iliopsoas tightness at the psoas distal insertion. Joint Mobility Assessment Joint Mobility left ilium inflare Assessment PT-OP-Q Treatments Start: 09/03/24 08:14 Freq: Status: Active Protocol: Document 09/23/24 13:48 SP (Rec: 09/23/24 14:33 SP [id number]) Therapeutic Exercises Supine Exercises Tremaine Stretch Supine Exercise Name added to HEP declined HO Side bilateral Reps/Minutes 30 SH Comments opp knee bent Diaphramatic Breath Supine Exercise Name time spent slow breath Comments allowance abdominal movement and relaxation, not over recruit abs LTR Supine Exercise Name reviewed: LTR and single QL stretch lumbar/abdominal rotation Side bilateral Equipment Used * cues lessened engagement abdominal rotational ROM Reps/Minutes 30 sec hold Comments verbal instruction- cues for slow gentle breath, abdominal elongation rot. Other Exercises Thread Needle Other Exercise Name reviewed Side bilateral Resistance L>R Equipment Used arm glide on table Reps/Minutes breath end feel, relax abs exhale- 30 SH Comments very well known to Tanvi- cues for level pelvis, upper ab/ribcage rot str Manual Therapy Treatment Consent Patient gave verbal Yes consent for manual treatment Soft Tissue Mobilization left abdominal wall fascial release Body Location L>R oblique, Rec Ab, Iliopsoas Mobilization Type Myofascial Release Intensity/Depth Moderate Body Position Supine Comments Abdominal wall in general is tight and guarded inferior ribcage and L lateral Rec Ab. Worked along the descending colon more than mid transverse colon, fascial release as well as fascial release of the Rec Ab and iliopsoas. Manual with education on self application. Ed then instruction on self stretching PT-OP-T Assessment and Plan Start: 09/03/24 08:14 Freq: Status: Active Protocol: Document 09/23/24 13:48 SP (Rec: 09/23/24 14:33 SP [id number]) Physical Therapy Assessment Goals 3 Impairment pt lacks a home program for self management of her pain symptoms Medical Microbiologist Goal (LTG) Tanvi is independent with her home program for abdominal self massage, breathing techniques and stretches LTG Duration 8 weeks 2 Impairment fascial tightness and guarding over the abdominal wall and diaphragm Medical Microbiologist Goal (LTG) With fascial release work Tanvi presents with improved mobility of the abdominal wall LTG Duration 8 weeks 1 Impairment left sided pelvic pain that patient describes as a pulling and tugging sensation in the left lateral abdominal wall Care Home Goal (LTG) Tanvi reports a overall reduction in left sided pain symptoms and is able to work on self abdominal massage at home LTG Duration 8 weeks Assessment Summary Assessment Pt improved MF and decreased muscle tension with manual , she is noticing more trunk mobility and bowel production mobility. Progressed lumbar ROM and anterior abdominal and hip flexor stretching post manual with good feedback Tremaine and QL Stretch. Physical Therapy Plan Frequency and Duration Frequency of 2x/Week Treatment Duration of 8 treatment (weeks) Plan of Care Start 09/17/24 Date Plan of Care End 11/12/24 Date Therapeutic Interventions Therapeutic Home Exercise Program,Manual Therapy,Patient/Caregiver Interventions Education,Self-Care/Home Management,Soft Tissue Mobilization,Therapeutic Exercises Next Visit Focus/Plan Next Note Type Treatment Note Next Visit Plan Continue with fascial work over the abdominal wall, left iliopsoas, and fascia over the descending colon. Gentle movement ROM to decrease over engagement of abdominals, emphasis on fluid slow mobility. Next trial open book.
--- NOTE | 2024-09-24 14:30 | PT.OTN ---
Current Diagnoses Other specified disorders of muscle (09/23/24) Other female genital prolapse (09/23/24) Physical Therapy Treatment Note PT-OP-A Visit Information Start: 09/03/24 08:14 Freq: Status: Active Protocol: Document 09/23/24 13:48 SP (Rec: 09/23/24 14:33 SP [id number]) Out-Patient Physical Therapy Visit Information Visit Information Visit Type Treatment Note Visit Start Time 13:48 Visit Stop Time 14:30 Visit Number 4 Number of ADVANCE SCOUT Visits 2 Evaluation Information Evaluation Date 09/03/24 Precautions Precautions Hx: Apr 2024 Ovarian Cyst removal on L. PT-OP-B Current Condition Start: 09/03/24 08:14 Freq: Status: Active Protocol: Document 09/03/24 09:05 [facility] (Rec: 09/03/24 09:13 [facility] [id number]) Current Condition History of Current Condition Onset Date 2 years ago. Current Complaints left side abdominal and pelvic pain History of Current Symptoms began approx 2 years ago and started with Condition irregular periods that were happening 2 times per month . It was found that Tanvi had a left sided ovarian cyst and around the same time she started getting left sided tugging pain. She underwent surgery to remove the cyst in April 2024. Tanvi reports her pain after surgery on the left is better however she is still getting that tugging pulling on the left side. She reports feeling with Transitional movements in Yoga she feels she gets stuck on the left side and also with walking long stride she gets stuck. PT-OP-C Subjective Start: 09/03/24 08:14 Freq: Status: Active Protocol: Document 09/23/24 13:48 SP (Rec: 09/23/24 14:33 SP [id number]) OP-PT Subjective Patient Comments Patient Comments Pt reports wasn't sore over abdominal after last tx though had impressive productive bowel movements. Is compliant with HEP for abdominal mobility. PT-OP-F Manual Assessment Start: 09/03/24 08:14 Freq: Status: Active Protocol: Document 09/03/24 09:00 [facility] (Rec: 09/03/24 12:40 [facility] [id number]) Manual Assessments Soft Tissue Assessment Soft Tissue Mobility fascial restrictions throughout abdominal wall noted, Assessment left sided fascial tightness of the descending colon and over the iliopsoas tightness at the psoas distal insertion. Joint Mobility Assessment Joint Mobility left ilium inflare Assessment PT-OP-Q Treatments Start: 09/03/24 08:14 Freq: Status: Active Protocol: Document 09/23/24 13:48 SP (Rec: 09/23/24 14:33 SP [id number]) Therapeutic Exercises Supine Exercises Tremaine Stretch Supine Exercise Name added to HEP declined HO Side bilateral Reps/Minutes 30 SH Comments opp knee bent Diaphramatic Breath Supine Exercise Name time spent slow breath Comments allowance abdominal movement and relaxation, not over recruit abs LTR Supine Exercise Name reviewed: LTR and single QL stretch lumbar/abdominal rotation Side bilateral Equipment Used * cues lessened engagement abdominal rotational ROM Reps/Minutes 30 sec hold Comments verbal instruction- cues for slow gentle breath, abdominal elongation rot. Other Exercises Thread Needle Other Exercise Name reviewed Side bilateral Resistance L>R Equipment Used arm glide on table Reps/Minutes breath end feel, relax abs exhale- 30 SH Comments very well known to Tanvi- cues for level pelvis, upper ab/ribcage rot str Manual Therapy Treatment Consent Patient gave verbal Yes consent for manual treatment Soft Tissue Mobilization left abdominal wall fascial release Body Location L>R oblique, Rec Ab, Iliopsoas Mobilization Type Myofascial Release Intensity/Depth Moderate Body Position Supine Comments Abdominal wall in general is tight and guarded inferior ribcage and L lateral Rec Ab. Worked along the descending colon more than mid transverse colon, fascial release as well as fascial release of the Rec Ab and iliopsoas. Manual with education on self application. Ed then instruction on self stretching PT-OP-T Assessment and Plan Start: 09/03/24 08:14 Freq: Status: Active Protocol: Document 09/23/24 13:48 SP (Rec: 09/23/24 14:33 SP [id number]) Physical Therapy Assessment Goals 3 Impairment pt lacks a home program for self management of her pain symptoms Truck Rental Clerk Goal (LTG) Tanvi is independent with her home program for abdominal self massage, breathing techniques and stretches LTG Duration 8 weeks 2 Impairment fascial tightness and guarding over the abdominal wall and diaphragm Truck Rental Clerk Goal (LTG) With fascial release work Tanvi presents with improved mobility of the abdominal wall LTG Duration 8 weeks 1 Impairment left sided pelvic pain that patient describes as a pulling and tugging sensation in the left lateral abdominal wall Intermediate Goal (LTG) Tanvi reports a overall reduction in left sided pain symptoms and is able to work on self abdominal massage at home LTG Duration 8 weeks Assessment Summary Assessment Pt improved MF and decreased muscle tension with manual , she is noticing more trunk mobility and bowel production mobility. Progressed lumbar ROM and anterior abdominal and hip flexor stretching post manual with good feedback Tremaine and QL Stretch. Physical Therapy Plan Frequency and Duration Frequency of 2x/Week Treatment Duration of 8 treatment (weeks) Plan of Care Start 09/17/24 Date Plan of Care End 11/12/24 Date Therapeutic Interventions Therapeutic Home Exercise Program,Manual Therapy,Patient/Caregiver Interventions Education,Self-Care/Home Management,Soft Tissue Mobilization,Therapeutic Exercises Next Visit Focus/Plan Next Note Type Treatment Note Next Visit Plan Continue with fascial work over the abdominal wall, left iliopsoas, and fascia over the descending colon. Gentle movement ROM to decrease over engagement of abdominals, emphasis on fluid slow mobility. Next trial open book.
--- NOTE | 2024-09-30 14:37 | PT.OTN ---
Current Diagnoses Other specified disorders of muscle (09/30/24) Other female genital prolapse (09/30/24) Physical Therapy Treatment Note PT-OP-A Visit Information Start: 09/03/24 08:14 Freq: Status: Active Protocol: Document 09/30/24 09:52 [facility] (Rec: 09/30/24 10:46 [facility] [id number]) Out-Patient Physical Therapy Visit Information Visit Information Visit Type Treatment Note Visit Start Time 09:50 Visit Stop Time 10:35 Visit Number 5 Number of INTAKE WORKER Visits 0 PT-OP-B Current Condition Start: 09/03/24 08:14 Freq: Status: Active Protocol: Document 09/03/24 09:05 [facility] (Rec: 09/03/24 09:13 [facility] [id number]) Current Condition History of Current Condition Onset Date 2 years ago. Current Complaints left side abdominal and pelvic pain History of Current Symptoms began approx 2 years ago and started with Condition irregular periods that were happening 2 times per month . It was found that Tanvi had a left sided ovarian cyst and around the same time she started getting left sided tugging pain. She underwent surgery to remove the cyst in April 2024. Tanvi reports her pain after surgery on the left is better however she is still getting that tugging pulling on the left side. She reports feeling with Transitional movements in Yoga she feels she gets stuck on the left side and also with walking long stride she gets stuck. PT-OP-C Subjective Start: 09/03/24 08:14 Freq: Status: Active Protocol: Document 09/30/24 09:52 [facility] (Rec: 09/30/24 10:46 [facility] [id number]) OP-PT Subjective Patient Comments Patient Comments pt notes her bowels have been moving she still feels tight as it is down a line PT-OP-F Manual Assessment Start: 09/03/24 08:14 Freq: Status: Active Protocol: Document 09/03/24 09:00 [facility] (Rec: 09/03/24 12:40 [facility] [id number]) Manual Assessments Soft Tissue Assessment Soft Tissue Mobility fascial restrictions throughout abdominal wall noted, Assessment left sided fascial tightness of the descending colon and over the iliopsoas tightness at the psoas distal insertion. Joint Mobility Assessment Joint Mobility left ilium inflare Assessment PT-OP-Q Treatments Start: 09/03/24 08:14 Freq: Status: Active Protocol: Document 09/30/24 09:50 [facility] (Rec: 09/30/24 16:59 [facility] [id number]) Therapeutic Exercises Supine Exercises pelvic floor isolations Reps/Minutes hold 10 seconds and rest 10 seconds x 10 reps single knee to chest stretch Reps/Minutes hold 1 min Other Exercises quadruped dynamic adductor stretch Reps/Minutes work on rocking back with left leg extended to stretch into the adductor Comments attachments on the left side, 5-10 reps Manual Therapy Treatment Soft Tissue Mobilization left proximal adductor insertion stretch Comments tightness noted at the left adductor insertion into the pubic bone, worked on fascial release her and gave Tanvi a dynamic adductor stretch for home left abdominal wall fascial release Mobilization Type Myofascial Release Intensity/Depth Moderate Body Position Supine Comments Abdominal wall in general is tight and guarded inferior ribcage and L lateral Rec Ab. Worked along the descending colon more than mid transverse colon, fascial release as well as fascial release of the Rec Ab and iliopsoas. Manual with education on self application. Ed then instruction on self stretching Joint Mobilizations left hip posterior capsule mobilizatio Comments worked on posterior capsule mobilization however Tanvi is moving well through the posterior capsule and did not feel a stretch PT-OP-T Assessment and Plan Start: 09/03/24 08:14 Freq: Status: Active Protocol: Document 09/30/24 09:50 [facility] (Rec: 09/30/24 16:59 [facility] [id number]) Physical Therapy Assessment Goals 3 Impairment pt lacks a home program for self management of her pain symptoms Drying Machine Operator Goal (LTG) Tanvi is independent with her home program for abdominal self massage, breathing techniques and stretches LTG Duration 8 weeks 2 Impairment fascial tightness and guarding over the abdominal wall and diaphragm Drying Machine Operator Goal (LTG) With fascial release work Tanvi presents with improved mobility of the abdominal wall LTG Duration 8 weeks 1 Impairment left sided pelvic pain that patient describes as a pulling and tugging sensation in the left lateral abdominal wall Longterm Goal (LTG) Tavni reports a overall reduction in left sided pain symptoms and is able to work on self abdominal massage at home LTG Duration 8 weeks Assessment Summary Assessment Tanvi notes her pain is 3/10 now, some improvements. She is working on not gripping with her abdominal wall . I did add in pelvic floor isolations for her as well as dynamic adductor stretching from a quadruped position. She is tight in the adductor attachments to the pubic bone. Tanvi questioned if she had a labral tear and I did look closer at her hip, no pain with posterior glides or in extension in kaushik test position. She reports her hip catches at times in different positions. I did add in pelvic floor stabilization exercises for her Physical Therapy Plan Frequency and Duration Frequency of 2x/Week Treatment Duration of 8 treatment (weeks) Plan of Care Start 09/17/24 Date Plan of Care End 11/12/24 Date Therapeutic Interventions Therapeutic Home Exercise Program,Manual Therapy,Patient/Caregiver Interventions Education,Self-Care/Home Management,Soft Tissue Mobilization,Therapeutic Exercises Next Visit Focus/Plan Next Note Type Treatment Note Next Visit Plan Continue with fascial work over the abdominal wall, left iliopsoas, and fascia over the descending colon. Gentle movement ROM to decrease over engagement of abdominals, emphasis on fluid slow mobility. Check in with how Tanvi did with adductor stretches and pelvic floor engagement
--- NOTE | 2024-09-30 17:00 | PT.OTN ---
Current Diagnoses Other specified disorders of muscle (09/30/24) Other female genital prolapse (09/30/24) Physical Therapy Treatment Note PT-OP-A Visit Information Start: 09/03/24 08:14 Freq: Status: Active Protocol: Document 09/30/24 09:52 [facility] (Rec: 09/30/24 10:46 [facility] [id number]) Out-Patient Physical Therapy Visit Information Visit Information Visit Type Treatment Note Visit Start Time 09:50 Visit Stop Time 10:35 Visit Number 5 Number of DRAIN TILE PRESS OPERATOR Visits 0 PT-OP-B Current Condition Start: 09/03/24 08:14 Freq: Status: Active Protocol: Document 09/03/24 09:05 [facility] (Rec: 09/03/24 09:13 [facility] [id number]) Current Condition History of Current Condition Onset Date 2 years ago. Current Complaints left side abdominal and pelvic pain History of Current Symptoms began approx 2 years ago and started with Condition irregular periods that were happening 2 times per month . It was found that Tanvi had a left sided ovarian cyst and around the same time she started getting left sided tugging pain. She underwent surgery to remove the cyst in April 2024. Tanvi reports her pain after surgery on the left is better however she is still getting that tugging pulling on the left side. She reports feeling with Transitional movements in Yoga she feels she gets stuck on the left side and also with walking long stride she gets stuck. PT-OP-C Subjective Start: 09/03/24 08:14 Freq: Status: Active Protocol: Document 09/30/24 09:52 [facility] (Rec: 09/30/24 10:46 [facility] [id number]) OP-PT Subjective Patient Comments Patient Comments pt notes her bowels have been moving she still feels tight as it is down a line PT-OP-F Manual Assessment Start: 09/03/24 08:14 Freq: Status: Active Protocol: Document 09/03/24 09:00 [facility] (Rec: 09/03/24 12:40 [facility] [id number]) Manual Assessments Soft Tissue Assessment Soft Tissue Mobility fascial restrictions throughout abdominal wall noted, Assessment left sided fascial tightness of the descending colon and over the iliopsoas tightness at the psoas distal insertion. Joint Mobility Assessment Joint Mobility left ilium inflare Assessment PT-OP-Q Treatments Start: 09/03/24 08:14 Freq: Status: Active Protocol: Document 09/30/24 09:50 [facility] (Rec: 09/30/24 16:59 [facility] [id number]) Therapeutic Exercises Supine Exercises pelvic floor isolations Reps/Minutes hold 10 seconds and rest 10 seconds x 10 reps single knee to chest stretch Reps/Minutes hold 1 min Other Exercises quadruped dynamic adductor stretch Reps/Minutes work on rocking back with left leg extended to stretch into the adductor Comments attachments on the left side, 5-10 reps Manual Therapy Treatment Soft Tissue Mobilization left proximal adductor insertion stretch Comments tightness noted at the left adductor insertion into the pubic bone, worked on fascial release her and gave Tanvi a dynamic adductor stretch for home left abdominal wall fascial release Mobilization Type Myofascial Release Intensity/Depth Moderate Body Position Supine Comments Abdominal wall in general is tight and guarded inferior ribcage and L lateral Rec Ab. Worked along the descending colon more than mid transverse colon, fascial release as well as fascial release of the Rec Ab and iliopsoas. Manual with education on self application. Ed then instruction on self stretching Joint Mobilizations left hip posterior capsule mobilizatio Comments worked on posterior capsule mobilization however Tanvi is moving well through the posterior capsule and did not feel a stretch PT-OP-T Assessment and Plan Start: 09/03/24 08:14 Freq: Status: Active Protocol: Document 09/30/24 09:50 [facility] (Rec: 09/30/24 16:59 [facility] [id number]) Physical Therapy Assessment Goals 3 Impairment pt lacks a home program for self management of her pain symptoms Coil Builder Goal (LTG) Tanvi is independent with her home program for abdominal self massage, breathing techniques and stretches LTG Duration 8 weeks 2 Impairment fascial tightness and guarding over the abdominal wall and diaphragm Coil Builder Goal (LTG) With fascial release work Tanvi presents with improved mobility of the abdominal wall LTG Duration 8 weeks 1 Impairment left sided pelvic pain that patient describes as a pulling and tugging sensation in the left lateral abdominal wall Senior Living Goal (LTG) Tanvi reports a overall reduction in left sided pain symptoms and is able to work on self abdominal massage at home LTG Duration 8 weeks Assessment Summary Assessment Tanvi notes her pain is 3/10 now, some improvments. She is working on not gripping with her abdominal wall. I did add in pelvic floor isolations for her as well as dynamic adductor stretching from a quadruped position. She is tight in the adductor attachments to the pubic bone. Tanvi questioned if she had a labral tear and I did look closer at her hip, no pain with posterior glides or in extension in kaushik test position. She reports her hip catches at times in different positions. Physical Therapy Plan Frequency and Duration Frequency of 2x/Week Treatment Duration of 8 treatment (weeks) Plan of Care Start 09/17/24 Date Plan of Care End 11/12/24 Date Therapeutic Interventions Therapeutic Home Exercise Program,Manual Therapy,Patient/Caregiver Interventions Education,Self-Care/Home Management,Soft Tissue Mobilization,Therapeutic Exercises Next Visit Focus/Plan Next Note Type Treatment Note Next Visit Plan Continue with fascial work over the abdominal wall, left iliopsoas, and fascia over the descending colon. Gentle movement ROM to decrease over engagement of abdominals, emphasis on fluid slow mobility. Check in with how Tanvi did with adductor stretches and pelvic floor engagement
--- NOTE | 2024-10-02 09:42 | PT.OTN ---
Current Diagnoses Other specified disorders of muscle (10/02/24) Other female genital prolapse (10/02/24) Physical Therapy Treatment Note PT-OP-A Visit Information Start: 09/03/24 08:14 Freq: Status: Active Protocol: Document 10/02/24 09:02 SP (Rec: 10/02/24 15:37 SP [id number]) Out-Patient Physical Therapy Visit Information Visit Information Visit Type Treatment Note Visit Start Time 09:02 Visit Stop Time 09:42 Visit Number 6 Number of HUNTING SALES ASSOCIATE Visits 1 Evaluation Information Evaluation Date 09/03/24 Precautions Precautions Hx: Apr 2024 Ovarian Cyst removal on L. PT-OP-B Current Condition Start: 09/03/24 08:14 Freq: Status: Active Protocol: Document 09/03/24 09:05 [facility] (Rec: 09/03/24 09:13 [facility] [id number]) Current Condition History of Current Condition Onset Date 2 years ago. Current Complaints left side abdominal and pelvic pain History of Current Symptoms began approx 2 years ago and started with Condition irregular periods that were happening 2 times per month . It was found that Tanvi had a left sided ovarian cyst and around the same time she started getting left sided tugging pain. She underwent surgery to remove the cyst in April 2024. Tanvi reports her pain after surgery on the left is better however she is still getting that tugging pulling on the left side. She reports feeling with Transitional movements in Yoga she feels she gets stuck on the left side and also with walking long stride she gets stuck. PT-OP-C Subjective Start: 09/03/24 08:14 Freq: Status: Active Protocol: Document 10/02/24 09:02 SP (Rec: 10/02/24 15:37 SP [id number]) OP-PT Subjective Patient Comments Patient Comments Pt reports stretching helping. She is comments not sure why always so tight on L side of her body, mainly abdomen and adductor continues today. She is trying to understand how her tightness can be related to pelvic floor as Aye has her starting some engagement. She stated she started light weight lifting and thinks bothered her her elbow, has appt with [facility] later today for Dry Needling to help pain reduction, they are seeing her for her shld. PT-OP-F Manual Assessment Start: 09/03/24 08:14 Freq: Status: Active Protocol: Document 09/03/24 09:00 [facility] (Rec: 09/03/24 12:40 [facility] [id number]) Manual Assessments Soft Tissue Assessment Soft Tissue Mobility fascial restrictions throughout abdominal wall noted, Assessment left sided fascial tightness of the descending colon and over the iliopsoas tightness at the psoas distal insertion. Joint Mobility Assessment Joint Mobility left ilium inflare Assessment PT-OP-Q Treatments Start: 09/03/24 08:14 Freq: Status: Active Protocol: Document 10/02/24 09:02 SP (Rec: 10/02/24 15:37 SP [id number]) Therapeutic Exercises Supine Exercises pelvic floor isolations Reps/Minutes hold 10 seconds and rest 10 seconds x 10 reps single knee to chest stretch Reps/Minutes hold 1 min [place] Stretch Supine Exercise Name reviewed Side bilateral Reps/Minutes 1 min Comments opp knee bent Other Exercises quadruped dynamic adductor stretch Reps/Minutes work on rocking back with left leg extended to stretch into the adductor Comments attachments on the left side, 5-10 reps quadruped TA Other Exercise Name 1. abdominal relaxation 2. lateral rocks child pose pos . Reps/Minutes 1. 5 reps hold 5 sec & relax abdominal wall x 10 sec 2 . lateral rocks hip Comments working on relaxed awareness of the abdominal wall with contract/relax, hip Manual Therapy Treatment Consent Patient gave verbal Yes consent for manual treatment Soft Tissue Mobilization left proximal adductor insertion stretch Body Location Add Longus, Brevis, Ruddy Comments tightness noted at the left adductor insertion into the pubic bone, worked on fascial release, left abdominal wall fascial release Mobilization Type Myofascial Release Intensity/Depth Moderate Body Position Supine Comments Abdominal wall in general is tight and guarded inferior ribcage and L lateral Rec Ab. Worked along the descending colon more than mid transverse colon, fascial release as well as fascial release of the Rec Ab and iliopsoas. Manual with education on self application. Continued Ed then instruction on self stretching Self-Care/Home Management Treatment Education Patient Education Body Mechanics,Pain Management,Posture,Safety Other Education Education on anatomy with pelvic floor model and how relates to abdominals and hip musculature. Use breath and body positioning. Provided her with PF HO. Showed her anatomy of hip and spine for relation understanding . She is taking some online CEUs to support her yoga instruction. PT-OP-T Assessment and Plan Start: 09/03/24 08:14 Freq: Status: Active Protocol: Document 10/02/24 09:02 SP (Rec: 10/02/24 15:37 SP [id number]) Physical Therapy Assessment Goals 3 Impairment pt lacks a home program for self management of her pain symptoms Senior Center Manager Goal (LTG) Tanvi is independent with her home program for abdominal self massage, breathing techniques and stretches LTG Duration 8 weeks 2 Impairment fascial tightness and guarding over the abdominal wall and diaphragm [facility] Goal (LTG) With fascial release work Tanvi presents with improved mobility of the abdominal wall LTG Duration 8 weeks 1 Impairment left sided pelvic pain that patient describes as a pulling and tugging sensation in the left lateral abdominal wall [facility] Goal (LTG) Tanvi reports a overall reduction in left sided pain symptoms and is able to work on self abdominal massage at home LTG Duration 8 weeks Assessment Summary Assessment Pt responds well to manual, education on anatomy abdomen, pelvic floor, hip relation and use manual, breath and stretching to decrease tension. Education on even WB and midline movement and sitting for equal body relation awareness for re-ed not over recruit L side body. Pt would benefit from continued skilled PT with manual, proper form wt trng stated has started on own for safety. PT and HUNTING SALES ASSOCIATE not availlable next 2 weeks, set up with another PT. Physical Therapy Plan Frequency and Duration Frequency of 2x/Week Treatment Duration of 8 treatment (weeks) Plan of Care Start 09/17/24 Date Plan of Care End 11/12/24 Date Therapeutic Interventions Therapeutic Home Exercise Program,Manual Therapy,Patient/Caregiver Interventions Education,Self-Care/Home Management,Soft Tissue Mobilization,Therapeutic Exercises Next Visit Focus/Plan Next Note Type Treatment Note Next Visit Plan Next 2 visits with a 3rd therapist: Check in on her self wt training doing, proper form and how can relate to tightness/joint/muscular mobililty . POC: Continue with fascial work over the abdominal wall, left iliopsoas, and fascia over the descending colon. Gentle movement ROM to decrease over engagement of abdominals , emphasis on fluid slow mobility. Check in with how Tanvi did with adductor stretches and pelvic floor engagement
--- NOTE | 2024-10-06 12:30 | PT.OTN ---
Current Diagnoses Other specified disorders of muscle (10/06/24) Other female genital prolapse (10/06/24) Physical Therapy Treatment Note PT-OP-A Visit Information Start: 09/03/24 08:14 Freq: Status: Active Protocol: Document 10/06/24 11:32 [facility] (Rec: 10/06/24 12:30 [facility] [id number]) Out-Patient Physical Therapy Visit Information Visit Information Visit Type Treatment Note Visit Start Time 11:33 Visit Stop Time 12:14 Visit Number 7 Number of COMBAT SYSTEMS ENGINEER Visits 0 PT-OP-B Current Condition Start: 09/03/24 08:14 Freq: Status: Active Protocol: Document 09/03/24 09:05 [facility] (Rec: 09/03/24 09:13 [facility] [id number]) Current Condition History of Current Condition Onset Date 2 years ago. Current Complaints left side abdominal and pelvic pain History of Current Symptoms began approx 2 years ago and started with Condition irregular periods that were happening 2 times per month . It was found that Tanvi had a left sided ovarian cyst and around the same time she started getting left sided tugging pain. She underwent surgery to remove the cyst in April 2024. Tanvi reports her pain after surgery on the left is better however she is still getting that tugging pulling on the left side. She reports feeling with Transitional movements in Yoga she feels she gets stuck on the left side and also with walking long stride she gets stuck. PT-OP-C Subjective Start: 09/03/24 08:14 Freq: Status: Active Protocol: Document 10/06/24 11:32 [facility] (Rec: 10/06/24 12:30 [facility] [id number]) OP-PT Subjective Patient Comments Patient Comments pt reports less constant tightness but has sharp pains that come and go. Has more loose stool day of COMBAT SYSTEMS ENGINEER visit last time, but improves after. She feels like PT is helping. At [facility] did plank w/plate on her back and had inc pain after. other day, abdomen caught when sitting up from supine PT-OP-F Manual Assessment Start: 09/03/24 08:14 Freq: Status: Active Protocol: Document 09/03/24 09:00 [facility] (Rec: 09/03/24 12:40 [facility] [id number]) Manual Assessments Soft Tissue Assessment Soft Tissue Mobility fascial restrictions throughout abdominal wall noted, Assessment left sided fascial tightness of the descending colon and over the iliopsoas tightness at the psoas distal insertion. Joint Mobility Assessment Joint Mobility left ilium inflare Assessment PT-OP-Q Treatments Start: 09/03/24 08:14 Freq: Status: Active Protocol: Document 10/06/24 11:32 [facility] (Rec: 10/06/24 12:30 [facility] [id number]) Manual Therapy Treatment Consent Patient gave verbal Yes consent for manual treatment Soft Tissue Mobilization left abdominal wall fascial release Comments 1. facial release along umbilicus w/LTR 2. sigmoid colon OSFM 3. descending colon OSFM 3. Lat border L Rectus abdominus w/heel slides 4. mesenteric root OSFM 5. MFR around scar tissue w/LTR PT-OP-T Assessment and Plan Start: 09/03/24 08:14 Freq: Status: Active Protocol: Document 10/06/24 11:32 [facility] (Rec: 10/06/24 12:30 [facility] [id number]) Physical Therapy Assessment Goals 3 Impairment pt lacks a home program for self management of her pain symptoms [facility] Goal (LTG) Tanvi is independent with her home program for abdominal self massage, breathing techniques and stretches LTG Duration 8 weeks 2 Impairment fascial tightness and guarding over the abdominal wall and diaphragm Chiller Tender Goal (LTG) With fascial release work Tanvi presents with improved mobility of the abdominal wall LTG Duration 8 weeks 1 Impairment left sided pelvic pain that patient describes as a pulling and tugging sensation in the left lateral abdominal wall [facility] Goal (LTG) Tanvi reports a overall reduction in left sided pain symptoms and is able to work on self abdominal massage at home LTG Duration 8 weeks Assessment Summary Assessment Pt had improved ability to go into full heel slide after manual with dec tension at abdomen after manual . Physical Therapy Plan Frequency and Duration Frequency of 2x/Week Treatment Duration of 8 treatment (weeks) Plan of Care Start 09/17/24 Date Plan of Care End 11/12/24 Date Next Visit Focus/Plan Next Note Type Treatment Note Next Visit Plan Check in on her self wt training doing, proper form and how can relate to tightness/joint/muscular mobililty . POC: Continue with fascial work over the abdominal wall, left iliopsoas, and fascia over the descending colon. Gentle movement ROM to decrease over engagement of abdominals, emphasis on fluid slow mobility. Check in with how Tanvi did with adductor stretches and pelvic floor engagement
--- NOTE | 2024-10-16 17:50 | PT.OTN ---
Current Diagnoses Other specified disorders of muscle (10/16/24) Other female genital prolapse (10/16/24) Physical Therapy Treatment Note PT-OP-A Visit Information Start: 09/03/24 08:14 Freq: Status: Active Protocol: Document 10/16/24 14:12 [facility] (Rec: 10/16/24 17:50 [facility] [id number]) Out-Patient Physical Therapy Visit Information Visit Information Visit Type Treatment Note Visit Start Time 14:36 Visit Stop Time 15:15 Visit Number 8 Number of CONSTRUCTION SECRETARY Visits 0 PT-OP-B Current Condition Start: 09/03/24 08:14 Freq: Status: Active Protocol: Document 09/03/24 09:05 [facility] (Rec: 09/03/24 09:13 [facility] [id number]) Current Condition History of Current Condition Onset Date 2 years ago. Current Complaints left side abdominal and pelvic pain History of Current Symptoms began approx 2 years ago and started with Condition irregular periods that were happening 2 times per month . It was found that Tanvi had a left sided ovarian cyst and around the same time she started getting left sided tugging pain. She underwent surgery to remove the cyst in April 2024. Tanvi reports her pain after surgery on the left is better however she is still getting that tugging pulling on the left side. She reports feeling with Transitional movements in Yoga she feels she gets stuck on the left side and also with walking long stride she gets stuck. PT-OP-C Subjective Start: 09/03/24 08:14 Freq: Status: Active Protocol: Document 10/16/24 14:12 [facility] (Rec: 10/16/24 17:50 [facility] [id number]) OP-PT Subjective Patient Comments Patient Comments Pt reports she has had zero pain or pulling since last session. She still feels heavy in her L ovary area. started some spotting yesterday and not as much today . doing a push exercise yesterday, she had a little achiness. L LB feels a little cranky PT-OP-F Manual Assessment Start: 09/03/24 08:14 Freq: Status: Active Protocol: Document 09/03/24 09:00 [facility] (Rec: 09/03/24 12:40 [facility] [id number]) Manual Assessments Soft Tissue Assessment Soft Tissue Mobility fascial restrictions throughout abdominal wall noted, Assessment left sided fascial tightness of the descending colon and over the iliopsoas tightness at the psoas distal insertion. Joint Mobility Assessment Joint Mobility left ilium inflare Assessment PT-OP-Q Treatments Start: 09/03/24 08:14 Freq: Status: Active Protocol: Document 10/16/24 14:12 [facility] (Rec: 10/16/24 17:50 [facility] [id number]) Manual Therapy Treatment Consent Patient gave verbal Yes consent for manual treatment Soft Tissue Mobilization back Comments R QL and ES w/post dep left abdominal wall fascial release Comments 1. MFR along scars on L side 2. lat border L retus abdominus w/LTR 3. descending colon OSFM Joint Mobilizations hip Comments L inf glide c/r innominate Comments L flex c/r and add c/r PT-OP-T Assessment and Plan Start: 09/03/24 08:14 Freq: Status: Active Protocol: Document 10/16/24 14:12 [facility] (Rec: 10/16/24 17:50 [facility] [id number]) Physical Therapy Assessment Goals 3 Impairment pt lacks a home program for self management of her pain symptoms [facility] Goal (LTG) Tanvi is independent with her home program for abdominal self massage, breathing techniques and stretches LTG Duration 8 weeks 2 Impairment fascial tightness and guarding over the abdominal wall and diaphragm Ordinary Seaman Goal (LTG) With fascial release work Tanvi presents with improved mobility of the abdominal wall LTG Duration 8 weeks 1 Impairment left sided pelvic pain that patient describes as a pulling and tugging sensation in the left lateral abdominal wall [facility] Goal (LTG) Tanvi reports a overall reduction in left sided pain symptoms and is able to work on self abdominal massage at home LTG Duration 8 weeks Assessment Summary Assessment Pt cont to have tension to L >R abdominals that improves w/manual. she had pain in R SI region at start of session and no pain after and ability to fully extend Physical Therapy Plan Frequency and Duration Frequency of 2x/Week Treatment Duration of 8 treatment (weeks) Plan of Care Start 09/17/24 Date Plan of Care End 11/12/24 Date Next Visit Focus/Plan Next Note Type Progress Note Next Visit Plan cont to work on core stability and mobility of hip
--- NOTE | 2024-10-22 13:40 | PT.OTN ---
Current Diagnoses Other specified disorders of muscle (10/21/24) Other female genital prolapse (10/21/24) Physical Therapy Treatment Note PT-OP-A Visit Information Start: 09/03/24 08:14 Freq: Status: Active Protocol: Document 10/21/24 09:30 [facility] (Rec: 10/21/24 17:36 [facility] [id number]) Out-Patient Physical Therapy Visit Information Visit Information Visit Type Progress Note Visit Start Time 09:50 Visit Stop Time 10:30 Visit Number 9 Number of BUCKET HOOKER Visits 0 PT-OP-B Current Condition Start: 09/03/24 08:14 Freq: Status: Active Protocol: Document 09/03/24 09:05 [facility] (Rec: 09/03/24 09:13 [facility] [id number]) Current Condition History of Current Condition Onset Date 2 years ago. Current Complaints left side abdominal and pelvic pain History of Current Symptoms began approx 2 years ago and started with Condition irregular periods that were happening 2 times per month . It was found that Tanvi had a left sided ovarian cyst and around the same time she started getting left sided tugging pain. She underwent surgery to remove the cyst in April 2024. Tanvi reports her pain after surgery on the left is better however she is still getting that tugging pulling on the left side. She reports feeling with Transitional movements in Yoga she feels she gets stuck on the left side and also with walking long stride she gets stuck. PT-OP-C Subjective Start: 09/03/24 08:14 Freq: Status: Active Protocol: Document 10/21/24 17:36 [facility] (Rec: 10/21/24 17:37 [facility] [id number]) OP-PT Subjective Patient Comments Patient Comments Tanvi notes she is better but still feels she guards on the left side and after doing planks with weight and pushing a sled she has more left sided flank pain. Tanvi does report a hx of pelvic congestion PT-OP-F Manual Assessment Start: 09/03/24 08:14 Freq: Status: Active Protocol: Document 09/03/24 09:00 [facility] (Rec: 09/03/24 12:40 [facility] [id number]) Manual Assessments Soft Tissue Assessment Soft Tissue Mobility fascial restrictions throughout abdominal wall noted, Assessment left sided fascial tightness of the descending colon and over the iliopsoas tightness at the psoas distal insertion. Joint Mobility Assessment Joint Mobility left ilium inflare Assessment PT-OP-Q Treatments Start: 09/03/24 08:14 Freq: Status: Active Protocol: Document 10/16/24 14:12 [facility] (Rec: 10/16/24 17:50 [facility] [id number]) Manual Therapy Treatment Consent Patient gave verbal Yes consent for manual treatment Soft Tissue Mobilization back Comments R QL and ES w/post dep left abdominal wall fascial release Comments 1. MFR along scars on L side 2. lat border L retus abdominus w/LTR 3. descending colon OSFM Joint Mobilizations hip Comments L inf glide c/r innominate Comments L flex c/r and add c/r PT-OP-T Assessment and Plan Start: 09/03/24 08:14 Freq: Status: Active Protocol: Document 10/21/24 09:45 [facility] (Rec: 10/22/24 13:32 [facility] [id number]) Physical Therapy Assessment Goals 3 Impairment pt lacks a home program for self management of her pain symptoms Production Machine Tender Goal (LTG) Tanvi is independent with her home program for abdominal self massage, breathing techniques and stretches Tanvi is working on all her stretches, pelvic floor isolation, breathing techniques, and pelvic decompression LTG Duration 8 weeks 2 Impairment fascial tightness and guarding over the abdominal wall and diaphragm Production Machine Tender Goal (LTG) With fascial release work Tanvi presents with improved mobility of the abdominal wall Tanvi has noted small amounts of change but still presents with tightness and guarding LTG Duration 8 weeks 1 Impairment left sided pelvic pain that patient describes as a pulling and tugging sensation in the left lateral abdominal wall Half-Way Goal (LTG) Tanvi reports a overall reduction in left sided pain symptoms and is able to work on self abdominal massage at home Small amounts of change only and tanvi continues to feel the left sided abdominal wall and groin achy symptoms LTG Duration 8 weeks Assessment Summary Assessment Tanvi continues to have tension Left >Right abdominal wall and in the iliopsoas region. She also mentions having pelvic congestion which can create of left lateral wall ache. She may benefit from further work up for this as it is possible she is experiencing varicose veins putting pressure on her surrounding tissues. I did talk to Tanvi about working a lot with pelvic decompression on a wedge and legs up the wall for decompression and continuing with her pelvic floor exercises. At this point she is feeling a small amount of improvement and would like to continue PT. I would also like to have her seen again for further work up regarding the pelvic congestion. Physical Therapy Plan Frequency and Duration Frequency of 2x/Week Treatment Duration of 8 treatment (weeks) Plan of Care Start 10/21/24 Date Plan of Care End 12/16/24 Date Therapeutic Interventions Therapeutic Home Exercise Program,Manual Therapy,Patient/Caregiver Interventions Education,Self-Care/Home Management,Soft Tissue Mobilization,Therapeutic Exercises Next Visit Focus/Plan Next Note Type Progress Note Next Visit Plan cont to work on core stability and mobility of hip as well as pelvic decompression and MFR for the left side of the abdominal wall
--- NOTE | 2024-10-22 13:40 | PT.OPPOC ---
Physical, Occupational & Speech Therapy At [facility] Current Diagnoses Other specified disorders of muscle (10/21/24) Other female genital prolapse (10/21/24) Visit Care Team Role Provider Type Patricio Jauregui MD Family Provider Physician Primary Care Provider Specialty: Internal Medicine Address: [address] [place] [address], [address], [place], [address] Email: [email or web address] Kaela Sellers MD Attending Provider Physician Referring Provider Specialty: Gynecology PRODUCT ENGINEERING MANAGER Obstetrics Address: [address] [place] [address] [address] [place] [address], [id number] Email: [email or web address] Plan Of Care PT-OP-B Current Condition Start: 09/03/24 08:14 Freq: Status: Active Protocol: Document 09/03/24 09:05 [facility] (Rec: 09/03/24 09:13 [facility] [id number]) Current Condition History of Current Condition Onset Date 2 years ago. Current Complaints left side abdominal and pelvic pain History of Current Symptoms began approx 2 years ago and started with Condition irregular periods that were happening 2 times per month . It was found that Dylan had a left sided ovarian cyst and around the same time she started getting left sided tugging pain. She underwent surgery to remove the cyst in April 2024. Dylan reports her pain after surgery on the left is better however she is still getting that tugging pulling on the left side. She reports feeling with Transitional movements in Yoga she feels she gets stuck on the left side and also with walking long stride she gets stuck. PT-OP-T Assessment and Plan Start: 09/03/24 08:14 Freq: Status: Active Protocol: Document 10/21/24 09:45 [facility] (Rec: 10/22/24 13:32 [facility] [id number]) Physical Therapy Assessment Goals 3 Impairment pt lacks a home program for self management of her pain symptoms Detention Goal (LTG) Dylan is independent with her home program for abdominal self massage, breathing techniques and stretches Dylan is working on all her stretches, pelvic floor isolation, breathing techniques, and pelvic decompression LTG Duration 8 weeks 2 Impairment fascial tightness and guarding over the abdominal wall and diaphragm Detention Goal (LTG) With fascial release work Dylan presents with improved mobility of the abdominal wall Dylan has noted small amounts of change but still presents with tightness and guarding LTG Duration 8 weeks 1 Impairment left sided pelvic pain that patient describes as a pulling and tugging sensation in the left lateral abdominal wall Greenhouse Transplanter Goal (LTG) Dylan reports a overall reduction in left sided pain symptoms and is able to work on self abdominal massage at home Small amounts of change only and dylan continues to feel the left sided abdominal wall and groin achy symptoms LTG Duration 8 weeks Assessment Summary Assessment Dylan continues to have tension Left >Right abdominal wall and in the iliopsoas region. She also mentions having pelvic congestion which can create of left lateral wall ache. She may benefit from further work up for this as it is possible she is experiencing varicose veins putting pressure on her surrounding tissues. I did talk to Dylan about working a lot with pelvic decompression on a wedge and legs up the wall for decompression and continuing with her pelvic floor exercises. At this point she is feeling a small amount of improvement and would like to continue PT. I would also like to have her seen again for further work up regarding the pelvic congestion. Physical Therapy Plan Frequency and Duration Frequency of 2x/Week Treatment Duration of 8 treatment (weeks) Plan of Care Start 10/21/24 Date Plan of Care End 12/16/24 Date Therapeutic Interventions Therapeutic Home Exercise Program,Manual Therapy,Patient/Caregiver Interventions Education,Self-Care/Home Management,Soft Tissue Mobilization,Therapeutic Exercises Next Visit Focus/Plan Next Note Type Progress Note Next Visit Plan cont to work on core stability and mobility of hip as well as pelvic decompression and MFR for the left side of the abdominal wall Plan of Care Dates Plan of Care Start Date 10/21/24 Plan of Care End Date 12/16/24 Electronically Signed by: Aye Lyons, PT 10/22/24 [id number] If you are in agreement with this Plan of Care, please return a signed and dated copy. I have reviewed this Plan of Care and certify that the skilled therapy services above are required to meet the patient?s needs. Physician Signature Date Printed Name and Credentials Clinical Instructor Signature Printed Name and Credentials
--- NOTE | 2024-10-27 10:03 | PT-OP ANOTE ---
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 Reminded next appt 11/05 but also suggested call back when can and reschedule appt to another day this week if available.
== END 2024-12-04 13:25 | disposition home or self-care (01) ==
LOC: PHYS 09:45
PROVIDERS: Family Provider Internal Medicine; PCP Internal Medicine; Referring Provider Obstetrics & Gynecology; Visit Provider Obstetrics & Gynecology
DX: M62.89 Other specified disorders of muscle (principal); N81.89 Other female genital prolapse
CPT/HCPCS: 97110; 97140; 97161; 97535

== ENCOUNTER → 2025-01-29 06:45 | Outpatient (CLI) | payer BC, SELFPAY ==
--- NOTE | 2025-01-29 06:46 | DI.US.S_ITS ---
PROCEDURE: US PELVIC COMPLETE
== END ==
LOC: US 06:45
PROVIDERS: PCP Internal Medicine; Referring Provider Internal Medicine; Visit Provider Internal Medicine
DX: R10.20 Pelvic and perineal pain unspecified side (principal)
CPT/HCPCS: 76830; 76856; 93975